=== PATIENT | male | born 1950 | race Caucasian/White ===

== ENCOUNTER 2017-09-16 18:53 | Inpatient (IN) | payer BC ==
[~2017-09-16] VITALS: Ht 180.3 cm; Wt 97.1 kg
[2017-09-16 19:40] LABS: BASO % 0.2 %; BASO ABS # 0.02 K/uL (0-0.2); EOS % 2.1 %; EOS ABS # 0.18 K/uL (0-0.5); HEMATOCRIT 46.2 % (42-52); HEMOGLOBIN 17.2 g/dL (14.0-18.0); IG# 0.03 K/uL (0.00-0.02); LYMPH % 25.2 %; LYMPH ABS # 2.14 K/uL (1.2-3.4); MEAN CELL VOLUME 91.7 fL (80-100); MEAN CORPUSCULAR HEMOGLOBIN 34.1 pg (25-34); MEAN CORPUSCULAR HGB CONC 37.2 g/dl (32-36); MEAN PLATELET VOLUME 10.5 fL (7.4-10.4); MONO % 10.5 %; MONO ABS # 0.89 K/uL (0.11-0.59); NEUT % 61.6 %; NEUT ABS # 5.24 K/uL (1.4-6.5); PLATELET COUNT 153 K/uL (130-400); RED CELL DISTRIBUTION WIDTH CV 12.6 % (11.5-14.5); RED CELL DISTRIBUTION WIDTH SD 42.1 fL (36.4-46.3)
[2017-09-16] MEDS ORDERED: METOPROLOL PO (19:43)
[2017-09-16] MEDS ORDERED: [UNRECOGNIZED DRUG - OTHER] PO (19:45)
[2017-09-16] MEDS ORDERED: [UNRECOGNIZED DRUG - OTHER] PO (19:46)
[2017-09-16 19:50] LABS: INR 0.9 (0.9-1.1); PTT PATIENT 27.7 SECONDS (21.0-31.0)
[2017-09-16 19:57] LABS: ALBUMIN 3.8 gm/dl (3.4-5.0); CALCIUM 8.8 mg/dl (8.5-10.1); CREATININE 0.91 mg/dl (0.60-1.40); POTASSIUM 3.6 mmol/L (3.5-5.1)
[2017-09-16 20:08] LABS: CKMB 1.8 ng/ml (0.5-3.6); TOTAL PROTEIN 7.5 gm/dl (6.4-8.2)
--- NOTE | 2017-09-16 20:17 | DIAGNOSTIC IMAGING REPORT ---
CHEST ONE VIEW PORTABLE CLINICAL HISTORY: Fever. Sepsis. COMPARISON STUDY: Chest radiograph August 16, 2013. FINDINGS: Lung volumes are normal. Mild cardiomegaly is unchanged. There is no evidence of pulmonary edema. There is no consolidation to suggest pneumonia. Cardiomediastinal silhouette is stable. No pneumothorax or pleural effusion is present. IMPRESSION: No acute cardiopulmonary findings. No change in appearance of the chest. Electronically signed by: Ruperto Padilla M.D. 09/16/2017 8:16 PM Dictated Date/Time: 09/16/2017 8:14 PM
[2017-09-16] MEDS ORDERED: ASPIRIN 81 MG CHEW PO STA (20:31)
[2017-09-16] MEDS ORDERED: ENOXAPARIN 1 MG/KG SQ SCH (20:45)
[2017-09-16] MEDS ORDERED: NITROGLYCERIN 0.4 MG SL PER TAB CHARGE SL PRN (20:45)
[2017-09-16] MEDS ORDERED: MoRPHine SULFATE 2 MG/ML CARP IV PRN (20:45)
[2017-09-16] MEDS ORDERED: POLYETHYLENE (MIRALAX) 17 GM PACK PO PRN (20:45)
[2017-09-16] MEDS ORDERED: NITROGLYCERIN OINT 2% 1GM PACKET EXT ONE (20:45)
[2017-09-16] MEDS ORDERED: ALUMINUM/MAGNESIUM/SIMETH (MAALOX MAX) 30 ML UDC PO PRN (20:45)
[2017-09-16] MEDS ORDERED: ONDANSETRON INJ 2 MG/ML 2 ML VIAL IV PRN (20:45)
[2017-09-16] MEDS ORDERED: MAGNESIUM HYDROXIDE SUSP 30 ML UDC PO PRN (20:45)
[2017-09-16] MEDS ORDERED: ZOLPIDEM TARTRATE 5 MG TAB PO PRN (20:45)
[2017-09-16] MEDS ORDERED: ACETAMINOPHEN 325 MG TAB PO PRN (20:45)
[2017-09-16] MEDS: ATORVASTATIN 20 MG TAB PO SCH ×2 (21:00→22:43)
[2017-09-16] MEDS ORDERED: LISINOPRIL 5 MG TAB PO ONE (21:00)
--- NOTE | 2017-09-16 21:20 | EMERGENCY ROOM VISIT NOTE ---
History Report prepared by Nigel: Reece Vallejo Under the Supervision of: Dr. Memo Bunn D.O. First contact with patient: 19:05 Chief Complaint: CHEST PAIN Stated Complaint: HEART PAIN History of Present Illness The patient is a 67 year old male who presents to the Emergency Room with complaints of resolved intermittent dull left sided chest pain that occurred three days ago. He is currently not experiencing any pain. At that time, the patient was exerting himself while stacking wood outside, when he suddenly became extremely dizzy. He then felt this deep sensation in his chest with bilateral arm weakness, which has never happened before. He denies any shortness of breath at that time, but his chest felt tight. He was then very fatigued over the next few days. He then experienced this same pain today while walking up and down the stairs. He has a past medical history of lyme disease in May of this year. He was treated with 4 weeks of Doxycycline and notes that he has been improving significantly since then. He is supposed to be taking Metoprolol for his hypertension but has been using homeopathy medicines for his condition instead. Source of History: patient Onset: three days ago Position: chest (left) Symptom Intensity: moderate Quality: dull Timing: resolved Modifying Factors (Worsening): exertion Associated Symptoms: No SOB Note: He is currently asymptomatic. When he exerted himself, he was dizzy with a tightness in his chest and weakness to his bilateral arms. Review of Systems See HPI for pertinent positives & negatives. A total of 10 systems reviewed and were otherwise negative. Past Medical & Surgical Medical Problems: (1) Chest pain (2) HTN (hypertension) (3) Lyme disease (4) Troponin I above reference range Family History Omitted secondary to the patient's age. Social History Smoking Status: Never Smoker Smokeless Tobacco Use: No Drug Use: none Marital Status: Housing Status: lives with family Occupation Status: employed Current/Historical Medications Scheduled [Metoprolol], 1 TAB PO DAILY [Samento], 1 TAB PO DAILY [Tesal Herb], 1 DOSE PO DAILY Allergies Uncoded Allergies: HAIRSPRAY (Allergy, Severe, ITCHY, COUGH, 09/16/17) HORSE HAIR (Allergy, Severe, ITCHY, COUGH, 09/16/17) Physical Exam Vital Signs Date Time Temp Pulse Resp B/P (MAP) Pulse Ox O2 Delivery O2 Flow Rate FiO2 09/16/17 20:40 72 09/16/17 20:11 96 Room Air 09/16/17 20:09 88 20 181/111 96 Room Air 09/16/17 20:06 Room Air 09/16/17 18:57 37.2 78 16 218/104 95 Room Air Physical Exam CONSTITUTIONAL/VITAL SIGNS: Reviewed / noted above. GENERAL: Non-toxic in appearance. INTEGUMENTARY: Warm, dry, and [place]. HEAD: Normocephalic. EYES: without scleral icterus or trauma. ENT/OROPHARYNX: clear and moist. LYMPHADENOPATHY/NECK: Is supple without lymphadenopathy or meningismus. RESPIRATORY: Lungs clear and equal. CARDIOVASCULAR: Regular rate and rhythm. GI/ABDOMEN: Soft and nontender. No organomegaly or pulsatile mass. No rebound or guarding. Normal bowel sounds. EXTREMITIES: Warm and well perfused. BACK: No CVA tenderness. NEUROLOGICAL: Intact without focal deficits. PSYCHIATRIC: normal affect. MUSCULOSKELETAL: Normally developed with good muscle tone. Medical Decision & Procedures ER Provider Diagnostic Interpretation: Radiology results as stated below per my review and radiologist interpretation: CHEST ONE VIEW PORTABLE CLINICAL HISTORY: Fever. Sepsis. COMPARISON STUDY: Chest radiograph August 16, 2013. FINDINGS: Lung volumes are normal. Mild cardiomegaly is unchanged. There is no evidence of pulmonary edema. There is no consolidation to suggest pneumonia. Cardiomediastinal silhouette is stable. No pneumothorax or pleural effusion is present. IMPRESSION: No acute cardiopulmonary findings. No change in appearance of the chest. Electronically signed by: Ruperto Padilla M.D. 09/16/2017 8:16 PM Dictated Date/Time: 09/16/2017 8:14 PM Laboratory Results 09/16/17 19:25 Red Blood Count 5.04, Mean Corpuscular Volume 91.7, Mean Corpuscular Hemoglobin 34.1, Mean Corpuscular Hemoglobin Concent 37.2, Mean Platelet Volume 10.5, Neutrophils (%) (Auto) 61.6, Lymphocytes (%) (Auto) 25.2, Monocytes (%) (Auto) 10.5, Eosinophils (%) (Auto) 2.1, Basophils (%) (Auto) 0.2, Neutrophils # (Auto ) 5.24, Lymphocytes # (Auto) 2.14, Monocytes # (Auto) 0.89, Eosinophils # (Auto ) 0.18, Basophils # (Auto) 0.02 09/16/17 19:25 Test 09/16/17 19:25 09/16/17 20:11 White Blood Count 8.50 K/uL (4.8-10.8) Red Blood Count 5.04 M/uL (4.7-6.1) Hemoglobin 17.2 g/dL (14.0-18.0) Hematocrit 46.2 % (42-52) Mean Corpuscular Volume 91.7 fL (80-100) Mean Corpuscular Hemoglobin 34.1 pg (25-34) Mean Corpuscular Hemoglobin Concent 37.2 g/dl (32-36) Platelet Count 153 K/uL (130-400) Mean Platelet Volume 10.5 fL (7.4-10.4) Neutrophils (%) (Auto) 61.6 % Lymphocytes (%) (Auto) 25.2 % Monocytes (%) (Auto) 10.5 % Eosinophils (%) (Auto) 2.1 % Basophils (%) (Auto) 0.2 % Neutrophils # (Auto) 5.24 K/uL (1.4-6.5) Lymphocytes # (Auto) 2.14 K/uL (1.2-3.4) Monocytes # (Auto) 0.89 K/uL (0.11-0.59) Eosinophils # (Auto) 0.18 K/uL (0-0.5) Basophils # (Auto) 0.02 K/uL (0-0.2) RDW Standard Deviation 42.1 fL (36.4-46.3) RDW Coefficient of Variation 12.6 % (11.5-14.5) Immature Granulocyte % (Auto) 0.4 % Immature Granulocyte # (Auto) 0.03 K/uL (0.00-0.02) Prothrombin Time 10.1 SECONDS (9.0-12.0) Prothromb Time International Ratio 0.9 (0.9-1.1) Activated Partial Thromboplast Time 27.7 SECONDS (21.0-31.0) Partial Thromboplastin Ratio 1.1 Anion Gap 7.0 mmol/L (3-11) Est Creatinine Clear Calc Drug Dose 97.9 ml/min Estimated GFR () 102.1 Estimated GFR (Non- 88.1 BUN/Creatinine Ratio 19.4 (10-20) Calcium Level 8.8 mg/dl (8.5-10.1) Total Bilirubin 0.5 mg/dl (0.2-1) Direct Bilirubin 0.1 mg/dl (0-0.2) Aspartate Amino Transf (AST/SGOT) 19 U/L (15-37) Alanine Aminotransferase (ALT/SGPT) 28 U/L (12-78) Alkaline Phosphatase 102 U/L (45-117) Total Creatine Kinase 100 U/L (39-308) Creatine Kinase MB 1.8 ng/ml (0.5-3.6) Creatine Kinase MB Ratio 1.8 (0-3.0) Troponin I 0.162 ng/ml (0-0.045) Total Protein 7.5 gm/dl (6.4-8.2) Albumin 3.8 gm/dl (3.4-5.0) Lipase 132 U/L (73-393) Urine Color YELLOW Urine Appearance CLEAR (CLEAR) Urine pH 7.0 (4.5-7.5) Urine Specific [place] 1.018 (1.000-1.030) Urine Protein NEG (NEG) Urine Glucose (UA) NEG (NEG) Urine Ketones NEG (NEG) Urine Occult Blood NEG (NEG) Urine Nitrite NEG (NEG) Urine Bilirubin NEG (NEG) Urine Urobilinogen NEG (NEG) Urine Leukocyte Esterase NEG (NEG) Laboratory results as stated above per my review. Medications Administered Medications (Trade) Dose Ordered Sig/Mike Route Start Time Stop Time Status Last Admin Dose Admin Aspirin (Aspirin Chew) 324 mg NOW STAT PO 09/16/17 20:31 09/16/17 20:34 DC 09/16/17 20:48 324 MG ECG Indication: chest pain Rate (beats per minute): 79 Rhythm: normal sinus Findings: no acute ischemic change, no ectopy ED Course 1904: Previous medical records were reviewed. The patient was evaluated in room B11. A complete history and physical examination was performed. 2030: Ordered Heparin Sodium/Dextrose 1 ea N/A, Aspirin Chew 324 mg PO 2050: On reevaluation, the patient is resting. I discussed the results and findings with him. He verbalized agreement of the treatment plan. I spoke with Dr. Dumont of the [facility]. The patient will be evaluated for further management and care. Medical Decision Differentials considered include acute myocardial infarction, acute coronary syndrome, myocarditis, pericarditis, pericardial effusions/tamponade, esophageal perforation, thoracic aortic dissection, pulmonary embolism, pneumonia, pneumothorax, pancreatitis, shingles, acute cholecystitis, and perforated abdominal viscus. This is a 67-year-old male who presents to the ED with a chief complaint of exertional chest pain. He states that he had symptoms on Friday as well as today. He also felt fatigued over the weekend. The patient states he is currently not having any discomfort. His exam was unremarkable. His vital signs revealed hypertension. He is supposed to be taking metoprolol for his hypertension but states that he has been using an herbal medication instead. The patient has a normal CBC and chemistry panel. The troponin is elevated. His EKG does not show any acute ischemic changes. His EKG reveals a sinus rhythm. Chest x-ray did not show acute disease. The patient was treated with aspirin by mouth, nitroglycerin paste as well as heparin IV. He was seen by the hospitalist for further inpatient evaluation and care. Medication Reconcilliation Current Medication List: was personally reviewed by me Blood Pressure Screening Patient's blood pressure: Elevated blood pressure Referred to the hospitalist. Consults Time Called: 2044 Consulting Physician: Dr. Julia Britt [facility] [place] Returned Call: 2050 Discussed the patient's case. The patient will be evaluated for further treatment and disposition. Impression Primary Impression: Unstable angina Scribe Attestation The scribe's documentation has been prepared under my direction and personally reviewed by me in its entirety. I confirm that the note above accurately reflects all work, treatment, procedures, and medical decision making performed by me. Departure Information Dispostion Being Evaluated By Hospitalist Referrals No Doctor, Assigned (PCP) Patient Instructions My [facility]
[2017-09-16] MEDS ORDERED: HEPARIN 25000 UNIT/500 ML D5W ONE (21:27)
--- NOTE | 2017-09-16 21:39 | History and Physical ---
History & Physical Date & Time of Service: Sep 16, 2017 at 21:29 Chief Complaint: Heart Pain Primary Care Physician: No Doctor, Assigned History of Present Illness Source: patient 67 y/o M Hx HTN. 5 days prior, he had been unloading some wood and developed central, squeezing CP accompanied by SOB. He denies N/V, lightheadedness or diaphoresis. The pain recurred again today associated with exrtion. 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 The pt states that he was diagnosed with Lyme disease in may and had gained 22 pounds as a result of related inactivity. He also states that he had been prescribed a B destiny for HTN which he has not complied with as it made him feel poorly. His BP was markedly elevated on arrival to the hospital. Past Medical/Surgical History Medical Problems: (1) HTN (hypertension) Status: Chronic (2) Lyme disease Status: Resolved Family History Mother alitony and well at 86 - Father in 70s - no documented CAD Social History Smoking Status: Never Smoker Smokeless Tobacco Use: No Drug Use: none Marital Status: Occupational Status: employed Allergies Uncoded Allergies: HAIRSPRAY (Allergy, Severe, ITCHY, COUGH, 09/16/17) HORSE HAIR (Allergy, Severe, ITCHY, COUGH, 09/16/17) Home Medications Scheduled [Metoprolol], 1 TAB PO DAILY [Samento], 1 TAB PO DAILY [Tesal Herb], 1 DOSE PO DAILY Review of Systems Constitutional: No fever, No chills, No sweats Eyes: No worsening of vision ENT: No hearing loss, No nasal symptoms Respiratory: No cough, No sputum, No wheezing Cardiovascular: + chest pain (as reported above) Abdomen: No pain, No nausea, No vomiting Musculoskeletal: No joint pain Genitourinary - Male: No hematuria, No dysuria Neurologic: No memory loss, No paralysis, No weakness Psychiatric: No depression symptoms Endocrine: No fatigue Hematologic / Lymphatic: No abnormal bleeding/bruising Integumentary: No rash Allergic / Immunologic: No environmental allergies Physical Exam Vital Signs Date Time Temp Pulse Resp B/P (MAP) Pulse Ox O2 Delivery O2 Flow Rate FiO2 09/16/17 20:40 72 09/16/17 20:11 96 Room Air 09/16/17 20:09 88 20 181/111 96 Room Air 09/16/17 20:06 Room Air 09/16/17 18:57 37.2 78 16 218/104 95 Room Air General Appearance: WD/WN, no apparent distress, + obese Head: normocephalic Eyes: normal inspection ENT: normal ENT inspection, pharynx normal Neck: supple, no JVD Respiratory/Chest: chest non-tender, lungs clear, normal breath sounds Cardiovascular: regular rate, rhythm, no edema, no gallop Abdomen/GI: normal bowel sounds, non tender, soft Back: normal inspection, no CVA tenderness, no muscle spasm, normal range of motion Extremities/Musculoskelatal: normal inspection, no calf tenderness, normal capillary refill, no pedal edema, normal range of motion Neurologic/Psych: glass maker II-XII nml as tested, no motor/sensory deficits, alert, normal mood/affect, normal reflexes, oriented x 3 Skin: normal color, warm/dry, no rash Diagnostics Laboratory Results Results Past 24 Hours Test 09/16/17 19:25 09/16/17 20:11 Range/Units White Blood Count 8.50 4.8-10.8 K/uL Red Blood Count 5.04 4.7-6.1 M/uL Hemoglobin 17.2 14.0-18.0 g/dL Hematocrit 46.2 42-52 % Mean Corpuscular Volume 91.7 80-100 fL Mean Corpuscular Hemoglobin 34.1 25-34 pg Mean Corpuscular Hemoglobin Concent 37.2 32-36 g/dl Platelet Count 153 130-400 K/uL Mean Platelet Volume 10.5 7.4-10.4 fL Neutrophils (%) (Auto) 61.6 % Lymphocytes (%) (Auto) 25.2 % Monocytes (%) (Auto) 10.5 % Eosinophils (%) (Auto) 2.1 % Basophils (%) (Auto) 0.2 % Neutrophils # (Auto) 5.24 1.4-6.5 K/uL Lymphocytes # (Auto) 2.14 1.2-3.4 K/uL Monocytes # (Auto) 0.89 0.11-0.59 K/uL Eosinophils # (Auto) 0.18 0-0.5 K/uL Basophils # (Auto) 0.02 0-0.2 K/uL RDW Standard Deviation 42.1 36.4-46.3 fL RDW Coefficient of Variation 12.6 11.5-14.5 % Immature Granulocyte % (Auto) 0.4 % Immature Granulocyte # (Auto) 0.03 0.00-0.02 K/uL Prothrombin Time 10.1 9.0-12.0 SECONDS Prothromb Time International Ratio 0.9 0.9-1.1 Activated Partial Thromboplast Time 27.7 21.0-31.0 SECONDS Partial Thromboplastin Ratio 1.1 Sodium Level 140 136-145 mmol/L Potassium Level 3.6 3.5-5.1 mmol/L Chloride Level 107 98-107 mmol/L Carbon Dioxide Level 26 21-32 mmol/L Anion Gap 7.0 3-11 mmol/L Blood Urea Nitrogen 18 7-18 mg/dl Creatinine 0.91 0.60-1.40 mg/dl Est Creatinine Clear Calc Drug Dose 97.9 ml/min Estimated GFR () 102.1 Estimated GFR (Non- 88.1 BUN/Creatinine Ratio 19.4 10-20 Random Glucose 85 70-99 mg/dl Calcium Level 8.8 8.5-10.1 mg/dl Total Bilirubin 0.5 0.2-1 mg/dl Direct Bilirubin 0.1 0-0.2 mg/dl Aspartate Amino Transf (AST/SGOT) 19 15-37 U/L Alanine Aminotransferase (ALT/SGPT) 28 12-78 U/L Alkaline Phosphatase 102 45-117 U/L Total Creatine Kinase 100 39-308 U/L Creatine Kinase MB 1.8 0.5-3.6 ng/ml Creatine Kinase MB Ratio 1.8 0-3.0 Troponin I 0.162 0-0.045 ng/ml Total Protein 7.5 6.4-8.2 gm/dl Albumin 3.8 3.4-5.0 gm/dl Lipase 132 73-393 U/L Urine Color YELLOW Urine Appearance CLEAR CLEAR Urine pH 7.0 4.5-7.5 Urine Specific [place] 1.018 1.000-1.030 Urine Protein NEG NEG Urine Glucose (UA) NEG NEG Urine Ketones NEG NEG Urine Occult Blood NEG NEG Urine Nitrite NEG NEG Urine Bilirubin NEG NEG Urine Urobilinogen NEG NEG Urine Leukocyte Esterase NEG NEG Microbiology Results 09/16/17 Blood Culture, Received Pending 09/16/17 Blood Culture, Ordered Pending CXR normal EKG NSR - inf Q wvs Impression Assessment and Plan 67 y/o M Hx HTN. 5 days prior, he had been unloading some wood and developed central, squeezing CP accompanied by SOB. He denies N/V, lightheadedness or diaphoresis. The pain recurred again today associated with exertion. 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 The pt states that he was diagnosed with Lyme disease in may and had gained 22 pounds as a result of related inactivity. He also states that he had been prescribed a B destiny for HTN which he has not complied with as it made him feel poorly. His BP was markedly elevated on arrival to the hospital. 1) CP - elevated trop and EKG changes - CP has resolved at rest - Pt placed on full dose Lovenox, ASA, Statin and a B destiny. An echo and a cardio consult are requested. 2) HTN - Placed on a B destiny and Lisinopril as monotherapy is unlikely to be effective with his current readings. Full code - Full dose Lovenox total time for this admit including review of labs, meds, imaging, records - discussion with pt and ER attending - 33 min Level of Care Telemetry Resuscitation Status FULL RESUSCITATION VTE Prophylaxis VTE Risk Assessment Done? Y/N: Yes Risk Level: Low Given or contraindicated: Enoxaparin (Lovenox)SQ
[2017-09-16] MEDS ORDERED: IV FLUIDS COMPLETED PRN (22:00)
[2017-09-16] MEDS ORDERED: HEPARIN 25,000 UNIT/500ML D5W 500 ML IV PRN (22:00)
[2017-09-16] MEDS: METOPROLOL TARTRATE 25 MG TAB PO SCH (22:02)
--- NOTE | 2017-09-16 22:15 | NUR ---
A/ID: Patient arrived to PCU room 241-1 from ED, admitted with chest pain and elevated troponin. Patient alert and oriented, denies pain at this time. Lung sounds clear, no dyspnea. No edema noted, sinus rhythm on monitor, hypertensive 200s/110s. Abdomen soft nontender, denies nausea/vomiting, will be NPO at midnight. Voids clear yellow in urinal. Skin intact. Up ad christa in room. Heparin infusing@31cc/hr. Code word established, fall agreement signed. Plan for echo in the morning and possible cardiac cath. Call coyne in reach, will continue to monitor.
[2017-09-16] MEDS ORDERED: [UNRECOGNIZED DRUG - REMARK] ONE (22:30)
[2017-09-16] MEDS: ENOXAPARIN 100 MG/1ML SYR SQ SCH (22:42)
[2017-09-16] MEDS: D5NSS + 20MEQ KCL 1,000 ML IV SCH (22:43)
[2017-09-16 22:51] VITALS: BP_SYST 195; BP_SYST 207; BP_DIAS 117; BP_DIAS 99; PULSE 96; TEMP 37.2; O2SAT 94; Ht 180.3 cm; Wt 97.1 kg
[2017-09-16 23:20] VITALS: BP 182/95; PULSE 68; TEMP 36.7; O2SAT 92
[2017-09-16 23:59] VITALS: O2SAT 92
[2017-09-17] VITALS (24 sets, daily range): BP systolic 131–211; BP diastolic 75–123; PULSE 63–96; TEMP 36.5–37.8; O2SAT 92–96
--- NOTE | 2017-09-17 00:26 | NUR ---
A- PT HAD LATE SANDWICH TRAY PRIOR TO MN. NPO AFTER MN. MONITOR SR. RESP REG AND EASY. IV W/ KCL INFUSING AT 100CC/HR. NO C/O CP/PRESSURE OR SOB. CALL JACKSON IN REACH.
[2017-09-17] MEDS: NITROGLYCERIN OINT 2% 1GM PACKET EXT SCH ×4 (03:24→20:59)
--- NOTE | 2017-09-17 04:32 | NUR ---
A- NO C/O CP/PRESSURE OR SOB. NO CHANGE IN PT STATUS. CALL JACKSON IN REACH.
[2017-09-17] MEDS ORDERED: PERFLUTREN LIPID MICROSPHERE (DEFINITY) IV ONE (07:50)
[2017-09-17 08:25] LABS: HEMATOCRIT 43.2 % (42-52); HEMOGLOBIN 15.5 g/dL (14.0-18.0); MEAN CELL VOLUME 91.7 fL (80-100); MEAN CORPUSCULAR HEMOGLOBIN 32.9 pg (25-34); MEAN CORPUSCULAR HGB CONC 35.9 g/dl (32-36); MEAN PLATELET VOLUME 10.6 fL (7.4-10.4); PLATELET COUNT 147 K/uL (130-400); RED CELL DISTRIBUTION WIDTH CV 12.6 % (11.5-14.5); RED CELL DISTRIBUTION WIDTH SD 42.3 fL (36.4-46.3); WHITE BLOOD COUNT 5.85 K/uL (4.8-10.8)
[2017-09-17] MEDS ORDERED: LISINOPRIL 5 MG TAB PO SCH (09:00)
[2017-09-17] MEDS: ASPIRIN 81 MG ECTAB PO SCH (09:31)
[2017-09-17] MEDS: METOPROLOL TARTRATE 25 MG TAB PO SCH ×2 (09:31→21:00)
[2017-09-17] MEDS: D5NSS + 20MEQ KCL 1,000 ML IV SCH (09:32)
[2017-09-17] MEDS: ENOXAPARIN 100 MG/1ML SYR SQ SCH (09:55)
--- NOTE | 2017-09-17 10:37 | Medical Student: [facility] ---
Med Student Progress Note Date of Service Sep 17, 2017. Subjective Pt evaluation today including: conversation w/ patient, physical exam, chart review, lab review, review of studies, review of inpatient medication list 67 year old male with history of hypertension with medication non-compliance presenting with substernal chest pressure that resolved within a half an hour accompanied by shortness of breath, dizziness, and weakness. An EKG performed in the ER showed Q waves in inferior leads, and T-wave inversions in the anterior leads. Troponin was positive at 0 hour and continued to increase at hour 4. No symptoms were present upon admission to ER. Blood pressure was 218/ 104 on admission. FL in father at age 51. No smoking history, no history of diabetes, no history of hyperlipidemia. Patient is in bed without any acute symptoms. He is hoping to prevent an episode like this from happening again. Review of Systems Constitutional: + weakness (resolved), No fever, No chills, No weight loss Respiratory: + shortness of breath (resolved), No cough, No wheezing, No hemoptysis Cardiac: + chest pain (resolved), No edema, No palpitations Abdomen: No pain, No nausea, No vomiting, No diarrhea Male : No dysuria Skin: No rash All Other Systems: Reviewed and Negative Objective Vital Signs Date Time Temp Pulse Resp B/P (MAP) Pulse Ox O2 Delivery O2 Flow Rate FiO2 09/17/17 08:15 37.0 66 16 141/80 (100) 94 Room Air 09/17/17 04:00 92 Room Air 09/17/17 03:25 36.8 63 18 131/75 (93) 95 Room Air 09/16/17 23:59 92 Room Air 09/16/17 23:20 36.7 68 19 182/95 (124) 92 Room Air 09/16/17 22:51 37.2 96 20 207/117 94 Room Air 195/99 09/16/17 21:30 77 20 180/108 94 Room Air 09/16/17 20:40 72 09/16/17 20:11 96 Room Air 09/16/17 20:09 88 20 181/111 96 Room Air 09/16/17 20:06 Room Air 09/16/17 20:05 71 20 187/111 94 Room Air 09/16/17 19:50 75 20 177/110 93 Room Air 09/16/17 18:57 37.2 78 16 218/104 95 Room Air Physical Exam General Appearance: WD/WN, no apparent distress Eyes: bilateral eyes normal inspection ENT: normal ENT inspection, hearing grossly normal, pharynx normal Neck: no JVD Respiratory/Chest: chest non-tender, lungs clear, normal breath sounds, no respiratory distress, no accessory muscle use Cardiovascular: regular rate, rhythm, no edema, no gallop, no JVD, no murmur Abdomen: normal bowel sounds, non tender, soft, no organomegaly, no pulsatile mass Extremities: non-tender, normal inspection, no pedal edema, no calf tenderness Neurologic/Psychiatric: no motor/sensory deficits, alert, normal mood/affect, oriented x 3 Skin: normal color, no rash Laboratory Results Last 24 Hours Test 09/16/17 19:25 09/16/17 20:11 09/16/17 23:04 09/17/17 07:55 White Blood Count 8.50 K/uL 5.85 K/uL Red Blood Count 5.04 M/uL 4.71 M/uL Hemoglobin 17.2 g/dL 15.5 g/dL Hematocrit 46.2 % 43.2 % Mean Corpuscular Volume 91.7 fL 91.7 fL Mean Corpuscular Hemoglobin 34.1 pg 32.9 pg Mean Corpuscular Hemoglobin Concent 37.2 g/dl 35.9 g/dl Platelet Count 153 K/uL 147 K/uL Mean Platelet Volume 10.5 fL 10.6 fL Neutrophils (%) (Auto) 61.6 % Lymphocytes (%) (Auto) 25.2 % Monocytes (%) (Auto) 10.5 % Eosinophils (%) (Auto) 2.1 % Basophils (%) (Auto) 0.2 % Neutrophils # (Auto) 5.24 K/uL Lymphocytes # (Auto) 2.14 K/uL Monocytes # (Auto) 0.89 K/uL Eosinophils # (Auto) 0.18 K/uL Basophils # (Auto) 0.02 K/uL RDW Standard Deviation 42.1 fL 42.3 fL RDW Coefficient of Variation 12.6 % 12.6 % Immature Granulocyte % (Auto) 0.4 % Immature Granulocyte # (Auto) 0.03 K/uL Prothrombin Time 10.1 SECONDS Prothromb Time International Ratio 0.9 Activated Partial Thromboplast Time 27.7 SECONDS Partial Thromboplastin Ratio 1.1 Sodium Level 140 mmol/L Potassium Level 3.6 mmol/L Chloride Level 107 mmol/L Carbon Dioxide Level 26 mmol/L Anion Gap 7.0 mmol/L Blood Urea Nitrogen 18 mg/dl Creatinine 0.91 mg/dl Est Creatinine Clear Calc Drug Dose 97.9 ml/min Estimated GFR () 102.1 Estimated GFR (Non- 88.1 BUN/Creatinine Ratio 19.4 Random Glucose 85 mg/dl Calcium Level 8.8 mg/dl Total Bilirubin 0.5 mg/dl Direct Bilirubin 0.1 mg/dl Aspartate Amino Transf (AST/SGOT) 19 U/L Alanine Aminotransferase (ALT/SGPT) 28 U/L Alkaline Phosphatase 102 U/L Total Creatine Kinase 100 U/L Creatine Kinase MB 1.8 ng/ml Creatine Kinase MB Ratio 1.8 Troponin I 0.162 ng/ml 0.281 ng/ml 0.317 ng/ml Total Protein 7.5 gm/dl Albumin 3.8 gm/dl Lipase 132 U/L Urine Color YELLOW Urine Appearance CLEAR Urine pH 7.0 Urine Specific Fowler 1.018 Urine Protein NEG Urine Glucose (UA) NEG Urine Ketones NEG Urine Occult Blood NEG Urine Nitrite NEG Urine Bilirubin NEG Urine Urobilinogen NEG Urine Leukocyte Esterase NEG Triglycerides Level 95 mg/dl Cholesterol Level 176 mg/dl HDL Cholesterol 54 mg/dl LDL Cholesterol, Calculated 103 mg/dl VLDL Cholesterol, Calculated 19 mg/dl Cholesterol/HDL Ratio 3.3 Medications Current Inpatient Medications Medications (Trade) Dose Ordered Sig/Mike Route Start Time Stop Time Status Last Admin Dose Admin Acetaminophen (Tylenol Tab) 650 mg Q4H PRN PO 09/16/17 20:45 10/16/17 20:44 Al Hydrox/Mg Hydrox/Simethicone (Maalox Max Susp) 15 ml Q4H PRN PO 09/16/17 20:45 10/16/17 20:44 Magnesium Hydroxide (Milk Of Magnesia Susp) 30 ml Q12H PRN PO 09/16/17 20:45 10/16/17 20:44 Zolpidem Tartrate (Ambien Tab) 5 mg HSZ PRN PO 09/16/17 20:45 10/16/17 20:44 Ondansetron HCl (Zofran Inj) 4 mg Q6H PRN IV 09/16/17 20:45 10/16/17 20:44 Nitroglycerin (Nitrostat Tab) 0.4 mg UD PRN SL 09/16/17 20:45 10/16/17 20:44 Nitroglycerin (Nitroglycerin 2% Oint) 1 inch Q6H EXT 09/17/17 04:00 10/17/17 03:59 09/17/17 03:24 1 INCH Morphine Sulfate (MoRPHine SULFATE INJ) 2 mg Q30M PRN IV 09/16/17 20:45 09/30/17 20:44 Aspirin (Ecotrin Tab) 81 mg QAM PO 09/17/17 09:00 10/17/17 08:59 Polyethylene (Miralax Powder Packet) 17 gm DAILY PRN PO 09/16/17 20:45 10/16/17 20:44 Potassium Chloride/Dextrose/ Sod Cl 1,000 ml @ 100 mls/hr Q10H IV 09/16/17 22:30 09/17/17 13:29 09/16/17 22:43 100 MLS/HR Lisinopril (Zestril Tab) 5 mg QAM PO 09/17/17 09:00 10/17/17 08:59 Metoprolol Tartrate (Lopressor Tab) 12.5 mg BID PO 09/16/17 21:00 10/16/17 20:59 09/16/17 22:02 12.5 MG Atorvastatin Calcium (Lipitor Tab) 20 mg HS PO 09/16/17 21:00 10/16/17 20:59 Miscellaneous (Iv Fluids Completed) 1 ea PRN PRN N/A 09/16/17 22:00 09/16/18 21:59 Enoxaparin Sodium (Lovenox Inj) 100 mg Q12 SQ 09/16/17 22:30 10/16/17 22:29 09/16/17 22:42 100 MG Assessment and Plan Assessment and Plan: Problem List: Elevated Troponin Hypertension Abnormal EKG Assessment: 67 year old male with history of hypertension presenting with 30 minutes of resolved substernal pressure accompanied by dizziness, shortness of breath and weakness. Troponin elevated at presentation and increasing at 4 hours. EKG shows Q waves in inferior leads indicating past inferior FL. T-wave inversions in the anterior leads suggesting possible NSTEMI. Hypertensive 218/104 on presentation. MARIAMA score 1 (5% risk of FL within 14 days). HEART score on presentation was 7 (50-75% chance of adverse cardiac event within 6 weeks) indicating admission. Plan: 1. Elevated troponin: likely due to ischemic (NSTEMI). Risk stratification stress test vs. catheterization. Will see cardiology consult. Started on metoprolol, Lovenox, aspirin. Refused atorvastatin. Echo results are pending. No abnormalities seen on CXR. Denies risk factors for PE, pain not typical for aortic dissection. No other reasons for elevated troponin are obvious. 2. Hypertension: Non-compliant to DOROTHY-I and metoprolol due to side effects ( cough). Switch lisinopril to losartan. Continue metoprolol. Blood pressure has decreased to 141/80. Dispo: Risk stratification with cath vs. stress test. Cardiology consult. Discharge home. Discharge planning: home
--- NOTE | 2017-09-17 10:51 | ECHOCARDIOGRAM REPORT ---
*NOTICE TO RECEIVING [employer] This information is strictly Confidential and protected under [place] law. [place] law prohibits you from making any further disclosure of this information unless further disclosure is expressly permitted by the written consent of the person to whom it pertains or is authorized by law. A general authorization for the release of medical or other information is not sufficient for this purpose. Hospital accepts no responsibility if the information is made available to any other person, INCLUDING THE PATIENT. Interpretation Summary * Name: LEON DUNHAM Study Date: 09/17/2017 07:13 AM BP: 131/75 mmHg * Patient Location: C.2T\S\S241\S\1 HR: 63 * : 1950 (M/d/yyyy) Gender: Male Height: 71 in * Age: 67 yrs Ethnicity: CA Weight: 222 lb * Ordering Physician: Eddie Dumont * Referring Physician: Self, Referred * Performed By: Vilma Cuello RDCS * * Reason For Study: GA * BSA: 2.2 m2 * Normal biventricular systolic function. * Moderate concentric left ventricular hypertrophy. * Class 1 left ventricular diastolic dysfunction. * Normal chamber dimensions. * No significant valvular abnormalities noted. Procedure Details * A contrast injection of Definity was performed to improve assessment of LV function. * Contrast was injected into an intravenous site in the left arm. * One vial of Definity ultrasound contrast was diluted in normal saline to a total volume of 10 ml. A total of '2' ml of solution was administered during imaging. * Lot # [id number] of Definity utilized for procedure. * Expiration date OCT 13. * The attending nurse who injected the contrast agent was SHRUTHI DUNAWAY. Left Ventricle * The left ventricular cavity is small. * There is moderate concentric left ventricular hypertrophy. * Ejection Fraction = 65-70%. * Left ventricular systolic function is normal. * A full diastolic examination was done with clinical findings of Class I diastolic dysfunction. * The left ventricular wall motion is normal. Right Ventricle * The right ventricle is normal in size and function. * The right ventricular systolic function is normal as assessed by tricuspid annular plane systolic excursion (TAPSE) (normal >1.5 cm). Atria * The left atrial size is normal. * Right atrial size is normal. * No ASD detected; PFO is not assessed. Mitral Valve * The mitral valve is normal. * There is no mitral valve stenosis. * There is no mitral regurgitation noted. Tricuspid Valve * The tricuspid valve is normal. * There is no tricuspid stenosis. * Significant tricuspid regurgitation is absent. Aortic Valve * The aortic valve is trileaflet. * The aortic valve opens well. * Aortic stenosis is absent. * No aortic regurgitation is present. Pulmonic Valve * The pulmonic valve is not well visualized. * The pulmonary valve is inadequately visualized, but the Doppler data is adequate for interpretation. * There is no pulmonic valvular stenosis. * There is no pulmonic valvular regurgitation. Great Vessels * The aortic root is normal size. Pericardium/Pleural * There is no pericardial effusion. Great Vessels * Normal inferior vena cava diameter and respiratory variation suggests normal central venous pressure. MMode 2D Measurements and Calculations IVSd 1.5 cm IVSs 1.9 cm LVIDd 4.2 cm LVIDs 2.6 cm LVPWd 1.5 cm LVPWs 2.4 cm IVS/LVPW 0.97 FS 38.4 % EDV(Teich) 78.3 ml ESV(Teich) 24.2 ml EF(Teich) 69.1 % EDV(cubed) 73.8 ml ESV(cubed) 17.2 ml EF(cubed) 76.7 % % IVS thick 30.8 % % LVPW thick 59.9 % LV mass(C)d 251.6 grams LV mass(C)dI 114.1 grams/m\S\2 LV mass(C)s 268.9 grams LV mass(C)sI 122.0 grams/m\S\2 SV(Teich) 54.1 ml SI(Teich) 24.5 ml/m\S\2 SV(cubed) 56.5 ml SI(cubed) 25.7 ml/m\S\2 Ao root diam 3.4 cm Ao root area 9.3 cm\S\2 LA dimension 3.7 cm LA/Ao 1.1 LVAd ap4 40.3 cm\S\2 LVLd ap4 10.1 cm EDV(MOD-sp4) 131.0 ml LVAs ap4 20.5 cm\S\2 LVLs ap4 7.5 cm ESV(MOD-sp4) 44.4 ml EF(MOD-sp4) 66.1 % LVAd ap2 39.5 cm\S\2 LVLd ap2 9.6 cm EDV(MOD-sp2) 137.0 ml LVAs ap2 22.8 cm\S\2 LVLs ap2 9.2 cm ESV(MOD-sp2) 46.9 ml EF(MOD-sp2) 65.8 % SV(MOD-sp4) 86.6 ml SI(MOD-sp4) 39.3 ml/m\S\2 SV(MOD-sp2) 90.1 ml SI(MOD-sp2) 40.9 ml/m\S\2 Doppler Measurements and Calculations MV E max eliezer 56.3 cm/sec MV A max eliezer 85.9 cm/sec MV E/A 0.66 MV dec time 0.28 sec Ao V2 max 136.5 cm/sec Ao max PG 7.5 mmHg Ao max PG (full) 3.9 mmHg LV V1 max PG 3.6 mmHg LV V1 max 94.6 cm/sec
[2017-09-17] MEDS ORDERED: NiCARDipine HCL INJ 2.5 MG/ML 10 ML AMP ONE (11:59)
[2017-09-17] MEDS ORDERED: HEPARIN SOD (PORCINE) 1000 UNIT/ML 10 ML VIAL ONE (12:00)
[2017-09-17] MEDS ORDERED: NITROGLYCERIN/D5W 100MCG/ML 20ML SYR ONE (12:01)
[2017-09-17] MEDS ORDERED: FENTANYL CITRATE INJ 50 MCG/1 ML 2 ML VIAL ONE ×2 (12:02→13:13)
[2017-09-17] MEDS ORDERED: MIDAZOLAM HCL 1 MG/ML 2ML VIAL ONE ×2 (12:02→12:48)
--- NOTE | 2017-09-17 12:40 | Procedure Note ---
Pre-Mod Sedation Assessment General Date of Moderate Sedation: Sep 17, 2017. Vital Signs: Vital Signs Past 12 Hours Date Time Temp Pulse Resp B/P (MAP) Pulse Ox O2 Delivery O2 Flow Rate FiO2 09/17/17 08:15 37.0 66 16 141/80 (100) 94 Room Air 09/17/17 04:00 92 Room Air 09/17/17 03:25 36.8 63 18 131/75 (93) 95 Room Air Review Cardiovascular: regular rate, rhythm, no edema, no gallop, no JVD, no murmur, normal peripheral pulses Abdomen: non tender Lungs: lungs clear Pre-Sedation Airway Assessment Oral Cavity: WNL Able to Visualize Vocal Cords: No Short Thick Neck: No Hx of Sleep Apnea: No Smoking Status: Never Smoker Mallampati Classification: Class III ASA Classification: Class II Procedure Planning Contraindications-for Mod Sed: None Yes Notes The planned sedation has been discussed with the patient and consent obtained. I have identified the patient, determined the appropriateness of sedation and have assessed the patient immediately prior to the procedure. All medicine(s) and interventions are by my order.
[2017-09-17] MEDS ORDERED: EPTIFIBATIDE 2 MG/ML 10 ML VIAL IV ONE (13:16)
[2017-09-17] MEDS ORDERED: EPTIFIBATIDE 0.75 MG/ML 75MG VIAL IV ONE (13:16)
[2017-09-17] MEDS ORDERED: TICAGRELOR 90 MG TAB PO ONE (13:52)
--- NOTE | 2017-09-17 14:10 | Cardiac Catheterization ---
Procedure Note Procedure Date Sep 17, 2017. Pre-Procedure Diagnosis Non STEMI AUC Score 9 Post-Procedure Diagnosis Severe CAD, Successful PCI, Elevated Intracardiac Pressures (LVEDP 14 mm Hg) Procedure(s) Performed Coronary Angiography, Left Heart Cath, PTCA, Drug Eluting Stent Clinical Account Executive Dr. Chavez Parts Delivery Driver(s) Suresh Kenyon,RTR Estimated Blood Loss 20 ml Medication(s) Fentanyl, Heparin, Integrilin, Norepinephrine (Intra-arterial and intracoronary) , Versed, Lidocaine 1% ticagrelor 180 mg PO post PCI Summary of Findings Clinical indications: Non ST elevation myocardial infarction. Peak troponin I 0.317. Electrocardiogram with anterior lateral T inversions. Echocardiogram with normal LV systolic function, mild LVH, class 1 LV diastolic dysfunction, and no significant valve abnormalities. CAD risk factors include family history of premature coronary artery disease in his father, hypertension, and dyslipidemia. Catheterization site: 6 Spanish glide sheath right radial artery. Diagnostic catheter: 5 Spanish Site Seer brachial 3.5 diagnostic catheter. Used for coronary angiography and left heart catheterization. Interventional equipment: 6 Spanish EBU 3.75 guide catheter, two [place] guidewires ( one in LAD and one in LAD diagonal ), Medtronic 2.5 x 10 mm Sprinter balloon dilatation catheter, Medtronic Resolute Bhupinder drug-eluting stent. Interventional protocol: [place] guidewires were placed in both the LAD diagonal and LAD. PTCA was then performed to the mid LAD stenosis with the sprinter balloon. Two balloon inflations to maximum pressure of 8 atmospheres and maximum duration of 15 seconds were performed. The stent was then deployed at a pressure of 12 atmospheres for 45 seconds. ( nominal pressure0 Using the stent delivery balloon a 2nd inflation was performed the stent to a pressure of 18 atmospheres for duration of 15 seconds.( rated burst pressure). Follow-up angiography was then performed. The guidewires were withdrawn and further angiography was performed from orthogonal projections. Prior to intervention intra venous Integrilin and heparin were administered. A therapeutic activated clotting time was documented. Post procedure the patient was given a loading dose of 180 mg oral ticagrelor . He had no complaints of chest pain during or following the procedure. No cerebrovascular or peripheral vascular complaints during the procedure. Hemodynamically stable. No arrhythmias. Hemostasis: Terumo TR band. Findings: Right dominant circulation. Coronary calcifications. Very large caliber left main coronary artery giving rise to medium caliber left circumflex , ramus intermedius, and left anterior descending coronary arteries. The left main had no obstructive disease. The very proximal LAD had a 50-70% stenosis after the origin of a long small-medium caliber 1st diagonal artery. The 1st diagonal had minor luminal irregularities in its mid segment. After the origin of a prominent septal perforating artery the early mid LAD had a 90-95% stenosis. This ended just prior to to the origin of a medium caliber 2nd diagonal artery. The 2nd diagonal had a 30% ostial stenosis. The latter mid LAD had a long 30% stenosis. The distal LAD wrapped around the apex of the heart as a small caliber vessel. MARIAMA 3 flow was present in the LAD and LAD diagonals. Following intervention to the mid LAD stenosis the residual stenosis between the septal and 2nd diagonal was 0-10%. The stent was deployed across the origin of the septal perforated her. The distal segment of the stent was partially deployed across the origin of the 2nd diagonal. There was no evidence of dissection, thrombus, perforation, or distal embolic event. MARIAMA 3 flow in the LAD and diagonal arteries. There did not appear to be any change in the ostial diagonal stenosis. The ramus intermedius was a bifurcating vessel which had a 20% mid segment stenosis. The proximal left circumflex gave rise to a long medium caliber 1st marginal artery which had a 20 % mid segment stenosis. After the origin of the marginal the circumflex continued on in the atrioventricular groove as a small caliber vessel. The distal circumflex gave rise to 2 very small caliber posterolateral arteries. The right coronary was a large caliber vessel which had a 20% proximal stenosis. 20% mid segment stenosis. Long 20% distal stenosis prior to the origin of the PDA and posterolateral arteries. The PDA and PL branches were of small to medium caliber. The mid PDA had a 10-20% stenosis. The PL had no obstructive disease. Plan: The patient should remain on dual antiplatelet therapy for 1 year. Maximal CAD risk factor modification therapy including statin, beta-destiny, and DOROTHY-inhibitor. After the patient received the loading dose of ticagrelor the intravenous Integrilin was discontinued. Post PCI electrocardiogram and labs were ordered. Hemodynamics Rest Ao: 137/73/99 mm Hg Final Ao: 130/72/98 mm Hg LV: 156/14 mm Hg Recommendations Medical therapy and/or Counseling, PCI without planned CABG Specimens None Radiation Exposure (mGy) 3897 m y Contrast (mls) 250 ml Visipaque Fluids (cc crystalloids) 150 ml Drains None Anesthesia Intravenous Versed and fentanyl. Lidocaine 1% for local. Procedural Complication(s) None Disposition PCU ACC Data Cardiac Status Clinical evaluation leading to the procedure CAD Presntation: Non STEMI Anginal Classification: CCS IV Heart Failure: No Cardiogenic Shock w/in 24Hrs: No Cardiac Arrest w/in 24Hrs: No Imaging studies past 6 months: Yes Stress studies past 6 months: No Standard Exercise Stress Test: No Stress Echocardiogram: No Stress Testing w/SPECT MPI: No Cardiac CTA: No Coronary Anatomy Dominant: Right Left Main (% Stenosis): Normal LAD (% Stenosis): Proximal (50-60), Mid (90-95,30) D1 (% Stenosis): Mid (0-10) D2 (% Stenosis): Ostial (30) Circumflex (% Stenosis): Normal OM1 (% Stenosis): Mid (20) L PL1 (% Stenosis): Normal L PL2 (% Stenosis): Normal RCA (% Stenosis): Proximal (20), Mid (20), Distal (20) R PDA (% Stenosis): Mid (10-20) R PL1 (% Stenosis): Normal Ramus (% Stenosis): Mid (20) Left Ventricular Angiography EF (%): NA Diagnostic Physician's Name: Marcello Chavez M.D. Closure Device Percutaneous Entry Location: Radial Closure Device: Radial Band Recommendations: Medical therapy and/or Counseling, PCI without planned CABG PCI Indication: PCI for high risk Non-STEMI Lesion Segment Name: Mid LAD Culprit Artery: Yes Stenosis Prior to Rx (%): 95 Chronic Total Occlusion: No IVUS: No FFR: No Pre-Procedure MARIAMA Flow: 3 Previously Treated Lesion: No Lesion Complexity: Non-High/Non-C Lesion Length (mm): 10 Thrombus Present: No Bifurcation Lesion: Yes Guidewire Across Lesion: Yes Guidewire: Stenosis Post-Procedure (%): 0-10 Post-Procedure MARIAMA Flow: 3 Device(s) Deployed: Yes Type of Device(s): Medtronic Resolute Bhupinder 3 X 12 mm GENOVEVA. Intraprocedure Events Significant Dissection: No Perforation: No
--- NOTE | 2017-09-17 14:14 | Procedure Note ---
Post-Mod Sedation Assessment General Date of Moderate Sedation Sep 17, 2017. Vital Signs: Vital Signs Past 12 Hours Date Time Temp Pulse Resp B/P (MAP) Pulse Ox O2 Delivery O2 Flow Rate FiO2 09/17/17 14:02 73 18 120/70 (87) 95 Room Air 09/17/17 13:57 75 18 125/70 (88) 95 Room Air 09/17/17 13:52 75 18 138/70 (92) 95 Room Air 09/17/17 12:00 94 Room Air 09/17/17 11:00 37.0 66 16 141/80 94 Room Air 09/17/17 08:15 37.0 66 16 141/80 (100) 94 Room Air 09/17/17 08:00 94 Room Air 09/17/17 04:00 92 Room Air 09/17/17 03:25 36.8 63 18 131/75 (93) 95 Room Air Review - Discharge Criteria Vital Signs Stable: Yes Alert/Oriented/Conversant: Yes Returned to Baseline Mental St: Yes Nausea Absent/Minimal: Yes Pain/Discomfort/Absent/Minimal: Yes Normal/Baseline Respirations: Yes Active Bleeding?: No Pt Received D/C Instructions: N/A Prescriptions Given: None Specific Proced. D/C Criteria Distal Pulses Present (Cardiac: Yes Groin site assessed-Card Cath: N/A Voided Prior To Discharge: N/A Discharged Patients Adult Escort/Transportation: N/A
[2017-09-17] MEDS ORDERED: EPTIFIBATIDE BOLUS / DRIP IV ONE (14:15)
[2017-09-17] MEDS ORDERED: LORAZEPAM INJ 0.5 MG in SYRINGE 0 ML IV PRN (14:15)
[2017-09-17] MEDS ORDERED: ATROPINE SULFATE 0.1 MG/ML 5ML SYR IV PRN (14:15)
[2017-09-17] MEDS ORDERED: ACETAMINOPHEN 325 MG TAB PO PRN (14:15)
[2017-09-17] MEDS ORDERED: ONDANSETRON INJ 2 MG/ML 2 ML VIAL IV PRN (14:15)
--- NOTE | 2017-09-17 14:15 | NUR ---
Pt. returned from animal laboratory helper; SP PCTA R radial approach; TR mary right wrist good CMS ; Post opt vital signs initiate see EMR;
[2017-09-17] MEDS ORDERED: EPTIFIBATIDE INJ 75 MG PREMIXED IV SCH (14:30)
[2017-09-17 14:33] LABS: BASO % 0.2 %; BASO ABS # 0.02 K/uL (0-0.2); EOS % 0.7 %; EOS ABS # 0.07 K/uL (0-0.5); HEMATOCRIT 43.7 % (42-52); HEMOGLOBIN 15.6 g/dL (14.0-18.0); IG# 0.02 K/uL (0.00-0.02); LYMPH % 12.2 %; LYMPH ABS # 1.18 K/uL (1.2-3.4); MEAN CORPUSCULAR HEMOGLOBIN 32.8 pg (25-34); MEAN PLATELET VOLUME 10.5 fL (7.4-10.4); MONO % 7.8 %; MONO ABS # 0.75 K/uL (0.11-0.59); NEUT % 78.9 %; NEUT ABS # 7.63 K/uL (1.4-6.5); PLATELET COUNT 148 K/uL (130-400); RED CELL DISTRIBUTION WIDTH CV 12.5 % (11.5-14.5); RED CELL DISTRIBUTION WIDTH SD 42.3 fL (36.4-46.3); WHITE BLOOD COUNT 9.67 K/uL (4.8-10.8)
--- NOTE | 2017-09-17 14:43 | NUR ---
Notified Dr. Chavez of pt. reporting left sided numbness and Numbness in left side of face; physician to present to bedside to evaluate;
--- NOTE | 2017-09-17 14:48 | NUR ---
Dr. Chavez and cath labrn present at bedside
--- NOTE | 2017-09-17 14:56 | NUR ---
per Dr Helio Chavez stop Integrilin at this time.
--- NOTE | 2017-09-17 15:00 | CARDIOLOGY CONSULTATION REPORT ---
DATE OF CONSULTATION: 09/17/[address] Chavez. REASON FOR CONSULTATION: 1. Chest pain. 2. Elevated troponin I. HISTORY OF PRESENT ILLNESS: Mr. Smith is a very pleasant 67-year-old white male with a history of longstanding hypertension, medication noncompliance, resolved Lyme disease earlier this year and LVH, who presented acutely to [facility] Emergency Room on 09/16/2017, complaining of a very deep chest discomfort, described as a pressure with associated dyspnea and bilateral arm heaviness and weakness, which occurred on the day of admission. The patient denies any prior cardiac history or prior cardiac events. Last Friday (5 days ago), patient was loading a full cord of firewood in through his basement window and his was stacking it. He felt fatigued and unlike himself most of the day that day. The more wood he was loading, the worse he felt, until he eventually felt somewhat dizzy (someone described as listing to the left and not lightheadedness), and had a vague deep chest sensation which he had never experienced before. He did not finish loading the wood and told his he could not do anymore at that point. He went inside and sat down. Most of his symptoms resolved but he remained fatigued over the ensuing 2 days. Yesterday, patient decided to finish putting away the firewood, and as he was carrying an armload of firewood up the steps -- he developed a profound, deep pressure sensation in his chest, which was associated with dyspnea and bilateral arm heaviness, weakness. He put the firewood down and decided to sit down on the steps. The discomfort actually worsened as he was resting, and lasted for a minimum of 30 minutes, and then his symptoms improved. He then called his daughters who came to see him. They stated that he appeared very washed out, pale, and anxious. Therefore, they made him come to the Emergency Room. On the way to the Emergency Room, his symptoms resolved completely. In the ER, he was noted to have an initial Troponin I elevation of 0.162 ng/mL. His initial EKG showed sinus rhythm with Q waves in leads III and aVF, possibly an age indeterminate inferior infarct. The patient was placed on telemetry and started on the appropriate medications including aspirin, Lopressor, Lipitor, nitro paste, Lovenox, and lisinopril. He has not had any recurrence of his chest pain since being here but still feels very poorly at the present time. His troponin I level has subsequently trended upward and his EKG done earlier today shows sinus rhythm at the rate of 67 beats per minute with T-wave inversion in the leads V2, V4, V5 and V6 which is new. Q waves are still present in leads III and aVF. His presentation is very consistent with an acute NSTEMI. His cardiac risk factors include his age, gender, medication noncompliance, longstanding hypertension, and a family history of premature CAD. MEDICATIONS: 1. Lipitor 20 mg daily. 2. Zestril 5 mg daily. 3. Aspirin 81 mg a day. 4. Nitroglycerin ointment 2% 1 inch apply to the exterior chest wall q. 6 hours. 5. D5 half normal saline at 100 mL/hour. 6. Lovenox 100 mg subcutaneous injection q. 12 hours. 7. Lopressor 12.5 mg b.i.d. 8. Tylenol p.r.n. 9. Maalox p.r.n. 10. Milk of magnesia p.r.n. 11. Ambien p.r.n. 12. Zofran p.r.n. 13. Sublingual nitroglycerin 0.4 mg p.r.n. 14. Morphine sulfate 2 mg IV q. 30 minutes p.r.n. for chest pain. 15. MiraLax powder p.r.n. ALLERGIES: 1. HAIR SPRAY. 2. HORSE HAIR. 3. INTOLERANCE TO LISINOPRIL WHICH HAS CAUSED A COUGH IN THE PAST. SOCIAL HISTORY: The patient is and lives with his in the [place] area. He was accompanied by 2 daughters today. He is a lifelong nonsmoker. Does not use tobacco or alcohol. FAMILY HISTORY: Significant for premature CAD in his father. Father apparently had an DE at age of 51 but lived into his 70s. Mother is still living at the age of 86. PHYSICAL EXAMINATION: GENERAL: The patient is in no acute distress. HEENT: Head is atraumatic and normocephalic. EOMs intact. Sclerae are anicteric. Face is symmetric. No perioral cyanosis. Mucous membranes moist. NECK: Without thyromegaly, adenopathy, or JVD. Carotid upstrokes are +2 bilaterally without bruits. CHEST AND LUNGS: Clear to auscultation throughout all lung barron. No wheezes, rales, or rhonchi. CARDIOVASCULAR: S1 and S2 are regular, borderline bradycardia, without obvious murmur, gallop or rub. PMI is nonpalpable. No lifts, heaves, or thrills. No abdominal aortic, renal or femoral arterial bruits noted. Femoral upstrokes are +2 bilaterally. ABDOMEN: Bowel sounds are present. No masses, organomegaly, or tenderness. EXTREMITIES: Without clubbing or cyanosis. Trace ankle edema noted bilaterally. Radial and ulnar pulses are +2 bilaterally with a positive Darrin test. NEUROLOGIC: The patient is awake, alert and oriented. Pleasant and cooperative. Answers questions appropriately. Speech is clear. Normal movement in all 4 extremities. Gait pattern not assessed. Echocardiogram performed earlier today shows normal biventricular systolic function, LVEF 65-70% without regional wall motion abnormalities. Moderate concentric LVH with grade 1 diastolic dysfunction. Normal chamber sizes. No significant valvular abnormalities noted. LABORATORY DATA: White blood cell count is 5.85, hemoglobin 15.5 mg/dL, hematocrit 43.2%, platelet count 147,000. Troponin I 0.317, 0.281 and 0.162 ng/mL. Total CK on admission was 100 with a CK-MB of 1.8. Lipid panel shows total cholesterol of 176 with an HDL of 54 and an LDL of 103 mg/dL. EKGs as described above. ASSESSMENT: 1. NSTEMI, as evidenced by new EKG changes and elevated troponin I level. 2. Longstanding Hypertension, not controlled. 3. History of medication noncompliance. 4. LVH with grade 1 diastolic dysfunction, likely secondary to longstanding hypertension. 5. He is currently without angina pectoris. PLAN: 1. Discussed with Dr. Chavez. 2. Continue Lopressor 12.5 mg b.i.d. for the time being. 3. Recommend converting from lisinopril to an ARB due to previous side effects from Lisinopril. 4. Increase Lipitor to 80 mg daily. 5. Continue topical nitrates for the time being. 6. IV Heparin will be started in the catheterization laboratory. 7. Continue long-term aspirin daily. 8. I had a long discussion today with patient regarding what a cardiac catheterization is, how the procedure is done, and the risks, benefits, potential outcomes of cardiac catheterization +/- PCI. The patient and his daughters agreed to proceed. 9. Further treatment intervention pending an outcome of his Cardiac Catheterization. 10. We will continue to follow along while hospitalized and as an outpatient. The patient was seen and examined by me in conjunction with Mr. Garland. History as above. CAD risk factors include family history of coronary artery disease in his father, dyslipidemia, and hypertension. His troponin I is mildly elevated. Echocardiogram today with normal LV systolic function and wall motion. Electrocardiogram and echocardiogram both reviewed by me. The electrocardiogram reveals anterior T inversions consistent with myocardial ischemia. His physical exam shows no evidence of heart failure. Cardiac exam is normal. Peripheral pulses are normal. The procedure, risks, benefits, and alternatives of cardiac catheterization and percutaneous coronary intervention were extensively discussed with the patient by me. He consented to the procedure. The cardiac catheterization was subsequently performed via a 6 [place] sheath in the right radial artery. This revealed a 95 percent mid LAD stenosis. This was felt to be the culprit lesion. The proximal LAD had a 60 percent stenosis. A 3 by 12 millimeter drug-eluting stent was deployed in the mid LAD. No residual stenosis. No dissection, thrombus, perforation, or distal embolic event. MARIAMA 3 flow in the LAD and its branches post PCI. He had no coronary, cardiac, or vascular complaints during or following the procedure. 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 He was hemodynamically stable. No arrhythmia is. During the procedure he received intravenous Integrilin and heparin. Therapeutic activated clotting times were documented. Post PCI he received a 180 milligram dose of Brilinta. He was already on aspirin. It is recommended that he remain on dual antiplatelet therapy for at least 1 year. Agree with switching him from lisinopril to an angiotensin receptor destiny. He stated to me that he had a significant cough in the past on Francisco inhibitor therapy. Continue beta- destiny therapy. Continue maximum dose of atorvastatin. This is indicated in light of his dyslipidemia and underlying coronary artery disease. Will treat his proximal LAD stenosis medically at this time. He he should have Cardiology follow-up with me or Mr. Garland 1-2 weeks following discharge. Thank you for asking us to see this patient in Cardiology consultation. Addendum: When the patient was transferred from the cardiac catheterization lab back to his telemetry unit room he complained of paresthesias in fingers of his left hand as well as left side of his face. He was evaluated by me after I was notified of these symptoms. He had no focal motor weakness on exam. He was alert and oriented x3. No neurologic deficit was noted by me. However, in light of the symptoms and the antithrombotic therapy that had been given to him it was felt best to exclude an acute intracranial process. He subsequently underwent an unenhanced head CT scan which revealed no acute intracranial abnormalities. No evidence of stroke. No evidence of an intercerebral hemorrhage. The paresthesias in both his face and fingers had resolved prior to my arrival in the room. They had lasted only several minutes. After the head CT scan the patient was noted to have a brief episode of difficulty in finding words and expressive aphasia. He was again evaluated by me as well as Dr. Jose Del Cid. He again had no focal motor weakness. His family who was at his bedside felt that he was not his normal self. This was in regards to his fluency in expressing himself. Because of the symptoms a stroke alert was called. The stroke alert neurologic property consultant recommended no new antithrombotic therapy. It was recommended that he undergo further imaging of his brain with either MRI or CT angiography. The patient's stent is MRI safe. He is permitted to undergo MRI scanning of his brain tonight. MARQUES
--- NOTE | 2017-09-17 15:08 | Hospitalist Progress Note ---
Hospitalist Progress Note Date of Service Sep 17, 2017. (Harper Mon PA-C) Subjective Pt evaluation today including: conversation w/ patient, conversation w/ family , physical exam, chart review, lab review, review of studies, conversation w/ transformation consultant (Henrique Garland PA-C), review of inpatient medication list Pain: 0 PO Intake: NPO Voiding: no voiding problems Patient seen and evaluated. Admitted overnight for chest pain with elevated troponins. Troponins continued to rise however chest pain has not returned. EKG support ongoing ischemic findings Discussed with cardiology and patient underwent catheterization with LAD stenting. Verbalized no other complaints at this time. Constitutional: No fever, No chills Respiratory: + cough, No shortness of breath Cardiovascular: No chest pain, No palpitations Abdomen: No pain, No nausea, No vomiting, No diarrhea, No constipation Musculoskeletal: No swelling, No calf pain Heme: No abnormal bleeding/bruising Skin: No rash (Harper Mon PA-C) Medications Current Inpatient Medications Medications (Trade) Dose Ordered Sig/Mike Route Start Time Stop Time Status Last Admin Dose Admin Acetaminophen (Tylenol Tab) 650 mg Q4H PRN PO 09/16/17 20:45 10/16/17 20:44 Al Hydrox/Mg Hydrox/Simethicone (Maalox Max Susp) 15 ml Q4H PRN PO 09/16/17 20:45 10/16/17 20:44 Magnesium Hydroxide (Milk Of Magnesia Susp) 30 ml Q12H PRN PO 09/16/17 20:45 10/16/17 20:44 Zolpidem Tartrate (Ambien Tab) 5 mg HSZ PRN PO 09/16/17 20:45 10/16/17 20:44 Ondansetron HCl (Zofran Inj) 4 mg Q6H PRN IV 09/16/17 20:45 10/16/17 20:44 Nitroglycerin (Nitrostat Tab) 0.4 mg UD PRN SL 09/16/17 20:45 10/16/17 20:44 Nitroglycerin (Nitroglycerin 2% Oint) 1 inch Q6H EXT 09/17/17 04:00 10/17/17 03:59 09/17/17 03:24 1 INCH Morphine Sulfate (MoRPHine SULFATE INJ) 2 mg Q30M PRN IV 09/16/17 20:45 09/30/17 20:44 Aspirin (Ecotrin Tab) 81 mg QAM PO 09/17/17 09:00 10/17/17 08:59 09/17/17 09:31 81 MG Polyethylene (Miralax Powder Packet) 17 gm DAILY PRN PO 09/16/17 20:45 10/16/17 20:44 Lisinopril (Zestril Tab) 5 mg QAM PO 09/17/17 09:00 10/17/17 08:59 Metoprolol Tartrate (Lopressor Tab) 12.5 mg BID PO 09/16/17 21:00 10/16/17 20:59 09/17/17 09:31 12.5 MG Miscellaneous (Iv Fluids Completed) 1 ea PRN PRN N/A 09/16/17 22:00 09/16/18 21:59 Atorvastatin Calcium (Lipitor Tab) 80 mg HS PO 09/17/17 21:00 10/16/17 20:59 UNV Atropine Sulfate (Atropine Sulfate 0.1MG/Ml Inj) 0.5 mg ONE PRN IV 09/17/17 14:15 10/17/17 14:14 Lorazepam 0.5 mg/ Syringe 0.25 ml @ 1 mls/min Q6H PRN IV 09/17/17 14:15 10/17/17 14:14 Ticagrelor (Brilinta Tab) 90 mg BID PO 09/17/17 21:00 10/17/17 20:59 Eptifibatide 100 ml @ 16 mls/hr Q6H15M IV 09/17/17 14:30 09/17/17 19:00 09/17/17 14:37 16 MLS/HR Miscellaneous (Stop Order) 1 ea TODAY@1900 ONCE N/A 09/17/17 19:00 09/17/17 19:01 (Harper Mon, TETO) Objective Vital Signs Date Time Temp Pulse Resp B/P (MAP) Pulse Ox O2 Delivery O2 Flow Rate FiO2 09/17/17 14:06 36.5 69 16 156/93 (114) 93 Room Air 09/17/17 14:02 73 18 120/70 (87) 95 Room Air 09/17/17 13:57 75 18 125/70 (88) 95 Room Air 09/17/17 13:52 75 18 138/70 (92) 95 Room Air 09/17/17 12:00 94 Room Air 09/17/17 11:00 37.0 66 16 141/80 94 Room Air 09/17/17 08:15 37.0 66 16 141/80 (100) 94 Room Air 09/17/17 08:00 94 Room Air 09/17/17 04:00 92 Room Air 09/17/17 03:25 36.8 63 18 131/75 (93) 95 Room Air 09/16/17 23:59 92 Room Air 09/16/17 23:20 36.7 68 19 182/95 (124) 92 Room Air 09/16/17 22:51 37.2 96 20 207/117 94 Room Air 195/99 09/16/17 21:30 77 20 180/108 94 Room Air 09/16/17 20:40 72 09/16/17 20:11 96 Room Air 09/16/17 20:09 88 20 181/111 96 Room Air 09/16/17 20:06 Room Air 09/16/17 20:05 71 20 187/111 94 Room Air 09/16/17 19:50 75 20 177/110 93 Room Air 09/16/17 18:57 37.2 78 16 218/104 95 Room Air (Harper Mon PA-C) Physical Exam General Appearance: WD/WN, no apparent distress Eyes: sclerae normal ENT: hearing grossly normal Neck: supple, no JVD, trachea midline Respiratory/Chest: lungs clear, normal breath sounds, no respiratory distress, no accessory muscle use Cardiovascular: regular rate, rhythm, no gallop, no murmur Abdomen: normal bowel sounds, non tender, soft Extremities: no pedal edema, no calf tenderness Neurologic/Psychiatric: alert, oriented x 3 Skin: normal color, warm/dry (Harper Mon PA-C) Laboratory Results Last 24 Hours Test 09/16/17 19:25 09/16/17 20:11 09/16/17 23:04 09/17/17 07:55 White Blood Count 8.50 K/uL 5.85 K/uL Red Blood Count 5.04 M/uL 4.71 M/uL Hemoglobin 17.2 g/dL 15.5 g/dL Hematocrit 46.2 % 43.2 % Mean Corpuscular Volume 91.7 fL 91.7 fL Mean Corpuscular Hemoglobin 34.1 pg 32.9 pg Mean Corpuscular Hemoglobin Concent 37.2 g/dl 35.9 g/dl Platelet Count 153 K/uL 147 K/uL Mean Platelet Volume 10.5 fL 10.6 fL Neutrophils (%) (Auto) 61.6 % Lymphocytes (%) (Auto) 25.2 % Monocytes (%) (Auto) 10.5 % Eosinophils (%) (Auto) 2.1 % Basophils (%) (Auto) 0.2 % Neutrophils # (Auto) 5.24 K/uL Lymphocytes # (Auto) 2.14 K/uL Monocytes # (Auto) 0.89 K/uL Eosinophils # (Auto) 0.18 K/uL Basophils # (Auto) 0.02 K/uL RDW Standard Deviation 42.1 fL 42.3 fL RDW Coefficient of Variation 12.6 % 12.6 % Immature Granulocyte % (Auto) 0.4 % Immature Granulocyte # (Auto) 0.03 K/uL Prothrombin Time 10.1 SECONDS Prothromb Time International Ratio 0.9 Activated Partial Thromboplast Time 27.7 SECONDS Partial Thromboplastin Ratio 1.1 Sodium Level 140 mmol/L Potassium Level 3.6 mmol/L Chloride Level 107 mmol/L Carbon Dioxide Level 26 mmol/L Anion Gap 7.0 mmol/L Blood Urea Nitrogen 18 mg/dl Creatinine 0.91 mg/dl Est Creatinine Clear Calc Drug Dose 97.9 ml/min Estimated GFR () 102.1 Estimated GFR (Non- 88.1 BUN/Creatinine Ratio 19.4 Random Glucose 85 mg/dl Calcium Level 8.8 mg/dl Total Bilirubin 0.5 mg/dl Direct Bilirubin 0.1 mg/dl Aspartate Amino Transf (AST/SGOT) 19 U/L Alanine Aminotransferase (ALT/SGPT) 28 U/L Alkaline Phosphatase 102 U/L Total Creatine Kinase 100 U/L Creatine Kinase MB 1.8 ng/ml Creatine Kinase MB Ratio 1.8 Troponin I 0.162 ng/ml 0.281 ng/ml 0.317 ng/ml Total Protein 7.5 gm/dl Albumin 3.8 gm/dl Lipase 132 U/L Urine Color YELLOW Urine Appearance CLEAR Urine pH 7.0 Urine Specific Comptche 1.018 Urine Protein NEG Urine Glucose (UA) NEG Urine Ketones NEG Urine Occult Blood NEG Urine Nitrite NEG Urine Bilirubin NEG Urine Urobilinogen NEG Urine Leukocyte Esterase NEG Triglycerides Level 95 mg/dl Cholesterol Level 176 mg/dl HDL Cholesterol 54 mg/dl LDL Cholesterol, Calculated 103 mg/dl VLDL Cholesterol, Calculated 19 mg/dl Cholesterol/HDL Ratio 3.3 Test 09/17/17 14:20 White Blood Count 9.67 K/uL Red Blood Count 4.75 M/uL Hemoglobin 15.6 g/dL Hematocrit 43.7 % Mean Corpuscular Volume 92.0 fL Mean Corpuscular Hemoglobin 32.8 pg Platelet Count 148 K/uL Mean Platelet Volume 10.5 fL Neutrophils (%) (Auto) 78.9 % Lymphocytes (%) (Auto) 12.2 % Monocytes (%) (Auto) 7.8 % Eosinophils (%) (Auto) 0.7 % Basophils (%) (Auto) 0.2 % Neutrophils # (Auto) 7.63 K/uL Lymphocytes # (Auto) 1.18 K/uL Monocytes # (Auto) 0.75 K/uL Eosinophils # (Auto) 0.07 K/uL Basophils # (Auto) 0.02 K/uL RDW Standard Deviation 42.3 fL RDW Coefficient of Variation 12.5 % Immature Granulocyte % (Auto) 0.2 % Immature Granulocyte # (Auto) 0.02 K/uL (Harper Mon, PABalwinderC) Assessment and Plan Mr. Smith is a 67 y/o male with PMHx of HTN and previous Lyme disease who presents with chest pain and elevated troponin NSTEMI S/P PTCA with LAD Stenting on 09/17: - Troponins currently still elevating and ischemic changes on EKG - will continue to monitor since intervention - Currently on Integrilin protocol - Atorvastatin 80 mg daily - Continue ASA 81 mg daily and Brilinta 90 mg BID started HTN: - Previously on BB but non-compliant - Changed Lisinopril to Losartan 25 mg daily due to cough - continue to monitor and may need to titrate Losartan up if necessary - Metoprolol 12.5 mg BID H/O Lyme: STABLE - Recent diagnosis with associated 22+ lbs weight gain 2/2 inactivity Code Status: FULL RESUSCITATION Disposition: - Continue monitor S/P catheterization - anticipate D/C in next 1-2 days Continued [facility] stay due to: multiple IV medications needed Discharge planning: home (Harper Mon, TETO) Attending Attestation: Pt seen/examined, chart reviewed, care plan d/w NADEEM Mon. I agree w/ the amaro components of her documentation. I saw the patient multiple times after his heart cath. Apparently shortly after he got up to the telemetry unit from the labeling associate he had 3-4 minutes of numbness of his 1st/2nd/3rd digits of the left hand along with left facial numbness. He did not have any motor weakness, aphasia, or other sensory loss. Symptoms were associated with markedly elevated BP (systolics to the 180-190 range). I performed a neuro exam during this first visit and it was completely normal. I spent 20+ minutes speaking w/ the patient/family. A short time after leaving his room I received another call from his nurse that he was now having slurred speech & word finding difficulties. I went back a 2nd time - he indeed had word finding difficulties and thought blocking. He denied motor/sensory loss. BP again was markedly elevated. I called and spoke with Dr. Chavez from cardiology - we both agreed that stroke alert was indicated. With that said he was not a candidate for TPA. Of note- a head CT ordered after the first neuro event was negative. In all the word-finding difficulties lasted 20-30 minutes. BP continued to remain high. Ultimately a stroke alert conference/consult was obtained with [facility]. By the time of the consult his NIH stroke score was ZERO. Neurologist at [facility] recommended MRI brain and imaging of cerebral arteries/neck arteries w/ either MRAs or CTAs. Pt was nervous about the CT radiation and in light of the contrast load he had received earlier in the day I elected to obtain MRA brain/neck. MRI brain also ordered. Neurologist recommended systolic BP in range of 130-170 this evening. Metoprolol 25mg was ordered. In the midst of the above the patient never had chest pain or dyspnea. Exam - gen - NAD, intermittent word-finding difficulties neck - no JVD heart - RRR, s1, s2 lungs - CTA b/l abd - soft, NT, BS+ ext - no edema; right wrist w/o hematoma neuro - strength 5/5 x 4 exts; no facial droop; no pronator drift A/P: 1. NSTEMI 2nd to LAD occlusion s/p GENOVEVA 2. multi-vessel CAD - BB, asa, statin, plavix, losartan 3. suspected TIAs - appreciate stroke alert consult w/ [facility] - MRI brain, MRA head/neck, telemetry; if MRI brain does indeed show stroke this was likely embolic 4. hyperlipidemia 5. markedly elevated HTN - could be compensatory in setting of TIA vs anxiety vs combination of factors ARB BB nitrates , daughters updated multiple times tonight plan of care d/w Dr. Chavez multiple times total time spent about 80 minutes over several visits today repeat labs AM Trenton Del Cid MD (Trenton Del Cid MD)
[2017-09-17 15:09] LABS: MEAN CORPUSCULAR HGB CONC 35.7 g/dl (32-36)
--- NOTE | 2017-09-17 15:43 | DIAGNOSTIC IMAGING REPORT ---
CT HEAD WITHOUT CONTRAST (CT) CLINICAL HISTORY: Left hand and facial paresthesias status post cardiac catheterization. COMPARISON STUDY: No previous studies for comparison. TECHNIQUE: Axial CT of the brain is performed from the vertex to the skull base. IV contrast was not administered for this examination. A dose lowering technique was utilized adhering to the principles of ALARA. CT DOSE: 823.94 mGycm FINDINGS: No intra or extra-axial mass lesions are visualized. There is no CT evidence of acute cortical infarction. There is no evidence of midline shift. There is no acute hemorrhage. No calvarial fractures are visualized. There are patchy white matter hypodensities likely on a small vessel basis. There is no evidence of pathologic ventricular dilatation. There is no evidence of acute sinusitis. Contrast enhancement is secondary to contrast that was administered at the time of the patient's recent cardiac catheterization. No pathologically enhancing lesions are visualized IMPRESSION: No acute intracranial findings Electronically signed by: Yfn Beverly M.D. 09/17/2017 3:42 PM Dictated Date/Time: 09/17/2017 3:40 PM
--- NOTE | 2017-09-17 16:01 | NUR ---
A: Assessment completed- see EMR for full detail; VSS, - see EMR; AA&O, Appropriate; NSR, noted on monitor; Denies CP/SOB, chest discomfort, or chest pressure, On room Air; pt. denies pain at this time; Pt. currently resting comfortably in bed; no needs apparent or verbalized at this time; IV site intact - infusing per order; safety reviewed; call-coyne & items of necessity in reach, encouraged to ring for assistance; will continue to monitor & assess. Addendum: 09/17/17 at 1605 by Escobar Cnodon RN Amendment to Time [id number]
[2017-09-17] MEDS ORDERED: NURSING VERBAL MED ORDER ONE (16:30)
[2017-09-17] MEDS ORDERED: METOPROLOL TARTRATE 25 MG TAB PO ONE (16:45)
[2017-09-17] MEDS ORDERED: Integrelin infusion --> STOP ORDER ONE (19:00)
--- NOTE | 2017-09-17 20:30 | NUR ---
Beginning approximately 1430 today pt was having numbness in left hand fingers 1, 2, and 3 and left side of face and unable to find words to speak when asked questions. Lasted approximately 10 minutes, gradually improved throughout the [address] Del Cid notified, pt sent for CT scan. Pt had a repeat episode around 1600, Dr Del Cid on unit and came in to see patient. Stroke alert called. Stroke cart brought into room and MD at [facility] spoke with patient and staff and gave recommendations to Dr Del Cid. Pt for MRI today. Pts and daughter in room, very attentive to patient. Pt very gregarious. Has denied pain through this shift. Was able to slowly deflate right wrist cuff and remove, no bleeding noted at site, dry gauze and tape applied.
[2017-09-17] MEDS: TICAGRELOR 90 MG TAB PO SCH (20:59)
[2017-09-17] MEDS: ATORVASTATIN 40 MG TAB PO SCH (21:00)
[2017-09-17] MEDS ORDERED: ATORVASTATIN CALCIUM 80 MG TAB PO SCH (21:00)
--- NOTE | 2017-09-17 23:25 | NUR ---
A: Attempted to give patient 2100 dose of Lipitor per MD order. Patient states "I'm not taking that." Teaching provided regarding the importance of statin therapy after cardiac cath intervention along with potential stroke-like symptoms. Patient states "I don't care. I'm not taking that, it's a liver-killer."
[2017-09-18] VITALS (11 sets, daily range): BP systolic 127–172; BP diastolic 72–87; PULSE 64–82; TEMP 36.7–37.3; O2SAT 93–99
--- NOTE | 2017-09-18 00:06 | NUR ---
A: Full assessment complete; see EMR. A&OX4. BP elevated. SR on tele monitor. NIHSS 0. Lungs clear on RA. Pulses WNL. No edema noted. Denies CP, SOB, numbness/tingling, nausea, pain. Denies all neurological symptoms that he experienced earlier. Right radial cardiac cath site is WNL; 2x2 w/tegaderm is C/D/I, no signs of bleeding, bruising or hematoma. Fingers pink/warm w/brisk cap refill. Abdomen benign. Voiding in urinal. IV HL. Family at bedside requesting to spend the night; informed them that they can stay in the waiting room but not with the patient in the room because he is in a semi-private room. They verbalized understanding. Patient denies needs at this time. Call coyne within reach. RN will continue to monitor.
[2017-09-18] MEDS: NITROGLYCERIN OINT 2% 1GM PACKET EXT SCH ×2 (04:05→10:00)
--- NOTE | 2017-09-18 04:06 | NUR ---
A: Patient resting in bed at this time. No neuro deficits noted or expressed. VSS. SR on tele monitor. Denies chest pain. Right wrist cath site unchanged; no signs of bleeding, bruising or hematoma. IV HL. Daughter at bedside rubbing "essential oils" on patient for nausea but patient refused the need for Zofran. Call coyne within reach. RN will continue to monitor.
[2017-09-18 07:13] LABS: BASO % 0.1 %; BASO ABS # 0.01 K/uL (0-0.2); EOS % 0.5 %; EOS ABS # 0.04 K/uL (0-0.5); HEMATOCRIT 45.3 % (42-52); IG# 0.01 K/uL (0.00-0.02); LYMPH % 16.4 %; LYMPH ABS # 1.25 K/uL (1.2-3.4); MEAN CELL VOLUME 92.8 fL (80-100); MEAN CORPUSCULAR HEMOGLOBIN 32.8 pg (25-34); MEAN CORPUSCULAR HGB CONC 35.3 g/dl (32-36); MONO % 10.8 %; MONO ABS # 0.82 K/uL (0.11-0.59); NEUT % 72.1 %; NEUT ABS # 5.48 K/uL (1.4-6.5); PLATELET COUNT 144 K/uL (130-400); RED CELL DISTRIBUTION WIDTH CV 12.4 % (11.5-14.5); RED CELL DISTRIBUTION WIDTH SD 42.1 fL (36.4-46.3); WHITE BLOOD COUNT 7.61 K/uL (4.8-10.8)
[2017-09-18 07:38] LABS: CALCIUM 8.2 mg/dl (8.5-10.1); CREATININE 0.84 mg/dl (0.60-1.40); POTASSIUM 3.5 mmol/L (3.5-5.1)
--- NOTE | 2017-09-18 08:00 | NUR ---
Nursing assessment completed, see emr for detailed assessment. Alert and oriented x 4. Denies pain or sob at this time. Resting quietly in bed. No concerns voiced at this time. Call coyne in reach. Will continue to monitor.
[2017-09-18] MEDS: METOPROLOL TARTRATE 25 MG TAB PO SCH ×2 (08:01→21:07)
[2017-09-18] MEDS: ASPIRIN 81 MG ECTAB PO SCH (08:01)
[2017-09-18] MEDS: TICAGRELOR 90 MG TAB PO SCH ×2 (08:01→21:07)
[2017-09-18] MEDS: LOSARTAN POTASSIUM 25 MG TAB PO SCH (08:02)
[2017-09-18 09:33] LABS: HEMOGLOBIN A1C 5.1 % (4.5-5.6)
[2017-09-18] MEDS ORDERED: LORAZEPAM 2 MG/ML 1 ML VIAL ONE (09:35)
--- NOTE | 2017-09-18 10:37 | DIAGNOSTIC IMAGING REPORT ---
NECK MRA HISTORY: Post cardiac catheterization TIA versus stroke. TECHNIQUE: [id number] and gadolinium-enhanced MRA of the neck was performed both before and after the intravenous administration of contrast. All measurements were calculated based on NASCET criteria. The patient was administered 9 cc of intravenous Gadavist. COMPARISON STUDY: None. FINDINGS: The aortic arch and proximal great vessels are widely patent. There is no significant stenosis, occlusion, or dissection identified within the bilateral common carotid, internal carotid, or vertebral arteries. IMPRESSION: No significant stenosis, occlusion, or dissection identified within the carotid or vertebral arteries. Electronically signed by: Yfn Beverly M.D. 09/18/2017 10:35 AM Dictated Date/Time: 09/18/2017 10:33 AM
--- NOTE | 2017-09-18 10:39 | DIAGNOSTIC IMAGING REPORT ---
MR ANGIOGRAPHY OF THE [place] NO CONTRAST CLINICAL HISTORY: Post cardiac catheterization TIA versus stroke. COMPARISON STUDY: None. A 3-D [id number] MR angiographic sequence of the [place] was performed. Both the source and projection images were reviewed. There is no evidence of major intracranial branch occlusion. There is no evidence of intracranial stenosis. There are no lesions suspicious for aneurysm. IMPRESSION: Unremarkable MR angiography of the [place]. Electronically signed by: Yfn Beverly M.D. 09/18/2017 10:38 AM Dictated Date/Time: 09/18/2017 10:35 AM
[2017-09-18] MEDS ORDERED: GADAVIST IV PRN (10:45)
--- NOTE | 2017-09-18 10:48 | DIAGNOSTIC IMAGING REPORT ---
MRI OF THE BRAIN WITHOUT CONTRAST CLINICAL HISTORY: Expressive aphasia and left hand numbness. TIA versus stroke. COMPARISON STUDY: Noncontrast head CT dated 09/17/2017 FINDINGS: Sagittal T1, axial diffusion, proton density and T2 weighted axial, coronal FLAIR, and axial T1-weighted images were acquired. No intra or extra-axial mass lesions are visualized There is a 6 mm focus of restricted water diffusion in the left posterior frontal lobe. The finding is consistent with acute infarct. There is no evidence of ventricular dilatation. Proton density T2-weighted and FLAIR images reveal scattered foci of increased T2 signal within the white matter, likely on a small vessel basis. There are no abnormal flow voids. IMPRESSION: Small (6 mm) acute infarct in the left posterior frontal lobe. Electronically signed by: Yfn Beverly M.D. 09/18/2017 10:47 AM Dictated Date/Time: 09/18/2017 10:38 AM
--- NOTE | 2017-09-18 12:04 | Cardiology Follow-Up ---
Subjective Subjective Date of Service: Sep 18, 2017. Pt evaluation today including: conversation w/ patient, conversation w/ family , physical exam, chart review, lab review, review of studies, conversation w/ retirement sales consultant, review of inpatient medication list Additional Details: Feeling well. No residual neurologic deficits. No recurrent chest pain. No other new complaints. Tele reviewed -- no events. Echo - preserved LV function without regional wall motion abnormalities. MRI - small acute <6mm left posterior frontal cva MRA - no vascular abnormalities. Problem List Medical Problems: (1) Unstable angina Status: Acute Review of Systems Constitutional: No fever, No chills Respiratory: No cough, No shortness of breath Cardiac: No chest pain, No palpitations Abdomen: No pain, No nausea, No vomiting, No diarrhea, No constipation Musculoskeletal: No swelling, No calf pain Male : No dysuria Heme: No abnormal bleeding/bruising Skin: No rash Objective Vital Signs Last Vital Signs Documentation Date Time Temp Pulse Resp B/P (MAP) Pulse Ox O2 Delivery O2 Flow Rate FiO2 09/18/17 07:26 37.0 74 20 169/87 (114) 94 Room Air Physical Exam: General Appearance: no apparent distress Eyes: bilateral eyes normal inspection ENT: hearing grossly normal Neck: supple, no JVD, trachea midline Respiratory/Chest: lungs clear, normal breath sounds, no respiratory distress Cardiovascular: regular rate, rhythm, no gallop, no murmur Abdomen: normal bowel sounds, non tender, soft Extremities: no pedal edema, no calf tenderness, + pertinent finding (No hematoma/ecchymosis at right radial artery access site. Intact distal pulse/ sensation.) Neurologic/Psychiatric: no motor/sensory deficits, alert, oriented x 3 Skin: normal color, warm/dry Assessment and Plan 1. NSTEMI post GENOVEVA to mid LAD 2. Small frontal CVA 3. HTN with moderate LVH and preserved LV function. No recurrent chest pain, electrically stable overnight. No access site complications No residual neurologic deficits today. Permissive hypertension overnight in setting of CVA. -- Continue DAPT with ASA and Ticagrelor -- Continue high-intensity statin -- Can discontinue topical nitrates. -- Continue metoprolol, losartan. Likely increase metoprolol to 50mg BID. -- From a cardiac standpoint OK for discharge later today. Continued [facility] stay due to: multiple IV medications needed Discharge planning: home Medications: Current Inpatient Medications Medications (Trade) Dose Ordered Sig/Mike Route Start Time Stop Time Status Last Admin Dose Admin Acetaminophen (Tylenol Tab) 650 mg Q4H PRN PO 09/16/17 20:45 10/16/17 20:44 Al Hydrox/Mg Hydrox/Simethicone (Maalox Max Susp) 15 ml Q4H PRN PO 09/16/17 20:45 10/16/17 20:44 Magnesium Hydroxide (Milk Of Magnesia Susp) 30 ml Q12H PRN PO 09/16/17 20:45 10/16/17 20:44 Zolpidem Tartrate (Ambien Tab) 5 mg HSZ PRN PO 09/16/17 20:45 10/16/17 20:44 Ondansetron HCl (Zofran Inj) 4 mg Q6H PRN IV 09/16/17 20:45 10/16/17 20:44 Nitroglycerin (Nitrostat Tab) 0.4 mg UD PRN SL 09/16/17 20:45 10/16/17 20:44 Nitroglycerin (Nitroglycerin 2% Oint) 1 inch Q6H EXT 09/17/17 04:00 10/17/17 03:59 09/18/17 04:05 1 INCH Morphine Sulfate (MoRPHine SULFATE INJ) 2 mg Q30M PRN IV 09/16/17 20:45 09/30/17 20:44 Aspirin (Ecotrin Tab) 81 mg QAM PO 09/17/17 09:00 10/17/17 08:59 09/18/17 08:01 81 MG Polyethylene (Miralax Powder Packet) 17 gm DAILY PRN PO 09/16/17 20:45 10/16/17 20:44 Miscellaneous (Iv Fluids Completed) 1 ea PRN PRN N/A 09/16/17 22:00 09/16/18 21:59 Atropine Sulfate (Atropine Sulfate 0.1MG/Ml Inj) 0.5 mg ONE PRN IV 09/17/17 14:15 10/17/17 14:14 Lorazepam 0.5 mg/ Syringe 0.25 ml @ 1 mls/min Q6H PRN IV 09/17/17 14:15 10/17/17 14:14 Ticagrelor (Brilinta Tab) 90 mg BID PO 09/17/17 21:00 10/17/17 20:59 09/18/17 08:01 90 MG Losartan Potassium (coZAAR TAB) 25 mg QAM PO 09/18/17 09:00 10/18/17 08:59 09/18/17 08:02 25 MG Metoprolol Tartrate (Lopressor Tab) 25 mg BID PO 09/17/17 21:00 10/16/17 20:59 09/18/17 08:01 25 MG Atorvastatin Calcium (Lipitor Tab) 80 mg HS PO 09/17/17 21:00 10/17/17 20:59 Gadobutrol (Gadavist) 9 mmol UD PRN IV 09/18/17 10:45 09/22/17 10:44 Lab Results: 09/18/17 06:38 Red Blood Count 4.88, Mean Corpuscular Volume 92.8, Mean Corpuscular Hemoglobin 32.8, Mean Corpuscular Hemoglobin Concent 35.3, Mean Platelet Volume 11.0, Neutrophils (%) (Auto) 72.1, Lymphocytes (%) (Auto) 16.4, Monocytes (%) (Auto) 10.8, Eosinophils (%) (Auto) 0.5, Basophils (%) (Auto) 0.1, Neutrophils # (Auto ) 5.48, Lymphocytes # (Auto) 1.25, Monocytes # (Auto) 0.82, Eosinophils # (Auto ) 0.04, Basophils # (Auto) 0.01 09/18/17 06:38 Test 09/17/17 13:34 09/17/17 14:20 09/17/17 17:15 09/18/17 06:38 Kaolin Activated Coagulation Time 274 SECONDS (94-140) Troponin I 0.256 ng/ml (0-0.045) Bedside Glucose 144 mg/dl (70-99) White Blood Count 7.61 K/uL (4.8-10.8) Red Blood Count 4.88 M/uL (4.7-6.1) Hemoglobin 16.0 g/dL (14.0-18.0) Hematocrit 45.3 % (42-52) Mean Corpuscular Volume 92.8 fL (80-100) Mean Corpuscular Hemoglobin 32.8 pg (25-34) Mean Corpuscular Hemoglobin Concent 35.3 g/dl (32-36) Platelet Count 144 K/uL (130-400) Mean Platelet Volume 11.0 fL (7.4-10.4) Neutrophils (%) (Auto) 72.1 % Lymphocytes (%) (Auto) 16.4 % Monocytes (%) (Auto) 10.8 % Eosinophils (%) (Auto) 0.5 % Basophils (%) (Auto) 0.1 % Neutrophils # (Auto) 5.48 K/uL (1.4-6.5) Lymphocytes # (Auto) 1.25 K/uL (1.2-3.4) Monocytes # (Auto) 0.82 K/uL (0.11-0.59) Eosinophils # (Auto) 0.04 K/uL (0-0.5) Basophils # (Auto) 0.01 K/uL (0-0.2) RDW Standard Deviation 42.1 fL (36.4-46.3) RDW Coefficient of Variation 12.4 % (11.5-14.5) Immature Granulocyte % (Auto) 0.1 % Immature Granulocyte # (Auto) 0.01 K/uL (0.00-0.02) Activated Partial Thromboplast Time 30.0 SECONDS (21.0-31.0) Partial Thromboplastin Ratio 1.2 Anion Gap 8.0 mmol/L (3-11) Est Creatinine Clear Calc Drug Dose 104.2 ml/min Estimated GFR () 106.5 Estimated GFR (Non- 91.9 BUN/Creatinine Ratio 13.4 (10-20) Estimated Average Glucose 100 mg/dl Hemoglobin A1c 5.1 % (4.5-5.6) Calcium Level 8.2 mg/dl (8.5-10.1)
--- NOTE | 2017-09-18 12:07 | Consultant Recommendations ---
Train Control Technician Recommendations Date of Service Sep 18, 2017. Train Control Technician Recommendations -- POST CARDIAC CATHETERIZATION INSTRUCTIONS -- ACTIVITY RECOMMENDATIONS: Excess manipulation of the wrist should be avoided for the next 24-48 hours. * No lifting over 2 pounds (approximately a 1/2 gallon of milk) with the utilized arm for 24 hours. * No strenuous activity such as bowling or tennis for 3 days. * Keep the site of the procedure covered with a bandage for 24 hours. *You may shower the day after the procedure. Do not take a tub bath or submerge the puncture site in water for the next 3 days. *Do not operate any motorized equipment for 3 days. SPECIAL CARE INSTRUCTIONS: The site may be slightly bruised and sore following your procedure. Should any of the following occur, contact the Dr. who performed your procedure. 1. Redness/inflammation, swelling, chills, or fever, or colored drainage at procedure site within 3-7 days after your procedure. 2. Coldness, discoloration, ongoing numbness, severe pain, or swelling. Expect mild tingling of hand and tenderness at the puncture site for up to three days. If this persists beyond three days, or other symptoms develop, notify the Dr. who performed your procedure. BLEEDING: If the procedure site on your wrist begins to bleed, do not panic 1. Place 1 or 2 fingers firmly just slightly above the insertion site to stop the bleeding. You may be able to feel your pulse as you hold pressure. 2. Lift your finger after 5 minutes to see if the bleeding has stopped. 3. Once the bleeding has stopped, gently wipe the wrist area clean with a bandage. * If the bleeding from your wrist does not stop after 10 minutes, or if there is a large amount of bleeding or spurting, call 911 (do not drive yourself to the hospital). SKIN IRRITATION: * You may experience some redness and/or swelling in the area where radiation was administered. If any skin irritation occurs, please contact your family physician. FOLLOW UP VISIT: Keep any scheduled doctor appointments.
--- NOTE | 2017-09-18 13:57 | NUR ---
Transferred to S2- via w/c with all belongings, chart and medications.
[2017-09-18] MEDS ORDERED: NURSING VERBAL MED ORDER ONE (14:00)
--- NOTE | 2017-09-18 15:03 | NUR ---
A: Patient arrived to room. No c/o pain. IV SL. Will monitor.
--- NOTE | 2017-09-18 16:48 | Progress Note ---
Subjective Date of Service: Sep 18, 2017. Subjective Pt evaluation today including: conversation w/ patient, conversation w/ family , physical exam, chart review, lab review, review of studies, conversation w/ oncology consultant, review of inpatient medication list feeling better speech at baseline, acting and feeling like himself. no new complaints. dtr present. answered all questions to the best of my ability and to their satisfaction no further CP either Problem List Medical Problems: (1) Unstable angina Status: Acute Review of Systems all other ROS otherwise negative except for as above Objective Vital Signs Date Time Temp Pulse Resp B/P (MAP) Pulse Ox O2 Delivery O2 Flow Rate FiO2 09/18/17 16:08 36.7 64 16 127/72 (90) 93 09/18/17 15:03 36.7 70 20 172/80 (110) 99 Room Air 09/18/17 15:01 93 Room Air 09/18/17 13:57 36.9 71 18 93 09/18/17 12:15 36.9 71 18 158/82 (107) 93 Room Air 09/18/17 08:00 Room Air 09/18/17 07:26 37.0 74 20 169/87 (114) 94 Room Air 09/18/17 04:00 Room Air 09/18/17 03:38 37.3 82 23 162/86 (111) 94 Room Air 09/18/17 01:47 157/83 (107) 09/18/17 00:00 Room Air 09/17/17 23:41 37.8 80 22 171/103 (125) 92 Room Air 09/17/17 21:53 80 18 145/79 (101) 92 Room Air 09/17/17 20:36 36.6 72 16 162/76 (104) 94 Room Air 09/17/17 20:00 Room Air 09/17/17 19:00 79 16 200/104 (136) 95 Room Air 09/17/17 18:15 79 16 193/92 (125) 96 Room Air 09/17/17 18:00 70 16 183/101 (128) 93 Room Air 09/17/17 17:45 77 20 173/94 (120) 94 Room Air 09/17/17 17:30 77 16 193/114 (140) 96 Room Air 09/17/17 17:16 78 203/123 (149) 09/17/17 17:15 78 18 198/112 (140) 94 Room Air 09/17/17 17:00 76 16 211/120 (150) 94 Room Air 09/17/17 16:48 77 18 190/94 (126) 94 Room Air Physical Exam General Appearance: no apparent distress Eyes: EOMI ENT: hearing grossly normal Neck: trachea midline Respiratory/Chest: no respiratory distress, no accessory muscle use Extremities: normal range of motion Neurologic/Psychiatric: checkerer hand II-XII nml as tested, alert, normal mood/affect Skin: normal color, warm/dry Laboratory Results Last 24 Hours Test 09/17/17 17:15 09/18/17 06:38 Bedside Glucose 144 mg/dl White Blood Count 7.61 K/uL Red Blood Count 4.88 M/uL Hemoglobin 16.0 g/dL Hematocrit 45.3 % Mean Corpuscular Volume 92.8 fL Mean Corpuscular Hemoglobin 32.8 pg Mean Corpuscular Hemoglobin Concent 35.3 g/dl Platelet Count 144 K/uL Mean Platelet Volume 11.0 fL Neutrophils (%) (Auto) 72.1 % Lymphocytes (%) (Auto) 16.4 % Monocytes (%) (Auto) 10.8 % Eosinophils (%) (Auto) 0.5 % Basophils (%) (Auto) 0.1 % Neutrophils # (Auto) 5.48 K/uL Lymphocytes # (Auto) 1.25 K/uL Monocytes # (Auto) 0.82 K/uL Eosinophils # (Auto) 0.04 K/uL Basophils # (Auto) 0.01 K/uL RDW Standard Deviation 42.1 fL RDW Coefficient of Variation 12.4 % Immature Granulocyte % (Auto) 0.1 % Immature Granulocyte # (Auto) 0.01 K/uL Activated Partial Thromboplast Time 30.0 SECONDS Partial Thromboplastin Ratio 1.2 Sodium Level 138 mmol/L Potassium Level 3.5 mmol/L Chloride Level 107 mmol/L Carbon Dioxide Level 23 mmol/L Anion Gap 8.0 mmol/L Blood Urea Nitrogen 11 mg/dl Creatinine 0.84 mg/dl Est Creatinine Clear Calc Drug Dose 104.2 ml/min Estimated GFR () 106.5 Estimated GFR (Non- 91.9 BUN/Creatinine Ratio 13.4 Random Glucose 101 mg/dl Estimated Average Glucose 100 mg/dl Hemoglobin A1c 5.1 % Calcium Level 8.2 mg/dl Assessment and Plan NSTEMI S/P PTCA with LAD Stenting on 09/17: - clinically stable, s/p stenting - med management (antiplatelets, antihypertensives, statin, prn nitro) - lifestyle reviewed - eating habits overall very good as far as quality food choices - portions at dinner likely excessive, exercise could be improved upon over time - extensive discussion on evidence in med management and (separately) lifestyle management for secondary prevention. since he'd been refusing atorvastatin, discussed this specifically in detail and he expressed understanding and willingness to give trial. risks/benefits and possible side effects discussed as well Stroke -no afib or cardioembolic source on echo, no carotid embolic source. has small vessel risks as above -- med management as above. may also have related to LHC but as an unavoidable effect w a clearly needed benefit to have done LHC given CA and CAD HTN: - Previously on BB but non-compliant - Changed Lisinopril to Losartan 25 mg daily due to cough - continue to monitor and may need to titrate Losartan up if necessary - Metoprolol 12.5 mg BID - explained meds to pt H/O Lyme: STABLE - Recent diagnosis with associated 22+ lbs weight gain 2/2 inactivity - discussed that his fatigue may have actually been atypical CAD sx - do need to visit if lyme was treated - will discuss Code Status: FULL RESUSCITATION Disposition: - stable for med/surg. since stroke (+) continue inpatient through tomorrow, then hopefully home Continued [facility] stay due to: multiple IV medications needed Discharge planning: home
[2017-09-18] MEDS: ATORVASTATIN 40 MG TAB PO SCH (21:00)
--- NOTE | 2017-09-18 23:50 | NUR ---
A: Nursing assessment complete along with recent VS check. Pt wakens easily to name call. Speech is clear. Denies any numbness or tingling bilat extremities. Equal strength in extremities. Previous right cardiac cath site with no bleeding or bruising. BP 145/85. HR in the 70's. Callbell is within reach.
[2017-09-19 00:02] VITALS: O2SAT 95
[2017-09-19 05:00] VITALS: BP_SYST 159; BP_SYST 177; BP_DIAS 101; BP_DIAS 92; PULSE 71; O2SAT 94
--- NOTE | 2017-09-19 05:00 | NUR ---
A: Sleeping when not disturbed. Remains without c/o CP. Neuro assessment WNLs. SBP 150-170's.
[2017-09-19 06:13] LABS: BASO % 0.2 %; BASO ABS # 0.02 K/uL (0-0.2); EOS % 1.9 %; EOS ABS # 0.17 K/uL (0-0.5); HEMATOCRIT 48.8 % (42-52); HEMOGLOBIN 17.5 g/dL (14.0-18.0); IG# 0.01 K/uL (0.00-0.02); LYMPH % 16.3 %; LYMPH ABS # 1.45 K/uL (1.2-3.4); MEAN CELL VOLUME 92.8 fL (80-100); MEAN CORPUSCULAR HEMOGLOBIN 33.3 pg (25-34); MEAN CORPUSCULAR HGB CONC 35.9 g/dl (32-36); MEAN PLATELET VOLUME 11.1 fL (7.4-10.4); MONO % 8.3 %; MONO ABS # 0.74 K/uL (0.11-0.59); NEUT % 73.2 %; NEUT ABS # 6.53 K/uL (1.4-6.5); PLATELET COUNT 144 K/uL (130-400); RED CELL DISTRIBUTION WIDTH CV 12.6 % (11.5-14.5); RED CELL DISTRIBUTION WIDTH SD 42.3 fL (36.4-46.3); WHITE BLOOD COUNT 8.92 K/uL (4.8-10.8)
[2017-09-19 06:41] LABS: CALCIUM 8.8 mg/dl (8.5-10.1); CREATININE 0.97 mg/dl (0.60-1.40); POTASSIUM 3.7 mmol/L (3.5-5.1)
[2017-09-19 07:32] VITALS: BP 174/98; PULSE 69; TEMP 36.7; O2SAT 94
[2017-09-19] MEDS: ASPIRIN 81 MG ECTAB PO SCH (08:17)
[2017-09-19] MEDS: TICAGRELOR 90 MG TAB PO SCH (08:18)
[2017-09-19] MEDS: LOSARTAN POTASSIUM 25 MG TAB PO SCH (08:18)
[2017-09-19] MEDS: METOPROLOL TARTRATE 25 MG TAB PO SCH (08:19)
--- NOTE | 2017-09-19 10:29 | Neurology Consultation ---
Neurology Consultation Date of Consultation: Sep 19, 2017. Attending Physician: Damien Morris D.O. Primary Care Physician: No Doctor, Assigned Reason for Consultation: Consultation for stroke History of Present Illness Source: patient, hospital records This is a 67-year-old male who presents with chest pain and non-ST elevation OR. Shortly after receiving cardiac stent the patient noticed left paresthesias of his arm and face that resolved after a few minutes. Patient was sent down for CT of his head which was unremarkable. Shortly after that he than had significant expressive aphasia and difficulty getting his words out. Family at bedside noted that he did not seem his normal self. At that point a stroke alert was called. Eventually the patient's speech also improved. This morning the patient reports that he is at his normal baseline. He denies any residual neurological deficits. No weakness, numbness, changes in gait, or vision. MRI of the brain reported images reviewed by myself. The patient has a very small acute left posterior frontal lobe ischemic stroke. In addition he also has some mild to moderate T2 hyperintensities in the subcortical white matter likely consistent with small vessel ischemic disease. MRA of head and neck was unremarkable. Patient does admit to some medication noncompliance and elevated blood pressure in the past. Total cholesterol 176, LDL 103, HDL 54, triglycerides 95, hemoglobin A1c 5.1 Past Medical/Surgical History Medical Problems: (1) Unstable angina Status: Acute Hypertension, mild dyslipidemia, resolved Lyme disease earlier this year Family History Unremarkable Social History Normally independent in his activities of daily living. No tobacco use Smokeless Tobacco Use: No Drug Use: none Marital Status: Housing Status: lives with family Occupation Status: employed Allergies Coded Allergies: Horse Dander (Verified Allergy, Severe, Itch/Cough with Horse hair, ) Uncoded Allergies: HAIRSPRAY (Allergy, Severe, ITCHY, COUGH, 09/16/17) Current Inpatient Medications Current Inpatient Medications Medications (Trade) Dose Ordered Sig/Mike Route Start Time Stop Time Status Last Admin Dose Admin Acetaminophen (Tylenol Tab) 650 mg Q4H PRN PO 09/16/17 20:45 10/16/17 20:44 Al Hydrox/Mg Hydrox/Simethicone (Maalox Max Susp) 15 ml Q4H PRN PO 09/16/17 20:45 10/16/17 20:44 Magnesium Hydroxide (Milk Of Magnesia Susp) 30 ml Q12H PRN PO 09/16/17 20:45 10/16/17 20:44 Zolpidem Tartrate (Ambien Tab) 5 mg HSZ PRN PO 09/16/17 20:45 10/16/17 20:44 Ondansetron HCl (Zofran Inj) 4 mg Q6H PRN IV 09/16/17 20:45 10/16/17 20:44 Nitroglycerin (Nitrostat Tab) 0.4 mg UD PRN SL 09/16/17 20:45 10/16/17 20:44 Morphine Sulfate (MoRPHine SULFATE INJ) 2 mg Q30M PRN IV 09/16/17 20:45 09/30/17 20:44 Aspirin (Ecotrin Tab) 81 mg QAM PO 09/17/17 09:00 10/17/17 08:59 09/19/17 08:17 81 MG Polyethylene (Miralax Powder Packet) 17 gm DAILY PRN PO 09/16/17 20:45 10/16/17 20:44 Miscellaneous (Iv Fluids Completed) 1 ea PRN PRN N/A 09/16/17 22:00 09/16/18 21:59 Atropine Sulfate (Atropine Sulfate 0.1MG/Ml Inj) 0.5 mg ONE PRN IV 09/17/17 14:15 10/17/17 14:14 Lorazepam 0.5 mg/ Syringe 0.25 ml @ 1 mls/min Q6H PRN IV 09/17/17 14:15 10/17/17 14:14 Ticagrelor (Brilinta Tab) 90 mg BID PO 09/17/17 21:00 10/17/17 20:59 09/19/17 08:18 90 MG Losartan Potassium (coZAAR TAB) 25 mg QAM PO 09/18/17 09:00 10/18/17 08:59 09/19/17 08:18 25 MG Metoprolol Tartrate (Lopressor Tab) 25 mg BID PO 09/17/17 21:00 10/16/17 20:59 09/19/17 08:19 25 MG Atorvastatin Calcium (Lipitor Tab) 80 mg HS PO 09/17/17 21:00 10/17/17 20:59 Gadobutrol (Gadavist) 9 mmol UD PRN IV 09/18/17 10:45 09/22/17 10:44 Review of Systems Complete review of systems otherwise negative except for the above noted in history of present illness Physical Exam Vital Signs (Past 24 Hrs): Date Time Temp Pulse Resp B/P (MAP) Pulse Ox O2 Delivery O2 Flow Rate FiO2 09/19/17 08:00 Room Air 09/19/17 07:32 36.7 69 20 174/98 (123) 94 Room Air 09/19/17 05:00 71 18 159/92 (114) 94 Room Air 177/101 (126) 09/19/17 00:02 95 Room Air 09/18/17 23:14 36.9 71 18 145/85 (105) 95 Room Air 09/18/17 21:05 78 145/79 (101) 96 Room Air 09/18/17 16:08 36.7 64 16 127/72 (90) 93 09/18/17 16:00 93 Room Air 09/18/17 15:03 36.7 70 20 172/80 (110) 99 Room Air 09/18/17 15:01 93 Room Air 09/18/17 13:57 36.9 71 18 93 09/18/17 12:15 36.9 71 18 158/82 (107) 93 Room Air Gen.: Patient is alert and sitting in bed, in no acute distress. HEENT: Normocephalic /atraumatic, no scleral icterus Heart: Regular rate and rhythm Extremities: No gross deformities or rashes noted Neurological examination: Mental status: Patient is alert and oriented x3. Attention and concentration normal for the situation. Good fund of knowledge. Remote and recent memory intact. Speech is fluent without any dysarthria or aphasia noted Cranial nerve: Funduscopic examination was unremarkable. No papilledema. Pupils equally round and reactive to light. Extraocular muscles intact without nystagmus. No facial asymmetry noted. Facial sensation intact. Tongue is midline. Good palatal elevation. Good shoulder shrug bilaterally. Hearing grossly intact to voice. Strength: 5/5 both proximal and distally in all extremities (some limitations with elbow flexion on the left secondary to IV in that area). There is no arm drift. Tone is normal. Sensation: Grossly intact to light touch in all extremities. Deep tendon reflexes: +1 in bilateral biceps, brachioradialis and patellar. Coordination: Patient had good finger to nose without dysmetria Station within the bed was normal. Gait was normal with no signs of ataxia or instability Laboratory Results Past 24 Hours: 09/19/17 05:55 Red Blood Count 5.26, Mean Corpuscular Volume 92.8, Mean Corpuscular Hemoglobin 33.3, Mean Corpuscular Hemoglobin Concent 35.9, Mean Platelet Volume 11.1, Neutrophils (%) (Auto) 73.2, Lymphocytes (%) (Auto) 16.3, Monocytes (%) (Auto) 8.3, Eosinophils (%) (Auto) 1.9, Basophils (%) (Auto) 0.2, Neutrophils # (Auto) 6.53, Lymphocytes # (Auto) 1.45, Monocytes # (Auto) 0.74, Eosinophils # (Auto) 0.17, Basophils # (Auto) 0.02 09/19/17 05:55 Test 09/19/17 05:55 White Blood Count 8.92 K/uL (4.8-10.8) Red Blood Count 5.26 M/uL (4.7-6.1) Hemoglobin 17.5 g/dL (14.0-18.0) Hematocrit 48.8 % (42-52) Mean Corpuscular Volume 92.8 fL (80-100) Mean Corpuscular Hemoglobin 33.3 pg (25-34) Mean Corpuscular Hemoglobin Concent 35.9 g/dl (32-36) Platelet Count 144 K/uL (130-400) Mean Platelet Volume 11.1 fL (7.4-10.4) Neutrophils (%) (Auto) 73.2 % Lymphocytes (%) (Auto) 16.3 % Monocytes (%) (Auto) 8.3 % Eosinophils (%) (Auto) 1.9 % Basophils (%) (Auto) 0.2 % Neutrophils # (Auto) 6.53 K/uL (1.4-6.5) Lymphocytes # (Auto) 1.45 K/uL (1.2-3.4) Monocytes # (Auto) 0.74 K/uL (0.11-0.59) Eosinophils # (Auto) 0.17 K/uL (0-0.5) Basophils # (Auto) 0.02 K/uL (0-0.2) RDW Standard Deviation 42.3 fL (36.4-46.3) RDW Coefficient of Variation 12.6 % (11.5-14.5) Immature Granulocyte % (Auto) 0.1 % Immature Granulocyte # (Auto) 0.01 K/uL (0.00-0.02) Anion Gap 8.0 mmol/L (3-11) Est Creatinine Clear Calc Drug Dose 90.2 ml/min Estimated GFR () 94.6 Estimated GFR (Non- 81.6 BUN/Creatinine Ratio 16.8 (10-20) Calcium Level 8.8 mg/dl (8.5-10.1) Imaging As noted above in history of present illness Impression This is a 67-year-old male with what sounds like a TIA events causing left arm and face paresthesias (right hemispheric event) quickly followed by expressive aphasia which has resolved with signs of a tiny left posterior frontal lobe ischemic stroke. No significant residual neurological deficits at this time. Stroke risk factors include hypertension and mild dyslipidemia. Stroke etiology likely cardioembolic from recent cardiac cath procedure. Plan I have ordered a follow-up echo this morning which has been done but results are not available yet to rule out cardiac thrombus. If follow-up echocardiogram is unremarkable, there is no neurological contraindications to discharge. Continue dual antiplatelets and statin medication per cardiology. It would be reasonable from a neurology stroke standpoint to remain on monotherapy antiplatelets in the future. Follow-up PT/OT and speech therapies for discharge planning. Avoid hypotension and dehydration Stroke risk factor modifications and recommendations: Blood pressure recommendations for the first month post hospital discharge 150/ 90-130/80, and after that blood pressure recommendations 130/80-110/70 Total cholesterol goal 100- 200 and LDL goal less than 100 Hemoglobin A1c goal less than 7 Encourage cardiovascular exercise at least 3 times a week for 30 minutes. No activity restrictions from a neurological standpoint May follow-up in neurology clinic in 1 month for post stroke hospital follow-up fi needed or if there is any ongoing neurological concerns. If there is any questions or concerns, feel free to call/page me.
--- NOTE | 2017-09-19 11:05 | ECHOCARDIOGRAM REPORT ---
*NOTICE TO RECEIVING REPUBLICAN AGENCY This information is strictly Confidential and protected under [place] law. [place] law prohibits you from making any further disclosure of this information unless further disclosure is expressly permitted by the written consent of the person to whom it pertains or is authorized by law. A general authorization for the release of medical or other information is not sufficient for this purpose. Hospital accepts no responsibility if the information is made available to any other person, INCLUDING THE PATIENT. Interpretation Summary * Name: LEON DUNHAM Study Date: 09/19/2017 06:36 AM BP: 177/101 mmHg * Patient Location: [facility]\S\N277\S\2 HR: 69 * : 1950 (M/d/yyyy) Gender: Male Height: 71 in * Age: 67 yrs Ethnicity: [place] Weight: 214 lb * Ordering Physician: Briseyda Bocanegra * Referring Physician: Self, Referred * Performed By: Hannah Hester RCS * * Reason For Study: STROKE / R/O CARDIAC THROMBUS * BSA: 2.2 m2 * -- Conclusions -- * Limited 2D study * 1. Normal LV size, moderate concentric LVH. * 2. Hyperdynamic LV function. LVEF >70%. No regional wall motion abnormalities. No LV thrombus. * 3. Normal RV size and function. * 4. Negative saline contrast study for interatrial shunt. * 5. Compared with prior study on 09/17/2017: No significant changes. Procedure Details * Limited views were obtained. * A saline contrast injection was performed to assess for cardiac shunting. * The injection was performed through an intravenous line in the left arm. * The attending nurse who injected the saline contrast was DORENE CHAMPION, RN. * A total of 10 cc of agitated saline was given. Left Ventricle * The left ventricle is grossly normal size. * There is no thrombus. * There is moderate concentric left ventricular hypertrophy. * Ejection Fraction = >70 %. * No regional wall motion abnormalities noted. Right Ventricle * The right ventricle is grossly normal size. * The right ventricular systolic function is normal as assessed by tricuspid annular plane systolic excursion (TAPSE) (normal >1.5 cm). Atria * The left atrial size is normal. * Right atrial size is normal. * Injection of contrast documented no interatrial shunt. Mitral Valve * The mitral valve is grossly normal. * There is no mitral valve stenosis. Tricuspid Valve * The tricuspid valve is not well visualized. Aortic Valve * The aortic valve opens well. * No hemodynamically significant valvular aortic stenosis. Great Vessels * The aortic root and proximal ascending aorta are normal sized. Pericardium/Pleural * There is no pericardial effusion. Great Vessels * Normal inferior vena cava size and collapsability with sniff indicates a normal right atrial pressure of 3 mmHg MMode 2D Measurements and Calculations IVSd 1.8 cm IVSs 2.2 cm LVIDd 3.9 cm LVIDs 2.1 cm LVPWd 1.1 cm LVPWs 1.9 cm IVS/LVPW 1.6 FS 46.5 % EDV(Teich) 67.7 ml ESV(Teich) 14.6 ml EF(Teich) 78.4 % EDV(cubed) 61.4 ml ESV(cubed) 9.4 ml EF(cubed) 84.7 % % IVS thick 20.4 % % LVPW thick 70.6 % LV mass(C)d 216.1 grams LV mass(C)dI 99.6 grams/m\S\2 LV mass(C)s 187.0 grams LV mass(C)sI 86.1 grams/m\S\2 SV(Teich) 53.1 ml SI(Teich) 24.5 ml/m\S\2 SV(cubed) 52.0 ml SI(cubed) 23.9 ml/m\S\2 ACS 2.8 cm LA dimension 4.8 cm LVOT diam 2.0 cm LVOT area 3.3 cm\S\2
--- NOTE | 2017-09-19 11:54 | Cardiology Follow-Up ---
Subjective Subjective Date of Service: Sep 19, 2017. Pt evaluation today including: conversation w/ patient, physical exam, chart review, lab review, review of studies, review of inpatient medication list Additional Details: Feeling well. No chest pain. No recurrent neurologic deficits. No new concerns today Repeat echo reviewed -- LV function normal. No cardioembolic sources. Problem List Medical Problems: (1) Unstable angina Status: Acute Review of Systems Constitutional: No fever, No chills Respiratory: No cough, No shortness of breath Cardiac: No chest pain, No palpitations Abdomen: No pain, No nausea, No vomiting, No diarrhea, No constipation Musculoskeletal: No swelling, No calf pain Male : No dysuria Heme: No abnormal bleeding/bruising Skin: No rash Objective Vital Signs Last Vital Signs Documentation Date Time Temp Pulse Resp B/P (MAP) Pulse Ox O2 Delivery O2 Flow Rate FiO2 09/19/17 08:00 Room Air 09/19/17 07:32 36.7 69 20 174/98 (123) 94 Physical Exam: General Appearance: no apparent distress Eyes: bilateral eyes normal inspection ENT: hearing grossly normal Neck: no JVD Respiratory/Chest: no respiratory distress, no accessory muscle use Cardiovascular: regular rate, rhythm, no gallop, no murmur Abdomen: normal bowel sounds, non tender, soft Extremities: normal range of motion, + pertinent finding (no access site hematoma/ecchymosis. distal sensation/pulse intact) Neurologic/Psychiatric: mason foreman/superintendant II-XII nml as tested, alert, normal mood/affect Skin: normal color, warm/dry Assessment and Plan 1. NSTEMI post GENOVEVA to mid LAD 2. Small frontal CVA 3. HTN with moderate LVH and preserved LV function. No recurrent chest pain, no access site complications, no residual neurologic deficits today. BP to 170s this AM No cardioembolic sources on repeat echo. -- Continue DAPT with ASA and Ticagrelor -- Continue high-intensity statin -- Continue metoprolol, losartan. Increase metoprolol to 50mg BID. -- From a cardiac standpoint OK for discharge today. -- F/up with Dr. Chavez in 2-3 weeks. Continued [facility] stay due to: multiple IV medications needed Discharge planning: home Medications: Current Inpatient Medications Medications (Trade) Dose Ordered Sig/Mike Route Start Time Stop Time Status Last Admin Dose Admin Acetaminophen (Tylenol Tab) 650 mg Q4H PRN PO 09/16/17 20:45 10/16/17 20:44 Al Hydrox/Mg Hydrox/Simethicone (Maalox Max Susp) 15 ml Q4H PRN PO 09/16/17 20:45 10/16/17 20:44 Magnesium Hydroxide (Milk Of Magnesia Susp) 30 ml Q12H PRN PO 09/16/17 20:45 10/16/17 20:44 Zolpidem Tartrate (Ambien Tab) 5 mg HSZ PRN PO 09/16/17 20:45 10/16/17 20:44 Ondansetron HCl (Zofran Inj) 4 mg Q6H PRN IV 09/16/17 20:45 10/16/17 20:44 Nitroglycerin (Nitrostat Tab) 0.4 mg UD PRN SL 09/16/17 20:45 10/16/17 20:44 Morphine Sulfate (MoRPHine SULFATE INJ) 2 mg Q30M PRN IV 09/16/17 20:45 09/30/17 20:44 Aspirin (Ecotrin Tab) 81 mg QAM PO 09/17/17 09:00 10/17/17 08:59 09/19/17 08:17 81 MG Polyethylene (Miralax Powder Packet) 17 gm DAILY PRN PO 09/16/17 20:45 10/16/17 20:44 Miscellaneous (Iv Fluids Completed) 1 ea PRN PRN N/A 09/16/17 22:00 09/16/18 21:59 Atropine Sulfate (Atropine Sulfate 0.1MG/Ml Inj) 0.5 mg ONE PRN IV 09/17/17 14:15 10/17/17 14:14 Lorazepam 0.5 mg/ Syringe 0.25 ml @ 1 mls/min Q6H PRN IV 09/17/17 14:15 10/17/17 14:14 Ticagrelor (Brilinta Tab) 90 mg BID PO 09/17/17 21:00 10/17/17 20:59 09/19/17 08:18 90 MG Losartan Potassium (coZAAR TAB) 25 mg QAM PO 09/18/17 09:00 10/18/17 08:59 09/19/17 08:18 25 MG Metoprolol Tartrate (Lopressor Tab) 25 mg BID PO 09/17/17 21:00 10/16/17 20:59 09/19/17 08:19 25 MG Atorvastatin Calcium (Lipitor Tab) 80 mg HS PO 09/17/17 21:00 10/17/17 20:59 Gadobutrol (Gadavist) 9 mmol UD PRN IV 09/18/17 10:45 09/22/17 10:44 Lab Results: 09/19/17 05:55 Red Blood Count 5.26, Mean Corpuscular Volume 92.8, Mean Corpuscular Hemoglobin 33.3, Mean Corpuscular Hemoglobin Concent 35.9, Mean Platelet Volume 11.1, Neutrophils (%) (Auto) 73.2, Lymphocytes (%) (Auto) 16.3, Monocytes (%) (Auto) 8.3, Eosinophils (%) (Auto) 1.9, Basophils (%) (Auto) 0.2, Neutrophils # (Auto) 6.53, Lymphocytes # (Auto) 1.45, Monocytes # (Auto) 0.74, Eosinophils # (Auto) 0.17, Basophils # (Auto) 0.02 09/19/17 05:55 Test 09/19/17 05:55 White Blood Count 8.92 K/uL (4.8-10.8) Red Blood Count 5.26 M/uL (4.7-6.1) Hemoglobin 17.5 g/dL (14.0-18.0) Hematocrit 48.8 % (42-52) Mean Corpuscular Volume 92.8 fL (80-100) Mean Corpuscular Hemoglobin 33.3 pg (25-34) Mean Corpuscular Hemoglobin Concent 35.9 g/dl (32-36) Platelet Count 144 K/uL (130-400) Mean Platelet Volume 11.1 fL (7.4-10.4) Neutrophils (%) (Auto) 73.2 % Lymphocytes (%) (Auto) 16.3 % Monocytes (%) (Auto) 8.3 % Eosinophils (%) (Auto) 1.9 % Basophils (%) (Auto) 0.2 % Neutrophils # (Auto) 6.53 K/uL (1.4-6.5) Lymphocytes # (Auto) 1.45 K/uL (1.2-3.4) Monocytes # (Auto) 0.74 K/uL (0.11-0.59) Eosinophils # (Auto) 0.17 K/uL (0-0.5) Basophils # (Auto) 0.02 K/uL (0-0.2) RDW Standard Deviation 42.3 fL (36.4-46.3) RDW Coefficient of Variation 12.6 % (11.5-14.5) Immature Granulocyte % (Auto) 0.1 % Immature Granulocyte # (Auto) 0.01 K/uL (0.00-0.02) Anion Gap 8.0 mmol/L (3-11) Est Creatinine Clear Calc Drug Dose 90.2 ml/min Estimated GFR () 94.6 Estimated GFR (Non- 81.6 BUN/Creatinine Ratio 16.8 (10-20) Calcium Level 8.8 mg/dl (8.5-10.1)
[2017-09-19] MEDS ORDERED: ASPI-320 PO (12:29)
[2017-09-19] MEDS ORDERED: LPT40 PO (12:29)
[2017-09-19] MEDS ORDERED: CZR25 PO (12:29)
[2017-09-19] MEDS ORDERED: LPR25 PO (12:29)
[2017-09-19] MEDS ORDERED: BRL90 PO (12:29)
[2017-09-19] MEDS ORDERED: NTRSLP4 SL (12:29)
--- NOTE | 2017-09-19 13:09 | Discharge Instructions ---
Discharge Instructions Date of Service Sep 19, 2017. Admission Reason for Admission: Chest Pain, Troponin I Above Reference Range Discharge Discharge Diagnosis / Problem: NSTEMI (small heart attack) Discharge Goals Goal(s): Learn about illness, Diagnostic testing, Therapeutic intervention Activity Recommendations Activity Limitations: resume your previous activity (over time, under the guidance of cardiac rehab, we'll want to see you get back to a goal of 30 minutes of light cardiovascular exercise every day.) . 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 you had other, lesser degree blockages that we want to keep from getting worse or causing future heart attacks. with the right combination of medication and lifestyle management, we should do well to keep you from having any future events. lifestyle -as we discussed, the biggest studies i can find (several thousand people over about five years, after either a heart attack or a stent) showed that the right kind of lifestyle change can reduce your risk of a recurrent heart attack by as much as about 65%. for the most part you already are doing, or are on the right track to doing, all of these changes: -eating - the study population (compared to the control) ate a mediteranean diet - heavy in fruits and vegetables, low in saturated fats, low in simple/ starchy carbs. for the most part, you're there (and for sure you eat far better than 90+% of your fellow [facility]!) we'd like to see you stray away from the starches a bit more, and also add something for lunch so that you're not so hungry when dinner comes that you overeat in terms of portion size -exercise - we'll want to get you back to a goal of at least 30 minutes of light cardiovascular exercise a day. first we'll have you do this under the guidance of cardiac rehab. i've placed a referral, and i would expect them to call you, but if you don't hear from them by mid-day Friday, give them a call -- [phone], [facility] medications -the big picture with medications is that if we do things "right" we can reduce your chances of a future heart attack/stenting by as much as 80%. while this does involve an unfortunately long list, each has a lot of good science behind how it helps, and the right combination (because of working by different mechanisms of action) works far better than any one medication alone antiplatelets: the aspirin and brilinta act as antiplatelet medications - "blood thinners" that reduce the first part of clotting (which is platelets clumping and forming a plug to start the clotting process). in atherosclerotic disease, usually the process that takes plaque and turns it into a heart attack is that the plaque splits, and then because there is exposed lining of blood vessel, your body forms a clot to stop the bleeding. if you cut yourself, this is a good thing, but if it's mid-stream in an artery because a plaque ruptures, it can lead to a completely occluded artery and no downstream blood flow. the antiplatelet blood thinners are tremendously protective against this. for now we'll have to have you on two due to the stent (stents leave exposed metal and exposed surface below the lining of the blood vessel that can promote clotting) - over time, cardiology will likely be able to guide you on stopping the brilinta and continuing just the aspirin alone. of course being on anything like this can increase risk of bleeding, but with antiplatelet agents typically its fairly rare for any truly serious bleeding Losartan: losartan is in a class of blood pressure medications called "Angiotensin receptor blockers" -- these block the effect of a hormone that leads to a squeeze down on the blood vessel going to your kidneys. because the kidneys take 20% of all blood flow, higher pressure there leads to higher pressure throughout the system - which puts more strain on your heart. medications like losartan lower that pressure and allow your heart to remodel and recover better. as we discussed, we do follow bloodwork about a week after starting, simply because a small percentage of people have kidneys that actually need that higher pressure head to maintain flow. typically those are people with a lot of underlying renovascular disease, so it's not at all likely that this is you. enclosed is a lab slip for bloodwork (BMP) to be done on or around 09/26/17. usually otherwise, losartan is low on side effects, the main one simply being if your blood pressure was getting too low it could cause you to feel weak/lightheaded/dizzy metoprolol: this is in a class of blood pressure medications called "beta blockers" that reduce the [id number] impulses affecting your heart. this medication lowers heart rate and basically acts to allow your heart to rest and recover. typically these medications are well tolerated, although it can make you feel weak, lightheaded, dizzy, or fatigued - but typically only if the dose is higher than you need atorvastatin: the "good" statin medications (defined really as medium to high dosing of either lipitor (atorvastatin) or crestor (rosuvastatin) have a pretty heavy protective benefit in heart disease situations. there are two ways to look at it - primary prevention (keeping the blockages from getting worse) and secondary prevention (keeping the blockages that are already there from splitting and allowing a clot to form). from a primary prevention standpoint, your cholesterol numbers are actually higher than the research suggests they should be (most notably your non-HDL cholesterol - see below) and since you're already doing so well with lifestyle overall, it wouldn't be realistic to expect a big improvement in your numbers when there's not big lifestyle improvements left to be made. in this respect 40-80mg of lipitor would be warranted. in terms of secondary prevention, the medium to high doses of statins (specifically atorvastatin and rosuvastatin) actually act as a " blood vessel anti-inflammatory" reducing the risk of plaque rupture to begin with (and therefore really reducing the risk of future heart attacks - especially when used in conjunction with the antiplatelet medications that reduce how robustly a clot can form, and the statins reduce the risk of the plaque rupturing to begin with). while often vilified, these medications are actually surprisingly well tolerated. the two main things we watch for are muscle aches (rare but probably the most common reason people need to stop the medicines - see below) and liver enzyme elevations (which really are something that we mostly follow because we always have...true statin related liver issues are a rarity, and generally something that if it were to happen improves with cessation of the medication. we have people follow liver enzymes by labwork about every three months at first, and then less often thereafter - so have your PCP check labs in november in this respect) in terms of the muscle aches, while "common" it's still a side effect that happens to maybe 0.5% of people on these medications. the two common patterns we see are either muscle aches (not an accentuation of aches you already have - a totally independent, fairly idiosyncratic reaction of feeling "like you have the flu" when you don't have the flu) or calf cramps that come "out of nowhere. " both of these patterns are overall fairly rare, and generally get better when stopping the medicine. interestingly, as i was refreshing myself on the research to give you the most up to date information available, a new study popped up where they followed for rates of muscle aches, and people who knew they were on a statin had a higher rate of aches than people who were on a statin without knowing what medication they were on -- suggesting that the actual rate of aches may be even lower, because when people watch for a side effect, they'll be more likely to find it. nitroglycerin: hopefully you'll never need this, but nitroglycerin is a "safety net." it rapidly dilates veins to help take strain off your heart - think of it as lowering the weight of a dumbell so the muscle doesn't have to work as hard. the nitro will only come into play if you're having chest tightness -- if you are doing something when you have chest tightness, sit and rest. if the tightness doesn't go away in a few (no more than five) minutes, then take a nitro under the tongue. if the tightness still persists 5 minutes after the first nitro, take a second. at this point, if the tightness doesn't go away 5 minutes after the second nitro, I'd recommend chewing an aspirin and calling 911. you'll be able to take a third nitro 5 minutes after the second, but with your coronary disease, it would be better to get EMS activated if you have pressure that hasn't resolved with a second nitro labs in follow up -BMP (labs for making sure your kidneys are happy with the losartan) next week -CMP (follow up liver enzymes) and lipid panel in about three months Current Hospital Diet Patient's current hospital diet: AHA Diet (Heart Healthy) Discharge Diet Recommended Diet: Regular Diet (continue with the heavily plant based diet you follow, try to stray away from the breads/carbs some, and eat lunch so that you' re not as prone to overeating at dinner.) Pending Studies Studies pending at discharge: no Laboratory Results Hemoglobin A1c Test 09/18/17 06:38 Range/Units Estimated Average Glucose 100 mg/dl Hemoglobin A1c 5.1 4.5-5.6 % Lipid Panel Test 09/17/17 07:55 Range/Units Triglycerides Level 95 0-150 mg/dl Cholesterol Level 176 0-200 mg/dl HDL Cholesterol 54 mg/dl Cholesterol/HDL Ratio 3.3 LDL Cholesterol, Calculated 103 mg/dl by [place] criteria, the most important number we would want to see is having your non-HDL (subtract HDL from total cholesterol) less than 100, ideally less than 85. Secondarily, we'd want to see your LDL less than 100, ideally less than 70. because you're generally doing so well with what you eat , it's not realistic to expect that kind of improvement from lifestyle changes alone, when you don't have that much more you can change. Medical Emergencies . Who to Call and When: Medical Emergencies: If at any time you feel your situation is an emergency, please call 911 immediately. . Non-Emergent Contact Non-Emergency issues call your: Primary Care Provider (next week), O[employer]ater (three weeks) . . "Provider Documentation" section prepared by Damien Morris. . Restaurant Culinary Manager Recommendations Restaurant Culinary Manager Recommendations: -- POST CARDIAC CATHETERIZATION INSTRUCTIONS -- ACTIVITY RECOMMENDATIONS: Excess manipulation of the wrist should be avoided for the next 24-48 hours. * No lifting over 2 pounds (approximately a 1/2 gallon of milk) with the utilized arm for 24 hours. * No strenuous activity such as bowling or tennis for 3 days. * Keep the site of the procedure covered with a bandage for 24 hours. *You may shower the day after the procedure. Do not take a tub bath or submerge the puncture site in water for the next 3 days. *Do not operate any motorized equipment for 3 days. SPECIAL CARE INSTRUCTIONS: The site may be slightly bruised and sore following your procedure. Should any of the following occur, contact the DrHelio who performed your procedure. 1. Redness/inflammation, swelling, chills, or fever, or colored drainage at procedure site within 3-7 days after your procedure. 2. Coldness, discoloration, ongoing numbness, severe pain, or swelling. Expect mild tingling of hand and tenderness at the puncture site for up to three days. If this persists beyond three days, or other symptoms develop, notify the Dr. who performed your procedure. BLEEDING: If the procedure site on your wrist begins to bleed, do not panic 1. Place 1 or 2 fingers firmly just slightly above the insertion site to stop the bleeding. You may be able to feel your pulse as you hold pressure. 2. Lift your finger after 5 minutes to see if the bleeding has stopped. 3. Once the bleeding has stopped, gently wipe the wrist area clean with a bandage. * If the bleeding from your wrist does not stop after 10 minutes, or if there is a large amount of bleeding or spurting, call 911 (do not drive yourself to the hospital). SKIN IRRITATION: * You may experience some redness and/or swelling in the area where radiation was administered. If any skin irritation occurs, please contact your family physician. FOLLOW UP VISIT: Keep any scheduled doctor appointments. VTE Core Measure Inpt VTE Proph given/why not?: Enoxaparin (Lovenox)SQ
--- NOTE | 2017-09-19 13:11 | Discharge Instructions ---
Discharge Instructions Date of Service Sep 19, 2017. Admission Reason for Admission: Chest Pain, Troponin I Above Reference Range Discharge Discharge Diagnosis / Problem: stroke - please see main discharge instructions Discharge Goals Goal(s): Diagnostic testing, Therapeutic intervention Activity Recommendations Activity Limitations: resume your previous activity (as per other instructions ) . Instructions / Follow-Up Instructions / Follow-Up please see other discharge instructions for the majority of the information; stroke was small, self limited - other than the same medications for coronary disease, no other interventions are needed Risk Factors for Stroke: You can reduce your chances of stroke by working with your medical provider to adopt a healthy lifestyle. Some specific ways to lower your chance of stroke are: * If you are a smoker, now is the time to stop smoking cigarettes * If you are diabetic, improve the control of your blood sugars * Avoid excessive amounts of alcohol * Control high blood pressure * Lose weight if you are overweight * Be sure to lead an active lifestyle * Eat a healthy diet low in salt, cholesterol and fat You should know about other risk factors for stroke that you are unable to control. These include: * Age 55 years or older * Male gender * Certain racial groups: , or / * Family History of Stroke, Mini stroke or Heart Attack * Sickle Cell Disease Follow Up: It is important for you to keep your follow up appointments with your medical provider. Current Hospital Diet Patient's current hospital diet: AHA Diet (Heart Healthy) Discharge Diet Recommended Diet: Regular Diet (see other instructions) Pending Studies Studies pending at discharge: no Laboratory Results Hemoglobin A1c Test 09/18/17 06:38 Range/Units Estimated Average Glucose 100 mg/dl Hemoglobin A1c 5.1 4.5-5.6 % Lipid Panel Test 09/17/17 07:55 Range/Units Triglycerides Level 95 0-150 mg/dl Cholesterol Level 176 0-200 mg/dl HDL Cholesterol 54 mg/dl Cholesterol/HDL Ratio 3.3 LDL Cholesterol, Calculated 103 mg/dl Medical Emergencies . Who to Call and When: Medical Emergencies: Call 911 immediately if you experience any of the following warning signs and symptoms of Stroke: * Sudden numbness or weakness of the face, arm or leg, especially on one side of the body * Sudden confusion, trouble speaking or understanding * Sudden trouble seeing in one or both eyes * Sudden trouble walking, dizziness, loss of balance or coordination * Sudden severe headache with no cause Do not delay calling 911 if you experience any warning signs or symptoms of a stroke. Delay in seeking medical attention may affect what treatments can be given to you. . Non-Emergent Contact Non-Emergency issues call your: Primary Care Provider, Foreign Student Adviser . . "Provider Documentation" section prepared by Damien Morris. . Exhaust Worker Recommendations Exhaust Worker Recommendations: -- POST CARDIAC CATHETERIZATION INSTRUCTIONS -- ACTIVITY RECOMMENDATIONS: Excess manipulation of the wrist should be avoided for the next 24-48 hours. * No lifting over 2 pounds (approximately a 1/2 gallon of milk) with the utilized arm for 24 hours. * No strenuous activity such as bowling or tennis for 3 days. * Keep the site of the procedure covered with a bandage for 24 hours. *You may shower the day after the procedure. Do not take a tub bath or submerge the puncture site in water for the next 3 days. *Do not operate any motorized equipment for 3 days. SPECIAL CARE INSTRUCTIONS: The site may be slightly bruised and sore following your procedure. Should any of the following occur, contact the Dr. who performed your procedure. 1. Redness/inflammation, swelling, chills, or fever, or colored drainage at procedure site within 3-7 days after your procedure. 2. Coldness, discoloration, ongoing numbness, severe pain, or swelling. Expect mild tingling of hand and tenderness at the puncture site for up to three days. If this persists beyond three days, or other symptoms develop, notify the Dr. who performed your procedure. BLEEDING: If the procedure site on your wrist begins to bleed, do not panic 1. Place 1 or 2 fingers firmly just slightly above the insertion site to stop the bleeding. You may be able to feel your pulse as you hold pressure. 2. Lift your finger after 5 minutes to see if the bleeding has stopped. 3. Once the bleeding has stopped, gently wipe the wrist area clean with a bandage. * If the bleeding from your wrist does not stop after 10 minutes, or if there is a large amount of bleeding or spurting, call 911 (do not drive yourself to the hospital). SKIN IRRITATION: * You may experience some redness and/or swelling in the area where radiation was administered. If any skin irritation occurs, please contact your family physician. FOLLOW UP VISIT: Keep any scheduled doctor appointments. Stroke Core Measures Reason no t-PA for Stroke: Treatment not indicated Reason no antithrom by day 2: Treatment provided - N/A Reason no antithrom at D/C: Treatment provided - N/A Reason no statin at D/C: Treatment provided - N/A Reason no anticoag w/a fib: Treatment not indicated VTE Core Measure Inpt VTE Proph given/why not?: Enoxaparin (Lovenox)SQ
[2017-09-19 13:25] VITALS: BP 174/98; PULSE 69; TEMP 36.7; O2SAT 94
[2017-09-19] MEDS ORDERED: TPRSR50 PO (13:47)
--- NOTE | 2017-09-19 14:01 | NUR ---
A- Discharged to home with daughter, patient and daughter verbalized understanding discharge instructions
--- NOTE | 2017-09-19 17:28 | Discharge Summary ---
Discharge Summary Date of Service Sep 19, 2017. Discharge Summary Admission Date: Sep 17, 2017 at 19:16 Discharge Date: Sep 19, 2017 Discharge Disposition: Home Principal Diagnosis: NSTEMI Problems/Secondary Diagnoses: CVA Procedures: Procedure Note Procedure Date Sep 17, 2017. Pre-Procedure Diagnosis Non STEMI AUC Score 9 Post-Procedure Diagnosis Severe CAD, Successful PCI, Elevated Intracardiac Pressures (LVEDP 14 mm Hg) Procedure(s) Performed Coronary Angiography, Left Heart Cath, PTCA, Drug Eluting Stent Coffee Grower Dr. Chavez Hospitalist Program Director(s) Suresh KenyonRTR Estimated Blood Loss 20 ml Medication(s) Fentanyl, Heparin, Integrilin, Norepinephrine (Intra-arterial and intracoronary) , Versed, Lidocaine 1% ticagrelor 180 mg PO post PCI Summary of Findings Clinical indications: Non ST elevation myocardial infarction. Peak troponin I 0.317. Electrocardiogram with anterior lateral T inversions. Echocardiogram with normal LV systolic function, mild LVH, class 1 LV diastolic dysfunction, and no significant valve abnormalities. CAD risk factors include family history of premature coronary artery disease in his father, hypertension, and dyslipidemia. Catheterization site: 6 [place] glide sheath right radial artery. Diagnostic catheter: 5 [place] Site Seer brachial 3.5 diagnostic catheter. Used for coronary angiography and left heart catheterization. Interventional equipment: 6 [place] EBU 3.75 guide catheter, two [place] guidewires ( one in LAD and one in LAD diagonal ), Medtronic 2.5 x 10 mm Sprinter balloon dilatation catheter, Medtronic Resolute [place] drug-eluting stent. Interventional protocol: [place] guidewires were placed in both the LAD diagonal and LAD. PTCA was then performed to the mid LAD stenosis with the sprinter balloon. Two balloon inflations to maximum pressure of 8 atmospheres and maximum duration of 15 seconds were performed. The stent was then deployed at a pressure of 12 atmospheres for 45 seconds. ( nominal pressure0 Using the stent delivery balloon a 2nd inflation was performed the stent to a pressure of 18 atmospheres for duration of 15 seconds.( rated burst pressure). Follow-up angiography was then performed. The guidewires were withdrawn and further angiography was performed from orthogonal projections. Prior to intervention intra venous Integrilin and heparin were administered. A therapeutic activated clotting time was documented. Post procedure the patient was given a loading dose of 180 mg oral ticagrelor . He had no complaints of chest pain during or following the procedure. No cerebrovascular or peripheral vascular complaints during the procedure. Hemodynamically stable. No arrhythmias. Hemostasis: Terumo TR band. Findings: Right dominant circulation. Coronary calcifications. Very large caliber left main coronary artery giving rise to medium caliber left circumflex , ramus intermedius, and left anterior descending coronary arteries. The left main had no obstructive disease. The very proximal LAD had a 50-70% stenosis after the origin of a long small-medium caliber 1st diagonal artery. The 1st diagonal had minor luminal irregularities in its mid segment. After the origin of a prominent septal perforating artery the early mid LAD had a 90-95% stenosis. This ended just prior to to the origin of a medium caliber 2nd diagonal artery. The 2nd diagonal had a 30% ostial stenosis. The latter mid LAD had a long 30% stenosis. The distal LAD wrapped around the apex of the heart as a small caliber vessel. MARIAMA 3 flow was present in the LAD and LAD diagonals. Following intervention to the mid LAD stenosis the residual stenosis between the septal and 2nd diagonal was 0-10%. The stent was deployed across the origin of the septal perforated her. The distal segment of the stent was partially deployed across the origin of the 2nd diagonal. There was no evidence of dissection, thrombus, perforation, or distal embolic event. MARIAMA 3 flow in the LAD and diagonal arteries. There did not appear to be any change in the ostial diagonal stenosis. The ramus intermedius was a bifurcating vessel which had a 20% mid segment stenosis. The proximal left circumflex gave rise to a long medium caliber 1st marginal artery which had a 20 % mid segment stenosis. After the origin of the marginal the circumflex continued on in the atrioventricular groove as a small caliber vessel. The distal circumflex gave rise to 2 very small caliber posterolateral arteries. The right coronary was a large caliber vessel which had a 20% proximal stenosis. 20% mid segment stenosis. Long 20% distal stenosis prior to the origin of the PDA and posterolateral arteries. The PDA and PL branches were of small to medium caliber. The mid PDA had a 10-20% stenosis. The PL had no obstructive disease. Plan: The patient should remain on dual antiplatelet therapy for 1 year. Maximal CAD risk factor modification therapy including statin, beta-destiny, and DOROTHY-inhibitor. After the patient received the loading dose of ticagrelor the intravenous Integrilin was discontinued. Post PCI electrocardiogram and labs were ordered. Hemodynamics Rest Ao: 137/73/99 mm Hg Final Ao: 130/72/98 mm Hg LV: 156/14 mm Hg Recommendations Medical therapy and/or Counseling, PCI without planned CABG Specimens None Radiation Exposure (mGy) 3897 m y Contrast (mls) 250 ml Visipaque Fluids (cc crystalloids) 150 ml Drains None Anesthesia Intravenous Versed and fentanyl. Lidocaine 1% for local. Procedural Complication(s) None Disposition PCU ACC Data: Renewals Representative v4 ACC Data Cardiac Status Clinical evaluation leading to the procedure CAD Presntation: Non STEMI Anginal Classification: CCS IV Heart Failure: No Cardiogenic Shock w/in 24Hrs: No Cardiac Arrest w/in 24Hrs: No Imaging studies past 6 months: Yes Stress studies past 6 months: No Standard Exercise Stress Test: No Stress Echocardiogram: No Stress Testing w/SPECT MPI: No Cardiac CTA: No Coronary Anatomy Dominant: Right Left Main (% Stenosis): Normal LAD (% Stenosis): Proximal (50-60), Mid (90-95,30) D1 (% Stenosis): Mid (0-10) D2 (% Stenosis): Ostial (30) Circumflex (% Stenosis): Normal OM1 (% Stenosis): Mid (20) L PL1 (% Stenosis): Normal L PL2 (% Stenosis): Normal RCA (% Stenosis): Proximal (20), Mid (20), Distal (20) R PDA (% Stenosis): Mid (10-20) R PL1 (% Stenosis): Normal Ramus (% Stenosis): Mid (20) Left Ventricular Angiography EF (%): NA Diagnostic Physician's Name: Marcello Chavez M.D. Closure Device Percutaneous Entry Location: Radial Closure Device: Radial Band Recommendations: Medical therapy and/or Counseling, PCI without planned CABG PCI Indication: PCI for high risk Non-STEMI Lesion Segment Name: Mid LAD Culprit Artery: Yes Stenosis Prior to Rx (%): 95 Chronic Total Occlusion: No IVUS: No FFR: No Pre-Procedure MARIAMA Flow: 3 Previously Treated Lesion: No Lesion Complexity: Non-High/Non-C Lesion Length (mm): 10 Thrombus Present: No Bifurcation Lesion: Yes Guidewire Across Lesion: Yes Guidewire: Stenosis Post-Procedure (%): 0-10 Post-Procedure MARIAMA Flow: 3 Device(s) Deployed: Yes Type of Device(s): Medtronic Resolute [place] 3 X 12 mm GENOVEVA. Intraprocedure Events Significant Dissection: No Perforation: No echo: Interpretation Summary * Name: LEON DUNHAM Study Date: 09/19/2017 06:36 AM BP: 177/101 mmHg * Patient Location: [facility] ([place]S\2 HR: 69 * : 1950 (M/d/yyyy) Gender: Male Height: 71 in * Age: 67 yrs Ethnicity: [place] Weight: 214 lb * Ordering Physician: Briseyda Bocanegra * Referring Physician: Self, Referred * Performed By: Hannah Hester RCS * * Reason For Study: STROKE / R/O CARDIAC THROMBUS * BSA: 2.2 m2 * -- Conclusions -- * Limited 2D study * 1. Normal LV size, moderate concentric LVH. * 2. Hyperdynamic LV function. LVEF >70%. No regional wall motion abnormalities. No LV thrombus. * 3. Normal RV size and function. * 4. Negative saline contrast study for interatrial shunt. * 5. Compared with prior study on 09/17/2017: No significant changes. Procedure Details * Limited views were obtained. * A saline contrast injection was performed to assess for cardiac shunting. * The injection was performed through an intravenous line in the left arm. * The attending nurse who injected the saline contrast was DORENE CHAMPION, RN. * A total of 10 cc of agitated saline was given. Left Ventricle * The left ventricle is grossly normal size. * There is no thrombus. * There is moderate concentric left ventricular hypertrophy. * Ejection Fraction = >70 %. * No regional wall motion abnormalities noted. Right Ventricle * The right ventricle is grossly normal size. * The right ventricular systolic function is normal as assessed by tricuspid annular plane systolic excursion (TAPSE) (normal >1.5 cm). Atria * The left atrial size is normal. * Right atrial size is normal. * Injection of contrast documented no interatrial shunt. Mitral Valve * The mitral valve is grossly normal. * There is no mitral valve stenosis. Tricuspid Valve * The tricuspid valve is not well visualized. Aortic Valve * The aortic valve opens well. * No hemodynamically significant valvular aortic stenosis. Great Vessels * The aortic root and proximal ascending aorta are normal sized. Pericardium/Pleural * There is no pericardial effusion. Great Vessels * Normal inferior vena cava size and collapsability with sniff indicates a normal right atrial pressure of 3 mmHg MRI OF THE BRAIN WITHOUT CONTRAST CLINICAL HISTORY: Expressive aphasia and left hand numbness. TIA versus stroke. COMPARISON STUDY: Noncontrast head CT dated 09/17/2017 FINDINGS: Sagittal T1, axial diffusion, proton density and T2 weighted axial, coronal FLAIR, and axial T1-weighted images were acquired. No intra or extra-axial mass lesions are visualized There is a 6 mm focus of restricted water diffusion in the left posterior frontal lobe. The finding is consistent with acute infarct. There is no evidence of ventricular dilatation. Proton density T2-weighted and FLAIR images reveal scattered foci of increased T2 signal within the white matter, likely on a small vessel basis. There are no abnormal flow voids. IMPRESSION: Small (6 mm) acute infarct in the left posterior frontal lobe. Electronically signed by: Yfn Beverly M.D. 09/18/2017 10:47 AM [~ rep ct add3]] MR ANGIOGRAPHY OF THE [place] NO CONTRAST CLINICAL HISTORY: Post cardiac catheterization TIA versus stroke. COMPARISON STUDY: None. A 3-D [id number] MR angiographic sequence of the [place] was performed. Both the source and projection images were reviewed. There is no evidence of major intracranial branch occlusion. There is no evidence of intracranial stenosis. There are no lesions suspicious for aneurysm. IMPRESSION: Unremarkable MR angiography of the [place]. Electronically signed by: Yfn Beverly M.D. 09/18/2017 10:38 AM Dictated Date/Time: 09/18/2017 10:35 AM [~ rep ct add3]] NECK MRA HISTORY: Post cardiac catheterization TIA versus stroke. TECHNIQUE: Epyb-jc-[id number] and gadolinium-enhanced MRA of the neck was performed both before and after the intravenous administration of contrast. All measurements were calculated based on NASCET criteria. The patient was administered 9 cc of intravenous Gadavist. COMPARISON STUDY: None. FINDINGS: The aortic arch and proximal great vessels are widely patent. There is no significant stenosis, occlusion, or dissection identified within the bilateral common carotid, internal carotid, or vertebral arteries. IMPRESSION: No significant stenosis, occlusion, or dissection identified within the carotid or vertebral arteries. Electronically signed by: Yfn Beverly M.D. 09/18/2017 10:35 AM Dictated Date/Time: 09/18/2017 10:33 AM [~ rep ct add3]] CHEST ONE VIEW PORTABLE CLINICAL HISTORY: Fever. Sepsis. COMPARISON STUDY: Chest radiograph August 16, 2013. FINDINGS: Lung volumes are normal. Mild cardiomegaly is unchanged. There is no evidence of pulmonary edema. There is no consolidation to suggest pneumonia. Cardiomediastinal silhouette is stable. No pneumothorax or pleural effusion is present. IMPRESSION: No acute cardiopulmonary findings. No change in appearance of the chest. Electronically signed by: Ruperto Padilla M.D. 09/16/2017 8:16 PM Dictated Date/Time: 09/16/2017 8:14 PM Last Resulted CBC 09/19/17 05:55 Red Blood Count 5.26, Mean Corpuscular Volume 92.8, Mean Corpuscular Hemoglobin 33.3, Mean Corpuscular Hemoglobin Concent 35.9, Mean Platelet Volume 11.1, Neutrophils (%) (Auto) 73.2, Lymphocytes (%) (Auto) 16.3, Monocytes (%) (Auto) 8.3, Eosinophils (%) (Auto) 1.9, Basophils (%) (Auto) 0.2, Neutrophils # (Auto) 6.53, Lymphocytes # (Auto) 1.45, Monocytes # (Auto) 0.74, Eosinophils # (Auto) 0.17, Basophils # (Auto) 0.02 Last Resulted BMP 09/19/17 05:55 Hemoglobin A1c Test 09/18/17 06:38 Range/Units Estimated Average Glucose 100 mg/dl Hemoglobin A1c 5.1 4.5-5.6 % Lipid Panel Test 09/17/17 07:55 Range/Units Triglycerides Level 95 0-150 mg/dl Cholesterol Level 176 0-200 mg/dl HDL Cholesterol 54 mg/dl Cholesterol/HDL Ratio 3.3 LDL Cholesterol, Calculated 103 mg/dl Medication Reconciliation New Medications: Metoprolol Succinate (Metoprolol Succinate ER) 50 Mg Tabcr 1 TAB PO BID, #60 TAB Aspirin (Aspirin EC Low Dose) 81 Mg Ectab 81 MG PO QAM, #30 TAB Atorvastatin (Atorvastatin Calcium) 40 Mg Tab 40 MG PO HS, #30 TAB Losartan Potassium (Losartan Potassium) 25 Mg Tab 25 MG PO QAM, #30 TAB Nitroglycerin (Nitrostat) 0.4 Mg/1 Tab Subl 0.4 MG SL UD PRN for Chest Pain, #30 TAB Ticagrelor (Brilinta) 90 Mg Tab 90 MG PO BID, #60 TAB Continued Medications: [Samento] () 1 TAB PO DAILY HERBAL SUPPLEMENT [Tesal Herb] () 1 DOSE PO DAILY Discontinued Medications: [Metoprolol] () 1 TAB PO DAILY Discharge Exam Physical Exam: General Appearance: no apparent distress Eyes: EOMI ENT: hearing grossly normal Neck: trachea midline Respiratory/Chest: no respiratory distress, no accessory muscle use Extremities: normal inspection Neurologic/Psychiatric: supervisor tunnel heading II-XII nml as tested, alert, normal mood/affect Skin: normal color, warm/dry Hospital Course NSTEMI S/P PTCA with LAD Stenting on 09/17: - clinically stable, s/p stenting - med management (antiplatelets, antihypertensives, statin, prn nitro) - lifestyle reviewed - eating habits overall very good as far as quality food choices - portions at dinner likely excessive, exercise could be improved upon over time - extensive discussion on evidence in med management and (separately) lifestyle management for secondary prevention. see discharge instructions for details - lipids and CMP ~3 months Stroke -med management as above -stable and no notable deficit to my review -neuro input appreciated HTN: - ARB and metoprolol - BMP 1 week H/O Lyme: STABLE - Recent diagnosis with associated 22+ lbs weight gain 2/2 inactivity - discussed that his fatigue may have actually been atypical CAD sx - was on doxy first, and then later an herbal that a physician friend of his said has anti sphirochete properties Code Status: FULL RESUSCITATION Disposition: - stable for home, outpt for cardiac rehab, PCP and cardiology follow up Total Time Spent: Greater than 30 minutes This includes examination of the patient, discharge planning, medication reconciliation, and communication with other providers. Discharge Instructions Please refer to the electronic Patient Visit Report (Discharge Instructions) for additional information. Follow-Up PCP 1 week cardiology ~2-3 weeks cardiac rehab hopefully to begin next week
--- NOTE | 2017-09-22 16:17 | NUR ---
director radiation oncology [facility]: I arrange a follow up appointment with Henrique Garland PA-C on FridayOctober 07 at 2:30 pm. I call pt to inform him of this - no answer and no voicemail. I call pt's Altagracia and leave this info on her voicemail. I also ask the cardiology outpatient scheduler to mail pt a letter w/ the appointment details.
== END 2017-09-19 14:18 | disposition home or self-care (01) | DRG 246 ==
LOC: C.EDB 18:55 → C.2T 20:47 → ENRESERV 20:55 → OBSVTOIN 09-17 19:16 → ENRESERV 09-18 13:07 → C.MED 09-18 14:24
PROVIDERS: ADMIT Internal Medicine; ATTEND Family Medicine
PROC: B211YZZ Fluoroscopy of Multiple Coronary Arteries using Other Contrast (ICD-10-PCS; principal; 2017-09-17 12:02)
PROC: 4A023N7 Measurement of Cardiac Sampling and Pressure, Left Heart, Percutaneous Approach (ICD-10-PCS; principal; 2017-09-17 12:02)
PROC: 027034Z Dilation of Coronary Artery, One Artery with Drug-eluting Intraluminal Device, Percutaneous Approach (ICD-10-PCS; principal; 2017-09-17 12:02)
DX: I21.4 Non-ST elevation (NSTEMI) myocardial infarction (principal); I63.8 Other cerebral infarction; R47.01 Aphasia; R20.2 Paresthesia of skin; I10 Essential (primary) hypertension; E78.5 Hyperlipidemia, unspecified; Z79.899 Other long term (current) drug therapy

== ENCOUNTER 2019-02-17 14:20 | Inpatient (IN) ==
[2019-02-17 15:29] LABS: INR 0.9 (0.9-1.1); Partial Thromboplastin Ratio 0.9; Partial Thromboplastin Time 25.4 Seconds (21.0-31.0); Prothrombin Time 9.6 Seconds (9.0-12.0)
[2019-02-17 15:37] LABS: Alanine Aminotransferase 44 U/L (12-78); Albumin Globulin Ratio 0.9 (0.9-2); Albumin Level 3.6 gm/dl (3.4-5.0); Alkaline Phosphatase 119 U/L (45-117); BUN Creatinine Ratio 25.5 (10-20); Bilirubin,Total 0.4 mg/dl (0.2-1); Blood Urea Nitrogen 25 mg/dl (7-18); Carbon Dioxide 27 mmol/L (21-32); Chloride 108 mmol/L (98-107); Creatinine Clr Calc Pharmacy 91.8 ml/min; Est GFR (African American) 93.9; Globulin 4.1 gm/dl (2.5-4.0); Glucose 114 mg/dl (70-99); Total Protein 7.7 gm/dl (6.4-8.2); Troponin I < 0.015 ng/ml (0-0.045)
--- NOTE | 2019-02-17 15:38 | CT Scan Report ---
CT head/brain wo con CLINICAL HISTORY: Stroke like symptoms COMPARISON STUDY: MRI the brain dated 09/18/2017, noncontrast head CT dated 09/17/2017 TECHNIQUE: Axial CT of the brain is performed from the vertex to the skull base. IV contrast was not administered for this examination. A dose lowering technique was utilized adhering to the principles of ALARA. CT DOSE: 773.57 mGy.cm FINDINGS: No intra or extra-axial mass lesions are visualized. There is no CT evidence of acute cortical infarc tion. There is no evidence of midline shift. There is no acute hemorrhage. No calvarial fractures ar e visualized. There are patchy white matter hypodensities likely on a small vessel basis. There is no evidence of pathologic ventricular dilatation. There is no evidence of acute sinusitis. There is a stable mixed lytic and sclerotic 1 cm lesion with in the left occipital bone. This is of doubtful acute clinical significance. IMPRESSION: No acute intracranial findings Electronically signed by: Yfn Beverly M.D. 02/17/2019 3:36 PM
[2019-02-17 15:41] LABS: Basophils # (auto) 0.02 K/uL (0-0.2); Basophils % (auto) 0.3 %; Eosinophils % (auto) 2.5 %; Hematocrit (blood only) 45.9 % (42-52); Hemoglobin 16.3 g/dL (14.0-18.0); Immature Granulocytes # (auto) 0.03 K/uL (0.00-0.02); Immature Granulocytes % (auto) 0.4 %; Lymphocytes # (auto) 2.01 K/uL (1.2-3.4); Lymphocytes % (auto) 25.6 %; Mean Corpuscular Hgb Conc 35.5 g/dL (32-36); Mean Platelet Volume 11.2 fL (7.4-10.4); Monocytes # (auto) 0.82 K/uL (0.11-0.59); Monocytes % (auto) 10.4 %; Neutrophils # (auto) 4.78 K/uL (1.4-6.5); Neutrophils % (auto) 60.8 %; Platelet Count 156 K/uL (130-400); RDW Coefficient of Variation 13.1 % (11.5-14.5); Red Blood Count 4.99 M/uL (4.7-6.1); White Blood Count 7.86 K/uL (4.8-10.8)
[2019-02-17 15:45] LABS: Potassium 3.9 mmol/L (3.5-5.1); Sodium 142 mmol/L (136-145)
--- NOTE | 2019-02-17 15:45 | XRay Report ---
XR chest 1V portable CLINICAL HISTORY: tia mental status change COMPARISON STUDY: 09/16/2017 FINDINGS: The bones soft tissues and hemidiaphragms are normal. The cardiomediastinal silhouette is n ormal. The lungs are clear. The pulmonary vasculature is normal. IMPRESSION: Negative chest. The above report was generated using voice recognition software. It may contain grammatical, syntax or spelling errors. Electronically signed by: Carlos Bonner M.D. 02/17/2019 3:43 PM
[2019-02-17 15:48] LABS: Aspartate Aminotransferase 29 U/L (15-37); Magnesium 2.2 mg/dl (1.8-2.4)
[2019-02-17] MEDS ORDERED: ASPIRIN CHEW 324 MG PO STA (16:47)
[2019-02-17] MEDS ORDERED: LABETALOL HCL IV 5 MG/ML 20ML IV STA ×2 (16:47→18:41)
--- NOTE | 2019-02-17 18:12 | Emergency Department Note ---
Entered by Virgie Maurice acting as a scribe for Rod Jose DO History of Present Illness General Chief complaint: TIA Symptoms Stated complaint: Mixing up words Source: patient and family (daughter) History of Present Illness Provider complaint: TIA symptoms Onset (ago): hour(s) (between 1130 and 1200) Location: left and right Maximum Pain Intensity: 0 Quality: + other (TIA symptoms) Associated symptoms: + denies other symptoms (denies weakness in arms or legs ), + cough, + weakness (generalized weakness) and + other (mixing up words, pressure around his head); no fever/chills and no nausea/vomiting The patient is a 68 year old male who presents to the Emergency Department with complaints of TIA symptoms today between 1130 and 1200. He states that he did not schedule a lunch break today and states that he ate 3 Ada bars and felt dizzy afterward. He reports that between 1130 and 1200 he was swapping words for other words. His daughter states that the patient came to her house and was still mixing up his words. Per daughter, the patient had an MO in 2017 and had 3 mini strokes afterward. Per daughter, the patient's symptoms today are con sistent with his mini-strokes in the past. The patient denies having weakness in his arms or legs but did report generalized weakness this morning. He does report having pressure in his head. He denies having nausea and vomiting. The patient denies recent fevers or chills but does report having a cough. The patient states that he does not have a PCP. Per daughter, the patient takes Metoprolol and a baby aspirin daily. Home Medications Home Medications Medication Instructions Recorded Confirmed Type Samento 10 drp PO DAILY 02/17/19 History aspirin 81 mg PO QAM 02/17/19 02/17/19 History coenzyme Q10 [Co Q-10] 100 mg PO DAILY 02/17/19 02/17/19 History metoprolol succinate 100 mg PO QAM 02/17/19 02/17/19 History multivitamin 2 tab PO DAILY 02/17/19 02/17/19 History nitroglycerin 0.4 mg SUBLINGUAL UD PRN 02/17/19 02/17/19 History Allergies Allergy/AdvReac Type Severity Reaction Status Date / Time horse dander Allergy Severe Itch/Cough Verified 02/17/19 15:48 with Horse hair HAIRSPRAY Allergy Severe ITCHY, Uncoded 02/17/19 15:48 COUGH Past Med/Surg History Medical History HTN (hypertension) (Chronic) NSTEMI (non-ST elevated myocardial infarction) (Resolved) Surgical History H/O heart artery stent History of appendectomy History of hernia repair History of laparoscopic cholecystectomy History of tonsillectomy Social History Preferred Language: Austrian Communication Ability: Effective Bread Molder Required: No Beliefs That Will Affect Care: Sikhism Sikhism Beliefs: Mormon Current Living Situation: Alone current occupational status: employed 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 and A total of 10 systems reviewed and were otherwise negative Physical Exam Vital Signs Vital Signs - 24 hr 02/17/19 14:22 02/17/19 15:09 02/17/19 15:10 Temperature 36.8 C Temperature Source Oral Sepsis Recent Fever Within 48 Hours No Sepsis New/Unexplained Change in Mental Status No Sepsis Action Taken by Nursing No Action Required Pulse Rate 78 78 Pulse Rate [Apical] 78 Pulse Rate [Right Finger] Pulse Rate from SpO2 Sensor Pulse Rhythm [Apical] Regular Pulse Rhythm [Right Finger] Pulse Strength [Apical] Pulse Strength [Right Finger] Respiratory Rate 16 20 24 Respiratory Effort / Characteristics Non-Labored Non-Labored Respiratory Depth Normal Normal Respiratory Pattern Regular Regular Blood Pressure 202/95 H 172/92 H Blood Pressure [Left Arm] Blood Pressure [Right Arm] 172/92 H Blood Pressure Mean 130 118 Blood Pressure Mean [Left Arm] Blood Pressure Mean [Right Arm] 118 Blood Pressure Position Sitting Blood Pressure Position [Left Arm] Blood Pressure Position [Right Arm] Sitting Pulse Oximetry 94 94 Oxygen Delivery Method Room Air Room Air 02/17/19 15:19 02/17/19 15:58 02/17/19 16:00 Temperature Temperature Source Sepsis Recent Fever Within 48 Hours Sepsis New/Unexplained Change in Mental Status Sepsis Action Taken by Nursing Pulse Rate 75 76 70 Pulse Rate [Apical] Pulse Rate [Right Finger] Pulse Rate from SpO2 Sensor 70 Pulse Rhythm [Apical] Pulse Rhythm [Right Finger] Pulse Strength [Apical] Pulse Strength [Right Finger] Respiratory Rate 26 H 18 25 H Respiratory Effort / Characteristics Respiratory Depth Respiratory Pattern Blood Pressure Blood Pressure [Left Arm] Blood Pressure [Right Arm] Blood Pressure Mean Blood Pressure Mean [Left Arm] Blood Pressure Mean [Right Arm] Blood Pressure Position Blood Pressure Position [Left Arm] Blood Pressure Position [Right Arm] Pulse Oximetry 94 Oxygen Delivery Method 02/17/19 16:15 02/17/19 16:30 02/17/19 16:33 Temperature Temperature Source Sepsis Recent Fever Within 48 Hours Sepsis New/Unexplained Change in Mental Status Sepsis Action Taken by Nursing Pulse Rate 70 71 74 Pulse Rate [Apical] 74 Pulse Rate [Right Finger] Pulse Rate from SpO2 Sensor 73 Pulse Rhythm [Apical] Regular Pulse Rhythm [Right Finger] Pulse Strength [Apical] Pulse Strength [Right Finger] Respiratory Rate 22 19 34 H Respiratory Effort / Characteristics Non-Labored Respiratory Depth Normal Respiratory Pattern Regular Blood Pressure 181/97 H Blood Pressure [Left Arm] Blood Pressure [Right Arm] 181/97 H Blood Pressure Mean 125 Blood Pressure Mean [Left Arm] Blood Pressure Mean [Right Arm] 125 Blood Pressure Position Blood Pressure Position [Left Arm] Blood Pressure Position [Right Arm] Sitting Pulse Oximetry 94 Oxygen Delivery Method Room Air 02/17/19 16:45 02/17/19 17:00 02/17/19 17:15 Temperature Temperature Source Sepsis Recent Fever Within 48 Hours Sepsis New/Unexplained Change in Mental Status Sepsis Action Taken by Nursing Pulse Rate 69 72 71 Pulse Rate [Apical] Pulse Rate [Right Finger] Pulse Rate from SpO2 Sensor 69 Pulse Rhythm [Apical] Pulse Rhythm [Right Finger] Pulse Strength [Apical] Pulse Strength [Right Finger] Respiratory Rate 24 18 26 H Respiratory Effort / Characteristics Respiratory Depth Respiratory Pattern Blood Pressure Blood Pressure [Left Arm] Blood Pressure [Right Arm] Blood Pressure Mean Blood Pressure Mean [Left Arm] Blood Pressure Mean [Right Arm] Blood Pressure Position Blood Pressure Position [Left Arm] Blood Pressure Position [Right Arm] Pulse Oximetry 94 Oxygen Delivery Method 02/17/19 17:30 02/17/19 17:45 02/17/19 17:48 Temperature Temperature Source Sepsis Recent Fever Within 48 Hours Sepsis New/Unexplained Change in Mental Status Sepsis Action Taken by Nursing Pulse Rate 69 68 Pulse Rate [Apical] 77 Pulse Rate [Right Finger] Pulse Rate from SpO2 Sensor Pulse Rhythm [Apical] Pulse Rhythm [Right Finger] Pulse Strength [Apical] Pulse Strength [Right Finger] Respiratory Rate 21 23 24 Respiratory Effort / Characteristics Non-Labored Respiratory Depth Normal Respiratory Pattern Blood Pressure Blood Pressure [Left Arm] Blood Pressure [Right Arm] 215/120 H Blood Pressure Mean Blood Pressure Mean [Left Arm] Blood Pressure Mean [Right Arm] 151 Blood Pressure Position Blood Pressure Position [Left Arm] Blood Pressure Position [Right Arm] Pulse Oximetry 93 Oxygen Delivery Method Room Air 02/17/19 17:49 02/17/19 17:53 02/17/19 17:57 Temperature Temperature Source Sepsis Recent Fever Within 48 Hours Sepsis New/Unexplained Change in Mental Status Sepsis Action Taken by Nursing Pulse Rate 72 75 Pulse Rate [Apical] 76 79 Pulse Rate [Right Finger] Pulse Rate from SpO2 Sensor 72 74 Pulse Rhythm [Apical] Pulse Rhythm [Right Finger] Pulse Strength [Apical] Pulse Strength [Right Finger] Respiratory Rate 23 23 22 Respiratory Effort / Characteristics Non-Labored Non-Labored Respiratory Depth Normal Normal Respiratory Pattern Blood Pressure 215/120 H 204/108 H Blood Pressure [Left Arm] Blood Pressure [Right Arm] 204/108 H 202/108 H Blood Pressure Mean 151 140 Blood Pressure Mean [Left Arm] Blood Pressure Mean [Right Arm] 140 139 Blood Pressure Position Blood Pressure Position [Left Arm] Blood Pressure Position [Right Arm] Lying Pulse Oximetry 95 95 93 Oxygen Delivery Method Room Air Room Air 02/17/19 17:58 02/17/19 17:59 02/17/19 18:00 Temperature Temperature Source Sepsis Recent Fever Within 48 Hours Sepsis New/Unexplained Change in Mental Status Sepsis Action Taken by Nursing Pulse Rate 79 76 76 Pulse Rate [Apical] 82 Pulse Rate [Right Finger] Pulse Rate from SpO2 Sensor 81 76 76 Pulse Rhythm [Apical] Regular Pulse Rhythm [Right Finger] Pulse Strength [Apical] Pulse Strength [Right Finger] Respiratory Rate 19 24 25 H Respiratory Effort / Characteristics Respiratory Depth Normal Respiratory Pattern Blood Pressure 202/108 H 200/109 H 202/106 H Blood Pressure [Left Arm] Blood Pressure [Right Arm] 202/106 H Blood Pressure Mean 139 139 138 Blood Pressure Mean [Left Arm] Blood Pressure Mean [Right Arm] 138 Blood Pressure Position Blood Pressure Position [Left Arm] Blood Pressure Position [Right Arm] Sitting Pulse Oximetry 94 93 94 Oxygen Delivery Method Room Air 02/17/19 18:01 02/17/19 18:15 02/17/19 18:16 Temperature Temperature Source Sepsis Recent Fever Within 48 Hours Sepsis New/Unexplained Change in Mental Status Sepsis Action Taken by Nursing Pulse Rate 75 74 71 Pulse Rate [Apical] Pulse Rate [Right Finger] Pulse Rate from SpO2 Sensor Pulse Rhythm [Apical] Pulse Rhythm [Right Finger] Pulse Strength [Apical] Pulse Strength [Right Finger] Respiratory Rate 24 21 22 Respiratory Effort / Characteristics Respiratory Depth Respiratory Pattern Blood Pressure 187/111 H Blood Pressure [Left Arm] Blood Pressure [Right Arm] Blood Pressure Mean 136 Blood Pressure Mean [Left Arm] Blood Pressure Mean [Right Arm] Blood Pressure Position Blood Pressure Position [Left Arm] Blood Pressure Position [Right Arm] Pulse Oximetry Oxygen Delivery Method 02/17/19 18:30 02/17/19 18:31 02/17/19 18:36 Temperature Temperature Source Sepsis Recent Fever Within 48 Hours Sepsis New/Unexplained Change in Mental Status Sepsis Action Taken by Nursing Pulse Rate 77 79 Pulse Rate [Apical] 70 Pulse Rate [Right Finger] Pulse Rate from SpO2 Sensor Pulse Rhythm [Apical] Pulse Rhythm [Right Finger] Pulse Strength [Apical] Pulse Strength [Right Finger] Respiratory Rate 22 21 22 Respiratory Effort / Characteristics Respiratory Depth Respiratory Pattern Blood Pressure Blood Pressure [Left Arm] Blood Pressure [Right Arm] 209/117 H Blood Pressure Mean 159 Blood Pressure Mean [Left Arm] Blood Pressure Mean [Right Arm] 147 Blood Pressure Position Blood Pressure Position [Left Arm] Blood Pressure Position [Right Arm] Pulse Oximetry 93 Oxygen Delivery Method Room Air 02/17/19 18:37 02/17/19 18:45 02/17/19 18:46 Temperature Temperature Source Sepsis Recent Fever Within 48 Hours Sepsis New/Unexplained Change in Mental Status Sepsis Action Taken by Nursing Pulse Rate 71 71 73 Pulse Rate [Apical] Pulse Rate [Right Finger] Pulse Rate from SpO2 Sensor 71 Pulse Rhythm [Apical] Pulse Rhythm [Right Finger] Pulse Strength [Apical] Pulse Strength [Right Finger] Respiratory Rate 24 23 27 H Respiratory Effort / Characteristics Respiratory Depth Respiratory Pattern Blood Pressure 209/117 H 194/102 H Blood Pressure [Left Arm] Blood Pressure [Right Arm] Blood Pressure Mean 147 132 Blood Pressure Mean [Left Arm] Blood Pressure Mean [Right Arm] Blood Pressure Position Blood Pressure Position [Left Arm] Blood Pressure Position [Right Arm] Pulse Oximetry 95 Oxygen Delivery Method 02/17/19 18:52 02/17/19 18:57 02/17/19 18:58 Temperature Temperature Source Sepsis Recent Fever Within 48 Hours Sepsis New/Unexplained Change in Mental Status Sepsis Action Taken by Nursing Pulse Rate 73 Pulse Rate [Apical] 73 73 Pulse Rate [Right Finger] Pulse Rate from SpO2 Sensor 74 Pulse Rhythm [Apical] Regular Regular Pulse Rhythm [Right Finger] Pulse Strength [Apical] Pulse Strength [Right Finger] Respiratory Rate 24 25 H 24 Respiratory Effort / Characteristics Non-Labored Non-Labored Respiratory Depth Normal Normal Respiratory Pattern Regular Regular Blood Pressure 202/103 H Blood Pressure [Left Arm] Blood Pressure [Right Arm] 194/102 H 202/103 H Blood Pressure Mean 136 Blood Pressure Mean [Left Arm] Blood Pressure Mean [Right Arm] 132 136 Blood Pressure Position Blood Pressure Position [Left Arm] Blood Pressure Position [Right Arm] Sitting Sitting Pulse Oximetry 95 94 94 Oxygen Delivery Method Room Air Room Air 02/17/19 19:00 02/17/19 19:01 02/17/19 19:02 Temperature Temperature Source Sepsis Recent Fever Within 48 Hours Sepsis New/Unexplained Change in Mental Status Sepsis Action Taken by Nursing Pulse Rate 73 73 72 Pulse Rate [Apical] 72 Pulse Rate [Right Finger] Pulse Rate from SpO2 Sensor 74 74 72 Pulse Rhythm [Apical] Regular Pulse Rhythm [Right Finger] Pulse Strength [Apical] Pulse Strength [Right Finger] Respiratory Rate 20 23 22 Respiratory Effort / Characteristics Non-Labored Respiratory Depth Normal Respiratory Pattern Blood Pressure 205/131 H 187/97 H Blood Pressure [Left Arm] Blood Pressure [Right Arm] 187/97 H Blood Pressure Mean 155 127 Blood Pressure Mean [Left Arm] Blood Pressure Mean [Right Arm] 127 Blood Pressure Position Blood Pressure Position [Left Arm] Blood Pressure Position [Right Arm] Sitting Pulse Oximetry 93 93 93 Oxygen Delivery Method Room Air 02/17/19 19:35 02/17/19 19:42 02/17/19 20:20 Temperature 36.8 C Temperature Source Oral Sepsis Recent Fever Within 48 Hours Sepsis New/Unexplained Change in Mental Status Sepsis Action Taken by Nursing Pulse Rate 78 Pulse Rate [Apical] 70 Pulse Rate [Right Finger] Pulse Rate from SpO2 Sensor Pulse Rhythm [Apical] Regular Pulse Rhythm [Right Finger] Pulse Strength [Apical] Normal Pulse Strength [Right Finger] Respiratory Rate 22 15 Respiratory Effort / Characteristics Non-Labored Spontaneous Respiratory Depth Normal Respiratory Pattern Regular Blood Pressure 212/118 H Blood Pressure [Left Arm] Blood Pressure [Right Arm] 184/99 H Blood Pressure Mean Blood Pressure Mean [Left Arm] Blood Pressure Mean [Right Arm] 127 Blood Pressure Position Blood Pressure Position [Left Arm] Blood Pressure Position [Right Arm] Lying Pulse Oximetry 97 93 Oxygen Delivery Method Room Air Room Air Room Air 02/18/19 00:14 02/18/19 01:17 02/18/19 03:45 Temperature 36.7 C 36.7 C Temperature Source Oral Oral Sepsis Recent Fever Within 48 Hours Sepsis New/Unexplained Change in Mental Status Sepsis Action Taken by Nursing Pulse Rate Pulse Rate [Apical] 70 69 Pulse Rate [Right Finger] Pulse Rate from SpO2 Sensor Pulse Rhythm [Apical] Pulse Rhythm [Right Finger] Pulse Strength [Apical] Pulse Strength [Right Finger] Respiratory Rate 18 18 Respiratory Effort / Characteristics Respiratory Depth Respiratory Pattern Blood Pressure Blood Pressure [Left Arm] Blood Pressure [Right Arm] 191/104 H 173/100 H 189/93 H Blood Pressure Mean Blood Pressure Mean [Left Arm] Blood Pressure Mean [Right Arm] 133 124 125 Blood Pressure Position Blood Pressure Position [Left Arm] Blood Pressure Position [Right Arm] Lying Pulse Oximetry 94 96 Oxygen Delivery Method Room Air 02/18/19 08:15 Temperature 36.6 C Temperature Source Oral Sepsis Recent Fever Within 48 Hours Sepsis New/Unexplained Change in Mental Status Sepsis Action Taken by Nursing Pulse Rate Pulse Rate [Apical] Pulse Rate [Right Finger] 73 Pulse Rate from SpO2 Sensor Pulse Rhythm [Apical] Pulse Rhythm [Right Finger] Regular Pulse Strength [Apical] Pulse Strength [Right Finger] Normal Respiratory Rate 16 Respiratory Effort / Characteristics Non-Labored Spontaneous Respiratory Depth Respiratory Pattern Regular Blood Pressure Blood Pressure [Left Arm] 203/103 H Blood Pressure [Right Arm] 190/91 H Blood Pressure Mean Blood Pressure Mean [Left Arm] 136 Blood Pressure Mean [Right Arm] 124 Blood Pressure Position Blood Pressure Position [Left Arm] Sitting Blood Pressure Position [Right Arm] Sitting Pulse Oximetry 95 Oxygen Delivery Method Room Air GENERAL: Patient is awake, alert, and in no acute distress.Patient is resting comfortably and showing no signs of anxiety EYES: The conjunctivae are clear. The pupils are round and reactive. EARS, NOSE, MOUTH AND THROAT: The nose is without any evidence of any deformity. Mucous membranes are moist.Tongue is midline NECK: The neck is nontender and supple. RESPIRATORY: [id number] respiratory effort is noted. There is no evidence of wheezing rhonchi or rales to auscultation. CARDIOVASCULAR: Regular rate and rhythm noted. There no murmurs rubs or gallops normal S1 normal S2 GASTROINTESTINAL: The abdomen is soft. Bowel sounds are present in all quadrants. Abdomen is nontender. MUSCULOSKELETAL/EXTREMITIES: There is no evidence of gross deformity. Full range of motion is noted in the hips and shoulders. SKIN: There is no obvious evidence of any rash. There are no petechiae, pallor or cyanosis noted. NEUROLOGIC: Patient is awake alert and oriented x3. Strength is symmetric. Patellar reflexes are 2+ bilaterally. Course 1439: The patient was evaluated in room A9B. A history and physical were performed. 1700: I updated the patient who verbalized agreement and understanding of the treatment plan. 1706: I discussed the patient's case with Dr. Harlan Amezcua who will evaluate the patient for further management. Consultations Consultation #1: Dr. Harlan Amezcua Time: 17:06 Administered Medications Atorvastatin Calcium (Lipitor) 40 mg PO [facility] Stop: 03/20/19 08:59 Last Admin: 02/18/19 08:19 Dose: Not Given Documented by: [id number] Clopidogrel Bisulfate (Plavix) 75 mg PO [facility] Stop: 03/20/19 08:59 Last Admin: 02/18/19 08:19 Dose: 75 mg Documented by: [id number] Gadobutrol (Gadavist 65ml) 10.6 ml IV ONCE PRN PRN Reason: Interaction Checking Stop: 02/22/19 00:00 Last Admin: 02/17/19 23:47 Dose: 10.6 ml Documented by: [id number] Ioversol (Optiray 320 125ml) 125 ml IV ONCE PRN PRN Reason: Interaction Checking Stop: 02/21/19 23:19 Last Admin: 02/17/19 23:20 Dose: 120 ml Documented by: [id number] Labetalol HCl (Normodyne) 10 mg IV Q4 PRN PRN Reason: Hypertension Stop: 03/19/19 20:14 Last Admin: 02/18/19 00:19 Dose: 10 mg Documented by: [id number] Cosigned by: [id number] Metoprolol Succinate (Toprol Xl) 100 mg PO [facility] Stop: 03/20/19 08:59 Last Admin: 02/18/19 08:19 Dose: 100 mg Documented by: [id number] Discontinued Medications Aspirin (Aspirin) 324 mg PO NOW STA Stop: 02/17/19 16:48 Last Admin: 02/17/19 17:44 Dose: 324 mg Documented by: [id number] Labetalol HCl (Normodyne) 10 mg IV NOW STA Stop: 02/17/19 16:48 Last Admin: 02/17/19 17:44 Dose: 10 mg Documented by: [id number] Cosigned by: [id number] Labetalol HCl (Normodyne) 10 mg IV NOW STA Stop: 02/17/19 18:42 Last Admin: 02/17/19 18:51 Dose: 10 mg Documented by: [id number] Cosigned by: [id number] Medical Decision Making Differential Diagnosis Differential includes acute coronary syndrome, myocardial infarction, CVA, TIA, anemia, infection, pneumonia, UTI, pyelonephritis, poor nutrition, dehydration, electrolyte disturbance,hypoglycemia. Medical Records Attestation: I reviewed the patient's medical records. Home Medications Current Medication List: was personally reviewed by me Laboratory Data Attestation: I reviewed the patient's lab results. Result diagrams: 02/18/19 06:03 02/18/19 06:03 Lab Results 02/17/19 02/17/19 02/17/19 Range/Units 14:52 14:52 14:52 WBC 7.86 (4.8-10.8) K/uL RBC 4.99 (4.7-6.1) M/uL Hgb 16.3 (14.0-18.0) g/dL Hct 45.9 (42-52) % MCV 92.0 (80-100) fL MCH 32.7 (25-34) pg MCHC 35.5 (32-36) g/dL RDW Std Deviation 44.0 (36.4-46.3) fL RDW Coeff of Guerita 13.1 (11.5-14.5) % Plt Count 156 (130-400) K/uL MPV 11.2 H (7.4-10.4) fL Immature Gran % (Auto) 0.4 % Neut % (Auto) 60.8 % Lymph % (Auto) 25.6 % [place] % (Auto) 10.4 % Eos % (Auto) 2.5 % Baso % (Auto) 0.3 % Immature Gran # (Auto) 0.03 H (0.00-0.02) K/uL Neut # (Auto) 4.78 (1.4-6.5) K/uL Lymph # (Auto) 2.01 (1.2-3.4) K/uL [place] # (Auto) 0.82 H (0.11-0.59) K/uL Eos # (Auto) 0.20 (0-0.5) K/uL Baso # (Auto) 0.02 (0-0.2) K/uL PT 9.6 (9.0-12.0) Seconds INR 0.9 (0.9-1.1) APTT 25.4 (21.0-31.0) Seconds PTT Ratio 0.9 Sodium 142 (136-145) mmol/L Potassium 3.9 (3.5-5.1) mmol/L Chloride 108 H (98-107) mmol/L Carbon Dioxide 27 (21-32) mmol/L Anion Gap 7.0 (3-11) BUN 25 H (7-18) mg/dl Creatinine 0.97 (0.6-1.4) mg/dl Est Cr Clr Drug Dosing 91.8 ml/min Est GFR ( Amer) 93.9 Est GFR (Non-Af Amer) 81.0 BUN/Creatinine Ratio 25.5 H (10-20) Glucose 114 H (70-99) mg/dl Estimat Average Glucose mg/dl Hemoglobin A1c (4.5-5.6) % Calcium 9.0 (8.5-10.1) mg/dl Magnesium 2.2 (1.8-2.4) mg/dl Total Bilirubin 0.4 (0.2-1) mg/dl AST 29 (15-37) U/L ALT 44 (12-78) U/L Alkaline Phosphatase 119 H (45-117) U/L Troponin I < 0.015 (0-0.045) ng/ml Total Protein 7.7 (6.4-8.2) gm/dl Albumin 3.6 (3.4-5.0) gm/dl Globulin 4.1 H (2.5-4.0) gm/dl Albumin/Globulin Ratio 0.9 (0.9-2) Triglycerides (0-150) mg/dl Cholesterol (0-200) mg/dl LDL Cholesterol, Calc mg/dl VLDL Cholesterol, Calc mg/dl HDL Cholesterol mg/dl Cholesterol/HDL Ratio Specimen Hemolysis 02/18/19 02/18/19 02/18/19 Range/Units 06:03 06:03 06:03 WBC 8.82 (4.8-10.8) K/uL RBC 4.82 (4.7-6.1) M/uL Hgb 16.1 (14.0-18.0) g/dL Hct 44.4 (42-52) % MCV 92.1 (80-100) fL MCH 33.4 (25-34) pg MCHC 36.3 H (32-36) g/dL RDW Std Deviation 44.2 (36.4-46.3) fL RDW Coeff of Guerita 13.1 (11.5-14.5) % Plt Count 143 (130-400) K/uL MPV 10.6 H (7.4-10.4) fL Immature Gran % (Auto) 0.2 % Neut % (Auto) 72.0 % Lymph % (Auto) 17.8 % [place] % (Auto) 7.8 % Eos % (Auto) 2.0 % Baso % (Auto) 0.2 % Immature Gran # (Auto) 0.02 (0.00-0.02) K/uL Neut # (Auto) 6.34 (1.4-6.5) K/uL Lymph # (Auto) 1.57 (1.2-3.4) K/uL [place] # (Auto) 0.69 H (0.11-0.59) K/uL Eos # (Auto) 0.18 (0-0.5) K/uL Baso # (Auto) 0.02 (0-0.2) K/uL PT (9.0-12.0) Seconds INR (0.9-1.1) APTT (21.0-31.0) Seconds PTT Ratio Sodium 144 (136-145) mmol/L Potassium 3.9 (3.5-5.1) mmol/L Chloride 110 H (98-107) mmol/L Carbon Dioxide 28 (21-32) mmol/L Anion Gap 6.0 (3-11) BUN 15 (7-18) mg/dl Creatinine 0.85 (0.6-1.4) mg/dl Est Cr Clr Drug Dosing 105.2 ml/min Est GFR ( Amer) 105.2 Est GFR (Non-Af Amer) 90.8 BUN/Creatinine Ratio 17.0 (10-20) Glucose 91 (70-99) mg/dl Estimat Average Glucose 114 mg/dl Hemoglobin A1c 5.6 (4.5-5.6) % Calcium 8.6 (8.5-10.1) mg/dl Magnesium (1.8-2.4) mg/dl Total Bilirubin (0.2-1) mg/dl AST (15-37) U/L ALT (12-78) U/L Alkaline Phosphatase (45-117) U/L Troponin I (0-0.045) ng/ml Total Protein (6.4-8.2) gm/dl Albumin (3.4-5.0) gm/dl Globulin (2.5-4.0) gm/dl Albumin/Globulin Ratio (0.9-2) Triglycerides 116 (0-150) mg/dl Cholesterol 199 (0-200) mg/dl LDL Cholesterol, Calc 120 mg/dl VLDL Cholesterol, Calc 23 mg/dl HDL Cholesterol 56 mg/dl Cholesterol/HDL Ratio 4 Specimen Hemolysis Imaging Data Radiologist's Impression: Radiology results as stated below per my review and the radiologist's interpretation: XR chest 1V portable CLINICAL HISTORY: tia mental status change COMPARISON STUDY: 09/16/2017 FINDINGS: The bones soft tissues and hemidiaphragms are normal. The cardiomediastinal silhouette is normal. The lungs are clear. The pulmonary vasculature is normal. IMPRESSION: Negative chest. The above report was generated using voice recognition software. It may contain grammatical, syntax or spelling errors. Electronically signed by: Carlos Bonner M.D. 02/17/2019 3:[address] head/brain wo con CLINICAL HISTORY: Stroke like symptoms COMPARISON STUDY: MRI the brain dated 09/18/2017, noncontrast head CT dated 09/17/2017 TECHNIQUE: Axial CT of the brain is performed from the vertex to the skull base. IV contrast was not administered for this examination. A dose lowering technique was utilized adhering to the principles of ALARA. CT DOSE: 773.57 mGy.cm FINDINGS: No intra or extra-axial mass lesions are visualized. There is no CT evidence of acute cortical infarction. There is no evidence of midline shift. There is no acute hemorrhage. No calvarial fractures are visualized. There are patchy white matter hypodensities likely on a small vessel basis. There is no evidence of pathologic ventricular dilatation. There is no evidence of acute sinusitis. There is a stable mixed lytic and scl erotic 1 cm lesion within the left occipital bone. This is of doubtful acute clinical significance. IMPRESSION: No acute intracranial findings Electronically signed by: Yfn Beverly M.D. 02/17/2019 3:36 PM ECG Data Attestation: I personally reviewed and interpreted this ECG as follows: Indication: weakness Rate (beats per minute): 77 Rhythm: normal sinus Findings: no PAC, no PVC, no ST depression, no ST elevation, no acute ischemic change and no ectopy Comparison ECG Date: from (09/17/17) Change: the following changes noted (resolution of previously noted TWI) Blood Pressure Blood Pressure Findings: Elevated blood pressure Blood Pressure Disposition: further management by hospitalist MDM Narrative The patient is a 68-year-old male who presented to the emergency department for an evaluation of TIA symptoms. The patient describes an episode of TIA where he had an expressive aphasia. This was short lasting but the patient has a history of a TIA in the past after having cardiac catheterization. I discussed the patient's laboratory and radiographic studies with him. Given his history I do feel the patient may benefit from inpatient further work-up to determine the cause of his symptoms. He was treated with IV labetalol in the emergency department. He was reevaluated multiple times. He had no recurrence of his stroke symptoms. I discussed the patient's condition with the on-call [facility] hospitalist. They have agreed to evaluate the patient in the emergency department for further management and disposition. Impression & Plan TIA (transient ischemic attack), HTN (hypertension) Discharge Plan Visit Data *Final* Discharge Date/Time: 02/17/19 19:35 Chief Complaint: TIA Symptoms Stated Complaint: Mixing up words ED Provider: Rod Jose Discharge Problem: TIA (transient ischemic attack), HTN (hypertension) Patient Disposition: Admitted As Inpatient Discharge Instructions Interventions: ED Discharge Assessment Last Done: 02/17/19 19:35 Discharge Problem: HTN (hypertension) Qualifiers: Hypertension type: unspecified Qualified Code(s): I10 - Essential (primary) hypertension The scribe's documentation has been prepared under my direction and personally reviewed by me in its entirety. I confirm that the note above accurately reflects all work, treatment, procedures, and medical decision making performed by me.
--- NOTE | 2019-02-17 19:10 | History & Physical Report ---
Date of Service February 17, 2019 Assessment & Plan (1) Stroke-like episode: Patient with acute onset confusion and word-finding difficulties. Persistently elevated blood pressure in the ER requiring two doses of Labetalol. Patient with prior CVA after cardiac catheterization, no residual deficit. He reports taking ASA 81mg po 3-4 days per week. He was using it daily but noted bruising and bleeding. -Admit to PCU, neuro checks per protocol, telemetry monitoring -Obtain MRI brain -Obtain CTA head and neck -Check 2D echo -Check HgA1C and Lipids with AM labs -Change ASA to Plavix -Start Simvastatin 40mg po daily -Labetalol 10mg IV q 4 hours PRN SBP > 190 mmHg -Neurology consultation - appreciate assistance with this case Present on Admission?: Yes (2) HTN (hypertension): Markedly elevated blood pressure. Possibly compensatory in setting of cerebral ischemia. Patient reports overall adequate blood pressure control at home, typically SBP of 130. -Continue Metoprolol 100mg po daily -Labetalol 10mg IV q 4 hours PRN. Goal BP < 220/210, ideally closer to 180 mmHg Present on Admission?: Yes (3) CAD (coronary artery disease): Patient with history of CAD s/p GENOVEVA to LAD. Presently no CP. EKG without evidence of acute ischeima. Troponin x 1 negative -Plavix as above -Start Simvastatin -Continue Metoprolol -Continue to monitor F/E/N - Heplock. Electrolytes within normal limits, heart healthy diet as tolerated Ppx - SCDs to bilateral LE Code - Full per discussion with patient History of Present Illness Chief Complaint: stroke-like symptoms Primary Care Provider: NO PCP Mr Smith is a pleasant 68yo male with history of CAD s/p NSTEMI with GENOVEVA placed to mid-LAD in August 2017. Patient with small frontal CVA after cardiac cath, no residual deficits, HTN presenting with stroke-like symptoms. Patient states that he was at work around 12:00 when he developed sudden onset of confusion and inability to find his words. The symptoms lasted approximately 30 minutes then gradually resolved. He denies numbness/tingling/weakness/dizziness or visual loss. He has a mild band-like headache presently. Blood pressure persistently elevated in ER. Patient received 10mg Labetalol IV x 2 doses. No additional complaints. ER Course: ASA 324mg PO, Labetalol 10mg IV x 2 doses, Dysphagia screening performed and patient did well with no aspiration noted Allergies Allergy/AdvReac Type Severity Reaction Status Date / Time horse dander Allergy Severe Itch/Cough Verified 02/17/19 15:48 with Horse hair HAIRSPRAY Allergy Severe ITCHY, Uncoded 02/17/19 15:48 COUGH Home Medications Home Medications Medication Instructions Recorded Confirmed Type Samento 10 drp PO DAILY 02/17/19 History aspirin 81 mg PO QAM 02/17/19 02/17/19 History coenzyme Q10 [Co Q-10] 100 mg PO DAILY 02/17/19 02/17/19 History metoprolol succinate 100 mg PO QAM 02/17/19 02/17/19 History multivitamin 2 tab PO DAILY 02/17/19 02/17/19 History nitroglycerin 0.4 mg SUBLINGUAL UD PRN 02/17/19 02/17/19 History Past Med/Surg History Medical History HTN (hypertension) (Chronic) NSTEMI (non-ST elevated myocardial infarction) (Resolved) Surgical History H/O heart artery stent History of hernia repair Family History Father Coronary heart disease Social History Preferred Language: Chinese Feels Safe at Home: Yes Smoking Status: Never smoker Hx Alcohol Use: Yes Hx Substance Use: No Review of Systems Review of Systems: All systems reviewed & are unremarkable except as noted in HPI & below Physical Exam Physical Exam: General: patient resting comfortably, NAD, non-toxic in appearance, AA&O x 4 Skin: warm, dry, intact, no rashes or lesions HEENT: NC/AT, PERRL, EOMI, anicteric sclera, conjunctiva without injection, external ear normal to inspection and nontender, nares patent, moist mucus membranes, dentition intact, no oropharyngeal lesions, neck supple, trachea midline, no LAD, no thyromegaly, no JVD Heart: +S1/S2, regular, no m/r/g, no carotid bruits Lungs: equal air entry bilaterally, no rales/rhonchi/wheezes Abd: +BS, soft, NT/ND, no masses/organomegaly/ascites Ext: warm, 2+ pulses in UE/LE bilaterally, no clubbing/cyanosis or edema Neuro: patient AA&O x 4, speech fluent and appropriate, no facial droop, CN II- XII intact with exception of diminished hearing 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, sensation to light touch intact in UE/LE bilaterally, moving all extremities on command with equal strength 5/5, no dysmetria noted, gait intact Results & Data Vital Signs (Past 12 Hours) Vital Signs Temp Pulse Pulse Resp BP BP Pulse Ox 02/17/19 18:52 73 24 194/102 H 95 02/17/19 18:36 70 22 209/117 H 93 02/17/19 18:00 82 22 202/106 H 93 02/17/19 17:57 79 22 202/108 H 93 02/17/19 17:53 76 23 204/108 H 95 02/17/19 17:48 77 24 215/120 H 93 02/17/19 16:33 74 24 181/97 H 94 02/17/19 15:10 78 24 172/92 H 94 02/17/19 14:22 36.8 C 78 16 202/95 H 94 Laboratory Results Lab Results 02/17/19 02/17/19 02/17/19 Range/Units 14:52 14:52 14:52 WBC 7.86 (4.8-10.8) K/uL RBC 4.99 (4.7-6.1) M/uL Hgb 16.3 (14.0-18.0) g/dL Hct 45.9 (42-52) % MCV 92.0 (80-100) fL MCH 32.7 (25-34) pg MCHC 35.5 (32-36) g/dL RDW Std Deviation 44.0 (36.4-46.3) fL RDW Coeff of Guerita 13.1 (11.5-14.5) % Plt Count 156 (130-400) K/uL MPV 11.2 H (7.4-10.4) fL Immature Gran % (Auto) 0.4 % Neut % (Auto) 60.8 % Lymph % (Auto) 25.6 % [place] % (Auto) 10.4 % Eos % (Auto) 2.5 % Baso % (Auto) 0.3 % Immature Gran # (Auto) 0.03 H (0.00-0.02) K/uL Neut # (Auto) 4.78 (1.4-6.5) K/uL Lymph # (Auto) 2.01 (1.2-3.4) K/uL [place] # (Auto) 0.82 H (0.11-0.59) K/uL Eos # (Auto) 0.20 (0-0.5) K/uL Baso # (Auto) 0.02 (0-0.2) K/uL PT 9.6 (9.0-12.0) Seconds INR 0.9 (0.9-1.1) APTT 25.4 (21.0-31.0) Seconds PTT Ratio 0.9 Sodium 142 (136-145) mmol/L Potassium 3.9 (3.5-5.1) mmol/L Chloride 108 H (98-107) mmol/L Carbon Dioxide 27 (21-32) mmol/L Anion Gap 7.0 (3-11) BUN 25 H (7-18) mg/dl Creatinine 0.97 (0.6-1.4) mg/dl Est Cr Clr Drug Dosing 91.8 ml/min Est GFR ( Amer) 93.9 Est GFR (Non-Af Amer) 81.0 BUN/Creatinine Ratio 25.5 H (10-20) Glucose 114 H (70-99) mg/dl Calcium 9.0 (8.5-10.1) mg/dl Magnesium 2.2 (1.8-2.4) mg/dl Total Bilirubin 0.4 (0.2-1) mg/dl AST 29 (15-37) U/L ALT 44 (12-78) U/L Alkaline Phosphatase 119 H (45-117) U/L Troponin I < 0.015 (0-0.045) ng/ml Total Protein 7.7 (6.4-8.2) gm/dl Albumin 3.6 (3.4-5.0) gm/dl Globulin 4.1 H (2.5-4.0) gm/dl Albumin/Globulin Ratio 0.9 (0.9-2) Specimen Hemolysis Diagnostic Findings CT head/brain wo con CLINICAL HISTORY: Stroke like symptoms COMPARISON STUDY: MRI the brain dated 09/18/2017, noncontrast head CT dated 09/17/2017 TECHNIQUE: Axial CT of the brain is performed from the vertex to the skull base. IV contrast was not administered for this examination. A dose lowering technique was utilized adhering to the principles of ALARA. CT DOSE: 773.57 mGy.cm FINDINGS: No intra or extra-axial mass lesions are visualized. There is no CT evidence of acute cortical infarction. There is no evidence of midline shift. There is no acute hemorrhage. No calvarial fractures are visualized. There are patchy white matter hypodensities likely on a small vessel basis. There is no evidence of pathologic ventricular dilatation. There is no evidence of acute sinusitis. There is a stable mixed lytic and sclerotic 1 cm lesion within the left occipital bone. This is of doubtful acute clinical significance. IMPRESSION: No acute intracranial findings Electronically signed by: Yfn Beverly M.D. 02/17/2019 3:36 PM Dictated: 02/17/19 1533 Transcribed: 02/17/19 1533 XR chest 1V portable CLINICAL HISTORY: tia mental status change COMPARISON STUDY: 09/16/2017 FINDINGS: The bones soft tissues and hemidiaphragms are normal. The cardiomediastinal silhouette is normal. The lungs are clear. The pulmonary vasculature is normal. IMPRESSION: Negative chest. The above report was generated using voice recognition software. It may contain grammatical, syntax or spelling errors. Electronically signed by: Carlos Bonner M.D. 02/17/2019 3:43 PM Dictated: 02/17/19 1543 Transcribed: 02/17/19 1543 ECG Additional Comments: EKG with NSR at 77bpm, normal axis, TB=480, QRS=94, ETd=375, old inferior infarct, no acute ischemic changes Code Status & VTE Plan Code Status FULL VTE Prophylaxis Plan VTE Prophylaxis will be ordered: Yes Critical Care Time Critical Care Time: No (1) HTN (hypertension) Hypertension type: unspecified Qualified Code(s): I10 - Essential (primary) hypertension (2) CAD (coronary artery disease) Coronary Disease-Associated Artery/Lesion type: red devil artery Lime vs. transplanted heart: red devil heart Associated angina: without angina Qualified Code(s): I25.10 - Atherosclerotic heart disease of red devil coronary artery without angina pectoris
[2019-02-17] MEDS ORDERED: PHARMACIST DISCHARGE MED REC CONSULT PRN (20:15)
[2019-02-17] MEDS ORDERED: ACETAMINOPHEN 325 MG TAB PO PRN (20:15)
[2019-02-17] MEDS ORDERED: LABETALOL HCL IV 5 MG/ML 20ML IV PRN (20:15)
[2019-02-17] MEDS ORDERED: ONDANSETRON INJ 2 MG/ML 2 ML VIAL IV PRN (20:15)
[2019-02-17] MEDS ORDERED: OPTIRAY 320 125ml IV PRN (23:20)
[2019-02-18] MEDS ORDERED: GADOBUTROL 65ML VIAL IV PRN (00:01)
[2019-02-18 06:23] LABS: Basophils # (auto) 0.02 K/uL (0-0.2); Basophils % (auto) 0.2 %; Eosinophils # (auto) 0.18 K/uL (0-0.5); Hematocrit (blood only) 44.4 % (42-52); Hemoglobin 16.1 g/dL (14.0-18.0); Immature Granulocytes # (auto) 0.02 K/uL (0.00-0.02); Immature Granulocytes % (auto) 0.2 %; Lymphocytes # (auto) 1.57 K/uL (1.2-3.4); Lymphocytes % (auto) 17.8 %; Mean Corpuscular Hgb Conc 36.3 g/dL (32-36); Mean Corpuscular Volume 92.1 fL (80-100); Mean Platelet Volume 10.6 fL (7.4-10.4); Monocytes # (auto) 0.69 K/uL (0.11-0.59); Monocytes % (auto) 7.8 %; Neutrophils # (auto) 6.34 K/uL (1.4-6.5); Platelet Count 143 K/uL (130-400); RDW Coefficient of Variation 13.1 % (11.5-14.5); RDW Standard Deviation 44.2 fL (36.4-46.3); Red Blood Count 4.82 M/uL (4.7-6.1); White Blood Count 8.82 K/uL (4.8-10.8)
[2019-02-18 06:27] LABS: Estimated Average Glucose 114 mg/dl; Hemoglobin A1C 5.6 % (4.5-5.6)
--- NOTE | 2019-02-18 06:35 | Magnetic Resonance Report ---
MRI OF THE BRAIN WITHOUT AND WITH IV CONTRAST CLINICAL HISTORY: Expressive aphasia, confusion. Suspected acute stroke. COMPARISON STUDY: CT scan dated 02/17/2019, MRI the brain dated 09/18/2017 TECHNIQUE: MRI of the brain was performed from the vertex to the skull base utilizing various T1 and T2 weighted sequences. Following the IV administration of 10.6 mL of Gadavist contrast, additional en hanced images were obtained. FINDINGS: Sagittal T1, axial diffusion, proton density and T2 weighted axial, coronal FLAIR, and pre and post a xial T1-weighted images were acquired. These were supplemented with post gadolinium coronal T1 weight ed images. No intra or extra-axial mass lesions are visualized. Axial diffusion-weighted images reveal no evidence of acute or subacute infarction. There is no evidence of ventricular dilatation. Proton density T2-weighted and FLAIR images reveal moderate scattered foci of increased T2 signal wit hin the white matter, likely on a small vessel basis There are no abnormal flow voids. There is no evidence of pathologic enhancement. IMPRESSION: 1. No acute intracranial findings 2. No evidence of intracranial mass 3. No evidence of acute or subacute infarction 4. Mild to moderate white matter disease, likely on a small vessel basis Electronically signed by: Yfn Beverly M.D. 02/18/2019 6:33 AM
--- NOTE | 2019-02-18 06:49 | CT Scan Report ---
CT angio head w con CLINICAL HISTORY: Expressive aphasia. Suspected stroke. TECHNIQUE: CT angiography of the head was performed in a dynamic helical fashion during intravenous a dministration of 120 cc of Optiray 320. MIP imaging was performed. A dose lowering technique was util ized adhering to the principles of ALARA. CT DOSE: 629.43 mGy.cm COMPARISON STUDY: No previous studies for comparison. FINDINGS: There are no lesion suspicious for aneurysm. There are no major intracranial branch occlusi ons. The dural venous sinuses appear patent. IMPRESSION: Unremarkable CT angiography of the brain. Electronically signed by: Yfn Beverly M.D. 02/18/2019 6:48 AM
[2019-02-18 06:57] LABS: Calcium 8.6 mg/dl (8.5-10.1); Creatinine Clr Calc Pharmacy 105.2 ml/min; Est GFR (African American) 105.2; Est GFR (Non-African American) 90.8; Potassium 3.9 mmol/L (3.5-5.1)
--- NOTE | 2019-02-18 07:40 | CT Scan Report ---
CT angio neck with con CLINICAL HISTORY: 68 years-old Male with ?CVA. Acute strokelike symptoms COMPARISON STUDY: CTA of the head of same day. TECHNIQUE: Following the IV administration of 120 of Optiray 320, CT angiogram of the neck was perfor med from the aortic arch to the skull base. Images are reviewed in the axial, sagittal, and coronal p lanes. 3-D MIPS images are created and assessed. IV contrast was administered without complication. A ll measurements were calculated based on NASCET criteria. A dose lowering technique was utilized adh ering to the principles of ALARA. FINDINGS: The visualized opacified pulmonary arterial tree is unremarkable. Three-vessel morphology of the aort ic arch. Patency of the imaged bilateral subclavian arteries. The bilateral common carotid arteries a re widely patent. Mild to moderate mixed plaque formation about the bilateral carotid bulbs results i n less than 50% luminal narrowing bilaterally. Calcified plaque is noted about the petrous and cavern ous segments of the right greater than left ICAs without high-grade stenosis. The bilateral vertebral arteries are widely patent and within normal limits. There is no aneurysm, hi gh-grade stenosis, proximal branch occlusion or dissection. The basilar artery appears normal. There is no pneumothorax. The imaged lung apices appear clear. Soft tissues and thyroid appear unrema rkable. No adenopathy. 3 mm sialolith about the left submandibular gland on image 109 series 5. Orbit s and soft tissues are unremarkable. Degenerative changes are noted throughout the spine. Mastoid air cells and middle ear cavities are clear. There is mild mucosal thickening about the maxillary sinuse s. Leftward bowing and spurring of the nasal septum. Lucent bone lesion with central sclerosis about the left occipital bone measuring 11 mm is indeterminate with benign features noted. IMPRESSION: Unremarkable CTA of the neck without aneurysm, dissection, high-grade stenosis or proximal branch occ lusion. The above report was generated using voice recognition software. It may contain grammatical, syntax o r spelling errors. Dictated: 02/18/2019 7:31 AM Transcribed: 02/18/2019 7:39 AM Nely [id number] SHANE_Dane Electronically signed by: Lul Smith M.D. 02/18/2019 8:02 AM
[2019-02-18] MEDS ORDERED: CLOPIDOGREL BISULFATE 75 MG TAB PO SCH (09:00)
[2019-02-18] MEDS ORDERED: NON-FORMULARY MEDICATION (Coenzyme Q10 [Co Q-10] 100 MG) PO SCH (09:00)
[2019-02-18] MEDS ORDERED: ATORVASTATIN 40 MG TAB PO SCH (09:00)
[2019-02-18] MEDS ORDERED: METOPROLOL SUCC 50MG EXT REL TAB PO SCH (09:00)
--- NOTE | 2019-02-18 09:32 | Neurology Consultation ---
Date of Consultation February 18, 2019 Assessment & Plan (1) TIA (transient ischemic attack): Patient had the acute onset of expressive aphasia February 17 lasting about 30 minutes. His blood pressure is markedly elevated and his MRI of the brain was unremarkable. I believe he had a transient ischemic attack, likely from vasospasm from hypertension although a temporary ischemia cannot be excluded. He was not compliant with regular aspirin usage. CT angiography of the head neck were unremarkable and he has no other significant vascular anomalies. On neurologic examination he has no focal findings, meningeal signs, or encephalopathy. Other risk factors for stroke include some dyslipidemia with an elevated cholesterol and LDL. Hemoglobin A1c was adequate at 5.6. (2) HTN (hypertension): Patient has elevated blood pressure not adequately controlled. (3) Chronic cerebral ischemia: Patient has moderate old diffuse small vessel ischemia in the deep white matter likely from his history of hypertension. Recommendations: 1. Control blood pressure, aiming for a mean arterial pressure of approximately 100. As an outpatient this could be lowered to a mean arterial pressure of 95. 2. The patient would be a candidate for high-dose statin but given his noncompliance and his lipid parameters I think regular dose statin would be adequate. 3. Because of his bruising and bleeding on baby aspirin daily I would compromise with an 81 milligram aspirin every other day. 4. Increase exercise (I discussed this with the patient). 5. He could follow up with Dr. Chavez as an outpatient for his hypertension as he has seen him in the past. 6. There is no need for additional neurologic testing or treatment otherwise. Please contact me if I can be of further assistance on this case. Overall,I spent a total of 85 minutes with this case including review of records, review of MRI films, direct evaluation the patient at bedside, and discussion of the case with the patient at bedside, nursing staff, and Dr. Bhatia, regarding differential diagnosis and treatment options. History of Present Illness Reason for Consultation: Patient is a 68-year-old, who I was asked to see the request of Dr. Light, for neurologic consultation regarding TIA. Requesting Physician: Dr. Light Attending Physician: Vilma Light, DO History of Present Illness Patient has had a 9 year history of hypertension. He also has a history of dyslipidemia and coronary artery disease. In August of 2017 patient had a NSTEMI involving the mid LAD. While undergoing cardiac catheterization during that hospitalization he had the onset of dysesthesias in his left arm and face as well as an expressive aphasia. He knew what he wanted to say but could not get words out. This lasted 15 or so m inutes and then resolved. MRI of the brain showed a very small left posterior frontal CVA of an acute nature, high up in the hemisphere. I reviewed this film and it was tiny. MR angiography of the head neck were unremarkable with no stenoses or vessel anomalies. He saw Dr. Bocanegra in consultation. She may recommendations for blood pressure and lipids as well as for his hemoglobin A1c which was mildly elevated. He was put on 81 milligram aspirin tablet daily. About 3 years ago the patient had multiple tic bites and had a positive Western blot. He was treated for 6 weeks with oral doxycycline having had significant arthralgias and fatigue. This has resolved. On 81 milligram aspirin daily the patient had easy bleeding and bruising. He reduce the medication dosage to about 3 times a week although this was not regular. He was taking metoprolol blood pressure. Stress echo in October of 2018 was unremarkable and he sees Dr. Chavez. Patient woke February 17 around 0230 in the morning feeling fine. 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 Around 1130 he has noted some lightheadedness and the inability to get words out. He knew what he wanted to say. When he did get a word out it was many times the wrong word. He had no vision issues, pain or headache, weakness or numbness of the limbs, or balance problems. He was trying to take notes as he was with a client at that time and could not write correctly. His hand work find the which shows that he did know what words to write. All of this lasted 15-30 minutes and then resolved. He stopped work, called his daughter, and ended up coming to the emergency room. On February 17, at 1422 blood pressure was 202/95 (mean arterial pressure of 130), temperature 36.8, pulse 78, respiratory rate 16, and O2 saturation 94 percent. His blood pressure remained elevated since admission although it is improved. Neurologic examination in the emergency room was unremarkable with no focal signs or speech problems. He had no encephalopathy or meningeal signs. CBC was unremarkable. There was a slightly elevated glucose of 114 and an alkaline phosphatase of 119. Hemoglobin A1c is 5.6. Chest x-ray was unremarkable CT scan showed no acute changes but there was some old small vessel ischemic changes. CT angiography of the head and neck were unremarkable with no vessel stenoses or anomalies seen. MRI of the brain showed no acute stroke. There were moderate scattered old small vessel ischemic changes seen in the deep white matter bilaterally and there was no enhancement with contrast. I reviewed this film. Laboratory studies today showed unremarkable CBC and Chem profile. Cholesterol was 199, triglyceride 116, and LDL 120. This morning the patient is doing well with no neurologic deficits or complaints. His blood pressure was 203/103 at 0815 today. Allergies Allergy/AdvReac Type Severity Reaction Status Date / Time horse dander Allergy Severe Itch/Cough Verified 02/17/19 15:48 with Horse hair HAIRSPRAY Allergy Severe ITCHY, Uncoded 02/17/19 15:48 COUGH Home Medications Home Medications Medication Instructions Recorded Confirmed Type Samento 10 drp PO DAILY 02/17/19 History aspirin 81 mg PO QAM 02/17/19 02/17/19 History coenzyme Q10 [Co Q-10] 100 mg PO DAILY 02/17/19 02/17/19 History metoprolol succinate 100 mg PO QAM 02/17/19 02/17/19 History multivitamin 2 tab PO DAILY 02/17/19 02/17/19 History nitroglycerin 0.4 mg SUBLINGUAL UD PRN 02/17/19 02/17/19 History Patient History Medical History HTN (hypertension) (Chronic) NSTEMI (non-ST elevated myocardial infarction) (Resolved) Surgical History H/O heart artery stent History of appendectomy History of hernia repair History of laparoscopic cholecystectomy History of tonsillectomy Family History Father , age 72 of [place]. 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 Feels Safe at Home: Yes Safety Concerns: Feels Safe At This Time Smoking Status: Never smoker Do You Dip or Chew Tobacco: No Hx Alcohol Use: Yes Alcohol type: wine Alcohol Intake Frequency Comment: Once per week Hx Substance Use: No Review of Systems Constitutional: no fever, no fatigue and no weakness Eyes: no diplopia, no eye pain and no worsening vision Ear, Nose, Mouth, Throat: no ear pain, no tinnitus, no hearing loss and no dysphagia Respiratory: no cough and no dyspnea Cardiovascular: no chest pain, no dyspnea and no palpitations Gastrointestinal: no abdominal pain, no nausea and no vomiting Genitourinary: no dysuria, no urinary frequency and no urinary incontinence Musculoskeletal: no back pain, no neck pain, no radicular pain, no myalgia, no muscle weakness and no muscle atrophy Integumentary: no rash and no lesions Neurologic: no gait abnormality, no falls, no localized weakness, no generalized weakness, no tingling, no numbness, no tremor(s), no abnormal movements, no dizziness, no headache(s), no abnormal speech, no behavioral changes, no confusion and no memory loss Psychiatric: no depression, no abnormal sleep pattern, no anxiety, no difficulty concentrating, no confusion and no hallucinations Endocrine: no fatigue and no flushing Hematologic / Lymphatic: no easy bleeding and no easy bruising Allergy / Immunological: no urticaria Physical Exam Physical Exam: The patient is right-handed for most things but is ambidextrous. The patient is awake, alert, and attentive. Speech is normal without any aphasia or dysarthria. Mentation and thought processes are intact, with full orientation and normal fund of knowledge. Attention and concentration are normal. Mood and affect are normal and appropriate. General appearance and grooming are normal. Short and long-term memory are intact. The discs are sharp with positive venous pulsations bilaterally. There are no exudates, hemorrhages, or blood vessel changes seen. Pupils are 4 mm bilaterally and reactive to light. Extraocular eye muscles are intact without nystagmus. Visual acuity and visual barron seem normal grossly to confrontation. There are no deficits to sensation in the face in all 3 distributions of the fifth cranial nerve bilaterally. Corneal reflexes are positive bilaterally. Facial strength and symmetry was normal bilaterally. Hearing seems intact grossly to voice and finger rub bilaterally. Palate moves well without asymmetry. There is normal sternocleidomastoid and trapezius (shoulder shrug) strength bilaterally. Tongue is midline with good strength bilaterally. Neck has a full range of motion without discomfort. There are no cervical bruits bilaterally. There are no cranial or ocular bruits. Heart is without murmur. There is a regular rhythm and rate. Cervical, thoracic, and lumbar spine are nontender to palpation. Gait is narrow based, with good arm swing, turns, and stance. Balance is normal eyes open or closed. With outstretched arms there is no drift. There are no resting, postural, or action tremors. There is no ataxia with finger to nose testing. There is good facility in the hands. No other abnormal involuntary movements are noted. Motor strength is 5/5 diffusely in the arms bilaterally including deltoids, bi ceps, triceps, brachioradialis, wrist flexors and extensors, ingot passer, and intrinsic hand muscles. Motor strength is 5/5 diffusely in the legs bilaterally including hip flexors, quadriceps, hamstrings, gastrocnemius, tibialis anterior, tibialis posterior, and Peroneii muscles bilaterally. Toe extensors are normal and there is good bulk in the extensor digitorum brevis muscles bilaterally. The limbs have good tone without rigidity or spasticity. There is no atrophy noted in the muscles. Muscle bulk is normal, there is no tenderness to palpation, no myotonia to percussion, and no fasciculations seen. Sensory examination is intact to touch and pin throughout all 4 limbs diffusely. Reflexes are 2/4 in the biceps, triceps, and brachioradialis tendons bilaterally. The right quadriceps and Achilles tendons are 2/4. The left are 1/4. Toes are downgoing with plantar stimulation bilaterally. Peripheral pulses are present and of normal quality distally in all 4 limbs. There is no peripheral edema noted in the limbs. Results & Data Vital Signs (Past 12 Hours) Vital Signs Temp Pulse Pulse Resp BP BP Pulse Ox 02/18/19 08:15 36.6 C 73 16 203/103 H 190/91 H 95 02/18/19 03:45 36.7 C 69 18 189/93 H 96 02/18/19 01:17 173/100 H 02/18/19 00:14 36.7 C 70 18 191/104 H 94 Diagnostic Findings [facility], [place] [phone] Magnetic Resonance Report Patient: Song DUNHAM Date: 02/17/19 MR#: [id number] [address] Acct ID:[id number]: Date: 1950[facility] Zip: [place] [address] Age: 68Location: 2S Sex: M Room/Bed: [facility] Att Phy: Vilma Light D.O.Diagnosis: TIA/CVA Ina Phy: PCP,NO Service Date: 02/17/19 Fam Phy: Interpreting Phy: Yfn Beverly MD Admit Phy: Vilma Light D.O. Ordering Phy: Vilma Light D.O. cc: ~ MRI OF THE BRAIN WITHOUT AND WITH IV CONTRAST CLINICAL HISTORY: Expressive aphasia, confusion. Suspected acute stroke. COMPARISON STUDY: CT scan dated 02/17/2019, MRI the brain dated 09/18/2017 TECHNIQUE: MRI of the brain was performed from the vertex to the skull base utilizing various T1 and T2 weighted sequences. Following the IV administration of 10.6 mL of Gadavist contrast, additional enhanced images were obtained. FINDINGS: Sagittal T1, axial diffusion, proton density and T2 weighted axial, coronal FLAIR, and pre and post axial T1-weighted images were acquired. These were supplemented with post gadolinium coronal T1 weighted images. No intra or extra-axial mass lesions are visualized. Axial diffusion-weighted images reveal no evidence of acute or subacute infarction. There is no evidence of ventricular dilatation. Proton density T2-weighted and FLAIR images reveal moderate scattered foci of increased T2 signal within the white matter, likely on a small vessel basis There are no abnormal flow voids. There is no evidence of pathologic enhancement. IMPRESSION: 1. No acute intracranial findings 2. No evidence of intracranial mass 3. No evidence of acute or subacute infarction 4. Mild to moderate white matter disease, likely on a small vessel basis Electronically signed by: Yfn Beverly M.D. 02/18/2019 6:33 AM (1) HTN (hypertension) Hypertension type: unspecified Qualified Code(s): I10 - Essential (primary) hypertension
[2019-02-18] MEDS ORDERED: HydrALAZINE HCL 20 MG/ML VIAL IV PRN (10:11)
[2019-02-18] MEDS ORDERED: LOSARTAN/HCTZ 50/12.5MG TAB PO SCH (10:15)
[2019-02-18] MEDS ORDERED: hydroCHLOROthiazide 25 MG TAB PO STA (11:15)
--- NOTE | 2019-02-18 14:06 | Discharge Summary ---
Date of Service February 18, 2019 Admission HPI Per Admitting Provider Mr Smith is a pleasant 68yo male with history of CAD s/p NSTEMI with GENOVEVA placed to mid-LAD in August 2017. Patient with small frontal CVA after cardiac cath, no residual deficits, HTN presenting with stroke-like symptoms. Patient states that he was at work around 12:00 when he developed sudden onset of confusion and inability to find his words. The symptoms lasted approximately 30 minutes then gradually resolved. He denies numbness/tingling/weakness/dizziness or visual loss. He has a mild band-like headache presently. Blood pressure persistently elevated in ER. Patient received 10mg Labetalol IV x 2 doses. No additional complaints. ER Course: ASA 324mg PO, Labetalol 10mg IV x 2 doses, Dysphagia screening performed and patient did well with no aspiration noted Principal Diagnosis TIA, Hypertensive urgency Discharge Exam Constitutional WD/WN, vitals as above Eyes PERRL, conjunctivae normal, anicteric sclerae ENMT external ear and nose normal, oropharynx normal Neck trachea midline, no thyromegaly Respiratory normal respiratory effort, lungs clear to auscultation Cardiovascular RRR, no murmur, no edema Gastrointestinal (Abdomen) normal bowel sounds, soft, nontender, no hepatosplenomegaly Musculoskeletal Extremities: extremities normal to inspection; no cyanosis and no clubbing Skin no rashes, warm and dry Neurologic moves all extremities and awake; no focal motor deficits Psychiatric A+Ox3, euthymic affect Discharge Data Allergies Allergy/AdvReac Type Severity Reaction Status Date / Time horse dander Allergy Severe Itch/Cough Verified 02/17/19 15:48 with Horse hair HAIRSPRAY Allergy Severe ITCHY, Uncoded 02/17/19 15:48 COUGH Consultations Neurology Procedures Performed ECHO Ordered Studies 02/17/19 14:42 CT head/brain wo con Stat 02/17/19 20:15 CT angio head w con Urgent CT angio neck with con Urgent MR brain wo/w con Routine CXR Hospital Course (1) TIA (transient ischemic attack): Patient with acute onset confusion and expressive aphasia. Persistently elevated blood pressure in the ER requiring two doses of Labetalol. Patient with prior CVA after cardiac catheterization, no residual deficit. He reports taking ASA 81mg po 3-4 days per week. He was using it daily but noted bruising and bleeding. He was admitted to PCU, neuro checks per protocol, and had telemetry monitoring that was not significant for any arrhythmia. He had no recurrence of his symptoms and they had completely resolved prior to admission MRI brain obtained and negative for stroke. CTA head and neck negative as well ECHO with grade 1 diastolic dysfunction but otherwise normal HgA1C normal at 5.6%, and lipids with TCHoll 199, LDL 120, HDL 56 Seen by Neurology who thought he had a classic TIA possibly caused by vasospasm from elevated BPs or perhaps temporary ischemia With severe hypertensive urgency on admission and throughout his stay that was modestly improved with additional medications prior to discharge -Given patient's significant aversion to taking medications and being compliant with recommended medical therapies, he is now agreeable to take his ASA 81mg at least every other day if not daily. -he was not agreeable to a statin drug but will take Red Yeast Rice (which is reminded him is also a statin drug) -Needs improved BP control as below -f/u with PCP after discharge, but declines. Says he will see his Forensic Computer Examiner (2) HTN (hypertension): Markedly elevated blood pressure on admission and throughout his stay. Possibly compensatory in setting of cerebral ischemia. Patient reports overall adequate blood pressure control at home, typically SBP of 130. BPs here persistently in the 190s-200s systolic, 80s-110s diastolic He was treated with IV labetalol and IV hydralazine He was continued on his home metoprolol 100mg daily dose which could not be titrated up due to bradycardia -he was prescribed losartan/HCT about 6 months ago, but reports he enver started taking the drug because he recalled that losartan made him cough-he was then lost to follow up in the Cardiology office as he was supposed to f/u in 2 weeks and did not -here, he was started on HCTZ 25mg daily and will have a BMP drawn in 1 week for follow up -BP was 169/80s before discharge and patient was asymptomatic He plans on checking his BP daily at home and following up closely with his Forensic Computer Examiner (3) CAD (coronary artery disease): Patient with history of CAD s/p GENOVEVA to LAD. No CP here. EKG without evidence of acute ischeima. Troponin x 1 negative -continue ASA, Red Yeast Rice/statin, metoprolol (4) Chronic cerebral ischemia: seen on MRI brain, likely due to hypertension -needs improved BP control as above (5) Hypertensive urgency: as above (6) DVT prophylaxis: SCDs were provided Dispo-stable for dc to home with close f/u on BP Total Time Total Time Spent Total Time Spent (In Minutes): >30 min Total Time Includes: Examination of the Patient, Discharge Planning, Medication Reconciliation and Communication With Other Providers (Neurology) Discharge Plan Discharge Items Patient Disposition: Home - Self-Care Reason For Visit: TIA/CVA Discharge Diagnosis: TIA Hypertensive urgency Condition: Good Discharge Goals: Diagnostic testing, Learn about illness and Therapeutic intervention Activity: Resume your previous activity Lifting: Gradually increase as tolerated Bathing: No limitations Exercise/Sports: Gradually increase as tolerated Driving/Machine Use: No limitations Non-emergency contact: Forensic Computer Examiner Call non-emergency contact if: you have any medication questions and your symptoms worsen Follow-up/Referrals: Marcello Chavez Jr, MD, [facility] [Physician] - 02/22/19 9:45 am PCP,NO [Primary Care Provider] - Diet: Heart Healthy and Low Sodium (2gm) Other Ambulatory Orders: Basic Metabolic Panel (Routine) Timeframe: 1 Week Location: Determined by Patient Ordered By: Judy Hanks Provider Instructions: You were admitted with difficulty with your speech which resolved on its own. Your brain MRI was NEGATIVE for a stroke, but you likely had a transient ischemic attack (TIA). It is important to at least take your aspirin every other day. If you won't take the atorvastatin as prescribed, you can substitute this with Red Yeast Rice. Your blood pressure was severely elevated and this also likely contributed to your having a TIA. You were started on hydrochlorothiazide (HCTZ) and had improvement of your blood pressures. Please continue checking them once daily at home and keep a log book of them to give to Dr. Chavez at your follow up appointment. Risk Factors for Stroke: You can reduce your chances of stroke by working with your medical provider to adopt a healthy lifestyle. Some specific ways to lower your chance of stroke are: * If you are a smoker, now is the time to stop smoking cigarettes * If you are diabetic, improve the control of your blood sugars * Avoid excessive amounts of alcohol * Control high blood pressure * Lose weight if you are overweight * Be sure to lead an active lifestyle * Eat a healthy diet low in salt, cholesterol and fat You should know about other risk factors for stroke that you are unable to control. These include: * Age 55 years or older * Male gender * Certain racial groups: , or / * Family History of Stroke, Mini stroke or Heart Attack * Sickle Cell Disease Follow Up: It is important for you to keep your follow up appointments with your medical provider. Who to Call and When: Medical Emergencies: Call 911 immediately if you experience any of the following warning signs and symptoms of Stroke: * Sudden numbness or weakness of the face, arm or leg, especially on one side of the body * Sudden confusion, trouble speaking or understanding * Sudden trouble seeing in one or both eyes * Sudden trouble walking, dizziness, loss of balance or coordination * Sudden severe headache with no cause Do not delay calling 911 if you experience any warning signs or symptoms of a stroke. Delay in seeking medical attention may affect what treatments can be given to you. . Prescriptions: New hydrochlorothiazide 25 mg Tablet 25 mg PO QAM Qty: 30 RF: 0 red yeast rice 600 mg capsule 600 mg PO DAILY Qty: 30 RF: 0 Continued multivitamin Tablet 2 tab PO DAILY RF: 0 metoprolol succinate 100 mg Tablet Extended Release 24 Hr 100 mg PO QAM RF: 0 aspirin 81 mg Tablet,Delayed Release (Dr/Ec) 81 mg PO QAM RF: 0 nitroglycerin 0.4 mg Tablet, Sublingual 0.4 mg sublingual UD PRN (Reason: Chest Pain) RF: 0 coenzyme Q10 [Co Q-10] 100 mg Capsule 100 mg PO DAILY RF: 0 Samento 10 drp PO DAILY RF: 0 Stand-Alone Forms: [facility]/Other Patient Handouts: Hypertension Control, TIA, Risk Factors High Blood Pressure, Stress Causes Effects, Hypertension Dc Discharge Orders: Discharge Order (Routine); Ordered 02/18/19 Ordered By: Judy Bhatia Admission Data Admit Date/Time: 02/17/19 18:53 Attending Provider: Judy Bhatia Admit Provider: Vilma Light Primary Care Provider: PCP,NO Other Providers: Vilma Light ; Talib Mauro ; Lukasz Morgan III ; Briseyda Bocanegra ; Love Sumner ; Kit Mccarthy Service: Telemetry Other Interventions: Discharge Summary Assessment (RN) Last Done: 02/18/19 14:20 Pending Studies at Discharge: No DC Date/Time DO NOT enter until pt leaves facility: 02/18/19 14:57
[2019-02-19] MEDS ORDERED: hydroCHLOROthiazide 25 MG TAB PO SCH (09:00)
[2019-02-19] MEDS ORDERED: ASPIRIN 81 MG ECTAB PO SCH (09:00)
--- OUTSIDE RECORDS SUMMARY | 2019-02-22 20:41 | External Medical Summary | Continuity of Care Document ---
:1950 Author Name Kristina Olson, Provider Address Unavailable Unavailable , Care Team Providers Name Role Phone Henrique Garland PA-C Unavailable [email or web address] PCP, UNKNOWN Unavailable Unavailable Unavailable Unavailable Unavailable Problems Atypical chest pain (786.59) (R07.89) CAD (coronary artery disease) (414.00) (I25.10) Hypertension (401.9) (I10) Dyslipidemia (272.4) (E78.5) Bilateral leg edema (782.3) (R60.0) LVH (left ventricular hypertrophy) (429.3) (I51.7) CVA (cerebral vascular accident) (434.91) (I63.9) S/P drug eluting coronary stent placement (V45.82) (Z95.5) Presence of drug coated stent in LAD coronary artery (V45.82 ) (Z95.5) Allergies and Adverse Reactions lisinopril (Allergy) Reaction: Cough Animal dander - Horses (Allergy) Medications Nitroglycerin 0.4 MG Sublingual Tablet S ublingual; PLACE 1 TAB UNDER TONGUE NEEDED CHEST PAIN TETO Garland Start: 27-Jan-2019 Quantity: 25 Refills: 0 Metoprolol Succinate ER 100 MG Oral Tabl et Extended Release 24 Hour; Take 1 tablet by mouth daily TETO Garland Quantity: 90 Refills: 3 Aspirin 81 MG Oral Tablet Delayed Release; TAKE 1 TABLET BRANDON LY. Refills: 0 Co Q10 TABS Refills: 0 Atorvastatin Calcium 80 MG Oral Tablet; TAKE 1 TABLET DAILY. Wesley Chavez Start: 24-Sep-2018 Quantity: 90 Refills: 3 Losartan Potassium-HCTZ 50-12.5 MG Oral Tablet; TAKE 1 TABLET DAILY. Wesley Chavez Start: 24-Sep-2018 Quantity: 90 Refills: 3 Procedures History of coronary artery stent placement Status: Completed Immunizations Immunizations not documented Family History Father Family history of coronary artery disease (V17.3) (Z82.49) S tatus: Active Family history of myocardial infarction (V17.3) (Z82.49) Sta tus: Active Social History - Smoking Status Never smoker Plan of Treatment Planned Encounters Appointment; Marcello Chavez M.D. Start: 22-Feb-2019 9:45 Requ est Planned Observations Planned Goals not documented Results No Known Results Results not documented Encounters Appointment; Henrique Garland PA-C 03-Nov-2018 15:30 Encounter Diagnosis: Problem not documented Appointment; Stress, Echocardiogram 1 03-Nov-2018 15:00 Encounter Diagnosis: Problem not documented Appointment; Marcello Chavez M.D. 24-Sep-2018 16:00 Encounter Diagnosis: Problem not documented Appointment; Henrique Garland PA-C 07-Jul-2018 15:00 Encounter Diagnosis: Problem not documented Appointment; Henrique Garland PA-C 01-Jan-2018 16:00 Encounter Diagnosis: Problem not documented Appointment; Henrique Garland PA-C 02-Oct-2017 15:30 Encounter Diagnosis: Problem not documented Appointment; Marcello Chavez M.D. 22-Feb-2019 9:45 Encounter Diagnosis: Problem not documented
== END 2019-02-18 14:57 | disposition home or self-care (01) | DRG 69 ==
LOC: ED 14:20 → 2S 18:53 → SUATTDRO 18:53 → 2S 19:35

== ENCOUNTER 2019-09-27 18:45 | Inpatient (IN) ==
[2019-09-27] MEDS ORDERED: LABETALOL HCL IV 5 MG/ML 20ML IV STA (19:02)
[2019-09-27 19:33] LABS: Appearance Urine Clear (Clear); Bilirubin Urine Negative (Negative); Blood Urine Negative (Negative); Color Urine Yellow; Glucose Urine UA Negative (Negative); Ketones Urine Negative (Negative); Leukocyte Esterase Urine Negative (Negative); Nitrite Urine Negative (Negative); Protein Urine Negative (Negative); Specific Gravity Urine 1.009 (1.000-1.030); Urobilinogen Urine Negative (Negative)
[2019-09-27 19:34] LABS: Basophils # (auto) 0.01 K/uL (0-0.2); Basophils % (auto) 0.1 %; Eosinophils # (auto) 0.14 K/uL (0-0.5); Eosinophils % (auto) 1.8 %; Hematocrit (blood only) 45.1 % (42-52); Hemoglobin 15.8 g/dL (14.0-18.0); Immature Granulocytes # (auto) 0.01 K/uL (0.00-0.02); Immature Granulocytes % (auto) 0.1 %; Lymphocytes # (auto) 1.62 K/uL (1.2-3.4); Lymphocytes % (auto) 21.3 %; Mean Corpuscular Hemoglobin 32.7 pg (25-34); Mean Corpuscular Volume 93.4 fL (80-100); Monocytes # (auto) 0.84 K/uL (0.11-0.59); Neutrophils % (auto) 65.7 %; Platelet Count 158 K/uL (130-400); RDW Coefficient of Variation 12.7 % (11.5-14.5); RDW Standard Deviation 43.4 fL (36.4-46.3); Red Blood Count 4.83 M/uL (4.7-6.1); White Blood Count 7.62 K/uL (4.8-10.8)
--- NOTE | 2019-09-27 19:47 | XRay Report ---
XR chest 1V portable CLINICAL HISTORY: slurred speech, BP elevated mental status change COMPARISON STUDY: 02/17/2019 FINDINGS: The bones soft tissues and hemidiaphragms are normal. The cardiomediastinal silhouette is n ormal. The lungs are clear. The pulmonary vasculature is normal. IMPRESSION: Negative chest. The above report was generated using voice recognition software. It may contain grammatical, syntax or spelling errors. Electronically signed by: Carlos Bonner M.D. 09/27/2019 7:45 PM
[2019-09-27 19:48] LABS: Partial Thromboplastin Time 26.2 Seconds (21.0-31.0); Prothrombin Time 10.2 Seconds (9.0-12.0)
[2019-09-27 19:50] LABS: Alanine Aminotransferase 32 U/L (12-78); Albumin Level 3.5 gm/dl (3.4-5.0); Aspartate Aminotransferase 17 U/L (15-37); BUN Creatinine Ratio 17.7 (10-20); Blood Urea Nitrogen 17 mg/dl (7-18); Calcium 8.9 mg/dl (8.5-10.1); Carbon Dioxide 26 mmol/L (21-32); Chloride 107 mmol/L (98-107); Creatinine Clr Calc Pharmacy 93.2 ml/min; Est GFR (African American) 94.4; Est GFR (Non-African American) 81.5; Glucose 99 mg/dl (70-99); Potassium 3.6 mmol/L (3.5-5.1); Sodium 139 mmol/L (136-145)
[2019-09-27 19:55] LABS: Albumin Globulin Ratio 0.9 (0.9-2); Alkaline Phosphatase 97 U/L (45-117); Bilirubin,Total 0.5 mg/dl (0.2-1); Globulin 3.8 gm/dl (2.5-4.0); Total Protein 7.3 gm/dl (6.4-8.2); Troponin I < 0.015 ng/ml (0-0.045)
[2019-09-27] MEDS ORDERED: OPTIRAY 320 125ml IV PRN (20:01)
--- NOTE | 2019-09-27 20:23 | CT Scan Report ---
CT head/brain wo con CT DOSE: HISTORY: Mental status change Stroke evaluation TECHNIQUE: Multiaxial CT images of the head were performed without the use of intravenous contrast. A dose lowering technique was utilized adhering to the principles of ALARA. Comparison: None. Findings: The paranasal sinuses and mastoid air cells are clear. The calvarium and skull base are int act. The ventricles and sulci are within normal limits. There is no mass, hematoma, midline shift, or acute infarct. Mild age-related frontal atrophy and mild chronic small vessel change. Impression: No acute intracranial abnormality. Mild age-related atrophy and chronic small vessel change. The above report was generated using voice recognition software. It may contain grammatical, syntax or spelling errors. Electronically signed by: Carlos Bonner M.D. 09/27/2019 8:22 PM
--- NOTE | 2019-09-27 20:26 | CT Scan Report ---
CT angio neck with con HISTORY: Mental status change slurred speech TECHNIQUE: Multiaxial CT angiography of the neck was performed IV contrast: 100 cc nonionic All elina urements were calculated based on NASCET criteria. Maximum intensity projection images were also obt ained. A dose lowering technique was utilized adhering to the principles of ALARA. COMPARISON STUDY: None. FINDINGS: The aortic arch and proximal great vessels are widely patent. There is no significant sten osis, occlusion, or dissection identified within the bilateral common carotid, internal carotid, or v ertebral arteries. Minimal to very mild scattered plaque formation of the carotid and proximal verteb ral basilar system. No evidence for aneurysm or dissection. Several small reactive soft tissue cervical nodes. IMPRESSION: No significant stenosis, occlusion, or dissection identified within the carotid or vertebral arteries . Minimal to mild scattered nonobstructive plaque formation. The above report was generated using voice recognition software. It may contain grammatical, syntax or spelling errors. Electronically signed by: Carlos Bonner M.D. 09/27/2019 8:25 PM
--- NOTE | 2019-09-27 20:30 | CT Scan Report ---
CT angio head w con HISTORY: Mental status change slurred speech TECHNIQUE: Multiaxial CT angiography of the head was performed IV contrast: 100 cc nonionic Maximu m intensity projection images were also obtained. A dose lowering technique was utilized adhering to the principles of ALARA. COMPARISON: None. FINDINGS: There is no mass, hematoma, midline shift, or acute infarct. Visualized intracranial project intern al carotid arteries, distal vertebral arteries, and basilar artery are widely patent. There is no sig nificant stenosis, occlusion, or aneurysm seen within the bilateral ACAs, MCAs, or business office coordinator. Mild plaque formation of the carotid siphons IMPRESSION: No significant stenosis, occlusion, or aneurysm within the [place]. The above report was generated using voice recognition software. It may contain grammatical, syntax or spelling errors. Electronically signed by: Carlos Bonner M.D. 09/27/2019 8:28 PM
--- NOTE | 2019-09-27 21:18 | Emergency Department Note ---
Entered by Mleody Mcdonald acting as a scribe for José Manuel Morales M.D. History of Present Illness General Chief complaint: Neuro Symptoms/Deficit Stated complaint: SLURRED SPEECH Time Seen by Provider: 09/27/19 19:00 Source: patient and family () History of Present Illness Onset (ago): hour(s) (1530 today) Location: head, upper extremity and lower extremity Pain Consistency: + other (episode) Maximum Pain Intensity: 0 Quality: + other (neuro symptoms) Associated symptoms: + other (Positive slurring of speech, difficulty formulating sentences and a thought. Negative numbness. ); no chest pain and no headaches The patient is a 69 year old male who presents to the ED with complaints of neuro symptoms beginning around 1530 today. He is on metoprolol and aspirin. He states while he was eating dinner tonight, He had "trouble with his words." He clarifies this by stating that he had difficulty formulating thoughts. He is accompanied by his who reports that she asked him to tell her a story, and he could not formulate a sentence. The patient denies any chest pain, headaches, abdominal pain, numbness. His states that while they were [employer] shopping earlier today, the patient's words began slurring. The patient notes that he believes he simply had a spike in blood pressure as he feels improved currently. He notes he took Losartan for the first time at 1800 tonight. He also states that he went hunting yesterday and walked 10 miles and dragged 2 does, which he believes also could be the source of his symptoms. Home Medications Home Medications Medication Instructions Recorded Confirmed Type aspirin 81 mg PO QAM 02/17/19 09/27/19 History coenzyme Q10 [Co Q-10] 100 mg PO DAILY 02/17/19 09/27/19 History multivitamin 1 - 2 tab PO DAILY 02/17/19 09/27/19 History nitroglycerin 0.4 mg SUBLINGUAL UD PRN 02/17/19 09/27/19 History red yeast rice 600 mg PO DAILY #30 cap 02/18/19 09/27/19 Rx losartan 50 mg tablet 50 mg PO DAILY #30 tab 09/16/19 09/27/19 Rx metoprolol succinate 100 mg 100 mg PO QAM #30 tab 09/16/19 09/27/19 Rx tablet,extended release 24 hr Cat's Claw Liquid 7 drp PO DAILY 09/27/19 09/27/19 History Allergies Allergy/AdvReac Type Severity Reaction Status Date / Time cat dander Allergy Severe ITCHY/COUGH, Verified 09/27/19 19:35 THROAT TIGHTENS horse dander Allergy Severe Itch/Cough Verified 09/27/19 19:35 with Horse hair HAIRSPRAY Allergy Severe ITCHY, Uncoded 09/27/19 19:35 COUGH Past Med/Surg History Medical History CAD (coronary artery disease) Dyslipidemia HTN (hypertension) (Chronic) NSTEMI (non-ST elevated myocardial infarction) (Resolved) Peripheral edema TIA (transient ischemic attack) (Acute) Surgical History H/O heart artery stent History of appendectomy History of hernia repair History of laparoscopic cholecystectomy History of tonsillectomy Family History Father , age 72 of [place]. 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 and A total of 10 systems reviewed and were otherwise negative Physical Exam Vital Signs Vital Signs - 24 hr 09/27/19 18:52 09/27/19 19:32 09/27/19 19:43 Temperature 36.8 C Temperature Source Oral Pulse Rate 71 Pulse Rate [Right Finger] 73 70 Pulse Rhythm [Right Finger] Regular Pulse Strength [Right Finger] Normal Respiratory Rate 20 20 20 Respiratory Effort / Characteristics Non-Labored Spontaneous Non-Labored Spontaneous Non-Labored Spontaneous Respiratory Depth Normal Normal Normal Respiratory Pattern Regular Blood Pressure 219/93 H Blood Pressure [Right Arm] 174/102 H 187/104 H Blood Pressure Mean 135 Blood Pressure Mean [Right Arm] 126 131 Blood Pressure Position [Right Arm] Sitting Pulse Oximetry 95 94 93 Oxygen Delivery Method Room Air Room Air Oxygen Flow Rate Sepsis Recent Fever Within 48 Hours No Sepsis Action Taken by Nursing No Action Required 09/27/19 20:15 09/27/19 20:58 Temperature Temperature Source Pulse Rate Pulse Rate [Right Finger] 73 63 Pulse Rhythm [Right Finger] Regular Regular Pulse Strength [Right Finger] Normal Normal Respiratory Rate 20 20 Respiratory Effort / Characteristics Non-Labored Spontaneous Non-Labored Spontaneous Respiratory Depth Normal Normal Respiratory Pattern Blood Pressure Blood Pressure [Right Arm] 223/102 H 176/98 H Blood Pressure Mean Blood Pressure Mean [Right Arm] 142 124 Blood Pressure Position [Right Arm] Pulse Oximetry 93 93 Oxygen Delivery Method Room Air Room Air Oxygen Flow Rate 1 Sepsis Recent Fever Within 48 Hours Sepsis Action Taken by Nursing GENERAL: Awake, alert, well-appearing, in no distress. No slurred speech. No aphasia. HENT: Normocephalic, atraumatic. EYES: Normal conjunctiva. Sclera non-icteric. NECK: Supple. No nuchal rigidity. RESPIRATORY: Clear to auscultation. No wheezes. Normal respiratory effort. CARDIAC: Normal rate. Normal rhythm. Extremities warm and well perfused. GI: Soft, non-distended. No tenderness to palpation. No rebound or guarding. RECTAL: Deferred. MUSCULOSKELETAL: Atraumatic. Chest examination reveals no tenderness. LOWER EXTREMITIES: Calves are equal size bilaterally and non-tender. No edema NEURO: Normal sensorium. No sensory or motor deficits noted. No facial droop. No slurred speech. No aphasia. No tongue deviation. No gait abnormality noted. SKIN: Warm and dry. No rash or jaundice noted. Course Course 1906: Past medical records reviewed. The patient was evaluated in room B5. A complete history and physical exam was performed. 2106: Discussed the patient's case with Dr. Driver, [facility] Hospitalist. The patient will be evaluated for further management. Administered Medications Ioversol (Optiray 320 125ml) 117 ml IV ONCE PRN PRN Reason: Interaction Checking Stop: 10/01/19 20:00 Last Admin: 09/27/19 20:02 Dose: 117 ml Documented by: [id number] Discontinued Medications Labetalol HCl (Normodyne) 10 mg IV NOW STA Stop: 09/27/19 19:03 Last Admin: 12/02/19 19:31 Dose: 10 mg Documented by: [id number] Cosigned by: [id number] Medical Decision Making Differential Diagnosis Differential diagnosis: Etiologies such as metabolic, infection, hypo/hyperglycemia, electrolyte abnormalities, cardiac sources, intracerebral event, toxicologic, neurologic, as well as others were entertained. Medical Records Attestation: I reviewed the patient's medical records. Home Medications Current Medication List: was personally reviewed by me Laboratory Data Attestation: I reviewed the patient's lab results. Result diagrams: 09/27/19 19:21 09/27/19 19:21 Lab Results 09/27/19 09/27/19 09/27/19 Range/Units 19:10 19:21 19:21 WBC 7.62 (4.8-10.8) K/uL RBC 4.83 (4.7-6.1) M/uL Hgb 15.8 (14.0-18.0) g/dL Hct 45.1 (42-52) % MCV 93.4 (80-100) fL MCH 32.7 (25-34) pg MCHC 35.0 (32-36) g/dL RDW Std Deviation 43.4 (36.4-46.3) fL RDW Coeff of [place] 12.7 (11.5-14.5) % Plt Count 158 (130-400) K/uL MPV 11.0 H (7.4-10.4) fL Immature Gran % (Auto) 0.1 % Neut % (Auto) 65.7 % Lymph % (Auto) 21.3 % [place] % (Auto) 11.0 % Eos % (Auto) 1.8 % Baso % (Auto) 0.1 % Immature Gran # (Auto) 0.01 (0.00-0.02) K/uL Neut # (Auto) 5.00 (1.4-6.5) K/uL Lymph # (Auto) 1.62 (1.2-3.4) K/uL [place] # (Auto) 0.84 H (0.11-0.59) K/uL Eos # (Auto) 0.14 (0-0.5) K/uL Baso # (Auto) 0.01 (0-0.2) K/uL PT 10.2 (9.0-12.0) Seconds INR 1.0 (0.9-1.1) APTT 26.2 (21.0-31.0) Seconds PTT Ratio 1.0 Sodium (136-145) mmol/L Potassium (3.5-5.1) mmol/L Chloride (98-107) mmol/L Carbon Dioxide (21-32) mmol/L Anion Gap (3-11) BUN (7-18) mg/dl Creatinine (0.6-1.4) mg/dl Est Cr Clr Drug Dosing ml/min Est GFR ( Amer) Est GFR (Non-Af Amer) BUN/Creatinine Ratio (10-20) Glucose (70-99) mg/dl Calcium (8.5-10.1) mg/dl Magnesium (1.8-2.4) mg/dl Total Bilirubin (0.2-1) mg/dl AST (15-37) U/L ALT (12-78) U/L Alkaline Phosphatase (45-117) U/L Troponin I (0-0.045) ng/ml Total Protein (6.4-8.2) gm/dl Albumin (3.4-5.0) gm/dl Globulin (2.5-4.0) gm/dl Albumin/Globulin Ratio (0.9-2) Urine Color Yellow Urine Appearance Clear (Clear) Urine pH 7.0 (4.5-7.5) Ur Specific [place] 1.009 (1.000-1.030) Urine Protein Negative (Negative) Urine Glucose (UA) Negative (Negative) Urine Ketones Negative (Negative) Urine Blood Negative (Negative) Urine Nitrite Negative (Negative) Urine Bilirubin Negative (Negative) Urine Urobilinogen Negative (Negative) Ur Leukocyte Esterase Negative (Negative) Blood Type Antibody Screen 09/27/19 09/27/19 Range/Units 19:21 19:24 WBC (4.8-10.8) K/uL RBC (4.7-6.1) M/uL Hgb (14.0-18.0) g/dL Hct (42-52) % MCV (80-100) fL MCH (25-34) pg MCHC (32-36) g/dL RDW Std Deviation (36.4-46.3) fL RDW Coeff of [place] (11.5-14.5) % Plt Count (130-400) K/uL MPV (7.4-10.4) fL Immature Gran % (Auto) % Neut % (Auto) % Lymph % (Auto) % [place] % (Auto) % Eos % (Auto) % Baso % (Auto) % Immature Gran # (Auto) (0.00-0.02) K/uL Neut # (Auto) (1.4-6.5) K/uL Lymph # (Auto) (1.2-3.4) K/uL [place] # (Auto) (0.11-0.59) K/uL Eos # (Auto) (0-0.5) K/uL Baso # (Auto) (0-0.2) K/uL PT (9.0-12.0) Seconds INR (0.9-1.1) APTT (21.0-31.0) Seconds PTT Ratio Sodium 139 (136-145) mmol/L Potassium 3.6 (3.5-5.1) mmol/L Chloride 107 (98-107) mmol/L Carbon Dioxide 26 (21-32) mmol/L Anion Gap 7.0 (3-11) BUN 17 (7-18) mg/dl Creatinine 0.96 (0.6-1.4) mg/dl Est Cr Clr Drug Dosing 93.2 ml/min Est GFR ( Amer) 94.4 Est GFR (Non-Af Amer) 81.5 BUN/Creatinine Ratio 17.7 (10-20) Glucose 99 (70-99) mg/dl Calcium 8.9 (8.5-10.1) mg/dl Magnesium 2.0 (1.8-2.4) mg/dl Total Bilirubin 0.5 (0.2-1) mg/dl AST 17 (15-37) U/L ALT 32 (12-78) U/L Alkaline Phosphatase 97 (45-117) U/L Troponin I < 0.015 (0-0.045) ng/ml Total Protein 7.3 (6.4-8.2) gm/dl Albumin 3.5 (3.4-5.0) gm/dl Globulin 3.8 (2.5-4.0) gm/dl Albumin/Globulin Ratio 0.9 (0.9-2) Urine Color Urine Appearance (Clear) Urine pH (4.5-7.5) Ur Specific [place] (1.000-1.030) Urine Protein (Negative) Urine Glucose (UA) (Negative) Urine Ketones (Negative) Urine Blood (Negative) Urine Nitrite (Negative) Urine Bilirubin (Negative) Urine Urobilinogen (Negative) Ur Leukocyte Esterase (Negative) Blood Type O Positive Antibody Screen NEGATIVE Imaging Data Radiologist's Impression: Radiology results as stated below per my review and the radiologist's interpretation: CT angio neck with con HISTORY: Mental status change slurred speech TECHNIQUE: Multiaxial CT angiography of the neck was performed IV contrast: 100 cc nonionic All measurements were calculated based on NASCET criteria. Maximum intensity projection images were also obtained. A dose lowering technique was utilized adhering to the principles of ALARA. COMPARISON STUDY: None. FINDINGS: The aortic arch and proximal great vessels are widely patent. There is no significant stenosis, occlusion, or dissection identified within the bilateral common carotid, internal carotid, or vertebral arteries. Minimal to very mild scattered plaque formation of the carotid and proximal vertebral basilar system. No evidence for aneurysm or dissection. Several small reactive soft tissue cervical nodes. IMPRESSION: No significant stenosis, occlusion, or dissection identified within the carotid or vertebral arteries. Minimal to mild scattered nonobstructive plaque f ormation. The above report was generated using voice recognition software. It may contain grammatical, syntax or spelling errors. Electronically signed by: Carlos Bonner M.D. 09/27/2019 8:[address] angio head w con HISTORY: Mental status change slurred speech TECHNIQUE: Multiaxial CT angiography of the head was performed IV contrast: 100 cc nonionic Maximum intensity projection images were also obtained. A dose lowering technique was utilized adhering to the principles of ALARA. COMPARISON: None. FINDINGS: There is no mass, hematoma, midline shift, or acute infarct. Visualized intracranial internal carotid arteries, distal vertebral arteries, and basilar artery are widely patent. There is no significant stenosis, occlusion, or aneurysm seen within the bilateral ACAs, MCAs, or loan broker. Mild plaque formation of the carotid siphons IMPRESSION: No significant stenosis, occlusion, or aneurysm within the lower [place]. The above report was generated using voice recognition software. It may contain grammatical, syntax or spelling errors. Electronically signed by: Carlos Bonner M.D. 09/27/2019 8:28 PM XR chest 1V portable CLINICAL HISTORY: slurred speech, BP elevated mental status change COMPARISON STUDY: 02/17/2019 FINDINGS: The bones soft tissues and hemidiaphragms are normal. The cardiomediastinal silhouette is normal. The lungs are clear. The pulmonary vasculature is normal. IMPRESSION: Negative chest. The above report was generated using voice recognition software. It may contain grammatical, syntax or spelling errors. Electronically signed by: Carlos Bonner M.D. 09/27/2019 7:[address] head/brain wo con CT DOSE: HISTORY: Mental status change Stroke evaluation TECHNIQUE: Multiaxial CT images of the head were performed without the use of intravenous contrast. A dose lowering technique was utilized adhering to the principles of ALARA. Comparison: None. Findings: The paranasal sinuses and mastoid air cells are clear. The calvarium and skull base are intact. The ventricles and sulci are within normal limits. There is no mass, hematoma, midline shift, or acute infarct. Mild age-related frontal atrophy and mild chronic small vessel change. Impression: No acute intracranial abnormality. Mild age-related atrophy and chronic small vessel change. The above report was generated using voice recognition software. It may contain grammatical, syntax or spelling errors. Electronically signed by: Carlos Bonner M.D. 09/27/2019 8:22 PM ECG Data Attestation: I personally reviewed and interpreted this ECG as follows: Indication: + other (neuro symptoms) Rate (beats per minute): 71 Rhythm: + normal sinus ECG [place]: + Normal ECG ST segments: no ST depression and no ST elevation ECG Findings: + Other (normal intervals ); no PVCs Blood Pressure Blood Pressure Findings: Elevated blood pressure Blood Pressure Disposition: further management by hospitalist DOMINGA Sharpe Patient is a 69-year-old gentleman with a history of cardiac disease and prior stroke in the spring as well as hypertension currently on aspirin and several blood pressure medicines presenting today after an episode this evening he developed several minutes of difficulty finding words. States he felt like his blood pressure was elevated. Blood pressure upon arrival here was 219/93. Patient's friend with him states it actually started around 330p when he started did not quite make sense. No reported significant weakness, pain, or numbness. Patient denies again any headache or chest pain or shortness of breath. Denies abdominal symptoms. States now he feels pretty much back to normal. Did take losartan this evening which he normally does not take for his blood pressure which he felt would be high but did not check it at home. Patient's blood pressure on recheck in the room is still above 200 systolic. Given a small amount of labetalol for this with minor improvement. EKG was obtained and troponin but have a lower suspicion for cardiac disease. Concerns for hypertensive urgency/emergency versus possible TIA symptoms. Not having significant motor deficit at this time. CT the head as well as CT vascular studies of the head and neck were completed to look for intracranial bleed or significant abnormality. These were completed without acute findings. Chest x- ray is unremarkable. No significant leukocytosis or anemia. No evidence of electrolyte or kidney dysfunction. No evidence of hepatitis or pancreatitis. Urinalysis is negative. Blood pressure now under 200 but still somewhat elevated. Discussed with the patient recommendation that he stay for further evaluation of his hypertension and what sounds like TIA symptomatologies. He was initially reluctant. Extensive discussion with him and his friend in the room and he was then agreeable to stay. The hospitalist was contacted. Impression & Plan Hypertensive urgency, TIA (transient ischemic attack) Discharge Plan Visit Data Chief Complaint: Neuro Symptoms/Deficit Stated Complaint: SLURRED SPEECH ED Provider: José Manuel Morales Discharge Problem: Hypertensive urgency, TIA (transient ischemic attack) Patient Disposition: Being Evaluated by Hospitalist Forms Stand Alone Forms: My [facility] Prescriptions Prescriptions: No Action losartan 50 mg tablet 50 mg PO DAILY Qty: 30 RF: 11 metoprolol succinate 100 mg tablet extended release 24 hr 100 mg PO QAM Qty: 30 RF: 11 multivitamin Tablet 1 - 2 tab PO DAILY RF: 0 aspirin 81 mg Tablet,Delayed Release (Dr/Ec) 81 mg PO QAM RF: 0 nitroglycerin 0.4 mg Tablet, Sublingual 0.4 mg sublingual UD PRN (Reason: Chest Pain) RF: 0 coenzyme Q10 [Co Q-10] 100 mg Capsule 100 mg PO DAILY RF: 0 red yeast rice 600 mg capsule 600 mg PO DAILY Qty: 30 RF: 0 Cat's Claw Liquid 7 drp PO DAILY RF: 0 Referrals Referrals: Yaima Mcnally MD [Primary Care Provider] - The lizibe's documentation has been prepared under my direction and personally reviewed by me in its entirety. I confirm that the note above accurately reflects all work, treatment, procedures, and medical decision making performed by me.
--- NOTE | 2019-09-27 22:08 | History & Physical Report ---
Date of Service September 27, 2019 Assessment & Plan (1) Hypertensive emergency: 69-year-old male was admitted on 27 September 2019 for TIA symptoms and elevated blood pressure. TIA, hypertensive emergency: Noted period of dysarthria lasting perhaps 4-5 hours, now completely resolved. Patient thinks related to periods of hypertension, perhaps four in his lifetime. This episode was the longest in duration yet. Concurrent mild ataxia but that also has resolved but has continued feeling of being cognitively foggy. - Of note, was briefly admitted in January 2019 for near-identical symptoms. Seen by neurology at that time (see related notes) and thought to be coronary vasospasm from hypertension. Was noted to have moderate old diffuse small vessel ischemic disease. - In ED, afebrile, not tachycardic, notably hypertensive (max 223/102), with 93% room SpO2. WBC 7. CMP okay. Troponin negative and EKG NSR 71 with normal intervals and no acute ST-T wave findings. CT head, CTA head and neck without acute findings. pCXR non-acute. - In ED, treated with labetalol 10 mg IV x 1. - Ordered labetalol 10 mg IV every 4 hours as needed for SBP > 210 or DBP > 110. Check A1c and lipids. Patient declined Brain MRI, stating he did not think it was necessary. Ongoing medical issues: - HTN, HLD, CAD, NSTEMI, peripheral edema: TTE in January 2019 noted EF 60-65%, normal LV SF, grade 1 diastolic dysfunction. He declines statin use. Patient admits to taking his metoprolol succinate 100 mg daily regularly. Only started his losartan 50 mg daily today. Continue aspirin, CoQ10. - History of CVA: Following cardiac cath without residual deficits. Code status: Full code. Diet: Heart healthy, low-sodium. DVT prophy: Lovenox. PT/OT: Deferred. Disbo: Admit to PCU. (2) TIA (transient ischemic attack): (3) Dyslipidemia: (4) CAD (coronary artery disease): (5) Peripheral edema: History of Present Illness Primary Care Provider: Yaima Mcnally MD 69-year-old male presents with concerns for acute difficulty with formulating words and thoughts beginning at about 3:30 pm this afternoon while shopping at [employer]. Says this lasted until shortly after arrival to the ED. At the time of this interview, it is completely resolved. He says the same symptoms have happened perhaps four times in his lifetime, with each time he attributes it to periods of uncontrolled hypertension. He notes he is followed by Dr. Chavez of cardiology. He takes his metoprolol regularly but decided only to take the losartan for the first time today. He says that he would greatly prefer not to be on "50 meds" and would rather try to lower his blood pressure via weight management and exercise. He also says he recently stopped his habit of walking and would like to return to that. Regarding his acute symptoms above, he wonders if they may be in part related to overexertion while hunting two days ago. He denies any concurrent chest pain, shortness of breath, headache, blurry vision, numbness/weakness/tingling of the extremities, or other focal symptoms. - Past medical history includes pretension, hyperlipidemia, CAD, NTEMI and GENOVEVA placement, peripheral edema. - Past surgical history includes hernia repair, coronary artery stent. - Social history includes denying smoking. Rare alcohol use. Lives at home with . Allergies Allergy/AdvReac Type Severity Reaction Status Date / Time cat dander Allergy Severe ITCHY/COUGH, Verified 09/27/19 19:35 THROAT TIGHTENS horse dander Allergy Severe Itch/Cough Verified 09/27/19 19:35 with Horse hair HAIRSPRAY Allergy Severe ITCHY, Uncoded 09/27/19 19:35 COUGH Home Medications Home Medications Medication Instructions Recorded Confirmed Type aspirin 81 mg PO QAM 02/17/19 09/27/19 History coenzyme Q10 [Co Q-10] 100 mg PO DAILY 02/17/19 09/27/19 History multivitamin 1 - 2 tab PO DAILY 02/17/19 09/27/19 History nitroglycerin 0.4 mg SUBLINGUAL UD PRN 02/17/19 09/27/19 History red yeast rice 600 mg PO DAILY #30 cap 02/18/19 09/27/19 Rx losartan 50 mg tablet 50 mg PO DAILY #30 tab 09/16/19 09/27/19 Rx metoprolol succinate 100 mg 100 mg PO QAM #30 tab 09/16/19 09/27/19 Rx tablet,extended release 24 hr Cat's Claw Liquid 7 drp PO DAILY 09/27/19 09/27/19 History Past Med/Surg History Medical History CAD (coronary artery disease) Dyslipidemia HTN (hypertension) (Chronic) NSTEMI (non-ST elevated myocardial infarction) (Resolved) Peripheral edema TIA (transient ischemic attack) (Acute) Surgical History H/O heart artery stent History of appendectomy History of hernia repair History of laparoscopic cholecystectomy History of tonsillectomy Family History Father , age 72 of [place]. 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 Positive ongoing bilateral lower extremity edema. Gastrointestinal: Denies any abdominal pain, nausea/vomiting/diarrhea Musculoskeletal: Denies any acute extremity pains, myalgias, or focal weakness Skin: Denies any known acute rashes or lesions Neuro: Positive transient dysarthria. Denies headache, focal weakness or numbness, difficulties with swallowing. Physical Exam Physical Exam: GENERAL: Awake, alert, well-appearing, in no acute distress HENT: Normocephalic, atraumatic. Oropharynx unremarkable. EYES: Normal conjunctiva. Sclera non-icteric. NECK: Inspection normal. Supple and full ROM. No nuchal rigidity. CARDIAC: +S1S2 RRR, no murmurs. RESPIRATORY: Clear to auscultation. No wheezes or rales. Normal respiratory effort. GI: +BS, soft, non-distended. No tenderness to palpation. No rebound or guarding. EXTREMITIES: No calf tenderness. Moving all extremities naturally and easily. 1+ bilateral torres edema. NEURO: CN II-XII intact (IX not checked). Normal, smooth speech. Strength 5/5 in all extremities. Distal sensation intact in all extremities. Pupils PERRL, EOMI. Results & Data Vital Signs (Past 12 Hours) Vital Signs Temp Pulse Pulse Resp BP BP Pulse Ox 09/27/19 20:58 63 20 176/98 H 93 09/27/19 20:15 73 20 223/102 H 93 09/27/19 19:43 70 20 187/104 H 93 09/27/19 19:32 73 20 174/102 H 94 09/27/19 18:52 36.8 C 71 20 219/93 H 95 Laboratory Results 09/27/19 09/27/19 09/27/19 Range/Units 19:24 19:21 19:21 WBC (4.8-10.8) K/uL RBC (4.7-6.1) M/uL Hgb (14.0-18.0) g/dL Hct (42-52) % MCV (80-100) fL MCH (25-34) pg MCHC (32-36) g/dL RDW Std Deviation (36.4-46.3) fL RDW Coeff of [place] (11.5-14.5) % Plt Count (130-400) K/uL MPV (7.4-10.4) fL Immature Gran % (Auto) % Neut % (Auto) % Lymph % (Auto) % [place] % (Auto) % Eos % (Auto) % Baso % (Auto) % Immature Gran # (Auto) (0.00-0.02) K/uL Neut # (Auto) (1.4-6.5) K/uL Lymph # (Auto) (1.2-3.4) K/uL [place] # (Auto) (0.11-0.59) K/uL Eos # (Auto) (0-0.5) K/uL Baso # (Auto) (0-0.2) K/uL PT 10.2 (9.0-12.0) Seconds INR 1.0 (0.9-1.1) APTT 26.2 (21.0-31.0) Seconds PTT Ratio 1.0 Sodium 139 (136-145) mmol/L Potassium 3.6 (3.5-5.1) mmol/L Chloride 107 (98-107) mmol/L Carbon Dioxide 26 (21-32) mmol/L Anion Gap 7.0 (3-11) BUN 17 (7-18) mg/dl Creatinine 0.96 (0.6-1.4) mg/dl Est Cr Clr Drug Dosing 93.2 ml/min Est GFR ( Amer) 94.4 Est GFR (Non-Af Amer) 81.5 BUN/Creatinine Ratio 17.7 (10-20) Glucose 99 (70-99) mg/dl Calcium 8.9 (8.5-10.1) mg/dl Magnesium 2.0 (1.8-2.4) mg/dl Total Bilirubin 0.5 (0.2-1) mg/dl AST 17 (15-37) U/L ALT 32 (12-78) U/L Alkaline Phosphatase 97 (45-117) U/L Troponin I < 0.015 (0-0.045) ng/ml Total Protein 7.3 (6.4-8.2) gm/dl Albumin 3.5 (3.4-5.0) gm/dl Globulin 3.8 (2.5-4.0) gm/dl Albumin/Globulin Ratio 0.9 (0.9-2) Urine Color Urine Appearance (Clear) Urine pH (4.5-7.5) Ur Specific [place] (1.000-1.030) Urine Protein (Negative) Urine Glucose (UA) (Negative) Urine Ketones (Negative) Urine Blood (Negative) Urine Nitrite (Negative) Urine Bilirubin (Negative) Urine Urobilinogen (Negative) Ur Leukocyte Esterase (Negative) Blood Type O Positive Antibody Screen NEGATIVE 09/27/19 09/27/19 Range/Units 19:21 19:10 WBC 7.62 (4.8-10.8) K/uL RBC 4.83 (4.7-6.1) M/uL Hgb 15.8 (14.0-18.0) g/dL Hct 45.1 (42-52) % MCV 93.4 (80-100) fL MCH 32.7 (25-34) pg MCHC 35.0 (32-36) g/dL RDW Std Deviation 43.4 (36.4-46.3) fL RDW Coeff of Guerita 12.7 (11.5-14.5) % Plt Count 158 (130-400) K/uL MPV 11.0 H (7.4-10.4) fL Immature Gran % (Auto) 0.1 % Neut % (Auto) 65.7 % Lymph % (Auto) 21.3 % [place] % (Auto) 11.0 % Eos % (Auto) 1.8 % Baso % (Auto) 0.1 % Immature Gran # (Auto) 0.01 (0.00-0.02) K/uL Neut # (Auto) 5.00 (1.4-6.5) K/uL Lymph # (Auto) 1.62 (1.2-3.4) K/uL [place] # (Auto) 0.84 H (0.11-0.59) K/uL Eos # (Auto) 0.14 (0-0.5) K/uL Baso # (Auto) 0.01 (0-0.2) K/uL PT (9.0-12.0) Seconds INR (0.9-1.1) APTT (21.0-31.0) Seconds PTT Ratio Sodium (136-145) mmol/L Potassium (3.5-5.1) mmol/L Chloride (98-107) mmol/L Carbon Dioxide (21-32) mmol/L Anion Gap (3-11) BUN (7-18) mg/dl Creatinine (0.6-1.4) mg/dl Est Cr Clr Drug Dosing ml/min Est GFR ( Amer) Est GFR (Non-Af Amer) BUN/Creatinine Ratio (10-20) Glucose (70-99) mg/dl Calcium (8.5-10.1) mg/dl Magnesium (1.8-2.4) mg/dl Total Bilirubin (0.2-1) mg/dl AST (15-37) U/L ALT (12-78) U/L Alkaline Phosphatase (45-117) U/L Troponin I (0-0.045) ng/ml Total Protein (6.4-8.2) gm/dl Albumin (3.4-5.0) gm/dl Globulin (2.5-4.0) gm/dl Albumin/Globulin Ratio (0.9-2) Urine Color Yellow Urine Appearance Clear (Clear) Urine pH 7.0 (4.5-7.5) Ur Specific [place] 1.009 (1.000-1.030) Urine Protein Negative (Negative) Urine Glucose (UA) Negative (Negative) Urine Ketones Negative (Negative) Urine Blood Negative (Negative) Urine Nitrite Negative (Negative) Urine Bilirubin Negative (Negative) Urine Urobilinogen Negative (Negative) Ur Leukocyte Esterase Negative (Negative) Blood Type Antibody Screen Medications Administered Ioversol (Optiray 320 125ml) 117 ml IV ONCE PRN PRN Reason: Interaction Checking Stop: 10/01/19 20:00 Last Admin: 09/27/19 20:02 Dose: 117 ml Documented by: [id number] Discontinued Medications Labetalol HCl (Normodyne) 10 mg IV NOW STA Stop: 09/27/19 19:03 Last Admin: 09/27/19 19:31 Dose: 10 mg Documented by: [id number] Cosigned by: [id number] Code Status & VTE Plan Code Status Full code VTE Prophylaxis Plan VTE Prophylaxis will be ordered: Yes Supervising Physician Co-Signing Physician Notes Patient was seen and examined at bedside during my face to face encounter. I reviewed above note and agree with it. Patient appears to be reluctant to take additional medications (statins) aside from high blood pressure meds. He is agreeable to treat his BP now that he has had another episode of aphasia. This is likely related to his uncontrolled BP. He took losartan at 18:00 today. Will add a calcium channel destiny in the evening at 2.5 mg of amlodipine. Patient will likely require a diuretic in the AM. BP remains elevated but patient is asymptomatic. Will continue to trend. Patient's neurological exam was normal. CN II-XII were normal. Resident Activity Tracking Resident Involvement: Resident Care Provided Care Provided: Adult Hospital Medicine (1) CAD (coronary artery disease) Associated angina: without angina Coronary Disease-Associated Artery/Lesion type: [place] artery [place] vs. transplanted heart: [place] heart Qualified Code(s): I25.10 - Atherosclerotic heart disease of [place] coronary artery without angina pectoris
[2019-09-27] MEDS ORDERED: LABETALOL HCL IV 5 MG/ML 20ML IV PRN (23:17)
[2019-09-27] MEDS ORDERED: ACETAMINOPHEN 325 MG TAB PO PRN (23:17)
[2019-09-27] MEDS ORDERED: NITROGLYCERIN SL 0.4 MG/TAB TAB SL PRN (23:17)
[2019-09-27] MEDS ORDERED: ONDANSETRON INJ 2 MG/ML 2 ML VIAL IV PRN (23:17)
[2019-09-27] MEDS ORDERED: AMLODIPINE BESYLATE 5 MG TAB PO ONE (23:37)
[2019-09-28] MEDS: ENOXAPARIN INJ 40 MG/0.4 ML SYR SQ SCH ×2 (00:10→23:06)
--- NOTE | 2019-09-28 00:15 | Billing Data ---
Coding Level of Care Code 93834 Initial Inpt Care Lvl 3
[2019-09-28 07:11] LABS: BUN Creatinine Ratio 13.7 (10-20); Calcium 8.7 mg/dl (8.5-10.1); Creatinine Clr Calc Pharmacy 100.1 ml/min; Est GFR (Non-African American) 88.9; Potassium 3.7 mmol/L (3.5-5.1)
[2019-09-28 08:36] LABS: Estimated Average Glucose 105 mg/dl; Hemoglobin A1C 5.3 % (4.5-5.6)
[2019-09-28] MEDS ORDERED: NON-FORMULARY MEDICATION (Coenzyme Q10 [Co Q-10] 100 MG) PO SCH (09:00)
[2019-09-28] MEDS ORDERED: LOSARTAN POTASSIUM 50 MG TAB PO SCH ×2 (09:00→16:00)
[2019-09-28] MEDS: ASPIRIN 81 MG ECTAB PO SCH (09:15)
[2019-09-28] MEDS: METOPROLOL SUCC 50MG EXT REL TAB PO SCH (09:15)
--- NOTE | 2019-09-28 10:49 | Neurology Consultation ---
Date of Consultation September 28, 2019 Assessment & Plan (1) TIA (transient ischemic attack): Probable TIA localizing to the left cerebral hemisphere characterized by transient expressive aphasia, without associated hemiparesis or other focal neurological signs or symptoms. The most significant stroke risk factor in this patient's case is likely poorly controlled hypertension. He did present with a markedly elevated blood pressure. Hypertensive urgency not excluded. There is no evidence of hemorrhage or acute process on recently completed CT of the head. No evidence of a significant vascular lesion on CT angiography of the head or neck although he does have scattered atherosclerotic change within the cervical vessels. No atrial fibrillation. The patient is currently neurologically intact and he is without signs or symptoms suggestive of neurological dysfunction. His blood pressure does remain elevated this morning, however. I would recommend that he continue with daily low-dose aspirin. A statin should also be recommended in light of the finding of mild atherosclerotic change on CT angiography. Improved outpatient control of patient's blood pressure will be of likely greatest importance in this patient. It is notable that he just started losartan the day prior to his presentation. 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 Continue medical management of hypertension while in the hospital. I typically would recommend obtaining a contrast-enhanced MRI although the patient has declined this test. It is notable that his MRI completed this past January, under similar circumstances was negative for acute stroke. History of Present Illness Reason for Consultation: TIA, hypertensive urgency Requesting Physician: Lul Parson MD Attending Physician: Judy Bhatia MD History of Present Illness The patient is a 69-year-old male with a chief complaint of word finding difficulty that began acutely, yesterday afternoon, approximately 3-1/2 hours prior to his presentation in the emergency department. He denies experiencing any associated difficulty with language comprehension, vision, strength, coordination, walking, or sensation. His symptoms resolved by the time he was evaluated in the emergency department. Past medical history notable for hypertension and coronary artery disease. He had a small left frontal ischemic infarct in August 2017 in the context of a cardiac catheterization during which time he was evaluated by Dr. Bocanegra. He was seen in neurological consultation during a hospitalization this past January, by Dr. Morgan, for symptoms potentially consistent with TIA, characterized by word finding difficulty that lasted 15 to 30 minutes, and occurring in the context of hypertensive urgency. It is notable that his blood pressure was again significantly elevated during this most recent admission, 172/100. He reports that he just started losartan for his hypertension yesterday. Otherwise, he has been taking metoprolol. He also takes a daily aspirin every other day. Currently, the patient indicates that he feels fine. He denies any symptomatic recurrence. Further, he denies experiencing any headache, dizziness, vertigo, palpitations, or recent injuries or illness. Allergies Allergy/AdvReac Type Severity Reaction Status Date / Time cat dander Allergy Severe ITCHY/COUGH, Verified 09/27/19 19:35 THROAT TIGHTENS horse dander Allergy Severe Itch/Cough Verified 09/27/19 19:35 with Horse hair HAIRSPRAY Allergy Severe ITCHY, Uncoded 09/27/19 19:35 COUGH Home Medications Home Medications Medication Instructions Recorded Confirmed Type aspirin 81 mg PO QAM 02/17/19 09/27/19 History coenzyme Q10 [Co Q-10] 100 mg PO DAILY 02/17/19 09/27/19 History multivitamin 1 - 2 tab PO DAILY 02/17/19 09/27/19 History nitroglycerin 0.4 mg SUBLINGUAL UD PRN 02/17/19 09/27/19 History red yeast rice 600 mg PO DAILY #30 cap 02/18/19 09/27/19 Rx losartan 50 mg tablet 50 mg PO DAILY #30 tab 09/16/19 09/27/19 Rx metoprolol succinate 100 mg 100 mg PO QAM #30 tab 09/16/19 09/27/19 Rx tablet,extended release 24 hr Cat's Claw Liquid 7 drp PO DAILY 09/27/19 09/27/19 History Patient History Medical History CAD (coronary artery disease) Dyslipidemia HTN (hypertension) (Chronic) NSTEMI (non-ST elevated myocardial infarction) (Resolved) Peripheral edema TIA (transient ischemic attack) (Acute) Surgical History H/O heart artery stent History of appendectomy History of hernia repair History of laparoscopic cholecystectomy History of tonsillectomy Family History Father , age 72 of [place]. 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 Other Information That Helps Us Care for You: No Feels Safe at Home: Yes Safety Concerns: Feels Safe At This Time Smoking Status: Never smoker Do You Dip or Chew Tobacco: No ; Hx Alcohol Use: Yes Alcohol type: wine Alcohol Intake Frequency Comment: Once per week Hx Substance Use: No Review of Systems Constitutional: no fever and no chills Eyes: no blind spots and no diplopia Ear, Nose, Mouth, Throat: no hearing loss Respiratory: no cough and no dyspnea Cardiovascular: no chest pain and no palpitations Gastrointestinal: no nausea and no vomiting Genitourinary: no dysuria and no urinary incontinence Musculoskeletal: no neck pain and no myalgia Integumentary: no rash and no lesions Neurologic: as per Subjective / HPI; no gait abnormality, no localized weakness, no loss of sensation, no syncope, no headache(s), no confusion and no memory loss Psychiatric: no depression and no anxiety Hematologic / Lymphatic: no easy bleeding and no easy bruising Physical Exam Physical Exam: The patient is a well-developed, well-nourished elderly male. He is alert and fully oriented. Recent and remote memory intact. Attention and concentration normal. Patient exhibits a normal spontaneous speech pattern. He is able to name objects and repeat phrases. Patient exhibits an age-appropriate fund of knowledge and normal comprehension of vocabulary. Visual barron full to confrontation. Visual acuity normal. Pupils equal round reactive to light and accommodation. Eye movements normal. There is no nystagmus, ptosis, or ophthalmoplegia. Facial sensation intact. There is no facial droop or weakness. Hearing intact. Palate elevates to midline. Shoulder shrug intact. Tongue protrudes to midline. Sensation intact all modalities in all 4 limbs. Deep tendon reflexes intact and symmetrical for the arms and legs. Plantar responses downgoing bilaterally. There is no dysdiadochokinesia or dysmetria [id number] or [id number] bilaterally. Ophthalmoscopic examination reveals normal-appearing optic disks and posterior segments. No papilledema or hemorrhages. Carotid pulses normal bilaterally, no bruits to auscultation. Gait and station normal. Patient exhibits normal muscle strength and tone for all 4 limbs. No atrophy. No abnormal movements observed. Results & Data Vital Signs (Past 12 Hours) Vital Signs Temp Pulse Resp BP BP Pulse Ox 09/28/19 07:41 36.9 C 63 18 168/99 H 180/102 H 93 09/28/19 04:18 170/99 H 09/28/19 04:04 36.7 C 62 20 192/101 H 92 09/28/19 02:18 158/98 H 09/27/19 23:06 37.1 C 64 18 194/118 H 209/105 H 95 09/27/19 22:22 65 20 188/111 H 94 Laboratory Results WBC 7.62, hemoglobin 15.8, hematocrit 45.1, platelet count 158, sodium 140, potassium 3.7, BUN 12, creatinine 0.88, glucose 94, hemoglobin A1c 5.3, calcium 8.7, magnesium 2.0, AST 17, ALT 32, troponin less than 0.015, triglycerides 107, cholesterol 193, LDL 122, VLDL 21, HDL [address] of the head completed yesterday is unremarkable. No hemorrhage or acute process. There is mild age-related atrophy and chronic small vessel change. I reviewed the images as well as the radiologist's interpretation of this test. CT angiography of the head and neck completed yesterday are unremarkable. No stenosis, occlusion, dissection, or aneurysm. There is minimal scattered plaque within the cervical carotid and vertebral systems. An electrocardiogram reveals a normal sinus rhythm, 71 bpm. An echocardiogram completed February 18, 2019 reveals normal left ventricular systolic function, grade 1 diastolic dysfunction, no change compared with the previous echocardiogram done in 2017. A brain MRI completed February 17, 2019 was negative for acute or subacute stroke. The study revealed mild to moderate chronic small vessel change. I reviewed the images as well as the radiologist's interpretation of this test. PG Care Time/CCT Total # of Minutes Spent Total Time Spent with Patient: Total time spent is greater than 50% in coordination of care (as documented) at patient's floor/unit and/or counseling patient:
[2019-09-28] MEDS ORDERED: PHARMACIST DISCHARGE MED REC CONSULT PRN (13:52)
[2019-09-28] MEDS ORDERED: HydrALAZINE HCL 20 MG/ML VIAL IV PRN (16:02)
--- NOTE | 2019-09-28 16:18 | Hospitalist Progress Note ---
Date of Service September 28, 2019 Assessment & Plan (1) Hypertensive emergency: - Likely related to medication non-compliance; BP was >220 on admission, improved with IV Labetalol dose. - Continue home Metoprolol as prescribed; started Losartan 50 mg daily on 09/27 (was prescribed in Aug but pt did not start taking med) - BP remains elevated, was >200 this afternoon. Will increase Losartan to 100 mg daily, add Amlodipine 5 mg qPM. - Hydralazine prn SBP >190. (2) TIA (transient ischemic attack): - Episode of transient expressive aphasia on 09/27, now resolved. Also admitted in January 2019 with very similar symptoms. - Risk factor of poorly controlled HTN with hypertensive emergency - BP management as noted above. - Telemetry showed NSR, no evidence of arrhythmias over last 24 hours. - CT head negative, CTA head/neck with scattered atherosclerotic changes in the cervical vessels. - Pt. does not want MRI of the brain at this time and given similar presentation 6 months ago with normal brain MRI and with complete resolution of symptoms, ok to not get it. - Continue ASA 81 mg daily (was taking med QOD at home); has refused statin in the past, on red yeast rice. (3) CAD (coronary artery disease): - S/p GENOVEVA to LAD in past. - Continue Metoprolol, ASA and red yeast rice (refuses statin agent) (4) Dyslipidemia: - Continue red yeast rice -- does not take statin agent at home. - Lipid panel showed LDL of 122, Total chol 193. (5) HTN (hypertension): - As noted above, very uncontrolled. (6) DVT prophylaxis: - Lovenox q24hr. Dispo: PCU tele for management of hypertensive emergency. PT/OT evaluation pending. Will need close PCP f/u at discharge. Supervising Physician Co-Signing Physician Notes PA Supervision Note: I personally saw and examined the patient. I verified all amaro points and agree with NADEEM Mondragon with the following exceptions and/or additions: Pt denies any further speech issues but is wanting to take his health more seriously now. Denies headache or chest pain, no SOB. Reports he cannot take HCTZ due to urinary frequency interfering with ADLs. BPs still quite high today. Vitals reviewed RRR no mgr CTAB no wcr Abd +BS soft NT ND no bruits Ext no edema Neuro-full strenght throughout, no dysarthria, no facial droop Continued stay for hypertensive emergency with TIA -adding BP meds as above for improved control -recommend DASH diet, increased exercise, weight loss, avoidance of NSAIDs and EtOH as discussed with patient -he was also advised to buy a BP cuff at home Subjective Pt. reports feeling well overall. Neuro symptoms now resolved, no further episodes of slurred speech since admission. BP was improving then increased this afternoon to 201/95. Pt. states he was taking metoprolol routinely but did not start Losartan 50 mg daily as prescribed by Dr. Chavez in Aug 2019. He did take a dose of Losartan last evening after episode of slurred speech. He does not have a BP cuff at home that is working at this point -- will buy one at discharge and monitor BP routinely. Plan to monitor overnight due to uncontrolled HTN. Review of Systems Review of Systems: All systems reviewed & are unremarkable except as noted in HPI & below Constitutional: no fever, no chills, no fatigue, no weakness and no anorexia Respiratory: no cough, no dyspnea, no dyspnea on exertion and no wheezing Cardiovascular: no chest pain, no palpitations and no edema Gastrointestinal: no abdominal pain, no nausea and no constipation Musculoskeletal: no back pain and no joint pain Neurologic: no gait abnormality, no unsteadiness, no generalized weakness, no headache(s) and no abnormal speech Physical Exam Physical Exam: General: Resting comfortably HEENT: NC/AT; PERRLA with EOMI; [place] conjunctiva, MMM. No erythema of posterior pharynx Neck: Supple and nontender Cardiac: RRR Lungs: CTA bilaterally Abdomen: Bowel normoactive X 4; Nontender to palpation Extremities: Warm. No edema present Neuro: No focal weakness Skin: No rash Results & Data Vital Signs (Past 12 Hours) Vital Signs Temp Pulse Resp BP BP Pulse Ox 09/28/19 15:19 36.7 C 64 20 201/95 H 95 09/28/19 11:45 35.8 C L 64 17 148/82 H 93 09/28/19 07:41 36.9 C 63 18 168/99 H 180/102 H 93 09/28/19 04:18 170/99 H Laboratory Results 09/28/19 09/28/19 09/28/19 Range/Units 06:25 06:25 06:25 WBC (4.8-10.8) K/uL RBC (4.7-6.1) M/uL Hgb (14.0-18.0) g/dL Hct (42-52) % MCV (80-100) fL MCH (25-34) pg MCHC (32-36) g/dL RDW Std Deviation (36.4-46.3) fL RDW Coeff of [place] (11.5-14.5) % Plt Count (130-400) K/uL MPV (7.4-10.4) fL Immature Gran % (Auto) % Neut % (Auto) % Lymph % (Auto) % [place] % (Auto) % Eos % (Auto) % Baso % (Auto) % Immature Gran # (Auto) (0.00-0.02) K/uL Neut # (Auto) (1.4-6.5) K/uL Lymph # (Auto) (1.2-3.4) K/uL [place] # (Auto) (0.11-0.59) K/uL Eos # (Auto) (0-0.5) K/uL Baso # (Auto) (0-0.2) K/uL PT (9.0-12.0) Seconds INR (0.9-1.1) APTT (21.0-31.0) Seconds PTT Ratio Sodium 140 (136-145) mmol/L Potassium 3.7 (3.5-5.1) mmol/L Chloride 108 H (98-107) mmol/L Carbon Dioxide 27 (21-32) mmol/L Anion Gap 5.0 (3-11) BUN 12 (7-18) mg/dl Creatinine 0.88 (0.6-1.4) mg/dl Est Cr Clr Drug Dosing 100.1 ml/min Est GFR ( Amer) 103.0 Est GFR (Non-Af Amer) 88.9 BUN/Creatinine Ratio 13.7 (10-20) Glucose 94 (70-99) mg/dl Estimat Average Glucose 105 mg/dl Hemoglobin A1c 5.3 (4.5-5.6) % Calcium 8.7 (8.5-10.1) mg/dl Magnesium (1.8-2.4) mg/dl Total Bilirubin (0.2-1) mg/dl AST (15-37) U/L ALT (12-78) U/L Alkaline Phosphatase (45-117) U/L Troponin I (0-0.045) ng/ml Total Protein (6.4-8.2) gm/dl Albumin (3.4-5.0) gm/dl Globulin (2.5-4.0) gm/dl Albumin/Globulin Ratio (0.9-2) Triglycerides 107 (0-150) mg/dl Cholesterol 193 (0-200) mg/dl LDL Cholesterol, Calc 122 mg/dl VLDL Cholesterol, Calc 21 mg/dl HDL Cholesterol 50 mg/dl Cholesterol/HDL Ratio 4 Urine Color Urine Appearance (Clear) Urine pH (4.5-7.5) Ur Specific [place] (1.000-1.030) Urine Protein (Negative) Urine Glucose (UA) (Negative) Urine Ketones (Negative) Urine Blood (Negative) Urine Nitrite (Negative) Urine Bilirubin (Negative) Urine Urobilinogen (Negative) Ur Leukocyte Esterase (Negative) Hepatitis C Ab Screen Neg (Neg) Blood Type Antibody Screen 09/27/19 09/27/19 09/27/19 Range/Units 19:24 19:21 19:21 WBC (4.8-10.8) K/uL RBC (4.7-6.1) M/uL Hgb (14.0-18.0) g/dL Hct (42-52) % MCV (80-100) fL MCH (25-34) pg MCHC (32-36) g/dL RDW Std Deviation (36.4-46.3) fL RDW Coeff of [place] (11.5-14.5) % Plt Count (130-400) K/uL MPV (7.4-10.4) fL Immature Gran % (Auto) % Neut % (Auto) % Lymph % (Auto) % [place] % (Auto) % Eos % (Auto) % Baso % (Auto) % Immature Gran # (Auto) (0.00-0.02) K/uL Neut # (Auto) (1.4-6.5) K/uL Lymph # (Auto) (1.2-3.4) K/uL [place] # (Auto) (0.11-0.59) K/uL Eos # (Auto) (0-0.5) K/uL Baso # (Auto) (0-0.2) K/uL PT 10.2 (9.0-12.0) Seconds INR 1.0 (0.9-1.1) APTT 26.2 (21.0-31.0) Seconds PTT Ratio 1.0 Sodium 139 (136-145) mmol/L Potassium 3.6 (3.5-5.1) mmol/L Chloride 107 (98-107) mmol/L Carbon Dioxide 26 (21-32) mmol/L Anion Gap 7.0 (3-11) BUN 17 (7-18) mg/dl Creatinine 0.96 (0.6-1.4) mg/dl Est Cr Clr Drug Dosing 93.2 ml/min Est GFR ( Amer) 94.4 Est GFR (Non-Af Amer) 81.5 BUN/Creatinine Ratio 17.7 (10-20) Glucose 99 (70-99) mg/dl Estimat Average Glucose mg/dl Hemoglobin A1c (4.5-5.6) % Calcium 8.9 (8.5-10.1) mg/dl Magnesium 2.0 (1.8-2.4) mg/dl Total Bilirubin 0.5 (0.2-1) mg/dl AST 17 (15-37) U/L ALT 32 (12-78) U/L Alkaline Phosphatase 97 (45-117) U/L Troponin I < 0.015 (0-0.045) ng/ml Total Protein 7.3 (6.4-8.2) gm/dl Albumin 3.5 (3.4-5.0) gm/dl Globulin 3.8 (2.5-4.0) gm/dl Albumin/Globulin Ratio 0.9 (0.9-2) Triglycerides (0-150) mg/dl Cholesterol (0-200) mg/dl LDL Cholesterol, Calc mg/dl VLDL Cholesterol, Calc mg/dl HDL Cholesterol mg/dl Cholesterol/HDL Ratio Urine Color Urine Appearance (Clear) Urine pH (4.5-7.5) Ur Specific [place] (1.000-1.030) Urine Protein (Negative) Urine Glucose (UA) (Negative) Urine Ketones (Negative) Urine Blood (Negative) Urine Nitrite (Negative) Urine Bilirubin (Negative) Urine Urobilinogen (Negative) Ur Leukocyte Esterase (Negative) Hepatitis C Ab Screen (Neg) Blood Type O Positive Antibody Screen NEGATIVE 09/27/19 09/27/19 Range/Units 19:21 19:10 WBC 7.62 (4.8-10.8) K/uL RBC 4.83 (4.7-6.1) M/uL Hgb 15.8 (14.0-18.0) g/dL Hct 45.1 (42-52) % MCV 93.4 (80-100) fL MCH 32.7 (25-34) pg MCHC 35.0 (32-36) g/dL RDW Std Deviation 43.4 (36.4-46.3) fL RDW Coeff of [place] 12.7 (11.5-14.5) % Plt Count 158 (130-400) K/uL MPV 11.0 H (7.4-10.4) fL Immature Gran % (Auto) 0.1 % Neut % (Auto) 65.7 % Lymph % (Auto) 21.3 % [place] % (Auto) 11.0 % Eos % (Auto) 1.8 % Baso % (Auto) 0.1 % Immature Gran # (Auto) 0.01 (0.00-0.02) K/uL Neut # (Auto) 5.00 (1.4-6.5) K/uL Lymph # (Auto) 1.62 (1.2-3.4) K/uL [place] # (Auto) 0.84 H (0.11-0.59) K/uL Eos # (Auto) 0.14 (0-0.5) K/uL Baso # (Auto) 0.01 (0-0.2) K/uL PT (9.0-12.0) Seconds INR (0.9-1.1) APTT (21.0-31.0) Seconds PTT Ratio Sodium (136-145) mmol/L Potassium (3.5-5.1) mmol/L Chloride (98-107) mmol/L Carbon Dioxide (21-32) mmol/L Anion Gap (3-11) BUN (7-18) mg/dl Creatinine (0.6-1.4) mg/dl Est Cr Clr Drug Dosing ml/min Est GFR ( Amer) Est GFR (Non-Af Amer) BUN/Creatinine Ratio (10-20) Glucose (70-99) mg/dl Estimat Average Glucose mg/dl Hemoglobin A1c (4.5-5.6) % Calcium (8.5-10.1) mg/dl Magnesium (1.8-2.4) mg/dl Total Bilirubin (0.2-1) mg/dl AST (15-37) U/L ALT (12-78) U/L Alkaline Phosphatase (45-117) U/L Troponin I (0-0.045) ng/ml Total Protein (6.4-8.2) gm/dl Albumin (3.4-5.0) gm/dl Globulin (2.5-4.0) gm/dl Albumin/Globulin Ratio (0.9-2) Triglycerides (0-150) mg/dl Cholesterol (0-200) mg/dl LDL Cholesterol, Calc mg/dl VLDL Cholesterol, Calc mg/dl HDL Cholesterol mg/dl Cholesterol/HDL Ratio Urine Color Yellow Urine Appearance Clear (Clear) Urine pH 7.0 (4.5-7.5) Ur Specific [place] 1.009 (1.000-1.030) Urine Protein Negative (Negative) Urine Glucose (UA) Negative (Negative) Urine Ketones Negative (Negative) Urine Blood Negative (Negative) Urine Nitrite Negative (Negative) Urine Bilirubin Negative (Negative) Urine Urobilinogen Negative (Negative) Ur Leukocyte Esterase Negative (Negative) Hepatitis C Ab Screen (Neg) Blood Type Antibody Screen PG Care Time/CCT Total # of Minutes Spent Total Time Spent with Patient: Total time spent is greater than 50% in coordination of care (as documented) at patient's floor/unit and/or counseling patient: (1) CAD (coronary artery disease) Associated angina: without angina Coronary Disease-Associated Artery/Lesion type: [place] artery [place] vs. transplanted heart: [place] heart Qualified Code(s): I25.10 - Atherosclerotic heart disease of [place] coronary artery without angina pectoris (2) HTN (hypertension) Hypertension type: unspecified Qualified Code(s): I10 - Essential (primary) hypertension
[2019-09-28] MEDS ORDERED: LOSARTAN POTASSIUM 50 MG TAB PO ONE (17:00)
[2019-09-28] MEDS ORDERED: AMLODIPINE BESYLATE 5 MG TAB PO SCH ×2 (20:00→21:00)
[2019-09-29] MEDS: LOSARTAN POTASSIUM 50 MG TAB PO SCH (07:41)
[2019-09-29] MEDS: ASPIRIN 81 MG ECTAB PO SCH (07:42)
[2019-09-29] MEDS: METOPROLOL SUCC 50MG EXT REL TAB PO SCH (07:42)
[2019-09-29] MEDS: AMLODIPINE BESYLATE 5 MG TAB PO SCH (10:07)
[2019-09-29] MEDS ORDERED: STROKE PATIENT DISCHARGE STA (16:26)
--- NOTE | 2019-09-29 17:12 | Hospitalist Progress Note ---
Date of Service September 29, 2019 Assessment & Plan (1) Hypertensive emergency: - BP was >220 on admission, improved with IV Labetalol dose. BP remains elevated despite medication changes. - Started Losartan on 09/27, now increased to 100 mg daily. - Started Amlodipine 10 mg daily. - Will convert Metoprolol XL 100 mg daily (home med) to Coreg 18.75 mg BID on 09/30. - Hydralazine prn SBP >190. -will check Renal Doppler although suspect this is longstanding uncontrolled HTN and not a secondary HTN (2) TIA (transient ischemic attack): - Episode of transient expressive aphasia on 09/27, now resolved. Also admitted in January 2019 with very similar symptoms. - Risk factor of poorly controlled HTN with hypertensive emergency - BP management as noted above. - Telemetry showed NSR, no evidence of arrhythmias. - CT head negative, CTA head/neck with scattered atherosclerotic changes in the cervical vessels. - Pt. does not want MRI of the brain at this time and given similar presentation 6 months ago with normal brain MRI and with complete resolution of symptoms, ok to not get it. - Continue ASA 81 mg daily (QOD at home); has refused statin in the past, on red yeast rice. (3) CAD (coronary artery disease): - S/p GENOVEVA to LAD in past. - Continue ASA and red yeast rice (refuses statin agent); converting Metoprolol to Coreg. (4) Dyslipidemia: - Continue red yeast rice -- does not take statin agent at home. - Lipid panel showed LDL of 122, Total chol 193. (5) HTN (hypertension): - As noted above, very uncontrolled. (6) DVT prophylaxis: - Lovenox q24hr. Dispo: PCU tele for management of hypertensive emergency. Discharge pending improvement in HTN. Supervising Physician Co-Signing Physician Notes PA Supervision Note: I did not personally see or examine the patient today, but I verified all amaro points of NADEEM Mondragon's assessment and plan with the following exceptions/additions: None Subjective Pt. is doing well overall. BP remains elevated following increase in Losartan dose and addition of Amlodipine. He denies neuro symptoms, exam negative. Will monitor over next 24 hours. Review of Systems Review of Systems: All systems reviewed & are unremarkable except as noted in HPI & below Constitutional: no fever, no chills, no fatigue and no weakness Respiratory: no cough, no dyspnea and no dyspnea on exertion Cardiovascular: no chest pain and no edema Gastrointestinal: no abdominal pain, no nausea and no constipation Genitourinary: no difficulty urinating Musculoskeletal: no back pain and no joint pain Neurologic: no headache(s), no abnormal speech and no confusion Physical Exam Physical Exam: General: Resting comfortably HEENT: NC/AT; PERRLA with EOMI; [place] conjunctiva, MMM. No erythema of posterior pharynx Neck: Supple and nontender Cardiac: RRR Lungs: CTA bilaterally Abdomen: Bowel normoactive X 4; Nontender to palpation Extremities: Warm. No edema present Neuro: No focal weakness noted on exam Skin: No rash Results & Data Vital Signs (Past 12 Hours) Vital Signs Temp Pulse Pulse Resp BP BP Pulse Ox 09/29/19 16:35 184/102 H 67 L 09/29/19 16:00 70 09/29/19 15:40 36.9 C 66 18 140/69 96 09/29/19 14:32 146/83 H 09/29/19 11:31 37.0 C 58 L 18 171/94 H 93 09/29/19 10:06 168/89 H 09/29/19 07:19 36.9 C 64 18 190/99 H 94 PG Care Time/CCT Total # of Minutes Spent Total Time Spent with Patient: Total time spent is greater than 50% in coordination of care (as documented) at patient's floor/unit and/or counseling patient: (1) CAD (coronary artery disease) Associated angina: without angina Coronary Disease-Associated Artery/Lesion type: [place] artery [place] vs. transplanted heart: [place] heart Qualified Code(s): I25.10 - Atherosclerotic heart disease of [place] coronary artery without angina pectoris (2) HTN (hypertension) Hypertension type: unspecified Qualified Code(s): I10 - Essential (primary) hypertension
[2019-09-29] MEDS: ENOXAPARIN INJ 40 MG/0.4 ML SYR SQ SCH (23:00)
[2019-09-30 06:30] LABS: BUN Creatinine Ratio 19.8 (10-20); Calcium 8.7 mg/dl (8.5-10.1); Creatinine Clr Calc Pharmacy 92.9 ml/min; Est GFR (African American) 96.8; Est GFR (Non-African American) 83.6; Potassium 3.8 mmol/L (3.5-5.1)
--- NOTE | 2019-09-30 07:11 | Ultrasound Report ---
US duplex renal artery CLINICAL HISTORY: Rule out renal artery stenosis. Prolonged hypertension. COMPARISON STUDY: None. FINDINGS: The right kidney measures 12.9 cm and the left kidney measures 13.8 cm. Bilateral renal vei ns are patent. Peak systolic velocity within the right renal artery is 66 cm/s and within the left re nal artery is 87 cm/s. This is considered to be within the range of normal limits. Resistive indices of the bilateral renal arcuate arteries are within normal limits measuring less than 0.7. Mild bilate ral cortical renal thinning. Normal corticomedullary differentiation. No hydronephrosis. IMPRESSION: No evidence for renal artery stenosis. Electronically signed by: Jc Davila M.D. 09/30/2019 7:10 AM
[2019-09-30] MEDS ORDERED: carvediloL 25 MG TAB PO SCH (08:00)
[2019-09-30] MEDS: LOSARTAN POTASSIUM 50 MG TAB PO SCH (08:11)
[2019-09-30] MEDS: ASPIRIN 81 MG ECTAB PO SCH (08:11)
[2019-09-30] MEDS: AMLODIPINE BESYLATE 5 MG TAB PO SCH (08:11)
[2019-09-30] MEDS ORDERED: carvediloL 12.5 MG TAB PO SCH (09:00)
[2019-09-30 11:35] VITALS: PULSE 62; TEMP 98.2; O2SAT 94
[2019-09-30] MEDS ORDERED: STROKE PATIENT DISCHARGE STA (14:36)
[2019-09-30 15:23] VITALS: BP 162/91
--- NOTE | 2019-09-30 16:12 | Discharge Summary ---
Date of Service September 30, 2019 Admission HPI Per Admitting Provider 69-year-old male presents with concerns for acute difficulty with formulating words and thoughts beginning at about 3:30 pm this afternoon while shopping at [employer]. Says this lasted until shortly after arrival to the ED. At the time of this interview, it is completely resolved. He says the same symptoms have happened perhaps four times in his lifetime, with each time he attributes it to periods of uncontrolled hypertension. He notes he is followed by Dr. Chavez of cardiology. He takes his metoprolol regularly but decided only to take the losartan for the first time today. He says that he would greatly prefer not to be on "50 meds" and would rather try to lower his blood pressure via weight management and exercise. He also says he recently stopped his habit of walking and would like to return to that. Regarding his acute symptoms above, he wonders if they may be in part related to overexertion while hunting two days ago. He denies any concurrent chest pain, shortness of breath, headache, blurry vision, numbness/weakness/tingling of the extremities, or other focal symptoms. - Past medical history includes pretension, hyperlipidemia, CAD, NTEMI and GENOVEVA placement, peripheral edema. - Past surgical history includes hernia repair, coronary artery stent. - Social history includes denying smoking. Rare alcohol use. Lives at home with . Admission Exam Per Admitting Provider GENERAL: Awake, alert, well-appearing, in no acute distress HENT: Normocephalic, atraumatic. Oropharynx unremarkable. EYES: Normal conjunctiva. Sclera non-icteric. NECK: Inspection normal. Supple and full ROM. No nuchal rigidity. CARDIAC: +S1S2 RRR, no murmurs. RESPIRATORY: Clear to auscultation. No wheezes or rales. Normal respiratory effort. GI: +BS, soft, non-distended. No tenderness to palpation. No rebound or guarding. EXTREMITIES: No calf tenderness. Moving all extremities naturally and easily. 1+ bilateral torres edema. NEURO: CN II-XII intact (IX not checked). Normal, smooth speech. Strength 5/5 in all extremities. Distal sensation intact in all extremities. Pupils PERRL, EOMI. Principal Diagnosis Hypertensive Emergency, TIA Discharge Exam General: Resting comfortably HEENT: NC/AT; PERRLA with EOMI; [place] conjunctiva, MMM. No erythema of posterior pharynx Neck: Supple and nontender Cardiac: RRR Lungs: CTA bilaterally Abdomen: Bowel normoactive X 4; Nontender to palpation Extremities: Warm. No edema present Neuro: No focal weakness Skin: No rash Discharge Data Allergies Allergy/AdvReac Type Severity Reaction Status Date / Time cat dander Allergy Severe ITCHY/COUGH, Verified 09/27/19 19:35 THROAT TIGHTENS horse dander Allergy Severe Itch/Cough Verified 09/27/19 19:35 with Horse hair HAIRSPRAY Allergy Severe ITCHY, Uncoded 09/27/19 19:35 COUGH Consultations 09/27/19 21:10 ED Decision to Admit Stat 09/27/19 23:17 Consult Neurology Routine Ordered Studies 09/27/19 19:02 CT head/brain wo con Stat CXR 09/27/19 19:05 CT angio head w con Stat CT angio neck with con Stat 09/30/19 18:46 US duplex renal artery Routine Hospital Course (1) Hypertensive emergency: BP was >220 on admission, improved with IV Labetalol dose. BP remained elevated for 2 days despite medication changes. Started Losartan on 09/27, increased to 100 mg daily. Started Amlodipine 10 mg daily. Converted Metoprolol XL 100 mg daily to Coreg 18.75 mg BID on 09/30. Renal artery duplex negative. BP was improved on day of discharge - SBP 140's. Recommended to continue DASH diet and increase exercise at home. Will need to follow up with PCP to discuss BP management. (2) TIA (transient ischemic attack): Episode of transient expressive aphasia on 09/27, now resolved. Also admitted in January 2019 with very similar symptoms. Risk factor of poorly controlled HTN with hypertensive emergency - BP management as noted above. Telemetry showed NSR, no evidence of arrhythmias. CT head negative, CTA head/neck with scattered atherosclerotic changes in the cervical vessels. Pt. does not want MRI of the brain at this time and given similar presentation 6 months ago with normal brain MRI and with complete resolution of symptoms, ok to not get it. Continued ASA 81 mg daily (QOD at home); has refused statin in the past, on red yeast rice. (3) CAD (coronary artery disease): S/p GENOVEVA to LAD in past. Continued ASA and red yeast rice (refuses statin agent); converted Metoprolol to Coreg. (4) Dyslipidemia: Continued red yeast rice -- does not take statin agent at home. Lipid panel showed LDL of 122, Total chol 193. (5) HTN (hypertension): As noted above, improved. (6) DVT prophylaxis: Lovenox q24hr. Discharged to home on 09/30/19. Total Time Total Time Spent Total Time Spent (In Minutes): >30 minutes Total Time Includes: Examination of the Patient, Discharge Planning, Medication Reconciliation, Communication With Other Providers and Other Discharge Plan Discharge Items Patient Disposition: Home - Self-Care Reason For Visit: TIA, HYPERTENSIVE EMERGENCY Discharge Diagnosis: TIA, Hypertensive Emergency Condition on Discharge: Fair Goals: You have been hospitalized for an acute medical problem. During your stay at [facility], we have made an effort to correct the problem that brought you to the hospital while keeping you as comfortable as possible. Medications were used to bring your condition under control and your discharge instructions will include directions for any medications you should take after leaving the hospital. Please make sure you see your Primary Care Provider as part of your follow up plan. Activity: As commented below Exercise/Sports: Wait until after follow-up appointment Non-emergency contact: Primary Care Provider and Electrical Technician Instructor Call non-emergency contact if: you have any medication questions, your symptoms worsen and you have a fever Follow-up/Referrals: Marcello Chavez Jr, MD, FACC [Family Provider] - (Please follow up within 1-2 weeks. You can call for an appointment.) Yaima Mcnally MD [Primary Care Provider] - (Please, follow up at [facility]" on Friday or Friday of next week. Dr. Mcnally said that you can just go to the walk in clinic and you don't need to have a pre-scheduled appointment. *If you have any questions, call the clinic at [phone].) Diet: Heart Healthy and Low Sodium (2gm) Addtl Attending Provider Instructions: 1. TIA * Please take Aspirin 81 mg daily. * It is recommended to start a statin agent based on lipid panel results and risk factors -- please discuss with your primary care provider at follow up appointment. * Continue a heart healthy diet following discharge to home. * Please see below for additional stroke instructions. 2. Hypertensive emergency * It is very important that you take all of your blood pressure medications at home -- Losartan 100 mg daily, Coreg 18.75 mg twice daily & Amlodipine 10 mg daily. * Please monitor blood pressure 1-2 times daily at home and record all readings. Bring records to your next PCP appointment. * Continue a heart healthy, low sodium diet at home (DASH diet) 3. An appointment will be scheduled with your PCP in 1- 2 weeks. Activity Recommendations: See above Activation of Emergency Medical System: Call 911, immediately, if you experience any of the following: Warning Signs and Symptoms of Stroke: * Sudden numbness or weakness of the face, arm or leg, especially on one side of the body * Sudden confusion, trouble speaking or understanding * Sudden trouble seeing in one or both eyes * Sudden trouble walking, dizziness, loss of balance or coordination * Sudden severe headache with no cause Do not delay calling 911 if you experience any warning signs or symptoms of a stroke. Delay in seeking medical attention may affect what treatments can be given to you. Risk Factors for Stroke: You can reduce your chances of stroke by working with your medical provider to adopt a healthy lifestyle. Some specific ways to lower your chance of stroke are: * If you are a smoker, now is the time to stop smoking cigarettes * If you are diabetic, improve the control of your blood sugars * Avoid excessive amounts of alcohol * Control high blood pressure * Lose weight if you are overweight * Be sure to lead an active lifestyle * Eat a healthy diet low in salt, cholesterol and fat You should know about other risk factors for stroke that you are unable to control. These include: * Age 55 years or older * Male gender * Certain racial groups: , or / * Family History of Stroke, Mini stroke or Heart Attack * Sickle Cell Disease Follow Up: It is important for you to keep your follow up appointments with your medical provider. Who to Call and When: Medical Emergencies: Call 911 immediately if you experience any of the following warning signs and symptoms of Stroke: * Sudden numbness or weakness of the face, arm or leg, especially on one side of the body * Sudden confusion, trouble speaking or understanding * Sudden trouble seeing in one or both eyes * Sudden trouble walking, dizziness, loss of balance or coordination * Sudden severe headache with no cause Do not delay calling 911 if you experience any warning signs or symptoms of a stroke. Delay in seeking medical attention may affect what treatments can be given to you. Pending Studies at Discharge: No Stand-Alone Forms: My [facility] Medications and DC Order Prescriptions: New amlodipine 10 mg tablet 10 mg PO QAM 30 Days Qty: 30 RF: 2 losartan 50 mg tablet 100 mg PO DAILY Qty: 30 RF: 11 carvedilol [Coreg] 12.5 mg tablet 18.75 mg PO BID Qty: 90 RF: 0 Continued multivitamin Tablet 1 - 2 tab PO DAILY RF: 0 aspirin 81 mg Tablet,Delayed Release (Dr/Ec) 81 mg PO QAM RF: 0 nitroglycerin 0.4 mg Tablet, Sublingual 0.4 mg sublingual UD PRN (Reason: Chest Pain) RF: 0 coenzyme Q10 [Co Q-10] 100 mg Capsule 100 mg PO DAILY RF: 0 red yeast rice 600 mg capsule 600 mg PO DAILY Qty: 30 RF: 0 Cat's Claw Liquid 7 drp PO DAILY RF: 0 Discontinued metoprolol succinate 100 mg tablet extended release 24 hr 100 mg PO QAM Qty: 30 RF: 11 Discharge Orders: Discharge Order (Routine); Ordered 09/30/19 Ordered By: Judy Bhatia Admission Data Admit Date/Time: 09/27/19 22:20 Attending Provider: Judy Bhatia Admit Provider: Lul Roman Primary Care Provider: Yaima Mcnally Other Providers: Elie Driver ; Talib Mauro. Other Interventions: Discharge Summary Assessment (RN) Last Done: 09/30/19 15:22 DC Date/Time DO NOT enter until pt leaves facility: 09/30/19 15:59 Supervising Physician Co-Signing Physician Notes PA Supervision Note: I personally saw and examined the patient. I verified all amaro points and agree w irene Mondragon with the following exceptions and/or additions: Pt feeling well, no further speech issues since admission. BPs finally improved on increased drug regimen. He will buy a BP cuff and check once to twice daily resting BPs at home again and have close PCP follow up. Renal DOppler negative for RASHAAD. He has long standing uncontrolled HTN, not secondary HTN. VSS NAD, AAOx3 Anicteric sclerae RRR no mgr CTAB no wcr Ext no edema Neuro, no facial droop, speech normal, moves all extremities with equal strength Stable for dc after hypertensive emergency and TIA
== END 2019-09-30 15:59 | disposition home or self-care (01) | DRG 305 ==
LOC: ED 18:45 → SUATTDRO 22:20 → 2S 22:20
DX: E78.5 Hyperlipidemia, unspecified; I25.10 Atherosclerotic heart disease of native coronary artery without angina pectoris; Z91.14 Patient's other noncompliance with medication regimen; Z90.49 Acquired absence of other specified parts of digestive tract; I10 Essential (primary) hypertension; Z86.73 Personal history of transient ischemic attack (TIA), and cerebral infarction without residual deficits; G45.8 Other transient cerebral ischemic attacks and related syndromes; Z82.49 Family history of ischemic heart disease and other diseases of the circulatory system; R47.01 Aphasia; I25.2 Old myocardial infarction; Z79.82 Long term (current) use of aspirin; I16.1 Hypertensive emergency

== ENCOUNTER 2021-07-20 14:01 | Inpatient (IN) ==
[2021-07-20] MEDS ORDERED: SODIUM CHLORIDE 0.9% 500 ML IV ONE (16:16)
[2021-07-20] MEDS ORDERED: FAMOTIDINE 20MG IV PUSH 20 MG/5 ML SYR IV STA (16:23)
[2021-07-20] MEDS ORDERED: ACETAMINOPHEN 1,000 MG/100 ML VIAL IV STA (16:25)
[2021-07-20 16:52] LABS: Basophils # (auto) 0.01 K/uL (0-0.2); Basophils % (auto) 0.1 %; Eosinophils # (auto) 0.07 K/uL (0-0.5); Eosinophils % (auto) 0.8 %; Hematocrit (blood only) 50.6 % (42-52); Hemoglobin 17.3 g/dL (14.0-18.0); Immature Granulocytes # (auto) 0.02 K/uL (0.00-0.02); Immature Granulocytes % (auto) 0.2 %; Lymphocytes % (auto) 10.9 %; Mean Corpuscular Hemoglobin 33.3 pg (25-34); Mean Corpuscular Hgb Conc 34.2 g/dL (32-36); Mean Corpuscular Volume 97.3 fL (80-100); Mean Platelet Volume 10.9 fL (7.4-10.4); Monocytes # (auto) 0.69 K/uL (0.11-0.59); Monocytes % (auto) 7.5 %; Neutrophils # (auto) 7.41 K/uL (1.4-6.5); Neutrophils % (auto) 80.5 %; Platelet Count 147 K/uL (130-400); RDW Coefficient of Variation 13.2 % (11.5-14.5); RDW Standard Deviation 47.1 fL (36.4-46.3)
--- NOTE | 2021-07-20 16:59 | Electrocardiogram Report ---
Test Reason : Blood Pressure : / mmHG Vent. 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
[2021-07-20 17:05] LABS: Partial Thromboplastin Time 26.7 Seconds (21.0-31.0); Prothrombin Time 10.2 Seconds (9.0-12.0)
--- NOTE | 2021-07-20 17:18 | XRay Report ---
SINGLE VIEW CHEST CLINICAL HISTORY: Atypical chest pain. FINDINGS: An AP, portable, upright chest radiograph is compared to study dated 06/09/2021. The heart i s mildly enlarged. The pulmonary vasculature is noncongested. There is mild bibasilar scarring/atelec tasis. No airspace consolidation or large pleural effusion is identified. No pneumothorax is seen. Th ere are healed right posterior rib fractures. IMPRESSION: Mild cardiomegaly with no acute cardiopulmonary abnormality. ACT 112: Negative or not required by law. Electronically signed by: Fidel Boogie M.D. 07/20/2021 5:17 PM
[2021-07-20 17:29] LABS: Albumin Globulin Ratio 0.8 (0.9-2); Albumin Level 3.5 gm/dl (3.4-5.0); BUN Creatinine Ratio 13.2 (10-20); Bilirubin,Total 0.7 mg/dl (0.2-1); Calcium 8.9 mg/dl (8.5-10.1); Globulin 4.2 gm/dl (2.5-4.0); Magnesium 2.3 mg/dl (1.8-2.4); Phosphorus 2.4 mg/dl (2.5-4.9); Potassium 3.7 mmol/L (3.5-5.1); Thyroid Stimulating Hormone 0.507 uIu/ml (0.300-4.500); Total Protein 7.7 gm/dl (6.4-8.2)
[2021-07-20 17:30] LABS: Creatinine Clr Calc Pharmacy 80.3 ml/min; Est GFR (African American) 80.4 ml/min; Est GFR (Non-African American) 69.4 ml/min
[2021-07-20 17:36] LABS: Troponin I 0.378 ng/ml (0-0.045)
[2021-07-20] MEDS ORDERED: OPTIRAY 320 125ml IV ONE (17:41)
--- NOTE | 2021-07-20 17:51 | Emergency Department Note ---
Impression & Plan Non-ST elevation (NSTEMI) myocardial infarction, Elevated troponin I level, Hypertensive urgency, Memory changes ED Provider Note NAME: LEON SMITH AGE: 70 SEX: M ARRIVES VIA: Walk-In INFORMANT: Patient, ED PROVIDER(S): Familia Fine MD CHIEF COMPLAINT: Chest pain, hypertension, confusion/memory impairment. PLAN: Disposition: Admit MEDICAL DECISION MAKING: The patient is a pleasant 70-year-old gentleman with a past medical history of CAD status post NSTEMI with GENOVEVA to mid LAD and August 2017 who also suffered a small frontal CVA after cardiac catheterization with no residual deficits, history of hypertension who presents to the emergency department accompanied by his daughter for evaluation of ongoing substernal chest pain with radiation to his jaw that he reports has been ongoing for the past 48 hours and has never gone away. He reports he began to monitor his blood pressure during this time and noticed it was 170s/100s. He admits that he does not take his medications as prescribed and will only take 1 dose of carvedilol daily where it is prescribed twice daily and may take his valsartan-HCTZ every few days. However when he notices blood pressure was elevated today he did take his second dose of carvedilol in addition to his daily valsartan-HCTZ. 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 He reports he had to go home early that day. He denies any recent illness, fevers, chills, cough, congestion, GI or symptoms. Patient's daughter also reports that his memory has been somewhat impaired over the past couple of days as well which is not normal for him. On arrival the patient is in no acute distress, afebrile with blood pressure initially 140s/70s in triage. Vital signs otherwise stable. On exam the patient appears clinically dry. His speech is fluent. He has no focal neurologic deficits. Initial EKG did demonstrate nonspecific mild ST elevation inferiorly albeit concave up but with some reciprocal ST change in aVL. Of note, it is unclear whether this EKG which was performed in triage occurred with the patient sitting in a chair sitting up. His repeat EKG appeared similar to his most recent. ST changes no longer present. Patient's initial troponin was elevated however at 0.378. On reevaluation the patient denied any continued chest pain after IV fluid hydration, IV APAP and Pepcid. However he was at this time exhibiting increased confusion and memory issues that were worse than he had been experie nci for the past couple of days where he could not remember family members names and even could not remember his 4 digit passcode to his phone which is daughter and son (Dr. Smith, one of our [place] radiologists) noted was very different from his baseline. I did review the patient's presentation and EKGs with Dr. Keller, interventional cardiology on-call who also reviewed the EKGs. Given the patient is pain-free at this time with EKG that has now returned to his baseline we agreed that there was no need for emergent catheterization at this time. Recommends initiation of heparin and management of blood pressure with goal SBP < 140. If patient were to again become symptomatic with chest pain he will be available for additional consultation and intervention if needed. CT of the head and CTA of the head and neck as well as CT of the chest were performed. These were unremarkable. There is no ICH, ischemia or severe narrowing or occlusion of large vessels. CT of the chest showed no PE. Of note the patient also did admit to being noncompliant with his Eliquis which she may take a half a tablet over several days. Given CT head imaging was reassuring and stroke was considered less likely blood pressure control was initiated with initial dose of 5 mg of IV hydralazine. ASA 324mg had been given and heparin initiated. Patient and family member at the bedside were updated were in agreement the plan for admission. Labs were otherwise unremarkable with WBC, H/H, and platelets within limits. Chemistry without metabolic acidosis. Electrolytes and LFTs without significant abnormality. TSH within limits. Lipase is not elevated. COVID-19 PCR was negative. Case was discussed [facility] with Dr. Patel, [facility] hospitalist who will evaluate the patient for admission. Triage Nursing notes reviewed and agree them. Prior medical records reviewed Vital Signs: reviewed and remarkable for hypertension. Differential diagnosis: Cardiac ischemia, aortic dissection, pulmonary embolism, pneumothorax, pneumonia, pericarditis, myocarditis, esophageal rupture, GERD, cholecystitis, pancreatitis, musculoskeletal, as well as other pathologies. ER treatment provided: See below. Diagnostics interpreted by me: ECG 0218: Normal sinus rhythm, 65 bpm, no ectopy, minor nonspecific ST elevation inferiorly that is concave up though with ST abnormality in aVL. Does appear different from . ECG 1801: Sinus bradycardia, 49 bpm, no ectopy, ST changes no longer present. Cardiac Monitoring: An order for continuous cardiac monitoring was placed and demonstrated Normal sinus rhythm, 65 bpm, no ectopy. Laboratory studies: See below Imaging studies: See below Consultation(s): Dr. Keller, Interventional cardiology on-call Genaro Deleon [facility] with Dr. Patel, [facility] hospitalist. HPI: The patient is a pleasant 70-year-old gentleman with a past medical history of CAD status post NSTEMI with GENOVEVA to mid LAD and August 2017 who also suffered a small frontal CVA after cardiac catheterization with no residual deficits, history of hypertension who presents to the emergency department accompanied by his daughter for evaluation of ongoing substernal chest pain with radiation to his jaw that he reports has been ongoing for the past 48 hours and has never gone away. He reports he began to monitor his blood pressure during this time and noticed it was 170s/100s. He admits that he does not take his medications as prescribed and will only take 1 dose of carvedilol daily where it is prescribed twice daily and may take his valsartan-HCTZ every few days. However when he notices blood pressure was elevated today he did take his second dose of carvedilol in addition to his daily valsartan-HCTZ. 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 He reports he had to go home early that day. He denies any recent illness, fevers, chills, cough, congestion, GI or symptoms. Patient's daughter also reports that his memory has been somewhat impaired over the past couple of days as well which is not normal for him. ROS: See above HPI for pertinent positives & negatives. A total of 10 systems reviewed and were otherwise negative. PAST MEDICAL HISTORY:See Below PAST SURGICAL HISTORY:See Below FAMILY HISTORY:See Below SOCIAL HISTORY:See Below HOME MEDICATIONS:See Below ALLERGIES:See Below VITALS:See Below PHYSICAL EXAMINATION: GENERAL: Awake, alert, well-appearing, in no distress HENT: Normocephalic, atraumatic. Oropharynx with dry mucous membranes and otherwise unremarkable. EYES: Normal conjunctiva. Sclera non-icteric. EOMI. No nystamgus. PEARRL. NECK: Supple. No nuchal rigidity. FROM. No JVD. RESPIRATORY: Clear to auscultation. CARDIAC: Regular rate, normal rhythm. Extremities warm and well perfused. Pulses equal. ABDOMEN: Soft, non-distended. No tenderness to palpation. No rebound or guarding. No masses. RECTAL: Deferred. MUSCULOSKELETAL: Chest examination reveals no tenderness. The back is symmetrical on inspection without obvious abnormality. There is no CVA tenderness to palpation. No joint edema. LOWER EXTREMITIES: Calves are equal size bilaterally and non-tender. No edema. No discoloration. NEURO: Normal sensorium. No sensory or motor deficits noted. Speech is fluent. 5/5 strength and SILT x 4 extremities. 5/5 strength and SILT x 4 extremities. SKIN: No rash or jaundice noted. ED COURSE: Critical Care: I have personally spent greater than 45 minutes of critical care time in the direct management of this patient. This includes bedside care, interpretation of diagnostic studies, and testing, discussion with consultants, patient, and family members, and other required patient management activities. This 45 minutes is in excess of all separately billable procedures. Familia Fine MD Past Med/Surg History Medical History CAD (coronary artery disease) Dyslipidemia HTN (hypertension) Hypertensive emergency Hypertensive urgency Hypertensive urgency NSTEMI (non-ST elevated myocardial infarction) Peripheral edema TIA (transient ischemic attack) Surgical History H/O heart artery stent History of appendectomy History of hernia repair History of laparoscopic cholecystectomy History of tonsillectomy Family History Father , age 72 of [place]. 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 Other Information That Helps Us Care for You: No Feels Safe at Home: Yes Safety Concerns: Feels Safe At This Time Assistive Devices: Glasses Allergies Allergies Allergy/AdvReac Type Severity Reaction Status Date / Time cat dander Allergy Severe ITCHY/COUGH, Verified 06/09/21 19:20 THROAT TIGHTENS horse dander Allergy Severe Itch/Cough Verified 06/09/21 19:20 with Horse hair amoxicillin Allergy Intermediate Rash Verified 06/09/21 19:20 HAIRSPRAY Allergy Severe ITCHY, Uncoded 06/09/21 19:20 COUGH MSG PRESERVATIVE Allergy Unknown DOESN'T Uncoded 06/09/21 19:20 TOLERATE-GI SYMPTOMS Home Meds Home Medications Medication Instructions Recorded Confirmed nitroglycerin 0.4 mg sublingual 0.4 mg SUBLINGUAL UD PRN 02/17/19 07/20/21 tablet carvedilol 25 mg tablet 25 mg PO BID 06/09/21 07/20/21 apixaban 5 mg (74 tabs) tablets in 5 mg PO BID 07/20/21 07/20/21 a dose pack coenzyme Q10 200 mg capsule (Co 400 mg PO DAILY 07/20/21 07/20/21 Q-10) omega-3 fatty acids 2,000 mg PO DAILY 07/20/21 07/20/21 Previous Rx's Medication Instructions Recorded valsartan 160 1 tab PO QAM #90 tab 02/19/21 mg-hydrochlorothiazide 12.5 mg tablet Results & Data (ED) Vital Signs Vital Signs - 24 hr 07/20/21 14:10 07/20/21 16:22 07/20/21 16:23 Temperature 37 C Temperature Source Oral Pulse Rate 65 58 L Pulse Rate [Apical] 58 L Pulse Rate from SpO2 Sensor 58 L Pulse Rhythm Pulse Rhythm [Apical] Regular Pulse Strength [Apical] Normal Respiratory Rate 18 16 20 Respiratory Effort / Characteristics Non-Labored Spontaneous Non-Labored Spontaneous Respiratory Depth Normal Normal Respiratory Pattern Regular Blood Pressure 140/75 146/80 H Blood Pressure [Left Arm] 146/80 H Blood Pressure Mean 96 102 Blood Pressure Mean [Left Arm] 102 Blood Pressure Position Sitting Blood Pressure Position [Left Arm] Semi-fowlers Pulse Oximetry 96 96 95 Oxygen Delivery Method Room Air Room Air Sepsis Recent Fever Within 48 Hours No Sepsis New/Unexplained Change in Mental Status N/A Sepsis Action Taken by Nursing No Action Required 07/20/21 16:30 07/20/21 16:44 07/20/21 17:00 Temperature Temperature Source Pulse Rate 61 55 L Pulse Rate [Apical] Pulse Rate from SpO2 Sensor 62 Pulse Rhythm Regular Pulse Rhythm [Apical] Pulse Strength [Apical] Respiratory Rate 18 20 Respiratory Effort / Characteristics Respiratory Depth Respiratory Pattern Blood Pressure 172/74 H 141/115 H Blood Pressure [Left Arm] Blood Pressure Mean 106 123 Blood Pressure Mean [Left Arm] Blood Pressure Position Blood Pressure Position [Left Arm] Pulse Oximetry 95 95 Oxygen Delivery Method Room Air Sepsis Recent Fever Within 48 Hours Sepsis New/Unexplained Change in Mental Status Sepsis Action Taken by Nursing 07/20/21 17:31 07/20/21 18:00 07/20/21 18:30 Temperature Temperature Source Pulse Rate 53 L 51 L 61 Pulse Rate [Apical] Pulse Rate from SpO2 Sensor Pulse Rhythm Pulse Rhythm [Apical] Pulse Strength [Apical] Respiratory Rate 15 21 18 Respiratory Effort / Characteristics Respiratory Depth Respiratory Pattern Blood Pressure 166/88 H 171/95 H 184/101 H Blood Pressure [Left Arm] Blood Pressure Mean 114 120 128 Blood Pressure Mean [Left Arm] Blood Pressure Position Blood Pressure Position [Left Arm] Pulse Oximetry 96 94 95 Oxygen Delivery Method Sepsis Recent Fever Within 48 Hours Sepsis New/Unexplained Change in Mental Status Sepsis Action Taken by Nursing 07/20/21 19:00 07/20/21 19:30 Temperature Temperature Source Pulse Rate 56 L 57 L Pulse Rate [Apical] Pulse Rate from SpO2 Sensor 56 L Pulse Rhythm Pulse Rhythm [Apical] Pulse Strength [Apical] Respiratory Rate 18 18 Respiratory Effort / Characteristics Respiratory Depth Respiratory Pattern Blood Pressure 182/105 H 183/98 H Blood Pressure [Left Arm] Blood Pressure Mean 130 126 Blood Pressure Mean [Left Arm] Blood Pressure Position Blood Pressure Position [Left Arm] Pulse Oximetry 95 96 Oxygen Delivery Method Sepsis Recent Fever Within 48 Hours Sepsis New/Unexplained Change in Mental Status Sepsis Action Taken by Nursing Laboratory Data Attestation: I reviewed the patient's lab results. Result diagrams: 07/20/21 16:44 07/20/21 16:44 Lab Results 07/20/21 07/20/21 07/20/21 Range/Units 16:16 16:16 16:44 WBC 9.20 (4.8-10.8) K/uL RBC 5.20 (4.7-6.1) M/uL Hgb 17.3 (14.0-18.0) g/dL Hct 50.6 (42-52) % MCV 97.3 (80-100) fL MCH 33.3 (25-34) pg MCHC 34.2 (32-36) g/dL RDW Std Deviation 47.1 H (36.4-46.3) fL RDW Coeff of Guerita 13.2 (11.5-14.5) % Plt Count 147 (130-400) K/uL MPV 10.9 H (7.4-10.4) fL Immature Gran % (Auto) 0.2 % Neut % (Auto) 80.5 % Lymph % (Auto) 10.9 % [place] % (Auto) 7.5 % Eos % (Auto) 0.8 % Baso % (Auto) 0.1 % Neut # (Auto) 7.41 H (1.4-6.5) K/uL Lymph # (Auto) 1.00 L (1.2-3.4) K/uL [place] # (Auto) 0.69 H (0.11-0.59) K/uL Eos # (Auto) 0.07 (0-0.5) K/uL Baso # (Auto) 0.01 (0-0.2) K/uL Immature Gran # (Auto) 0.02 (0.00-0.02) K/uL PT (9.0-12.0) Seconds INR (0.9-1.1) APTT (21.0-31.0) Seconds PTT Ratio Sodium (136-145) mmol/L Potassium (3.5-5.1) mmol/L Chloride (98-107) mmol/L Carbon Dioxide (21-32) mmol/L Anion Gap (3-11) BUN (7-18) mg/dl Creatinine (0.6-1.4) mg/dl Est Cr Clr Drug Dosing ml/min Est GFR ( Amer) ml/min Est GFR (Non-Af Amer) ml/min BUN/Creatinine Ratio (10-20) Glucose (70-99) mg/dl Calcium (8.5-10.1) mg/dl Phosphorus (2.5-4.9) mg/dl Magnesium (1.8-2.4) mg/dl Total Bilirubin (0.2-1) mg/dl Direct Bilirubin (0-0.2) mg/dl AST (15-37) U/L ALT (12-78) U/L Alkaline Phosphatase (45-117) U/L Troponin I (0-0.045) ng/ml Total Protein (6.4-8.2) gm/dl Albumin (3.4-5.0) gm/dl Globulin (2.5-4.0) gm/dl Albumin/Globulin Ratio (0.9-2) Lipase (73-393) U/L TSH (0.300-4.500) uIu/ml COVID-19 Eval Order Covid19 at [facility] SARS-CoV-2 (PCR) NEGATIVE (Negative) 07/20/21 07/20/21 Range/Units 16:44 16:44 WBC (4.8-10.8) K/uL RBC (4.7-6.1) M/uL Hgb (14.0-18.0) g/dL Hct (42-52) % MCV (80-100) fL MCH (25-34) pg MCHC (32-36) g/dL RDW Std Deviation (36.4-46.3) fL RDW Coeff of Guerita (11.5-14.5) % Plt Count (130-400) K/uL MPV (7.4-10.4) fL Immature Gran % (Auto) % Neut % (Auto) % Lymph % (Auto) % [place] % (Auto) % Eos % (Auto) % Baso % (Auto) % Neut # (Auto) (1.4-6.5) K/uL Lymph # (Auto) (1.2-3.4) K/uL [place] # (Auto) (0.11-0.59) K/uL Eos # (Auto) (0-0.5) K/uL Baso # (Auto) (0-0.2) K/uL Immature Gran # (Auto) (0.00-0.02) K/uL PT 10.2 (9.0-12.0) Seconds INR 1.0 (0.9-1.1) APTT 26.7 (21.0-31.0) Seconds PTT Ratio 1.0 Sodium 139 (136-145) mmol/L Potassium 3.7 (3.5-5.1) mmol/L Chloride 107 (98-107) mmol/L Carbon Dioxide 25 (21-32) mmol/L Anion Gap 6.0 (3-11) BUN 14 (7-18) mg/dl Creatinine 1.09 (0.6-1.4) mg/dl Est Cr Clr Drug Dosing 80.3 ml/min Est GFR ( Amer) 80.4 ml/min Est GFR (Non-Af Amer) 69.4 ml/min BUN/Creatinine Ratio 13.2 (10-20) Glucose 133 H (70-99) mg/dl Calcium 8.9 (8.5-10.1) mg/dl Phosphorus 2.4 L (2.5-4.9) mg/dl Magnesium 2.3 (1.8-2.4) mg/dl Total Bilirubin 0.7 (0.2-1) mg/dl Direct Bilirubin (0-0.2) mg/dl AST 23 (15-37) U/L ALT 26 (12-78) U/L Alkaline Phosphatase 96 (45-117) U/L Troponin I 0.378 H* (0-0.045) ng/ml Total Protein 7.7 (6.4-8.2) gm/dl Albumin 3.5 (3.4-5.0) gm/dl Globulin 4.2 H (2.5-4.0) gm/dl Albumin/Globulin Ratio 0.8 L (0.9-2) Lipase 102 (73-393) U/L TSH 0.507 (0.300-4.500) uIu/ml COVID-19 Eval Order SARS-CoV-2 (PCR) (Negative) Administered Medications Heparin Sodium/Dextrose (Heparin Sodium/Dextrose) 25,000 units in 500 mls @ 20 mls/hr IV .Q24H KARLY; Protocol Stop: 08/19/21 19:14 Last Admin: 07/20/21 19:32 Dose: 1,000 units/hr, 20 mls/hr Documented by: [id number] Cosigned by: [id number] Nitroglycerin (Nitroglycerin 2% Ointment 30gm Tube) 1 inch EXT Q6 KARLY Stop: 08/20/21 00:00 Last Admin: 07/20/21 23:50 Dose: 1 inch Documented by: [id number] Discontinued Medications Aspirin (Aspirin Chew 324 Mg) 324 mg PO NOW STA Stop: 07/20/21 18:15 Last Admin: 07/20/21 18:28 Dose: 324 mg Documented by: [id number] Heparin Sodium/Dextrose (Heparin Iv Adult Wt-Based Low-Dose *No* Bolus Protocol) 1 ea N/A ONE ONE; Protocol Stop: 07/20/21 19:07 Last Admin: 07/20/21 19:31 Dose: 1 ea Documented by: [id number] Hydralazine HCl (Hydralazine Hcl 20 Mg/Ml Vial) 5 mg IV NOW ONE Stop: 07/20/21 19:09 Last Admin: 07/20/21 19:30 Dose: 5 mg Documented by: [id number] Sodium Chloride (Nss) 500 mls @ 999 mls/hr IV .Q31M ONE Stop: 07/20/21 16:46 Last Infusion: 07/20/21 17:12 Dose: 0 mls/hr Documented by: [id number] Admin: 07/20/21 16:40 Dose: 999 mls/hr Documented by: [id number] Famotidine (Pepcid 20mg Iv Push) 20 mg in 5 mls @ 2.5 mls/min IV NOW STA Stop: 07/20/21 16:24 Last Admin: 07/20/21 16:40 Dose: 2.5 mls/min Documented by: [id number] Acetaminophen (Ofirmev) 1,000 mg in 100 mls @ 400 mls/hr IV NOW STA Stop: 07/20/21 16:39 Last Infusion: 07/20/21 16:54 Dose: 0 mls/hr Documented by: [id number] Admin: 07/20/21 16:39 Dose: 400 mls/hr Documented by: [id number] Ioversol (Optiray 320 125ml) 119 ml IV ONCE ONE Stop: 07/20/21 17:42 Last Admin: 07/20/21 17:42 Dose: 1 ml Documented by: [id number] Nitroglycerin (Nitroglycerin 2% Ointment 30gm Tube) 1 inch EXT NOW ONE Stop: 07/20/21 19:59 Last Admin: 07/20/21 20:11 Dose: 1 inch Documented by: [id number] Imaging Data Radiologist's Impression: Chest X-Ray 07/20/21 16:14 SINGLE VIEW CHEST CLINICAL HISTORY: Atypical chest pain. FINDINGS: An AP, portable, upright chest radiograph is compared to study dated 06/09/2021. The heart is mildly enlarged. The pulmonary vasculature is noncongested. There is mild bibasilar scarring/atelectasis. No airspace consolidation or large pleural effusion is identified. No pneumothorax is seen. There are healed right posterior rib fractures. IMPRESSION: Mild cardiomegaly with no acute cardiopulmonary abnormality. ACT 112: Negative or not required by law. Electronically signed by: Fidel Boogie M.D. 07/20/2021 5:[address] 07/20/21 16:[address] OF THE BRAIN; CT ANGIOGRAM OF THE BRAIN; CT ANGIOGRAM OF THE NECK CLINICAL HISTORY: Headache and dizziness. Change in mental status. Hypertension. COMPARISON STUDY: CT of the brain dated 09/27/2019. CT angiogram of the head and neck dated 09/27/2019. TECHNIQUE: Unenhanced axial CT scan of the brain is performed. Subsequently, following the IV administration of 119 of Optiray 320, CT angiogram of the head and neck was performed from the aortic arch to the vertex. Images are reviewed in the axial, sagittal, and coronal planes. 3-D MIPS images are created and assessed. IV contrast was administered without complication. All measurements were calculated based on NASCET criteria. A dose lowering technique was utilized adhering to the principles of ALARA. FINDINGS: Brain parenchyma: There is age-related involutional change noting mild to moderate subcortical and periventricular microangiopathic disease. There is no hemorrhage, mass effect, or evidence of acute territorial ischemia by CT criteria. There is no evidence of enhancing mass lesion on the angiogram phase images. The ventricles, sulci, and cisterns are normal in configuration. Billingsley- white matter differentiation is preserved. No extra-axial fluid collection is seen. Thoracic aorta: Visualized portions of the thoracic aorta are normal in caliber. The aortic arch demonstrates standard 3-vessel anatomy. Right carotid arterial system: The right common carotid artery is widely patent, as are the right internal and external carotid arteries. Minimal calcified plaque is seen in the carotid bulb. Left carotid arterial system: The left common carotid artery is widely patent, as are the left internal and external carotid arteries. Minimal calcified plaque is seen in the carotid bulb. Vertebral arteries: The vertebral arteries are widely patent bilaterally noting mild left-sided dominance. Subclavian arteries: Widely patent bilaterally. Intracranial vasculature: There is atherosclerotic calcification of the cavernous carotid and vertebral arteries. The internal carotid arteries are patent at the skull base, as are the anterior and middle cerebral arteries bilaterally. The vertebrobasilar system and posterior cerebral arteries are widely patent. The left vertebral artery is dominant. There is no aneurysm, high-grade stenosis, or focal vessel cut off seen throughout the intracranial ci rculation. Jugular veins: Patent bilaterally. Dural sinuses: Patent. Lung apices: Partially visualized upper lobe lung parenchyma appears clear. Soft tissues: The visualized pharyngeal soft tissues are normal in appearance noting angiographic phase technique. The oropharyngeal airway appears widely patent. The salivary and thyroid glands are normal in appearance. No cervical lymphadenopathy is seen. Skeletal structures: The calvarium appears intact. The cervical spine is maintained noting mild spondylosis. No lytic or blastic lesion is seen. Orbits: The bony orbits are intact. Orbital contents are normal as visualized. Sinuses and mastoids: There is a 1.5 cm retention cyst in the left maxillary antrum. The paranasal sinuses are otherwise clear. The mastoid air cells are well pneumatized. IMPRESSION: 1 There is no hemorrhage, mass effect, or evidence of acute territorial ischemia by CT criteria. 2. Unremarkable CT angiogram of the brain. 3. Unremarkable CT angiogram of the neck. ACT 112: Negative or not required by law. Electronically signed by: Fidel Boogie M.D. 07/20/2021 6:33 PM Head CTA 07/20/21 16:[address] OF THE BRAIN; CT ANGIOGRAM OF THE BRAIN; CT ANGIOGRAM OF THE NECK CLINICAL HISTORY: Headache and dizziness. Change in mental status. Hypertension. COMPARISON STUDY: CT of the brain dated 09/27/2019. CT angiogram of the head and neck dated 09/27/2019. TECHNIQUE: Unenhanced axial CT scan of the brain is performed. Subsequently, following the IV administration of 119 of Optiray 320, CT angiogram of the head and neck was performed from the aortic arch to the vertex. Images are reviewed in the axial, sagittal, and coronal planes. 3-D MIPS images are created and assessed. IV contrast was administered without complication. All measurements were calculated based on NASCET criteria. A dose lowering technique was utilized adhering to the principles of ALARA. FINDINGS: Brain parenchyma: There is age-related involutional change noting mild to moderate subcortical and periventricular microangiopathic disease. There is no hemorrhage, mass effect, or evidence of acute territorial ischemia by CT criteria. There is no evidence of enhancing mass lesion on the angiogram phase images. The ventricles, sulci, and cisterns are normal in configuration. Billingsley- white matter differentiation is preserved. No extra-axial fluid collection is seen. Thoracic aorta: Visualized portions of the thoracic aorta are normal in caliber. The aortic arch demonstrates standard 3-vessel anatomy. Right carotid arterial system: The right common carotid artery is widely patent, as are the right internal and external carotid arteries. Minimal calcified plaque is seen in the carotid bulb. Left carotid arterial system: The left common carotid artery is widely patent, as are the left internal and external carotid arteries. Minimal calcified plaque is seen in the carotid bulb. Vertebral arteries: The vertebral arteries are widely patent bilaterally noting mild left-sided dominance. Subclavian arteries: Widely patent bilaterally. Intracranial vasculature: There is atherosclerotic calcification of the cavernous carotid and vertebral arteries. The internal carotid arteries are patent at the skull base, as are the anterior and middle cerebral arteries bilaterally. The vertebrobasilar system and posterior cerebral arteries are widely patent. The left vertebral artery is dominant. There is no aneurysm, high-grade stenosis, or focal vessel cut off seen throughout the intracranial circulation. Jugular veins: Patent bilaterally. Dural sinuses: Patent. Lung apices: Partially visualized upper lobe lung parenchyma appears clear. Soft tissues: The visualized pharyngeal soft tissues are normal in appearance noting angiographic phase technique. The oropharyngeal airway appears widely patent. The salivary and thyroid glands are normal in appearance. No cervical lymphadenopathy is seen. Skeletal structures: The calvarium appears intact. The cervical spine is maintained noting mild spondylosis. No lytic or blastic lesion is seen. Orbits: The bony orbits are intact. Orbital contents are normal as visualized. Sinuses and mastoids: There is a 1.5 cm retention cyst in the left maxillary antrum. The paranasal sinuses are otherwise clear. The mastoid air cells are well pneumatized. IMPRESSION: 1 There is no hemorrhage, mass effect, or evidence of acute territorial ischemia by CT criteria. 2. Unremarkable CT angiogram of the brain. 3. Unremarkable CT angiogram of the neck. ACT 112: Negative or not required by law. Electronically signed by: Fidel Boogie M.D. 07/20/2021 6:33 PM Neck CTA 07/20/21 16:[address] OF THE BRAIN; CT ANGIOGRAM OF THE BRAIN; CT ANGIOGRAM OF THE NECK CLINICAL HISTORY: Headache and dizziness. Change in mental status. Hypertension. COMPARISON STUDY: CT of the brain dated 09/27/2019. CT angiogram of the head and neck dated 09/27/2019. TECHNIQUE: Unenhanced axial CT scan of the brain is performed. Subsequently, following the IV administration of 119 of Optiray 320, CT angiogram of the head and neck was performed from the aortic arch to the vertex. Images are reviewed in the axial, sagittal, and coronal planes. 3-D MIPS images are created and assessed. IV contrast was administered without complication. All measurements were calculated based on NASCET criteria. A dose lowering technique was utilized adhering to the principles of ALARA. FINDINGS: Brain parenchyma: There is age-related involutional change noting mild to moderate subcortical and periventricular microangiopathic disease. There is no hemorrhage, mass effect, or evidence of acute territorial ischemia by CT crite claudine. There is no evidence of enhancing mass lesion on the angiogram phase images. The ventricles, sulci, and cisterns are normal in configuration. Billingsley- white matter differentiation is preserved. No extra-axial fluid collection is seen. Thoracic aorta: Visualized portions of the thoracic aorta are normal in caliber. The aortic arch demonstrates standard 3-vessel anatomy. Right carotid arterial system: The right common carotid artery is widely patent, as are the right internal and external carotid arteries. Minimal calcified plaque is seen in the carotid bulb. Left carotid arterial system: The left common carotid artery is widely patent, as are the left internal and external carotid arteries. Minimal calcified plaque is seen in the carotid bulb. Vertebral arteries: The vertebral arteries are widely patent bilaterally noting mild left-sided dominance. Subclavian arteries: Widely patent bilaterally. Intracranial vasculature: There is atherosclerotic calcification of the cavernous carotid and vertebral arteries. The internal carotid arteries are patent at the skull base, as are the anterior and middle cerebral arteries bilaterally. The vertebrobasilar system and posterior cerebral arteries are widely patent. The left vertebral artery is dominant. There is no aneurysm, high-grade stenosis, or focal vessel cut off seen throughout the intracranial circulation. Jugular veins: Patent bilaterally. Dural sinuses: Patent. Lung apices: Partially visualized upper lobe lung parenchyma appears clear. Soft tissues: The visualized pharyngeal soft tissues are normal in appearance noting angiographic phase technique. The oropharyngeal airway appears widely patent. The salivary and thyroid glands are normal in appearance. No cervical lymphadenopathy is seen. Skeletal structures: The calvarium appears intact. The cervical spine is maintained noting mild spondylosis. No lytic or blastic lesion is seen. Orbits: The bony orbits are intact. Orbital contents are normal as visualized. Sinuses and mastoids: There is a 1.5 cm retention cyst in the left maxillary antrum. The paranasal sinuses are otherwise clear. The mastoid air cells are well pneumatized. IMPRESSION: 1 There is no hemorrhage, mass effect, or evidence of acute territorial ischemia by CT criteria. 2. Unremarkable CT angiogram of the brain. 3. Unremarkable CT angiogram of the neck. ACT 112: Negative or not required by law. Electronically signed by: Fidel Boogie M.D. 07/20/2021 6:33 PM Chest CTA 07/20/21 17:40 CT ANGIOGRAM OF THE CHEST CLINICAL HISTORY: Atypical chest pain. Elevated troponins. COMPARISON STUDY: Chest x-ray dated 07/20/2021. TECHNIQUE: Following the IV administration of 119 cc of Optiray 320, CT angiogram of the chest was performed from the upper abdomen to the thoracic inlet utilizing the pulmonary embolus protocol. Images are reviewed in the axial, sagittal, and coronal planes. 3-D MIPS images are created and assessed. IV contrast was administered without complication. A dose lowering technique was utilized adhering to the principles of ALARA. The examination is modestly degraded by motion artifact, and by streak artifact from the arms which could not be elevated above the chest. CT DOSE: 1637.31 mGy.cm FINDINGS: Thyroid: Imaged portions of the thyroid gland are normal in size and attenuation. Thoracic aorta: There is minimal atherosclerotic calcification of the thoracic aorta, which is normal in caliber and demonstrates standard 3-vessel arch anatomy. No dissection is seen. Pulmonary vasculature: The pulmonary trunk is normal in caliber. There are no filling defects identified in main, lobar, or segmental pulmonary branches to suggest pulmonary embolus. Heart: The heart is mildly enlarged and without pericardial effusion. There is atherosclerotic calcification of the coronary arteries. A left coronary artery stent is in place. Lungs and pleural spaces: Evaluation of the lung parenchyma is modestly degraded by motion artifact. No airspace consolidation or pleural effusion is identified. Dependent atelectasis is noted at the lung bases. The trachea and central airways are clear. A calcified granuloma is noted in the right middle lobe. Mediastinum: There is no mediastinal lymphadenopathy. Alicia: Clear. Axillae: There is no axillary lymphadenopathy. Upper abdomen: There is a tiny hiatal hernia. Partially visualized upper abdominal viscera is otherwise within normal limits. Skeletal structures: No lytic or blastic bony lesions are seen. Arthritic bliss ges seen in the right shoulder. Mild spondylotic change is noted in the thoracic spine. There are healed right-sided rib fractures. IMPRESSION: 1. There is no evidence of pulmonary embolus in the main, lobar, or segmental pulmonary arteries. 2. There is no airspace consolidation or pleural effusion. 3. Mild cardiomegaly and coronary artery calcification. ACT 112: Negative or not required by law. Electronically signed by: Fidel Boogie M.D. 07/20/2021 6:39 PM Discharge Plan Visit Data Chief Complaint: Chest Pain Stated Complaint: CHEST TIGHTNESS,JAW TIGHTNESS,HEART ATTACK SURVIVO ED Provider: Familia Fine Discharge Problem: Non-ST elevation (NSTEMI) myocardial infarction, Elevated troponin I level, Hypertensive urgency, Memory changes Patient Disposition: Admitted As Inpatient Discharge Instructions Interventions: ED Discharge Assessment Last Done: 07/20/21 20:55
[2021-07-20] MEDS ORDERED: ASPIRIN CHEW 324 MG PO STA (18:14)
--- NOTE | 2021-07-20 18:34 | CT Scan Report ---
UNENHANCED CT OF THE BRAIN; CT ANGIOGRAM OF THE BRAIN; CT ANGIOGRAM OF THE NECK CLINICAL HISTORY: Headache and dizziness. Change in mental status. Hypertension. COMPARISON STUDY: CT of the brain dated 09/27/2019. CT angiogram of the head and neck dated 09/27/2019 . TECHNIQUE: Unenhanced axial CT scan of the brain is performed. Subsequently, following the IV adminis tration of 119 of Optiray 320, CT angiogram of the head and neck was performed from the aortic arch t o the vertex. Images are reviewed in the axial, sagittal, and coronal planes. 3-D MIPS images are cre ated and assessed. IV contrast was administered without complication. All measurements were calculate d based on NASCET criteria. A dose lowering technique was utilized adhering to the principles of ALA RA. FINDINGS: Brain parenchyma: There is age-related involutional change noting mild to moderate subcortical and pe riventricular microangiopathic disease. There is no hemorrhage, mass effect, or evidence of acute ter ritorial ischemia by CT criteria. There is no evidence of enhancing mass lesion on the angiogram phas e images. The ventricles, sulci, and cisterns are normal in configuration. Billingsley-white matter differen tiation is preserved. No extra-axial fluid collection is seen. Thoracic aorta: Visualized portions of the thoracic aorta are normal in caliber. The aortic arch demo nstrates standard 3-vessel anatomy. Right carotid arterial system: The right common carotid artery is widely patent, as are the right int ernal and external carotid arteries. Minimal calcified plaque is seen in the carotid bulb. Left carotid arterial system: The left common carotid artery is widely patent, as are the left general internal medicine doctor al and external carotid arteries. Minimal calcified plaque is seen in the carotid bulb. Vertebral arteries: The vertebral arteries are widely patent bilaterally noting mild left-sided domin ance. Subclavian arteries: Widely patent bilaterally. Intracranial vasculature: There is atherosclerotic calcification of the cavernous carotid and vertebr al arteries. The internal carotid arteries are patent at the skull base, as are the anterior and midd le cerebral arteries bilaterally. The vertebrobasilar system and posterior cerebral arteries are wide ly patent. The left vertebral artery is dominant. There is no aneurysm, high-grade stenosis, or focal vessel cut off seen throughout the intracranial circulation. Jugular veins: Patent bilaterally. Dural sinuses: Patent. Lung apices: Partially visualized upper lobe lung parenchyma appears clear. Soft tissues: The visualized pharyngeal soft tissues are normal in appearance noting angiographic pha se technique. The oropharyngeal airway appears widely patent. The salivary and thyroid glands are nor mal in appearance. No cervical lymphadenopathy is seen. Skeletal structures: The calvarium appears intact. The cervical spine is maintained noting mild spond ylosis. No lytic or blastic lesion is seen. Orbits: The bony orbits are intact. Orbital contents are normal as visualized. Sinuses and mastoids: There is a 1.5 cm retention cyst in the left maxillary antrum. The paranasal si nuses are otherwise clear. The mastoid air cells are well pneumatized. IMPRESSION: 1 There is no hemorrhage, mass effect, or evidence of acute territorial ischemia by CT criteria. 2. Unremarkable CT angiogram of the brain. 3. Unremarkable CT angiogram of the neck. ACT 112: Negative or not required by law. Electronically signed by: Fidel Boogie M.D. 07/20/2021 6:33 PM
--- NOTE | 2021-07-20 18:41 | CT Scan Report ---
CT ANGIOGRAM OF THE CHEST CLINICAL HISTORY: Atypical chest pain. Elevated troponins. COMPARISON STUDY: Chest x-ray dated 07/20/2021. TECHNIQUE: Following the IV administration of 119 cc of Optiray 320, CT angiogram of the chest was pe rformed from the upper abdomen to the thoracic inlet utilizing the pulmonary embolus protocol. Images are reviewed in the axial, sagittal, and coronal planes. 3-D MIPS images are created and assessed. I V contrast was administered without complication. A dose lowering technique was utilized adhering to the principles of ALARA. The examination is modestly degraded by motion artifact, and by streak jacqueline fact from the arms which could not be elevated above the chest. CT DOSE: 1637.31 mGy.cm FINDINGS: Thyroid: Imaged portions of the thyroid gland are normal in size and attenuation. Thoracic aorta: There is minimal atherosclerotic calcification of the thoracic aorta, which is normal in caliber and demonstrates standard 3-vessel arch anatomy. No dissection is seen. Pulmonary vasculature: The pulmonary trunk is normal in caliber. There are no filling defects identif ied in main, lobar, or segmental pulmonary branches to suggest pulmonary embolus. Heart: The heart is mildly enlarged and without pericardial effusion. There is atherosclerotic calcif ication of the coronary arteries. A left coronary artery stent is in place. Lungs and pleural spaces: Evaluation of the lung parenchyma is modestly degraded by motion artifact. No airspace consolidation or pleural effusion is identified. Dependent atelectasis is noted at the du ng bases. The trachea and central airways are clear. A calcified granuloma is noted in the right midd le lobe. Mediastinum: There is no mediastinal lymphadenopathy. Alicia: Clear. Axillae: There is no axillary lymphadenopathy. Upper abdomen: There is a tiny hiatal hernia. Partially visualized upper abdominal viscera is otherwi se within normal limits. Skeletal structures: No lytic or blastic bony lesions are seen. Arthritic changes seen in the right s [place]. Mild spondylotic change is noted in the thoracic spine. There are healed right-sided rib fra ctures. IMPRESSION: 1. There is no evidence of pulmonary embolus in the main, lobar, or segmental pulmonary arteries. 2. There is no airspace consolidation or pleural effusion. 3. Mild cardiomegaly and coronary artery calcification. ACT 112: Negative or not required by law. Electronically signed by: Fidel Boogie M.D. 07/20/2021 6:39 PM
[2021-07-20] MEDS ORDERED: Heparin IV Adult Wt-Based Low-Dose *NO* Bolus Protocol ONE (19:06)
[2021-07-20] MEDS ORDERED: hydrALAZINE HCL 20 MG/ML VIAL IV ONE (19:08)
[2021-07-20] MEDS: HEPARIN SODIUM/DEXTROSE 25,000 UNITS/500 ML BAG IV SCH (19:32)
[2021-07-20] MEDS ORDERED: NITROGLYCERIN 2% OINTMENT 30GM TUBE EXT ONE (19:58)
--- NOTE | 2021-07-20 20:14 | History & Physical Report ---
Date of Service July 20, 2021 Assessment & Plan (1) Elevated troponin I level: Plan: NSTEMI vs. Type II demand from his HTN - ECG back to baseline appearing from May - symptoms waxing and waning - Will place 1" nitro-paste on at this time - Continue with Hydralazine 5mg IV for afterload reduction q4 hours, can increase dose if needed - Goal 140-150 and <140 to decrease double product if CP increases intensity/changes/ECG changes/Troponin I increase - Limited BB with HR 50-65- continue Carvedilol BID - Continue ASA in the morning - Continue DOROTHY as long as renal indices remain stable - NTG tabs SL PRN - ECHO assess for WMA if no acute changes overnight Dr. 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 Emergency Elevated BP with confusion and chest pressure- symptoms improved from both standards - Bp better controlled following hydralazine and nitropaste - As above - IF BP becomes difficult to control- increase hydralazine dose - or may need cardene/ntg drip (3) CAD (coronary artery disease): Plan: As above - medication compliance - continue BB, ASA - Patient has declined statin therapy in the past - lipid profile in the morning (4) Dyslipidemia: Plan: As above (5) Chronic cerebral ischemia: Plan: chronic-cerebral microvascular disease - CTA of the neck without acute stenosis/disease (6) Dvt femoral (deep venous thrombosis): Plan: is on Apixaban 2.5mg - 06/10/21 left lower extremity long segment superficial clot and RLE December 2020- for DVT right lower extremity - Patient does not take routinely - CTA of the chest negative for PE - on heparin infusion for cardiac pathology - transition back to Apixaban when warranted - Hypercoag workup done in May - 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 The pain was located in his right center of his chest with radiation across to the left side. Upon further questioning the patient also endorsed ~2 days of some jaw pain. This pain is waxes and wanes at the moment, and felt like it resolved after coming back to his room. This was not associated with any nausea/vomiting, diaphoresis, or dyspnea. He has not noticed any physical limitations with this, but did leave work early today because he was not feeling well. In the EMD the patient had 2 ECGs performed with initial ECG with ST changes to his inferior leads, following afterload reducing agent and aspiring his repeat ECG was more consistent with his ECG performed in May. The patient's BP was 180/100s upon arrival. The patient endorses that he is not always consistent with taking his medications, but does monitor his blood pressure periodically throughout the week. His normal SBP is 150's. The patient underwent CTA of the chest, head and neck, and CT of the head for his confusion and memory lapses, which did not show any acute changes. Upon my evaluation his daughter and son were both at the bedside and feel he has improved since he came in. In the EMD he had routine labs drawn to include Troponin I. The Troponin I was elevated to 0.378. He was given 324mg ASA, 5mg Hydralazine IV and started on Heparin drip in the EMD after case was discussed with by Dr. Fine with Dr. Keller Strip Roller. Patient will be admitted to PCU to continue to monitor his symptoms and trend his ECG and Troponin. Goal would be to decrease his BP gradually over the next couple hours to 140-150s, and may need further lowering to decrease his double product if his chest pain returns, ECG changes and/or Troponin I continues to increase. Patient cardiac risk factors are: HTN, HLD, Obesity, Early [place] ff father (age ~50)- has GENOVEVA to mid LAD Patient has not had his COVID vaccine and his COVID test on admission is: NEGATIVE Allergies Allergy/AdvReac Type Severity Reaction Status Date / Time cat dander Allergy Severe ITCHY/COUGH, Verified 06/09/21 19:20 THROAT TIGHTENS horse dander Allergy Severe Itch/Cough Verified 06/09/21 19:20 with Horse hair amoxicillin Allergy Intermediate Rash Verified 06/09/21 19:20 HAIRSPRAY Allergy Severe ITCHY, Uncoded 06/09/21 19:20 COUGH MSG PRESERVATIVE Allergy Unknown DOESN'T Uncoded 06/09/21 19:20 TOLERATE-GI SYMPTOMS Home Medications Medication Instructions Recorded Confirmed Type nitroglycerin 0.4 mg sublingual 0.4 mg SUBLINGUAL UD PRN 02/17/19 07/20/21 History tablet valsartan 160 1 tab PO QAM #90 tab 02/19/21 07/20/21 Rx mg-hydrochlorothiazide 12.5 mg tablet carvedilol 25 mg tablet 25 mg PO BID 06/09/21 07/20/21 History apixaban 5 mg (74 tabs) tablets in 5 mg PO BID 07/20/21 07/20/21 History a dose pack coenzyme Q10 200 mg capsule (Co 400 mg PO DAILY 07/20/21 07/20/21 History Q-10) omega-3 fatty acids 2,000 mg PO DAILY 07/20/21 07/20/21 History Past Med/Surg History Medical History CAD (coronary artery disease) Dyslipidemia HTN (hypertension) Hypertensive emergency Hypertensive urgency Hypertensive urgency NSTEMI (non-ST elevated myocardial infarction) Peripheral edema TIA (transient ischemic attack) Surgical History (Updated 07/21/21 @ 13:20 by Randy Patel MD) H/O heart artery stent History of appendectomy History of hernia repair History of laparoscopic cholecystectomy History of tonsillectomy Family History Father , age 72 of [place]. 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 Other Information That Helps Us Care for You: No Feels Safe at Home: Yes Safety Concerns: Feels Safe At This Time Assistive Devices: Glasses Review of Systems Review of Systems: REVIEW OF SYSTEMS: Constitutional: No fever, sweats or chills Eyes: No diplopia, no worsening or blurred vision ENT: normal hearing, no trouble swallowing Respiratory: No cough, sputum, dyspnea at rest or on exertion Cardiovascular: (+) chest pain, tightness, jaw pain, NO palpitations Abdomen: No pain, nausea, vomiting, diarrhea or constipation Musculoskeletal: No joint pain, calf pain, swelling Neurologic: (+) confusion and "not feeling right", weakness, numbness/tingling, or balance problems Psychiatric: No anxiety or depression Skin: No rash or itch Physical Exam Physical Exam: PHYSICAL EXAM: General: awake, alert, no apparent distress Head: Normocephalic, atraumatic ENT: PERRLA, EOMI, no pharyngeal exudate, mucous membranes moist Neuro: AAO x 3, speech clear and appropriate, strength intact bilaterally 5/5, sensation intact and equal all extremities and dermatomes, no pronator drift, short term memory intact, no discoordinated movements, no aphasia Chest: equal rise and fall of the chest, no accessory muscle use, no heaves or thirlls, Clear to auscultation, on room air, Cardiac: Regular rate and rhythm, telemetry reviewed- Sinus rozina, skin warm dry, cap refill <3 seconds, peripheral pusles +2 no JVD, no murmur, +1 peripheral edema bilateral lower extremities GI: NABS x 4 quadrants, soft, nontender to palpation, no rebound, guarding or tenderness : Spontaneously voiding, no pain, no CVA tenderness, Extremities: Normal inspection, no peripheral edema or erythema, calfs nontender to palpation Psych: Normal mood and affect Skin: no rash or erythema Results & Data Results & Data ([facility]) Vital Signs (Past 12 Hours) Vital Signs Temp Pulse Pulse Resp BP BP Pulse Ox 07/20/21 19:30 57 L 18 183/98 H 96 07/20/21 19:00 56 L 18 182/105 H 95 07/20/21 18:30 61 18 184/101 H 07/20/21 18:00 51 L 21 171/95 H 94 07/20/21 17:31 53 L 15 166/88 H 96 07/20/21 17:00 55 L 20 141/115 H 95 07/20/21 16:30 61 18 172/74 H 07/20/21 16:23 58 L 20 146/80 H 95 07/20/21 16:22 58 L 16 146/80 H 96 07/20/21 14:10 37 C 65 18 140/75 96 Laboratory Results Abnormal lab results 07/20/21 07/20/21 Range/Units 16:44 16:44 RDW Std Deviation 47.1 H (36.4-46.3) fL MPV 10.9 H (7.4-10.4) fL Neut # (Auto) 7.41 H (1.4-6.5) K/uL Lymph # (Auto) 1.00 L (1.2-3.4) K/uL Early # (Auto) 0.69 H (0.11-0.59) K/uL Glucose 133 H (70-99) mg/dl Phosphorus 2.4 L (2.5-4.9) mg/dl Troponin I 0.378 H* (0-0.045) ng/ml Globulin 4.2 H (2.5-4.0) gm/dl Albumin/Globulin Ratio 0.8 L (0.9-2) Diagnostic Findings Chest X-Ray 07/20/21 16:14 SINGLE VIEW CHEST CLINICAL HISTORY: Atypical chest pain. FINDINGS: An AP, portable, upright chest radiograph is compared to study dated 06/09/2021. The heart is mildly enlarged. The pulmonary vasculature is noncongested. There is mild bibasilar scarring/atelectasis. No airspace consolidation or large pleural effusion is identified. No pneumothorax is seen. There are healed right posterior rib fractures. IMPRESSION: Mild cardiomegaly with no acute cardiopulmonary abnormality. ACT 112: Negative or not required by law. Electronically signed by: Fidel Boogie M.D. 07/20/2021 5:[address] 07/20/21 16:[address] OF THE BRAIN; CT ANGIOGRAM OF THE BRAIN; CT ANGIOGRAM OF THE NECK CLINICAL HISTORY: Headache and dizziness. Change in mental status. Hypertension. COMPARISON STUDY: CT of the brain dated 09/27/2019. CT angiogram of the head and neck dated 09/27/2019. TECHNIQUE: Unenhanced axial CT scan of the brain is performed. Subsequently, following the IV administration of 119 of Optiray 320, CT angiogram of the head and neck was performed from the aortic arch to the vertex. Images are reviewed in the axial, sagittal, and coronal planes. 3-D MIPS images are created and assessed. IV contrast was administered without complication. All measurements were calculated based on NASCET criteria. A dose lowering technique was utilized adhering to the principles of ALARA. FINDINGS: Brain parenchyma: There is age-related involutional change noting mild to moderate subcortical and periventricular microangiopathic disease. There is no hemorrhage, mass effect, or evidence of acute territorial ischemia by CT criteria. There is no evidence of enhancing mass lesion on the angiogram phase images. The ventricles, sulci, and cisterns are normal in configuration. Billingsley- white matter differentiation is preserved. No extra-axial fluid collection is seen. Thoracic aorta: Visualized portions of the thoracic aorta are normal in caliber. The aortic arch demonstrates standard 3-vessel anatomy. Right carotid arterial system: The right common carotid artery is widely patent, as are the right internal and external carotid arteries. Minimal calcified plaque is seen in the carotid bulb. Left carotid arterial system: The left common carotid artery is widely patent, as are the left internal and external carotid arteries. Minimal calcified plaque is seen in the carotid bulb. Vertebral arteries: The vertebral arteries are widely patent bilaterally noting mild left-sided dominance. Subclavian arteries: Widely patent bilaterally. Intracranial vasculature: There is atherosclerotic calcification of the cavernous carotid and vertebral arteries. The internal carotid arteries are patent at the skull base, as are the anterior and middle cerebral arteries bilaterally. The vertebrobasilar system and posterior cerebral arteries are widely patent. The left vertebral artery is dominant. There is no aneurysm, high-grade stenosis, or focal vessel cut off seen throughout the intracranial circulation. Jugular veins: Patent bilaterally. Dural sinuses: Patent. Lung apices: Partially visualized upper lobe lung parenchyma appears clear. Soft tissues: The visualized pharyngeal soft tissues are normal in appearance noting angiographic phase technique. The oropharyngeal airway appears widely patent. The salivary and thyroid glands are normal in appearance. No cervical lymphadenopathy is seen. Skeletal structures: The calvarium appears intact. The cervical spine is maintained noting mild spondylosis. No lytic or blastic lesion is seen. Orbits: The bony orbits are intact. Orbital contents are normal as visualized. Sinuses and mastoids: There is a 1.5 cm retention cyst in the left maxillary antrum. The paranasal sinuses are otherwise clear. The mastoid air cells are well pneumatized. IMPRESSION: 1 There is no hemorrhage, mass effect, or evidence of acute territorial ischemia by CT criteria. 2. Unremarkable CT angiogram of the brain. 3. Unremarkable CT angiogram of the neck. ACT 112: Negative or not required by law. Electronically signed by: Fidel Boogie M.D. 07/20/2021 6:33 PM Head CTA 07/20/21 16:[address] OF THE BRAIN; CT ANGIOGRAM OF THE BRAIN; CT ANGIOGRAM OF THE NECK CLINICAL HISTORY: Headache and dizziness. Change in mental status. Hypertension. COMPARISON STUDY: CT of the brain dated 09/27/2019. CT angiogram of the head and neck dated 09/27/2019. TECHNIQUE: Unenhanced axial CT scan of the brain is performed. Subsequently, following the IV administration of 119 of Optiray 320, CT angiogram of the head and neck was performed from the aortic arch to the vertex. Images are reviewed in the axial, sagittal, and coronal planes. 3-D MIPS images are created and assessed. IV contrast was administered without complication. All measurements were calculated based on NASCET criteria. A dose lowering technique was util ized adhering to the principles of ALARA. FINDINGS: Brain parenchyma: There is age-related involutional change noting mild to moderate subcortical and periventricular microangiopathic disease. There is no hemorrhage, mass effect, or evidence of acute territorial ischemia by CT criteria. There is no evidence of enhancing mass lesion on the angiogram phase images. The ventricles, sulci, and cisterns are normal in configuration. Billingsley- white matter differentiation is preserved. No extra-axial fluid collection is seen. Thoracic aorta: Visualized portions of the thoracic aorta are normal in caliber. The aortic arch demonstrates standard 3-vessel anatomy. Right carotid arterial system: The right common carotid artery is widely patent, as are the right internal and external carotid arteries. Minimal calcified plaque is seen in the carotid bulb. Left carotid arterial system: The left common carotid artery is widely patent, as are the left internal and external carotid arteries. Minimal calcified plaque is seen in the carotid bulb. Vertebral arteries: The vertebral arteries are widely patent bilaterally noting mild left-sided dominance. Subclavian arteries: Widely patent bilaterally. Intracranial vasculature: There is atherosclerotic calcification of the cavernous carotid and vertebral arteries. The internal carotid arteries are patent at the skull base, as are the anterior and middle cerebral arteries bilaterally. The vertebrobasilar system and posterior cerebral arteries are widely patent. The left vertebral artery is dominant. There is no aneurysm, high-grade stenosis, or focal vessel cut off seen throughout the intracranial circulation. Jugular veins: Patent bilaterally. Dural sinuses: Patent. Lung apices: Partially visualized upper lobe lung parenchyma appears clear. Soft tissues: The visualized pharyngeal soft tissues are normal in appearance noting angiographic phase technique. The oropharyngeal airway appears widely patent. The salivary and thyroid glands are normal in appearance. No cervical lymphadenopathy is seen. Skeletal structures: The calvarium appears intact. The cervical spine is maintained noting mild spondylosis. No lytic or blastic lesion is seen. Orbits: The bony orbits are intact. Orbital contents are normal as visualized. Sinuses and mastoids: There is a 1.5 cm retention cyst in the left maxillary antrum. The paranasal sinuses are otherwise clear. The mastoid air cells are well pneumatized. IMPRESSION: 1 There is no hemorrhage, mass effect, or evidence of acute territorial ischemia by CT criteria. 2. Unremarkable CT angiogram of the brain. 3. Unremarkable CT angiogram of the neck. ACT 112: Negative or not required by law. Electronically signed by: Fidel Boogie M.D. 07/20/2021 6:33 PM Neck CTA 07/20/21 16:[address] OF THE BRAIN; CT ANGIOGRAM OF THE BRAIN; CT ANGIOGRAM OF THE NECK CLINICAL HISTORY: Headache and dizziness. Change in mental status. Hypertension. COMPARISON STUDY: CT of the brain dated 09/27/2019. CT angiogram of the head and neck dated 09/27/2019. TECHNIQUE: Unenhanced axial CT scan of the brain is performed. Subsequently, f ollowing the IV administration of 119 of Optiray 320, CT angiogram of the head and neck was performed from the aortic arch to the vertex. Images are reviewed in the axial, sagittal, and coronal planes. 3-D MIPS images are created and assessed. IV contrast was administered without complication. All measurements were calculated based on NASCET criteria. A dose lowering technique was utilized adhering to the principles of ALARA. FINDINGS: Brain parenchyma: There is age-related involutional change noting mild to moderate subcortical and periventricular microangiopathic disease. There is no hemorrhage, mass effect, or evidence of acute territorial ischemia by CT criteria. There is no evidence of enhancing mass lesion on the angiogram phase images. The ventricles, sulci, and cisterns are normal in configuration. Billingsley- white matter differentiation is preserved. No extra-axial fluid collection is seen. Thoracic aorta: Visualized portions of the thoracic aorta are normal in caliber. The aortic arch demonstrates standard 3-vessel anatomy. Right carotid arterial system: The right common carotid artery is widely patent, as are the right internal and external carotid arteries. Minimal calcified plaque is seen in the carotid bulb. Left carotid arterial system: The left common carotid artery is widely patent, as are the left internal and external carotid arteries. Minimal calcified plaque is seen in the carotid bulb. Vertebral arteries: The vertebral arteries are widely patent bilaterally noting mild left-sided dominance. Subclavian arteries: Widely patent bilaterally. Intracranial vasculature: There is atherosclerotic calcification of the cavernous carotid and vertebral arteries. The internal carotid arteries are patent at the skull base, as are the anterior and middle cerebral arteries bilaterally. The vertebrobasilar system and posterior cerebral arteries are widely patent. The left vertebral artery is dominant. There is no aneurysm, high-grade stenosis, or focal vessel cut off seen throughout the intracranial circulation. Jugular veins: Patent bilaterally. Dural sinuses: Patent. Lung apices: Partially visualized upper lobe lung parenchyma appears clear. Soft tissues: The visualized pharyngeal soft tissues are normal in appearance noting angiographic phase technique. The oropharyngeal airway appears widely patent. The salivary and thyroid glands are normal in appearance. No cervical lymphadenopathy is seen. Skeletal structures: The calvarium appears intact. The cervical spine is maintained noting mild spondylosis. No lytic or blastic lesion is seen. Orbits: The bony orbits are intact. Orbital contents are normal as visualized. Sinuses and mastoids: There is a 1.5 cm retention cyst in the left maxillary antrum. The paranasal sinuses are otherwise clear. The mastoid air cells are well pneumatized. IMPRESSION: 1 There is no hemorrhage, mass effect, or evidence of acute territorial ischemia by CT criteria. 2. Unremarkable CT angiogram of the brain. 3. Unremarkable CT angiogram of the neck. ACT 112: Negative or not required by law. Electronically signed by: Fidel Boogie M.D. 07/20/2021 6:33 PM Chest CTA 07/20/21 17:40 CT ANGIOGRAM OF THE CHEST CLINICAL HISTORY: Atypical chest pain. Elevated troponins. COMPARISON STUDY: Chest x-ray dated 07/20/2021. TECHNIQUE: Following the IV administration of 119 cc of Optiray 320, CT angiogram of the chest was performed from the upper abdomen to the thoracic inlet utilizing the pulmonary embolus protocol. Images are reviewed in the axial, sagittal, and coronal planes. 3-D MIPS images are created and assessed. IV contrast was administered without complication. A dose lowering technique was utilized adhering to the principles of ALARA. The examination is modestly degraded by motion artifact, and by streak artifact from the arms which could not be elevated above the chest. CT DOSE: 1637.31 mGy.cm FINDINGS: Thyroid: Imaged portions of the thyroid gland are normal in size and attenuation. Thoracic aorta: There is minimal atherosclerotic calcification of the thoracic aorta, which is normal in caliber and demonstrates standard 3-vessel arch anatomy. No dissection is seen. Pulmonary vasculature: The pulmonary trunk is normal in caliber. There are no filling defects identified in main, lobar, or segmental pulmonary branches to suggest pulmonary embolus. Heart: The heart is mildly enlarged and without pericardial effusion. There is atherosclerotic calcification of the coronary arteries. A left coronary artery stent is in place. Lungs and pleural spaces: Evaluation of the lung parenchyma is modestly degraded by motion artifact. No airspace consolidation or pleural effusion is identified. Dependent atelectasis is noted at the lung bases. The trachea and central airways are clear. A calcified granuloma is noted in the right middle lobe. Mediastinum: There is no mediastinal lymphadenopathy. Alicia: Clear. Axillae: There is no axillary lymphadenopathy. Upper abdomen: There is a tiny hiatal hernia. Partially visualized upper abdominal viscera is otherwise within normal limits. Skeletal structures: No lytic or blastic bony lesions are seen. Arthritic changes seen in the right shoulder. Mild spondylotic change is noted in the thoracic spine. There are healed right-sided rib fractures. IMPRESSION: 1. There is no evidence of pulmonary embolus in the main, lobar, or segmental pulmonary arteries. 2. There is no airspace consolidation or pleural effusion. 3. Mild cardiomegaly and coronary artery calcification. ACT 112: Negative or not required by law. Electronically signed by: Fidel Boogie M.D. 07/20/2021 6:39 PM Medications Administered Home Medications nitroglycerin 0.4 mg sublingual tablet 0.4 mg SUBLINGUAL UD PRN 02/17/19 [History Confirmed 06/09/21] aspirin 81 mg tablet,delayed release 81 mg PO [id number] tab 11/08/20 [History Confirmed 06/09/21] apixaban 5 mg tablet (Eliquis) 5 mg PO BID #90 tab 02/19/21 [Rx Confirmed 06/09/21] valsartan 160 mg-hydrochlorothiazide 12.5 mg tablet 1 tab PO QAM #90 tab 02/19/21 [Rx Confirmed 06/09/21] apixaban 5 mg (74 tabs) tablets in a dose pack See Rx Instructions .ROUTE .COMPLEX #74 ea 06/09/21 [Rx] carvedilol 25 mg tablet 25 mg PO BIDM 06/09/21 [History Confirmed 06/09/21] Active Medications Heparin Sodium/Dextrose (Heparin Sodium/Dextrose) 25,000 units in 500 mls @ 20 mls/hr IV .Q24H KARLY; Protocol Stop: 08/19/21 19:14 Last Admin: 07/20/21 19:32 Dose: 1,000 units/hr, 20 mls/hr Documented by: Heparin Sodium/Dextrose (Heparin Sodium/Dextrose) 25,000 units in 500 mls @ 20 mls/hr IV .Q24H KARLY; Protocol Stop: 08/19/21 19:14 Last Admin: 07/20/21 19:32 Dose: 1,000 units/hr, 20 mls/hr Documented by: [id number] Cosigned by: [id number] Discontinued Medications Aspirin (Aspirin Chew 324 Mg) 324 mg PO NOW STA Stop: 07/20/21 18:15 Last Admin: 07/20/21 18:28 Dose: 324 mg Documented by: [id number] Heparin Sodium/Dextrose (Heparin Iv Adult Wt-Based Low-Dose *No* Bolus Protocol) 1 ea N/A ONE ONE; Protocol Stop: 07/20/21 19:07 Last Admin: 07/20/21 19:31 Dose: 1 ea Documented by: [id number] Hydralazine HCl (Hydralazine Hcl 20 Mg/Ml Vial) 5 mg IV NOW ONE Stop: 07/20/21 19:09 Last Admin: 07/20/21 19:30 Dose: 5 mg Documented by: [id number] Sodium Chloride (Nss) 500 mls @ 999 mls/hr IV .Q31M ONE Stop: 07/20/21 16:46 Last Infusion: 07/20/21 17:12 Dose: 0 mls/hr Documented by: [id number] Admin: 07/20/21 16:40 Dose: 999 mls/hr Documented by: [id number] Famotidine (Pepcid 20mg Iv Push) 20 mg in 5 mls @ 2.5 mls/min IV NOW STA Stop: 07/20/21 16:24 Last Admin: 07/20/21 16:40 Dose: 2.5 mls/min Documented by: [id number] Acetaminophen (Ofirmev) 1,000 mg in 100 mls @ 400 mls/hr IV NOW STA Stop: 07/20/21 16:39 Last Infusion: 07/20/21 16:54 Dose: 0 mls/hr Documented by: [id number] Admin: 07/20/21 16:39 Dose: 400 mls/hr Documented by: [id number] Ioversol (Optiray 320 125ml) 119 ml IV ONCE ONE Stop: 07/20/21 17:42 Last Admin: 07/20/21 17:42 Dose: 1 ml Documented by: [id number] Nitroglycerin (Nitroglycerin 2% Ointment 30gm Tube) 1 inch EXT NOW ONE Stop: 07/20/21 19:59 Last Admin: 07/20/21 20:11 Dose: 1 inch Documented by: [id number] ECG Additional Comments: 20-JUL-2021 18:01:13 Sinus bradycardia Inferior infarct (cited on or before 16-SEP-2017) Abnormal ECG When compared with ECG of 20-JUL-2021 14:18, No significant change was found 20-JUL-2021 14:18:44 Normal sinus rhythm 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 Assessment and Plan: Elevated troponin I level/CAD/hypertension- The patient will be admitted to telemetry for serial cardiac enzymes, serial EKG's, cardiac rhythm monitoring and a 2-D echocardiogram with Dopplers. Continue carvedilol and aspirin Continue valsartan/HCTZ Add Nitropaste 1 inch anterior chest wall every 6 hours Hydralazine 5 mg IV every 4 hours as needed for systolic blood pressure 160 Apixaban already changed to heparin drip Check a fasting lipid panel and hemoglobin A1c Consult cardiology History of DVT left lower extremity/factor V Leiden- Apixaban held and placed on heparin IV as noted above for possible cardiac procedure Remaining orders and notations as noted PG Care Time/CCT Total # of Minutes Spent Total Time Spent with Patient: Total time spent is greater than 50% in coordination of care (as documented) at patient's floor/unit and/or counseling patient: Coding Level of Care Code 62078 Initial Inpt Care Lvl 3 Diagnoses Elevated troponin I level R77.8 Hypertensive urgency I16.0 CAD (coronary artery disease) I25.10 Associated angina: without angina Coronary Disease-Associated Artery/Lesion type: [place] artery [place] vs. transplanted heart: [place] heart Dyslipidemia E78.5 Chronic cerebral ischemia I67.82 Dvt femoral (deep venous thrombosis) I82.419 (1) CAD (coronary artery disease) Associated angina: without angina Coronary Disease-Associated Artery/Lesion type: [place] artery [place] vs. transplanted heart: [place] heart Qualified Code(s): I25.10 - Atherosclerotic heart disease of [place] coronary artery without angina pectoris
[2021-07-20] MEDS ORDERED: POLYETHYLENE (MIRALAX) 17 GM PACK PO PRN (21:51)
[2021-07-20] MEDS ORDERED: ACETAMINOPHEN 325 MG TAB PO PRN (21:51)
[2021-07-20] MEDS ORDERED: NITROGLYCERIN SL 0.4 MG/TAB TAB SL PRN (21:51)
[2021-07-20] MEDS ORDERED: hydrALAZINE HCL 20 MG/ML VIAL IV PRN (21:51)
[2021-07-20] MEDS: NITROGLYCERIN 2% OINTMENT 30GM TUBE EXT SCH (23:50)
[2021-07-21 02:08] LABS: Partial Thromboplastin Ratio 1.5; Partial Thromboplastin Time 38.3 Seconds (21.0-31.0)
[2021-07-21 04:42] LABS: Basophils # (auto) 0.01 K/uL (0-0.2); Basophils % (auto) 0.1 %; Eosinophils # (auto) 0.11 K/uL (0-0.5); Eosinophils % (auto) 1.5 %; Hematocrit (blood only) 45.9 % (42-52); Hemoglobin 15.8 g/dL (14.0-18.0); Immature Granulocytes # (auto) 0.02 K/uL (0.00-0.02); Immature Granulocytes % (auto) 0.3 %; Lymphocytes # (auto) 1.44 K/uL (1.2-3.4); Lymphocytes % (auto) 19.7 %; Mean Corpuscular Hemoglobin 33.5 pg (25-34); Mean Corpuscular Hgb Conc 34.4 g/dL (32-36); Mean Corpuscular Volume 97.5 fL (80-100); Mean Platelet Volume 11.1 fL (7.4-10.4); Monocytes # (auto) 0.72 K/uL (0.11-0.59); Monocytes % (auto) 9.9 %; Neutrophils % (auto) 68.5 %; Platelet Count 138 K/uL (130-400); RDW Coefficient of Variation 13.4 % (11.5-14.5); RDW Standard Deviation 47.5 fL (36.4-46.3); Red Blood Count 4.71 M/uL (4.7-6.1)
[2021-07-21 05:00] LABS: BUN Creatinine Ratio 15.8 (10-20); Calcium 8.5 mg/dl (8.5-10.1); Creatinine Clr Calc Pharmacy 100.4 ml/min; Est GFR (African American) 102.8 ml/min; Est GFR (Non-African American) 88.7 ml/min; Potassium 3.6 mmol/L (3.5-5.1)
[2021-07-21 05:09] LABS: Troponin I 2.98 ng/ml (0-0.045)
[2021-07-21] MEDS: NITROGLYCERIN 2% OINTMENT 30GM TUBE EXT SCH ×4 (05:46→23:47)
[2021-07-21] MEDS: hydroCHLOROthiazide 25 MG TAB PO SCH (07:51)
[2021-07-21] MEDS: VALSARTAN 80 MG TAB PO SCH (07:51)
[2021-07-21] MEDS: carvediloL 25 MG TAB PO SCH ×2 (07:51→16:46)
[2021-07-21] MEDS: ASPIRIN 81 MG ECTAB PO SCH (07:51)
[2021-07-21 09:40] LABS: Partial Thromboplastin Ratio 1.5; Partial Thromboplastin Time 38.9 Seconds (21.0-31.0)
[2021-07-21] MEDS ORDERED: Heparin IV Adult Wt-Based Standard *NO* Bolus Protocol IV ONE (10:15)
--- NOTE | 2021-07-21 12:42 | XCELERA ---
[id number]
--- NOTE | 2021-07-21 13:30 | Cardiology Consultation ---
Date of Consultation July 21, 2021 Assessment & Plan (1) Non-ST elevation (NSTEMI) myocardial infarction: (2) CAD (coronary artery disease): (3) H/O heart artery stent: (4) Hypertensive urgency: (5) Chronic anticoagulation: (6) HTN (hypertension): (7) Dyslipidemia: ASSESSMENT/PLAN: 1. NSTEMI: We discussed the diagnosis. No further angina. Has been having progressive symptoms for the past 6-7 days. Continue heparin drip. Continue aspirin 81 mg daily. Continue carvedilol. Recommend high-intensity statin therapy. Can continue nitrate therapy. We discussed cardiac catheterization. There is no urgency as he is currently chest pain-free. He was asked to notify nursing staff immediately for return symptoms. Cardiac catheterization will likely be performed Friday, if no urgent indication. Echocardiogram demonstrated normal LV systolic function. 2. CAD s/p LAD PCI: Presenting symptoms consistent with prior angina. Continue aspirin 81 mg daily. He has been non compliant with aspirin/anticoagulation therapy. Continue beta-destiny. Recommend high-intensity statin therapy. Cardiac rehabilitation recommended after follow-up with Dr. Chavez as an outpatient. 3. Hypertensive urgency/hypertension: Blood pressure was elevated on presentation however his symptoms of angina have been occurring prior to presentation. Blood pressure now well controlled. Noncompliance likely contributing to his hypertension. He has been noncompliant with his home antihypertensive agents, specifically his ARB/diuretic combination and also carvedilol at times. We discussed the importance of compliance with medical therapy. If he is having issues taking his ARB/diuretic combination, due to frequent urination, we discussed that on discharge these medications can be taken separately so that he at least can take the ARB on a more regular basis. Low-sodium diet. 4. Dyslipidemia: High-intensity statin therapy recommended. 5. Chronic anticoagulation therapy: He is on anticoagulation due to prior DVT. Long-term anticoagulation therapy has been recommended by Dr. Chavez. He has been non compliant with Eliquis. We discussed the importance of medication compliance. 6. Disposition: Cardiology will continue to follow. Patient care communicated with hospitalist, Dr. Driver. Highly complex medical issues. Thank you for allowing me to participate in the care of your patient. Please call for any other questions or concerns. Sincerely, Ameya Patel M.D. History of Present Illness Reason for Consultation: Chest pain Requesting Physician: Genaro Deleon Attending Physician: Elie Driver History of Present Illness Mr. Smith is a pleasant 70-year-old gentleman with history significant for CAD s/p LAD PCI (2016), dyslipidemia, hypertension, and DVT on chronic anticoagulation therapy. 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 He was admitted on 07/20/2021 with elevated troponin, chest discomfort, and hypertensive urgency. He has had the following studies/procedures: 1. Cardiac catheterization 09/17/2017 for NSTEMI: Proximal LAD 50-70%. Mid LAD 90-95%. D2 30%. Ramus mid 20%. OM1 mid 20%. Proximal RCA 20%. Mid RCA 20%. Distal RCA 20%. Mid PDA 10-20%. Underwent PCI of mid LAD with 3 x 12 mm Medtronic resolute GEN[place]A. 2. Echo 09/19/2017: Normal LV size. Hyperdynamic LV. EF > 70%. Normal wall motion. 3. Echo 02/18/2019: Normal LV size, wall motion, systolic function. EF 60-65%. No significant valvular abnormalities. 6-7 days ago, he had noted on his daily walk that he had decreased exercise tolerance and is unclear if he had dyspnea with exertion but no chest discomfort. He walks daily for 1.5 miles, including steep hills. Then 4 days ago, he was at work, which requires physical activity, and he recalls having a heaviness in his chest that radiated to his left jaw. These symptoms were the same that he recalled from 2017 when he had an NC. symptoms lasted for hours. There was no associated shortness of breath. On , he canceled half of his work day, and canceled all day Friday. He had minimal chest discomfort and did not feel right. He checked his blood pressure and it was quite elevated with systolic 175 and diastolic 101. He checked it frequently and due to feeling poorly and elevated blood pressure, he came to the emergency department. There was reports that he was confused with memory lapse and underwent CT imaging of the head without acute changes. He believes that his confusion was due to rapid drop in his blood pressure. He now feels like he is back to baseline and apparently improved in the emergency department with family at the bedside. His initial troponin was 0.378 and has since increased to 3.74. He denies melena, hematochezia, hematuria, or other bleeding. He denies syncope, near-syncope, palpitations, or edema. He admits that he does not take Eliquis on a regular basis. He also no longer takes aspirin. He takes carvedilol every morning and sometimes also the second dose later in the day but not always. He does not take valsartan/HCTZ on a regular basis due to the diuretic affect. He acknowledges his noncompliance and is concerned that it may have had something to do with his NC. He reports that he had TIA or at least TIA symptoms following cardiac catheterization in 2017. Review of systems: As above. Review of systems otherwise negative/unremarkable. Family history: Father had CAD. Social history: He denies smoking. Occasional alcohol. No drugs. He lives alone. . Five children. Sixteen grandchildren. A son is a radiol ogist. A daughter is a home health nurse. A son-in-law is a general practitioner in the [employer] [facility]. A daughter is a partridge farmer. 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 He was unaccompanied today. Allergies Allergy/AdvReac Type Severity Reaction Status Date / Time cat dander Allergy Severe ITCHY/COUGH, Verified 06/09/21 19:20 THROAT TIGHTENS horse dander Allergy Severe Itch/Cough Verified 06/09/21 19:20 with Horse hair amoxicillin Allergy Intermediate Rash Verified 06/09/21 19:20 HAIRSPRAY Allergy Severe ITCHY, Uncoded 06/09/21 19:20 COUGH MSG PRESERVATIVE Allergy Unknown DOESN'T Uncoded 06/09/21 19:20 TOLERATE-GI SYMPTOMS Home Medications Medication Instructions Recorded Confirmed Type nitroglycerin 0.4 mg sublingual 0.4 mg SUBLINGUAL UD PRN 02/17/19 07/20/21 History tablet valsartan 160 1 tab PO QAM #90 tab 02/19/21 07/20/21 Rx mg-hydrochlorothiazide 12.5 mg tablet carvedilol 25 mg tablet 25 mg PO BID 06/09/21 07/20/21 History apixaban 5 mg (74 tabs) tablets in 5 mg PO BID 07/20/21 07/20/21 History a dose pack coenzyme Q10 200 mg capsule (Co 400 mg PO DAILY 07/20/21 07/20/21 History Q-10) omega-3 fatty acids 2,000 mg PO DAILY 07/20/21 07/20/21 History Patient History Medical History CAD (coronary artery disease) Dyslipidemia HTN (hypertension) Hypertensive emergency Hypertensive urgency Hypertensive urgency NSTEMI (non-ST elevated myocardial infarction) Peripheral edema TIA (transient ischemic attack) Surgical History (Updated 07/21/21 @ 13:20 by Randy Patel MD) H/O heart artery stent History of appendectomy History of hernia repair History of laparoscopic cholecystectomy History of tonsillectomy Family History Father , age 72 of NC. 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 Alert and oriented. HEENT: Anicteric sclera. Neck: Thick neck but no appreciable JVD. No bruits. Normal carotid upstrokes bilaterally. Cardiac: PMI was nonpalpable. No ventricular heave. Regular near 60 bpm. Normal S1-S2. No murmurs, rubs, or gallops. Pulmonary: Clear to auscultation bilaterally without wheezes, rales, or rhonchi. Abdomen: Soft, nontender, nondistended, with normoactive bowel sounds. No bruits noted. Extremities: 2+ radial pulses bilaterally. 2+ posterior tibialis pulses bilaterally. Trace bilateral lower extremity edema. No cyanosis. Psychiatric: Affect appears appropriate. Results & Data ([facility]) Vital Signs (Past 12 Hours) Vital Signs Temp Pulse Pulse Resp BP Pulse Ox 07/21/21 11:46 36.7 C 58 L 20 128/75 96 07/21/21 08:00 36.5 C 53 L 65 20 146/82 H 96 07/21/21 05:46 124/72 07/21/21 03:44 36.6 C 53 L 20 128/73 93 Laboratory Results Laboratory Results - last 24 hr 07/20/21 07/20/21 07/20/21 16:16 16:16 16:44 WBC 9.20 RBC 5.20 Hgb 17.3 Hct 50.6 MCV 97.3 MCH 33.3 MCHC 34.2 RDW Std Deviation 47.1 H RDW Coeff of Guerita 13.2 Plt Count 147 MPV 10.9 H Immature Gran % (Auto) 0.2 Neut % (Auto) 80.5 Lymph % (Auto) 10.9 [place] % (Auto) 7.5 Eos % (Auto) 0.8 Baso % (Auto) 0.1 Neut # (Auto) 7.41 H Lymph # (Auto) 1.00 L [place] # (Auto) 0.69 H Eos # (Auto) 0.07 Baso # (Auto) 0.01 Immature Gran # (Auto) 0.02 PT INR APTT PTT Ratio Sodium Potassium Chloride Carbon Dioxide Anion Gap BUN Creatinine Est Cr Clr Drug Dosing Est GFR ( Amer) Est GFR (Non-Af Amer) BUN/Creatinine Ratio Glucose Calcium Phosphorus Magnesium Total Bilirubin Direct Bilirubin AST ALT Alkaline Phosphatase Troponin I Total Protein Albumin Globulin Albumin/Globulin Ratio Triglycerides Cholesterol LDL Cholesterol, Calc VLDL Cholesterol, Calc HDL Cholesterol Cholesterol/HDL Ratio Lipase TSH COVID-19 Eval Order Covid19 at [facility] SARS-CoV-2 (PCR) NEGATIVE 07/20/21 07/20/21 07/20/21 16:44 16:44 22:12 WBC RBC Hgb Hct MCV MCH MCHC RDW Std Deviation RDW Coeff of Guerita Plt Count MPV Immature Gran % (Auto) Neut % (Auto) Lymph % (Auto) [place] % (Auto) Eos % (Auto) Baso % (Auto) Neut # (Auto) Lymph # (Auto) [place] # (Auto) Eos # (Auto) Baso # (Auto) Immature Gran # (Auto) PT 10.2 INR 1.0 APTT 26.7 PTT Ratio 1.0 Sodium 139 Potassium 3.7 Chloride 107 Carbon Dioxide 25 Anion Gap 6.0 BUN 14 Creatinine 1.09 Est Cr Clr Drug Dosing 80.3 Est GFR ( Amer) 80.4 Est GFR (Non-Af Amer) 69.4 BUN/Creatinine Ratio 13.2 Glucose 133 H Calcium 8.9 Phosphorus 2.4 L Magnesium 2.3 Total Bilirubin 0.7 Direct Bilirubin AST 23 ALT 26 Alkaline Phosphatase 96 Troponin I 0.378 H* 1.440 H* Total Protein 7.7 Albumin 3.5 Globulin 4.2 H Albumin/Globulin Ratio 0.8 L Triglycerides Cholesterol LDL Cholesterol, Calc VLDL Cholesterol, Calc HDL Cholesterol Cholesterol/HDL Ratio Lipase 102 TSH 0.507 COVID-19 Eval Order SARS-CoV-2 (PCR) 07/21/21 07/21/21 07/21/21 01:28 04:27 04:27 WBC 7.30 RBC 4.71 Hgb 15.8 Hct 45.9 MCV 97.5 MCH 33.5 MCHC 34.4 RDW Std Deviation 47.5 H RDW Coeff of Guer[place] 13.4 Plt Count 138 MPV 11.1 H Immature Gran % (Auto) 0.3 Neut % (Auto) 68.5 Lymph % (Auto) 19.7 [place] % (Auto) 9.9 Eos % (Auto) 1.5 Baso % (Auto) 0.1 Neut # (Auto) 5.00 Lymph # (Auto) 1.44 [place] # (Auto) 0.72 H Eos # (Auto) 0.11 Baso # (Auto) 0.01 Immature Gran # (Auto) 0.02 PT INR APTT 38.3 H PTT Ratio 1.5 Sodium 138 Potassium 3.6 Chloride 110 H Carbon Dioxide 27 Anion Gap 1.0 L BUN 14 Creatinine 0.87 Est Cr Clr Drug Dosing 100.4 Est GFR ( Amer) 102.8 Est GFR (Non-Af Amer) 88.7 BUN/Creatinine Ratio 15.8 Glucose 106 H Calcium 8.5 Phosphorus Magnesium 2.0 Total Bilirubin Direct Bilirubin AST ALT Alkaline Phosphatase Troponin I 2.980 H* Total Protein Albumin Globulin Albumin/Globulin Ratio Triglycerides 77 Cholesterol 176 LDL Cholesterol, Calc 108 VLDL Cholesterol, Calc 15 HDL Cholesterol 53 Cholesterol/HDL Ratio 3 Lipase TSH COVID-19 Eval Order SARS-CoV-2 (PCR) 07/21/21 07/21/21 09:21 10:35 WBC RBC Hgb Hct MCV MCH MCHC RDW Std Deviation RDW Coeff of Guerita Plt Count MPV Immature Gran % (Auto) Neut % (Auto) Lymph % (Auto) [place] % (Auto) Eos % (Auto) Baso % (Auto) Neut # (Auto) Lymph # (Auto) [place] # (Auto) Eos # (Auto) Baso # (Auto) Immature Gran # (Auto) PT INR APTT 38.9 H PTT Ratio 1.5 Sodium Potassium Chloride Carbon Dioxide Anion Gap BUN Creatinine Est Cr Clr Drug Dosing Est GFR ( Amer) Est GFR (Non-Af Amer) BUN/Creatinine Ratio Glucose Calcium Phosphorus Magnesium Total Bilirubin Direct Bilirubin AST ALT Alkaline Phosphatase Troponin I 3.740 H* Total Protein Albumin Globulin Albumin/Globulin Ratio Triglycerides Cholesterol LDL Cholesterol, Calc VLDL Cholesterol, Calc HDL Cholesterol Cholesterol/HDL Ratio Lipase TSH COVID-19 Eval Order SARS-CoV-2 (PCR) Diagnostic Findings Telemetry personally reviewed: Normal sinus rhythm and sinus bradycardia. No arrhythmia. Echocardiogram reviewed from 07/21/2021: Normal LV systolic function. EF 60- 65%. No visualized wall motion abnormalities. No significant valvular abnormalities. ECGs personally reviewed: ECG 07/20/2021 at 2:18 p.m.: Sinus rhythm 65 beats per minute. Inferior infarct. ECG 07/20/2021 at 6:01 p.m.: Sinus bradycardia 49 beats per minute. Inferior infarct. ECG 07/21/2021 at 5:26 a.m.: Sinus bradycardia 55 beats per minute. Anterolateral T-wave change. No longer evidence of inferior infarct. Nonspecific ST abnormality. CTA chest 07/20/2021: No PE. No airspace consolidation. Neck and head CTA 07/20/2021: Unremarkable CTA of neck and brain per Radiology. Medications Administered Current Inpatient Medications Acetaminophen (Acetaminophen 325 Mg Tab) 650 mg PO Q4H PRN PRN Reason: Pain or Fever Stop: 08/19/21 21:50 Aspirin (Aspirin 81 Mg Ectab) 81 mg PO QAM [facility] Stop: 08/20/21 08:59 Last Admin: 07/21/21 07:51 Dose: 81 mg Documented by: Carvedilol (Carvedilol 25 Mg Tab) 25 mg PO BIDM [facility] Stop: 08/20/21 07:59 Last Admin: 07/21/21 07:51 Dose: 25 mg Documented by: Hydralazine HCl (Hydralazine Hcl 20 Mg/Ml Vial) 5 mg IV Q4H PRN PRN Reason: SBP >160 and/or DBP>95 Stop: 08/19/21 21:50 Hydrochlorothiazide (Hydrochlorothiazide 25 Mg Tab) 12.5 mg PO DAILY [facility] Stop: 08/20/21 08:59 Last Admin: 07/21/21 07:51 Dose: 12.5 mg Documented by: Heparin Sodium/Dextrose (Heparin Sodium/Dextrose) 25,000 units in 500 mls @ 24 mls/hr IV .[id number] [facility]; Protocol Stop: 08/19/21 19:14 Last Titration: 07/21/21 10:55 Dose: 1,550 units/hr, 31 mls/hr Documented by: Nitroglycerin (Nitroglycerin Sl 0.4 Mg/Tab Tab) 0.4 mg SL UD PRN PRN Reason: Chest Pain Stop: 08/19/21 21:50 Nitroglycerin (Nitroglycerin 2% Ointment 30gm Tube) 1 inch EXT Q6 [facility] Stop: 08/20/21 00:00 Last Admin: 07/21/21 12:45 Dose: 1 inch Documented by: Polyethylene Glycol (Polyethylene (Miralax) 17 Gm Pack) 17 gm PO DAILY PRN PRN Reason: Constipation Stop: 08/19/21 21:50 Valsartan (Valsartan 80 Mg Tab) 160 mg PO QAM [facility] Stop: 08/20/21 08:59 Last Admin: 07/21/21 07:51 Dose: 160 mg Documented by: PG Care Time/CCT Total # of Minutes Spent Total Time Spent with Patient: Total time spent is greater than 50% in coordi nation of care (as documented) at patient's floor/unit and/or counseling patient: Coding Level of Care Code 40224 Initial Inpt Care Lvl 3 Diagnoses Non-ST elevation (NSTEMI) myocardial infarction I21.4 Hypertensive urgency I16.0 Chronic anticoagulation Z79.01 CAD (coronary artery disease) I25.10 Coronary Disease-Associated Artery/Lesion type: [place] artery [place] vs. transplanted heart: [place] heart Associated angina: without angina HTN (hypertension) I10 Hypertension type: unspecified Dyslipidemia E78.5 H/O heart artery stent Z95.5 (1) CAD (coronary artery disease) Coronary Disease-Associated Artery/Lesion type: [place] artery [place] vs. transplanted heart: [place] heart Associated angina: without angina Qualified Code(s): I25.10 - Atherosclerotic heart disease of [place] coronary artery without angina pectoris (2) HTN (hypertension) Hypertension type: unspecified Qualified Code(s): I10 - Essential (primary) hypertension
[2021-07-21] MEDS: HEPARIN SODIUM/DEXTROSE 25,000 UNITS/500 ML BAG IV SCH (15:34)
[2021-07-21 18:23] LABS: Partial Thromboplastin Ratio 2.2
[2021-07-21 19:20] LABS: Partial Thromboplastin Time 56.9 Seconds (21.0-31.0)
--- NOTE | 2021-07-21 20:07 | Hospitalist Progress Note ---
Date of Service July 21, 2021 Assessment & Plan (1) Elevated troponin I level: Plan: NSTEMI Trop increased to over 5. Will continue heparin drip Plan is for cardiac cath on friday - Limited BB with HR 50-65- continue Carvedilol BID - Continue ASA in the morning - Continue DOROTHY as long as renal indices remain stable - NTG tabs SL PRN - ECHO assess for WMA if no acute changes overnight Dr. Keller is aware of patient case- medical receptionist assistant if any changes/concerns- appreciate cardiology assistance (2) Hypertensive urgency: Plan: Uncontrolled BP - Urgency vs. Emergency Elevated BP with confusion and chest pressure- symptoms improved from both standards - Bp better controlled following hydralazine and nitropaste - As above - IF BP becomes difficult to control- increase hydralazine dose - or may need cardene/ntg drip (3) CAD (coronary artery disease): Plan: As above - medication compliance - continue BB, ASA - Patient has declined statin therapy in the past - lipid profile in the morning (4) Dyslipidemia: Plan: As above (5) Chronic cerebral ischemia: Plan: chronic-cerebral microvascular disease - CTA of the neck without acute stenosis/disease (6) Dvt femoral (deep venous thrombosis): Plan: is on Apixaban 2.5mg - 06/10/21 left lower extremity long segment superficial clot and RLE December 2020- for DVT right lower extremity - Patient does not take routinely - CTA of the chest negative for PE - on heparin infusion for cardiac pathology - transition back to Apixaban when warranted - Hypercoag workup done in May - 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 He is currently asymptomatic. Review of Systems Review of Systems: All systems reviewed & are unremarkable except as noted in HPI & below Physical Exam Physical Exam: General: awake, alert, no apparent distress Head: Normocephalic, atraumatic ENT: PERRLA, EOMI, no pharyngeal exudate, mucous membranes moist Neuro: AAO x 3, speech clear and appropriate Chest: equal rise and fall of the chest, no accessory muscle use, no heaves or thirlls, Clear to auscultation, on room air, Cardiac: Regular rate and rhythm, telemetry reviewed- Sinus rozina, skin warm dry, cap refill <3 seconds, peripheral pusles +2 no JVD, no murmur, +1 peripheral edema bilateral lower extremities GI: NABS x 4 quadrants, soft, nontender to palpation, no rebound, guarding or tenderness : Spontaneously voiding, no pain, no CVA tenderness, Extremities: Normal inspection, no peripheral edema or erythema, calfs nontender to palpation Psych: Normal mood and affect Skin: no rash or erythema Results & Data Results & Data ([facility]) Vital Signs (Past 12 Hours) Vital Signs Temp Pulse Pulse Resp BP Pulse Ox 07/21/21 19:00 36.8 C 68 18 126/68 90 07/21/21 16:00 66 07/21/21 15:41 36.8 C 56 L 20 121/72 94 07/21/21 11:46 36.7 C 58 L 20 128/75 96 PG Care Time/CCT Total # of Minutes Spent Total Time Spent with Patient: Total time spent is greater than 50% in coordination of care (as documented) at patient's floor/unit and/or counseling patient: Coding Level of Care Code 51425 Subseq Hosp Care Lvl 2 Diagnoses Elevated troponin I level R77.8 Hypertensive urgency I16.0 CAD (coronary artery disease) I25.10 Associated angina: without angina Coronary Disease-Associated Artery/Lesion type: [place] artery [place] vs. transplanted heart: [place] heart Dyslipidemia E78.5 Chronic cerebral ischemia I67.82 Dvt femoral (deep venous thrombosis) I82.419 Time Spent (min) 25 (1) CAD (coronary artery disease) Associated angina: without angina Coronary Disease-Associated Artery/Lesion type: [place] artery [place] vs. transplanted heart: [place] heart Qualified Code(s): I25.10 - Atherosclerotic heart disease of [place] coronary artery without angina pectoris
[2021-07-21] MEDS: ATORVASTATIN 40 MG TAB PO SCH (21:57)
[2021-07-22] MEDS: NITROGLYCERIN 2% OINTMENT 30GM TUBE EXT SCH ×3 (06:40→17:38)
--- NOTE | 2021-07-22 06:47 | Electrocardiogram Report ---
Test Reason : Blood Pressure : / mmHG Vent. Rate : 049 BPM Atrial Rate : 049 BPM P-R Int : 156 ms QRS Dur : 094 ms QT Int : 426 ms P-R-T Axes : -08 -07 050 degrees QTc Int : 384 ms Sinus bradycardia Inferior infarct (cited on or before 16-SEP-2017) Abnormal ECG When compared with ECG of 20-JUL-2021 14:18, No significant change was found Confirmed by Randy Patel ([id number]) on 07/22/2021 6:47:06 AM Referred By: REFERRED SELF Confirmed By:Randy Patel
--- NOTE | 2021-07-22 07:06 | Electrocardiogram Report ---
Test Reason : Blood Pressure : / mmHG Vent. Rate : 055 BPM Atrial Rate : 055 BPM P-R Int : 180 ms QRS Dur : 098 ms QT Int : 414 ms P-R-T Axes : 066 067 006 degrees QTc Int : 396 ms Sinus bradycardia Anterolateral T wave abnormality When compared with ECG of 20-JUL-2021 18:01, Criteria for Inferior infarct are no longer Present Anterolateral T wave abnormality is now more evident Confirmed by Randy Patel ([id number]) on 07/22/2021 7:06:35 AM Referred By: REFERRED SELF Confirmed By:Randy Patel
[2021-07-22] MEDS: carvediloL 25 MG TAB PO SCH ×2 (07:35→17:38)
[2021-07-22] MEDS: HEPARIN SODIUM/DEXTROSE 25,000 UNITS/500 ML BAG IV SCH (07:36)
[2021-07-22 08:00] LABS: Basophils # (auto) 0.02 K/uL (0-0.2); Basophils % (auto) 0.2 %; Eosinophils # (auto) 0.07 K/uL (0-0.5); Eosinophils % (auto) 0.9 %; Hematocrit (blood only) 48.4 % (42-52); Hemoglobin 16.6 g/dL (14.0-18.0); Immature Granulocytes # (auto) 0.01 K/uL (0.00-0.02); Immature Granulocytes % (auto) 0.1 %; Lymphocytes # (auto) 1.33 K/uL (1.2-3.4); Lymphocytes % (auto) 16.5 %; Mean Corpuscular Hemoglobin 33.5 pg (25-34); Mean Corpuscular Hgb Conc 34.3 g/dL (32-36); Mean Corpuscular Volume 97.8 fL (80-100); Mean Platelet Volume 11.3 fL (7.4-10.4); Monocytes # (auto) 0.88 K/uL (0.11-0.59); Monocytes % (auto) 10.9 %; Neutrophils # (auto) 5.73 K/uL (1.4-6.5); Neutrophils % (auto) 71.4 %; Platelet Count 141 K/uL (130-400); RDW Coefficient of Variation 13.5 % (11.5-14.5); RDW Standard Deviation 48.2 fL (36.4-46.3); Red Blood Count 4.95 M/uL (4.7-6.1); White Blood Count 8.04 K/uL (4.8-10.8)
[2021-07-22 08:27] LABS: Calcium 8.8 mg/dl (8.5-10.1); Creatinine Clr Calc Pharmacy 102.8 ml/min; Est GFR (African American) 103.8 ml/min; Est GFR (Non-African American) 89.5 ml/min; Potassium 3.4 mmol/L (3.5-5.1)
[2021-07-22 08:29] LABS: Partial Thromboplastin Ratio 2.6
[2021-07-22] MEDS: ASPIRIN 81 MG ECTAB PO SCH (08:31)
[2021-07-22] MEDS: hydroCHLOROthiazide 25 MG TAB PO SCH (08:31)
[2021-07-22] MEDS: VALSARTAN 80 MG TAB PO SCH (08:31)
[2021-07-22 08:36] LABS: Troponin I 4.74 ng/ml (0-0.045)
[2021-07-22 08:37] LABS: Partial Thromboplastin Time 67.8 Seconds (21.0-31.0)
--- NOTE | 2021-07-22 11:20 | Cardiology Progress Note ---
Date of Service July 22, 2021 Assessment & Plan (1) Non-ST elevation (NSTEMI) myocardial infarction: (2) CAD (coronary artery disease): (3) H/O heart artery stent: (4) Hypertensive urgency: (5) Chronic anticoagulation: (6) HTN (hypertension): (7) Dyslipidemia: Plan: ASSESSMENT/PLAN: 1. NSTEMI: No further angina. Has been having progressive symptoms for the past 6-7 days. Continue heparin drip. Continue aspirin 81 mg daily. Continue carvedilol. Recommend high-intensity statin therapy. Can continue nitrate therapy. Risks and benefits of cardiac catheterization were discussed in detail. Cardiac catheterization will likely be performed Friday, if no urgent indication. Echocardiogram demonstrated normal LV systolic function. Cardiac rehabilitation recommended on discharge. 2. CAD s/p LAD PCI: Presenting symptoms consistent with prior angina. Continue aspirin 81 mg daily. He has been non compliant with aspirin/anticoagulation therapy. Continue beta-destiny. Recommend high-intensity statin therapy. Cardiac rehabilitation recommended after follow-up with Dr. Chavez as an outpatient. Importance of medication compliance has been discussed. 3. Hypertensive urgency/hypertension: Blood pressure was elevated on presentation however his symptoms of angina have been occurring prior to presentation. Blood pressure now well controlled. Medication noncompliance likely the cause of his elevated blood pressure on presentation. He has been noncompliant with his home antihypertensive agents, specifically his ARB/diuretic combination and also carvedilol at times. We discussed the importance of compliance with medical therapy. If he is having issues taking his ARB/diuretic combination, due to frequent urination, we discussed that on discharge these medications can be taken separately so that he at least can take the ARB on a more regular basis. Low-sodium diet. 4. Dyslipidemia: High-intensity statin therapy recommended. 5. Chronic anticoagulation therapy: He is on anticoagulation due to prior DVT and possible hypercoagulable state. Long-term anticoagulation therapy has been recommended by Dr. Chavez. He has been non compliant with Eliquis. We discussed the importance of medication compliance. 6. Disposition: Cardiology will continue to follow. Follow-up with Dr. Chavez on discharge. Admission and Anticipated Discharge Date Admission Date: July 20, 2021 Subjective No further angina. He denies shortness of breath, syncope, palpitations, edema, or bleeding. He was alone in his hospital room. Review of systems: As above. Physical Exam Physical Exam: Gen.: No acute distress. Alert and oriented. HEENT: Anicteric sclera. Neck: Thick neck but no appreciable JVD. Cardiac: PMI was nonpalpable. No ventricular heave. Regular. Normal S1-S2. No murmurs, rubs, or gallops. Pulmonary: Clear to auscultation bilaterally without wheezes, rales, or rhonchi. Abdomen: Soft, nontender, nondistended, with normoactive bowel sounds. No bruits noted. Extremities: 2+ radial pulses bilaterally. 2+ posterior tibialis pulses bilaterally. Trace bilateral lower extremity edema. No cyanosis. Psychiatric: Affect appears appropriate. Results & Data ([facility]) Vital Signs (Past 12 Hours) Vital Signs Temp Pulse Pulse Resp BP Pulse Ox 07/22/21 08:00 36.8 C 57 L 76 18 124/62 96 07/22/21 04:00 37.2 C 65 18 131/75 92 Laboratory Results Laboratory Results - last 24 hr 07/21/21 07/21/21 07/22/21 17:47 17:47 07:29 WBC 8.04 RBC 4.95 Hgb 16.6 Hct 48.4 MCV 97.8 MCH 33.5 MCHC 34.3 RDW Std Deviation 48.2 H RDW Coeff of Guerita 13.5 Plt Count 141 MPV 11.3 H Immature Gran % (Auto) 0.1 Neut % (Auto) 71.4 Lymph % (Auto) 16.5 Gray % (Auto) 10.9 Eos % (Auto) 0.9 Baso % (Auto) 0.2 Neut # (Auto) 5.73 Lymph # (Auto) 1.33 Gray # (Auto) 0.88 H Eos # (Auto) 0.07 Baso # (Auto) 0.02 Immature Gran # (Auto) 0.01 APTT 56.9 H* PTT Ratio 2.2 Sodium Potassium Chloride Carbon Dioxide Anion Gap BUN Creatinine Est Cr Clr Drug Dosing Est GFR ( Amer) Est GFR (Non-Af Amer) BUN/Creatinine Ratio Glucose Calcium Magnesium Troponin I 5.030 H* 07/22/21 07/22/21 07:29 07:29 WBC RBC Hgb Hct MCV MCH MCHC RDW Std Deviation RDW Coeff of Guerita Plt Count MPV Immature Gran % (Auto) Neut % (Auto) Lymph % (Auto) Gray % (Auto) Eos % (Auto) Baso % (Auto) Neut # (Auto) Lymph # (Auto) Gray # (Auto) Eos # (Auto) Baso # (Auto) Immature Gran # (Auto) APTT 67.8 H* PTT Ratio 2.6 Sodium 139 Potassium 3.4 L Chloride 108 H Carbon Dioxide 25 Anion Gap 6.0 BUN 12 Creatinine 0.85 Est Cr Clr Drug Dosing 102.8 Est GFR ( Amer) 103.8 Est GFR (Non-Af Amer) 89.5 BUN/Creatinine Ratio 14.0 Glucose 106 H Calcium 8.8 Magnesium 2.0 Troponin I 4.740 H* Diagnostic Findings Telemetry personally reviewed: Sinus rhythm. ECG personally reviewed from 07/22/2021 at 7:07 a.m.: Sinus rhythm 63 beats per minute. Inferior infarct. Medications Administered Current Inpatient Medications Acetaminophen (Acetaminophen 325 Mg Tab) 650 mg PO Q4H PRN PRN Reason: Pain or Fever Stop: 08/19/21 21:50 Aspirin (Aspirin 81 Mg Ectab) 81 mg PO QAM [facility] Stop: 08/20/21 08:59 Last Admin: 07/22/21 08:31 Dose: 81 mg Documented by: Atorvastatin Calcium (Atorvastatin 40 Mg Tab) 80 mg PO HS [facility] Stop: 08/20/21 20:59 Last Admin: 07/21/21 21:57 Dose: 80 mg Documented by: Carvedilol (Carvedilol 25 Mg Tab) 25 mg PO BIDM [facility] Stop: 08/20/21 07:59 Last Admin: 07/22/21 07:35 Dose: 25 mg Documented by: Hydralazine HCl (Hydralazine Hcl 20 Mg/Ml Vial) 5 mg IV Q4H PRN PRN Reason: SBP >160 and/or DBP>95 Stop: 08/19/21 21:50 Hydrochlorothiazide (Hydrochlorothiazide 25 Mg Tab) 12.5 mg PO DAILY [facility] Stop: 08/20/21 08:59 Last Admin: 07/22/21 08:31 Dose: 12.5 mg Documented by: Heparin Sodium/Dextrose (Heparin Sodium/Dextrose) 25,000 units in 500 mls @ 24 mls/hr IV .[id number] [facility]; Protocol Stop: 08/19/21 19:14 Last Titration: 07/22/21 08:40 Dose: 1,450 units/hr, 29 mls/hr Documented by: Nitroglycerin (Nitroglycerin Sl 0.4 Mg/Tab Tab) 0.4 mg SL UD PRN PRN Reason: Chest Pain Stop: 08/19/21 21:50 Nitroglycerin (Nitroglycerin 2% Ointment 30gm Tube) 1 inch EXT Q6 [facility] Stop: 08/20/21 00:00 Last Admin: 07/22/21 06:40 Dose: 1 inch Documented by: Polyethylene Glycol (Polyethylene (Miralax) 17 Gm Pack) 17 gm PO DAILY PRN PRN Reason: Constipation Stop: 08/19/21 21:50 Valsartan (Valsartan 80 Mg Tab) 160 mg PO QAM [facility] Stop: 08/20/21 08:59 Last Admin: 07/22/21 08:31 Dose: 160 mg Documented by: PG Care Time/CCT Total # of Minutes Spent Total Time Spent with Patient: Total time spent is greater than 50% in coordination of care (as documented) at patient's floor/unit and/or counseling patient: Coding Level of Care Code 27205 Subseq Hosp Care Lvl 3 Diagnoses Non-ST elevation (NSTEMI) myocardial infarction I21.4 CAD (coronary artery disease) I25.10 Coronary Disease-Associated Artery/Lesion type: [place] artery [place] vs. transplanted heart: [place] heart Associated angina: without angina H/O heart artery stent Z95.5 Hypertensive urgency I16.0 Chronic anticoagulation Z79.01 HTN (hypertension) I10 Hypertension type: unspecified Dyslipidemia E78.5 (1) CAD (coronary artery disease) Coronary Disease-Associated Artery/Lesion type: [place] artery [place] vs. transplanted heart: [place] heart Associated angina: without angina Qualified Code(s): I25.10 - Atherosclerotic heart disease of [place] coronary artery without angina pectoris (2) HTN (hypertension) Hypertension type: unspecified Qualified Code(s): I10 - Essential (primary) hypertension
[2021-07-22] MEDS: POTASSIUM CHLORIDE CRTAB 20 MEQ TABCR PO SCH ×2 (11:39→20:29)
[2021-07-22 15:11] LABS: Partial Thromboplastin Ratio 2.5
[2021-07-22 15:13] LABS: Partial Thromboplastin Time 65.2 Seconds (21.0-31.0)
--- NOTE | 2021-07-22 16:51 | Hospitalist Progress Note ---
Date of Service July 22, 2021 Assessment & Plan (1) Elevated troponin I level: Plan: NSTEMI Patient is clinically stable. Trop peaked over 5 and is now downtrending. Will continue heparin drip Plan is for cardiac cath on friday - Limited BB with HR 50-65- continue Carvedilol BID - Continue ASA in the morning - Continue DOROTHY as long as renal indices remain stable - NTG tabs SL PRN - ECHO assess for WMA if no acute changes overnight Dr. Keller is aware of patient case- production reproduction manager if any changes/concerns- appreciate cardiology assistance (2) Hypertensive urgency: Plan: Uncontrolled BP - Urgency vs. Emergency Elevated BP with confusion and chest pressure- symptoms improved from both standards - Bp better controlled following hydralazine and nitropaste - As above (3) CAD (coronary artery disease): Plan: As above - medication compliance - continue BB, ASA - Patient has declined statin therapy in the past - lipid profile: LDL 108 Now on atorvastatin. 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 Review of Systems Review of Systems: All systems reviewed & are unremarkable except as noted in HPI & below Physical Exam Physical Exam: General: awake, alert, no apparent distress Head: Normocephalic, atraumatic ENT: PERRLA, EOMI, no pharyngeal exudate, mucous membranes moist Neuro: AAO x 3, speech clear and appropriate Chest: equal rise and fall of the chest, no accessory muscle use, no heaves or thirlls, Clear to auscultation, on room air, Cardiac: Regular rate and rhythm, telemetry reviewed- Sinus rozina, skin warm dry, cap refill <3 seconds, peripheral pusles +2 no JVD, no murmur, +1 peripheral edema bilateral lower extremities GI: NABS x 4 quadrants, soft, nontender to palpation, no rebound, guarding or tenderness : Spontaneously voiding, no pain, no CVA tenderness, Extremities: Normal inspection, no peripheral edema or erythema, calfs nontender to palpation Psych: Normal mood and affect Skin: no rash or erythema Results & Data Results & Data ([facility]) Vital Signs (Past 12 Hours) Vital Signs Temp Pulse Pulse Resp BP BP Pulse Ox 07/22/21 11:49 36.6 C 54 L 16 133/81 93 07/22/21 08:00 36.8 C 57 L 76 18 124/62 96 PG Care Time/CCT Total # of Minutes Spent Total Time Spent with Patient: Total time spent is greater than 50% in coordination of care (as documented) at patient's floor/unit and/or counseling patient: Coding Level of Care Code 06070 Subseq Hosp Care Lvl 2 Diagnoses Elevated troponin I level R77.8 Hypertensive urgency I16.0 CAD (coronary artery disease) I25.10 Associated angina: without angina Coronary Disease-Associated Artery/Lesion type: [place] artery [place] vs. transplanted heart: [place] heart Dyslipidemia E78.5 Chronic cerebral ischemia I67.82 Dvt femoral (deep venous thrombosis) I82.419 Time Spent (min) 25 (1) CAD (coronary artery disease) Associated angina: without angina Coronary Disease-Associated Artery/Lesion type: [place] artery [place] vs. transplanted heart: [place] heart Qualified Code(s): I25.10 - Atherosclerotic heart disease of [place] coronary artery without angina pectoris
[2021-07-22] MEDS: ATORVASTATIN 40 MG TAB PO SCH (20:28)
[2021-07-23] MEDS: NITROGLYCERIN 2% OINTMENT 30GM TUBE EXT SCH ×3 (00:01→13:44)
[2021-07-23] MEDS: HEPARIN SODIUM/DEXTROSE 25,000 UNITS/500 ML BAG IV SCH ×2 (01:04→10:27)
--- NOTE | 2021-07-23 06:19 | Electrocardiogram Report ---
Test Reason : Blood Pressure : / mmHG Vent. Rate : 063 BPM Atrial Rate : 063 BPM P-R Int : 166 ms QRS Dur : 098 ms QT Int : 400 ms P-R-T Axes : -09 -15 011 degrees QTc Int : 409 ms Normal sinus rhythm Inferior infarct , age undetermined Abnormal ECG When compared with ECG of 21-JUL-2021 05:26, Inferior infarct is now Present Confirmed by Randy Patel ([id number]) on 07/23/2021 6:19:41 AM Referred By: REFERRED SELF Confirmed By:Randy Patel
[2021-07-23 07:17] LABS: Basophils # (auto) 0.02 K/uL (0-0.2); Basophils % (auto) 0.3 %; Eosinophils # (auto) 0.08 K/uL (0-0.5); Eosinophils % (auto) 1.2 %; Hematocrit (blood only) 47.5 % (42-52); Immature Granulocytes # (auto) 0.02 K/uL (0.00-0.02); Immature Granulocytes % (auto) 0.3 %; Lymphocytes # (auto) 1.51 K/uL (1.2-3.4); Lymphocytes % (auto) 23.1 %; Mean Corpuscular Hgb Conc 33.7 g/dL (32-36); Mean Corpuscular Volume 97.9 fL (80-100); Mean Platelet Volume 11.1 fL (7.4-10.4); Monocytes % (auto) 10.7 %; Neutrophils # (auto) 4.22 K/uL (1.4-6.5); Neutrophils % (auto) 64.4 %; Platelet Count 146 K/uL (130-400); RDW Coefficient of Variation 13.3 % (11.5-14.5); RDW Standard Deviation 47.9 fL (36.4-46.3); Red Blood Count 4.85 M/uL (4.7-6.1); White Blood Count 6.55 K/uL (4.8-10.8)
[2021-07-23 07:39] LABS: Partial Thromboplastin Ratio 2.8
[2021-07-23 07:42] LABS: BUN Creatinine Ratio 17.4 (10-20); Calcium 8.7 mg/dl (8.5-10.1); Creatinine Clr Calc Pharmacy 97.8 ml/min; Est GFR (African American) 102.3 ml/min; Est GFR (Non-African American) 88.3 ml/min; Magnesium 1.9 mg/dl (1.8-2.4); Potassium 3.6 mmol/L (3.5-5.1)
[2021-07-23 07:51] LABS: Partial Thromboplastin Time 73.7 Seconds (21.0-31.0)
[2021-07-23] MEDS: POTASSIUM CHLORIDE CRTAB 20 MEQ TABCR PO SCH (07:58)
[2021-07-23] MEDS: VALSARTAN 80 MG TAB PO SCH (07:58)
[2021-07-23] MEDS: hydroCHLOROthiazide 25 MG TAB PO SCH (07:58)
[2021-07-23] MEDS: carvediloL 25 MG TAB PO SCH ×2 (07:59→16:36)
[2021-07-23] MEDS: ASPIRIN 81 MG ECTAB PO SCH (07:59)
[2021-07-23] MEDS ORDERED: HEPARIN (PORCINE) 1000 UNIT/ML 10 ML (CATH LAB USE ONLY) ONE (11:19)
[2021-07-23] MEDS ORDERED: MIDAZOLAM HCL 1 MG/ML 2ML VIAL ONE ×2 (11:19→12:28)
[2021-07-23] MEDS ORDERED: niCARdipine HCL INJ 2.5 MG/ML 10 ML AMP ONE (11:19)
[2021-07-23] MEDS ORDERED: fentaNYL citrate 100 MCG/2 ML VIAL ONE (11:20)
[2021-07-23] MEDS ORDERED: NITROGLYCERIN/D5W 100MCG/ML 20ML SYR ONE (11:20)
--- NOTE | 2021-07-23 11:42 | Pre Anesthesia Assessment ---
Date of Service July 23, 2021 Pre Sedation Assessment Vital Signs Temp Pulse Resp BP BP Pulse Ox 07/23/21 07:21 36.5 C 58 L 18 150/85 H 92 07/23/21 04:18 37.2 C 63 16 127/70 95 07/23/21 00:01 37.2 C 72 20 110/67 95 07/22/21 19:29 36.8 C 67 18 108/61 98 07/22/21 17:00 36.9 C 73 20 134/60 99 07/22/21 11:49 36.6 C 54 L 16 133/81 93 Cardiovascular + bradycardic Respiratory normal respiratory effort, lungs clear to auscultation Pre-Sedation Airway Assessment Smoking Status: Never smoker Short, Thick Neck: No Thyromental Distance: > or= 3.5 Finger Breadths Oral Cavity: + WNL Mallampati Class: III ASA: ASA3 NPO Status Date of Last Intake of Fluids: 07/22/21 Time of Last Intake of Fluids: 23:00 Date of Last Intake of Solid Food: 07/22/21 Time of Last Intake of Solid Foods: 23:00 Procedure Planning Contraindications for Sedation: none Current Medications Reviewed: Yes Notes The planned sedation has been discussed with the patient. Informed Consent was obtained. I have identified the patient, determined the appropriateness of sedation and have assessed the patient immediately prior to the procedure. All medicine(s) and interventions are by my order.
[2021-07-23] MEDS ORDERED: CLOPIDOGREL BISULFATE 300 MG TAB ONE (13:01)
--- NOTE | 2021-07-23 13:08 | Post Anesthesia Assessment ---
Date of Service July 23, 2021 Post Sedation Assessment Vital Signs Temp Pulse Resp BP Pulse Ox 07/23/21 07:21 97.7 F 58 L 18 150/85 H 92 07/23/21 04:18 99.0 F 63 16 127/70 95 07/23/21 00:01 99.0 F 72 20 110/67 95 07/22/21 19:29 98.2 F 67 18 108/61 98 07/22/21 17:00 98.4 F 73 20 134/60 99 Recovery Score Activity: Moves 4 extremities Respiration: Deep Breath/Cough Circulation: +/-20% PreAnes Value Consciousness: Fully Awake Oxygen Saturation: O2 needed for >90% Discharge Sedation Level of Care: Fast Track Phase II Post Sedation Plan On clinical assessment, the patient appears to have tolerated the sedation without complications. Patient is recovering as anticipated. Patient will continue to be monitored by nursing and may be discharged when sedation discharge criteria are met per below protocol. Upon Completions of procedure up to 15 minutes continue every 5 minute vital signs and the P.A.R. score; then discharge to a Phase I or Fast Track to Phase II per the following guidelines: * Discharge Patient to appropriate Phase II area if PAR is 8 or greater or return to pre- procedure baseline. The post - procedure orders will be as directed. * If PAR score is less than 8 or not return to pre-procedure baseline then patient will follow Phase I monitoring till PAR is reached for Phase II. The Phase I may be done in procedure room or may call to secure a Phase I area. * If naloxone or flumazenil are used for reversal, hold in Phase I for continued monitoring from when last reversal dose was given for a minimum of 60 minutes or longer pending the nurse and/or physician discretion of patient condition before discharge to Phase II. Please call the Sedation Physician to re-evaluate and complete post-note for discharge to Phase II area. Do NOT discharge from procedure sedation or Phase 1 until post- sedation evaluation note is complete by procedure /sedation MD Sedation Discharge Instructions to be given to the patient at discharge to home.
--- NOTE | 2021-07-23 13:12 | Cardiac Catheterization ---
[facility] Data: Cartridge Gauger Cardiac Status Clinical evaluation leading to the procedure CAD Presenation: Non STEMI Anginal Classification: CCS IV Heart Failure: No Cardiogenic Shock within 24 Hours: No Cardiac Arrest within 24 Hours: No Imaging Studies Past 6 Months: Yes Stress Studies Past 6 Months: No Coronary Anatomy Dominant: Right Diagnostic Physicians Name: Randy Patel MD Status: Elective Closure Device Percutaneous Entry Location: Radial Closure Device: Radial Band Recommendations: PCI without planned CABG Cardiac Cath Procedure Full Procedure Date July 23, 2021 Pre-Procedure Diagnosis Pre-Procedure Diagnosis: Non STEMI AUC Score AUC Score: 9 Post-Procedure Diagnosis Post-Procedure Diagnosis: Severe CAD and Normal Intracardiac Pressures Procedure(s) Performed Procedure(s) Performed: Coronary Angiography and Left Heart Cath Technical Product Manager Randy Patel MD Wedding Photographer(s) Painter And Decorator Apprentice Estimated Blood Loss Estimated Blood Loss: < 25 ml Medication(s) Medication(s): Fentanyl, Heparin, Lidocaine 1%, Nicardipine and Versed Summary of Findings Procedures: 1. Coronary angiography 2. Left heart catheterization 3. Moderate sedation Indication: 70-year-old gentleman with a history significant for CAD, mid LAD PCI (2017), dyslipidemia, hypertension, and chronic anticoagulation for prior DVT who presented with NSTEMI and his typical anginal symptoms. Coronary angiography: 1. Left main: No significant CAD. 2. Left anterior descending: Proximal LAD 40-50%, similar to previous study in 2017. Mid LAD stent is widely patent. D1 and D2 without significant CAD. 3. Circumflex: Circumflex, high OM1, OM2 without significant CAD. 4. Right coronary artery: RCA is dominant vessel. Proximal to mid RCA 30-40%. Mid to distal RCA luminal irregularities. Distal RCA focal 98% stenosis. PDA, PL1 and PL 2 without significant CAD. Left heart catheterization: 1. Left ventriculography was not performed. 2. No aortic stenosis. Peak to peak gradient across the aortic valve was 0. 3. Normal LVEDP; 11 mmHg. Moderate sedation: 1. Sedation start time: 12:08 p.m. 2. Sedation end time: 12:35 p.m. Impression: 1. Severe distal RCA CAD. 2. Patent mid LAD stent. 3. Otherwise, nonobstructive CAD. 4. Normal left-sided filling pressure. 5. No aortic stenosis. Plan: 1. Dr. Keller of interventional Cardiology was asked to review images and plans to perform PCI of distal RCA. 2. Risk factor modification. 3. Medication compliance. Hemodynamics Rest Ao:: 138/70 Final Ao: 131/72 LV: 128/6/11 Recommendations Recommendations: PCI without planned CABG Specimens Specimens: None Radiation Exposure (mGy) 1050 mGy. Fluoro time 3.4 min. Contrast (mls) 50 ml Procedural Complication(s) None Disposition PCU (after PCI) I attest to the content of the Intraoperative Record and any orders documented therein. Any exceptions are noted below. [facility] Card Cath Procedure Codes Cardiac Catheterization Procedure 1: Cardiovascular Cath Procedures: 09617 Coronaries and LHC (+/-LV) Moderate Sedation Procedure 1: Sedation/Anesthesia: 81972 Mod Sedation by the same physician;Init15 Min Child Age 5 & Up Procedure 2: Sedation/Anesthesia: 29932 Mod Sedation by the same physician; Ea William [email or web address] Minutes PG Care Time/CCT Total # of Minutes Spent Total Time Spent with Patient: Total time spent is greater than 50% in coordination of care (as documented) at patient's floor/unit and/or counseling patient:
--- NOTE | 2021-07-23 13:17 | Post Operative Brief Note ---
Cardiology Brief Post Op Date of Surgery July 23, 2021 Pre & Post Diagnosis CAD Procedure Cardiac cath/PCI Promotion Writer Jose Keller MD Thermospray Operator Varnish Inspector Estimated Blood Loss 10 Findings See Below -98% distal RCA -Successful PCI of distal RCA with single GENOVEVA (2.5 x 15 Bhupinder; post-dilated with 2.75 NC). Drains Other Anesthesia Type RN Sedation Complications none Disposition Accompanied Patient To Recovery: No Disposition: PCU Overlapping Procedure I was present for: the critical portions of procedure. I was immediately available: during the entire case. Back up surgeon: was not required during procedure.
--- NOTE | 2021-07-23 14:04 | Cardiology Progress Note ---
Date of Service July 23, 2021 Assessment & Plan (1) Non-ST elevation (NSTEMI) myocardial infarction: (2) CAD (coronary artery disease): (3) H/O heart artery stent: (4) Hypertensive urgency: (5) Chronic anticoagulation: (6) HTN (hypertension): (7) Dyslipidemia: Plan: ASSESSMENT/PLAN: 1. NSTEMI: No further angina. Underwent PCI of distal RCA earlier today. Continue aspirin 81 mg daily. Continue Plavix 75 mg daily. Continue carvedilol. Continue high-intensity statin therapy. Continue ARB. Echocardiogram demonstrated normal LV systolic function. Cardiac rehabilitation recommended on discharge. 2. CAD s/p LAD and RCA PCI: Previous LAD stent was patent. Underwent placement of distal RCA stent on 07/23/2021. No further angina. Continue aspirin 81 mg daily. Continue Plavix 75 mg daily. He has been non compliant with aspirin/anticoagulation therapy. Continue beta-destiny. Continue high- intensity statin therapy. Cardiac rehabilitation recommended after follow-up with Dr. Chavez as an outpatient. Importance of medication compliance has been discussed. 3. Hypertensive urgency/hypertension: Blood pressure has been mostly normal after presenting hypertensive. His uncontrolled hypertension was likely due to medication noncompliance. Continue current regimen of beta-destiny, ARB, and HCTZ. On discharge, would recommend ARB and HCTZ separately as he often skips this medication due to the diuretic affect and therefore misses 2 medications rather than 1. Medication compliance has been strongly recommended. 4. Dyslipidemia: High-intensity statin therapy was started this hospitalization as he previously had declined as an outpatient according to records. We discussed this today and the importance of statin therapy going forward. He was agreeable to take the medication. 5. Chronic anticoagulation therapy: He is on anticoagulation due to prior DVT and possible hypercoagulable state. Long-term anticoagulation therapy has been recommended by Dr. Chavez. He has been non compliant with Eliquis. We discussed the importance of medication compliance. 6. Disposition: Cardiology will continue to follow. Follow-up with Dr. Chavez on discharge. Cardiac rehabilitation as an outpatient. His son, Lul, was contacted via telephone and updated on today's catheterization findings and overall treatment plan. Dr. Horn of the primary hospitalist service was notified of catheterization findings. A call was placed to Dr. Chavez to update him about patient's hospitalization and treatment thus far. Admission and Anticipated Discharge Date Admission Date: July 20, 2021 Subjective He has not had any further angina. He denies shortness of breath. He has had twinges in his chest, unlike prior angina. These occurred overnight. He denies syncope, near-syncope, palpitations, edema, or bleeding. He underwent cardiac catheterization. His mid LAD stent was patent but he was found to have a severe distal RCA stenosis of approximately 98%. He underwent PCI with Dr. Keller and appeared to tolerate the procedure well. Review of systems: As above. Physical Exam Physical Exam: Gen.: No acute distress. Alert and oriented. HEENT: Anicteric sclera. Neck: Thick neck but no appreciable JVD. Cardiac: No ventricular heave. Regular. No ectopy. Normal S1-S2. No murmurs, rubs, or gallops. Pulmonary: Clear to auscultation bilaterally without wheezes, rales, or rhonchi. Abdomen: Soft, nontender, nondistended, with normoactive bowel sounds. No bruits noted. Extremities: 2+ radial pulses bilaterally. 2+ posterior tibialis pulses bilaterally. Trace bilateral lower extremity edema. No cyanosis. Psychiatric: Affect appears appropriate. Results & Data ([facility]) Vital Signs (Past 12 Hours) Vital Signs Temp Pulse Resp BP Pulse Ox 07/23/21 13:39 36.5 C 65 20 149/78 H 92 07/23/21 07:21 36.5 C 58 L 18 150/85 H 92 07/23/21 04:18 37.2 C 63 16 127/70 95 Laboratory Results Laboratory Results - last 24 hr 07/22/21 07/23/21 07/23/21 14:37 06:52 06:52 WBC 6.55 RBC 4.85 Hgb 16.0 Hct 47.5 MCV 97.9 MCH 33.0 MCHC 33.7 RDW Std Deviation 47.9 H RDW Coeff of Guerita 13.3 Plt Count 146 MPV 11.1 H Immature Gran % (Auto) 0.3 Neut % (Auto) 64.4 Lymph % (Auto) 23.1 [place] % (Auto) 10.7 Eos % (Auto) 1.2 Baso % (Auto) 0.3 Neut # (Auto) 4.22 Lymph # (Auto) 1.51 [place] # (Auto) 0.70 H Eos # (Auto) 0.08 Baso # (Auto) 0.02 Immature Gran # (Auto) 0.02 APTT 65.2 H* 73.7 H* PTT Ratio 2.5 2.8 Activ Coag Time Kaolin Sodium Potassium Chloride Carbon Dioxide Anion Gap BUN Creatinine Est Cr Clr Drug Dosing Est GFR ( Amer) Est GFR (Non-Af Amer) BUN/Creatinine Ratio Glucose Calcium Magnesium 07/23/21 07/23/21 07/23/21 06:52 12:20 12:50 WBC RBC Hgb Hct MCV MCH MCHC RDW Std Deviation RDW Coeff of Guerita Plt Count MPV Immature Gran % (Auto) Neut % (Auto) Lymph % (Auto) [place] % (Auto) Eos % (Auto) Baso % (Auto) Neut # (Auto) Lymph # (Auto) [place] # (Auto) Eos # (Auto) Baso # (Auto) Immature Gran # (Auto) APTT PTT Ratio Activ Coag Time Kaolin 125 279 H Sodium 141 Potassium 3.6 Chloride 109 H Carbon Dioxide 26 Anion Gap 6.0 BUN 15 Creatinine 0.88 Est Cr Clr Drug Dosing 97.8 Est GFR ( Amer) 102.3 Est GFR (Non-Af Amer) 88.3 BUN/Creatinine Ratio 17.4 Glucose 106 H Calcium 8.7 Magnesium 1.9 Diagnostic Findings ECG personally reviewed 07/23/2021 at 6:11 a.m.: Sinus rhythm 62 beats per minute. Inferior infarct. Cardiac catheterization 07/23/2021: Coronary angiography: 1. Left main: No significant CAD. 2. Left anterior descending: Proximal LAD 40-50%, similar to previous study in 2017. Mid LAD stent is widely patent. D1 and D2 without significant CAD. 3. Circumflex: Circumflex, high OM1, OM2 without significant CAD. 4. Right coronary artery: RCA is dominant vessel. Proximal to mid RCA 30-40%. Mid to distal RCA luminal irregularities. Distal RCA focal 98% stenosis. PDA, PL1 and PL 2 without significant CAD. Left heart catheterization: 1. Left ventriculography was not performed. 2. No aortic stenosis. Peak to peak gradient across the aortic valve was 0. 3. Normal LVEDP; 11 mmHg. Medications Administered Current Inpatient Medications Acetaminophen (Acetaminophen 325 Mg Tab) 650 mg PO Q4H PRN PRN Reason: Pain or Fever Stop: 10/24/21 21:50 Aspirin (Aspirin 81 Mg Ectab) 81 mg PO QAM [facility] Stop: 08/20/21 08:59 Last Admin: 07/23/21 07:59 Dose: 81 mg Documented by: Atorvastatin Calcium (Atorvastatin 40 Mg Tab) 80 mg PO HS [facility] Stop: 08/20/21 20:59 Last Admin: 07/22/21 20:28 Dose: 80 mg Documented by: Carvedilol (Carvedilol 25 Mg Tab) 25 mg PO BIDM [facility] Stop: 08/20/21 07:59 Last Admin: 07/23/21 07:59 Dose: 25 mg Documented by: Clopidogrel Bisulfate (Clopidogrel Bisulfate 75 Mg Tab) 75 mg PO QAM [facility] Stop: 08/23/21 08:59 Hydralazine HCl (Hydralazine Hcl 20 Mg/Ml Vial) 5 mg IV Q4H PRN PRN Reason: SBP >160 and/or DBP>95 Stop: 08/19/21 21:50 Hydrochlorothiazide (Hydrochlorothiazide 25 Mg Tab) 12.5 mg PO DAILY [facility] Stop: 08/20/21 08:59 Last Admin: 07/23/21 07:58 Dose: 12.5 mg Documented by: Sodium Chloride (Nss 1000ml) 1,000 mls @ 100 mls/hr IV .Q10H [facility] Nitroglycerin (Nitroglycerin Sl 0.4 Mg/Tab Tab) 0.4 mg SL UD PRN PRN Reason: Chest Pain Stop: 08/19/21 21:50 Polyethylene Glycol (Polyethylene (Miralax) 17 Gm Pack) 17 gm PO DAILY PRN PRN Reason: Constipation Stop: 08/19/21 21:50 Valsartan (Valsartan 80 Mg Tab) 160 mg PO QAM [facility] Stop: 08/20/21 08:59 Last Admin: 07/23/21 07:58 Dose: 160 mg Documented by: PG Care Time/CCT Total # of Minutes Spent Total Time Spent with Patient: Total time spent is greater than 50% in coordination of care (as documented) at patient's floor/unit and/or counseling patient: Coding Level of Care Code 75307 Subseq Hosp Care Lvl 3 Diagnoses Non-ST elevation (NSTEMI) myocardial infarction I21.4 CAD (coronary artery disease) I25.10 Coronary Disease-Associated Artery/Lesion type: [place] artery [place] vs. transplanted heart: [place] heart Associated angina: without angina H/O heart artery stent Z95.5 Hypertensive urgency I16.0 Chronic anticoagulation Z79.01 HTN (hypertension) I10 Hypertension type: unspecified Dyslipidemia E78.5 (1) CAD (coronary artery disease) Coronary Disease-Associated Artery/Lesion type: [place] artery [place] vs. transplanted heart: [place] heart Associated angina: without angina Qualified Code(s): I25.10 - Atherosclerotic heart disease of [place] coronary artery without angina pectoris (2) HTN (hypertension) Hypertension type: unspecified Qualified Code(s): I10 - Essential (primary) hypertension
[2021-07-23] MEDS: SODIUM CHLORIDE 0.9% 1000ML 1,000 ML IV SCH ×2 (14:17→20:37)
--- NOTE | 2021-07-23 14:22 | Hospitalist Progress Note ---
Date of Service July 23, 2021 Assessment & Plan (1) Elevated troponin I level: Plan: NSTEMI. - S/p [facility] on 07/23 with 1 stent to the distal RCA with Dr. Patel and Dr. Keller. - Continue ASA/Plavix x 1 year - Continue beta-destiny - Continue valsartan. - Continue statin (2) Hypertensive urgency: Plan: Uncontrolled BP - Urgency vs. Emergency. Likely from not taking medications at home per prior notes. - Meds as above (3) CAD (coronary artery disease): Plan: As above. (4) Chronic cerebral ischemia: Plan: Chronic - cerebral microvascular disease. - CTA of the neck without acute stenosis/disease (5) Dvt femoral (deep venous thrombosis): Plan: Is on apixaban 2.5mg - 06/10/21 left lower extremity long segment superficial clot and RLE 12/2020- for DVT right lower extremity. 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 No pain at present. Reports no fevers/chills, chest pain, shortness of breath, abdominal pain, nausea, or vomiting. Physical Exam Constitutional: WD/WN, vitals as above Eyes: EOM intact bilaterally; no conjunctival abnormality ENMT: external ear and nose normal, oropharynx normal Neck: trachea midline, no thyromegaly normal visual inspection Respiratory: normal respiratory effort, lungs clear to auscultation no respiratory distress Cardiovascular: RRR, no murmur, no edema Gastrointestinal (Abdomen): Inspection/Auscultation: abdomen normal to inspection; abdomen not distended Musculoskeletal: no cyanosis or clubbing, extremities motor strength 5/5 Right wrist with pressure device Skin: no rashes, warm and dry Neurologic: moves all extremities and awake Psychiatric: Orientation: alert, oriented to person and cooperative Results & Data Results & Data ([facility]) Vital Signs (Past 12 Hours) Vital Signs Temp Pulse Resp BP Pulse Ox 07/23/21 13:54 36.5 C 65 127/64 07/23/21 13:39 36.5 C 65 20 149/78 H 92 07/23/21 07:21 36.5 C 58 L 18 150/85 H 92 07/23/21 04:18 37.2 C 63 16 127/70 95 PG Care Time/CCT Total # of Minutes Spent Total Time Spent with Patient: Total time spent is greater than 50% in coordination of care (as documented) at patient's floor/unit and/or counseling patient: Coding Level of Care Code 06698 Subseq Hosp Care Lvl 3 Diagnoses Elevated troponin I level R77.8 Hypertensive urgency I16.0 CAD (coronary artery disease) I25.10 Coronary Disease-Associated Artery/Lesion type: [place] artery [place] vs. transplanted heart: [place] heart Associated angina: without angina Chronic cerebral ischemia I67.82 Dvt femoral (deep venous thrombosis) I82.419 (1) CAD (coronary artery disease) Coronary Disease-Associated Artery/Lesion type: [place] artery [place] vs. transplanted heart: [place] heart Associated angina: without angina Qualified Code(s): I25.10 - Atherosclerotic heart disease of [place] coronary artery without angina pectoris
--- NOTE | 2021-07-23 16:43 | Cardiac Catheterization ---
[facility] Data: Sewer Cardiac Status Clinical evaluation leading to the procedure CAD Presenation: Non STEMI Anginal Classification: CCS IV Heart Failure: No Cardiogenic Shock within 24 Hours: No Cardiac Arrest within 24 Hours: No Imaging Studies Past 6 Months: Yes Stress Studies Past 6 Months: No Diagnostic Physicians Name: Jose Keller MD Status: Elective Closure Device Percutaneous Entry Location: Radial Closure Device: Radial Band Recommendations: PCI without planned CABG PCI Indication: PCI for high risk Non-JERI Lesion Segment Name: distal RCA Culprit Artery: Yes Stenosis Prior to Rx (%): 98 Chronic Total Occlusion: No IVUS: No FFR: No Pre-Procedure MARIAMA Flow: 3 Previously Treated Lesion: No Lesion Complexity: Non-High/Non-C Lesion Length (mm): 120 Thrombus Present: Yes Bifurcation Lesion: No Guidewire Across Lesion: Stenosis Post-Procedure (%): 0 Post-Procedure MARIAMA Flow: 3 Devices(s) Deployed: Yes Yes Intraprocedure Events Significant Disection: No Perforation: No Cardiac Cath Procedure Full Procedure Date July 23, 2021 Pre-Procedure Diagnosis Pre-Procedure Diagnosis: Non STEMI AUC Score AUC Score: 8 Post-Procedure Diagnosis Post-Procedure Diagnosis: Severe CAD Procedure(s) Performed Procedure(s) Performed: Coronary Angiography and Drug Eluting Stent Chicken Raiser Jose Keller MD Energy Sales Consultant(s) Build Master Estimated Blood Loss Estimated Blood Loss: < 25 ml Medication(s) Medication(s): Clopidogrel, Fentanyl, Heparin, Lidocaine 1%, Nicardipine and Versed Summary of Findings Indication: High risk NSTEMI Access: 6 Fr right radial artery Catheters: JR4 guide, telescope support catheter Findings: For full details of patient's coronary angiography please see cath report dictated by Dr. Patel. Briefly, patient found to have severe single vessel disease with a 98% distal RCA stenosis Decision to proceed with PCI. -- PCI -- Antithrombotic therapy: Heparin, clopidogrel Procedure: RCA cannulated with JR4 guide Civil Service Worker 50 wire passed across lesion into distal vessel Distal RCA lesion predilated with 2.5 compliant balloon Dilated lesion stented with 2.5 x 15 mm Bhupinder drug-eluting stent Stent post-dilated with 2.75 noncompliant balloon IC vasodilators administered for spasm Post procedure MARIAMA 3 flow, stent well expanded with minimal residual stenosis and no apparent cardiac complications. Arterial Closure: TR band Summary: 1. Successful PCI of distal RCA with single drug-eluting stent (2.5 x 15 mm [place]; postdilated with 2.75 NC). Recommendations: To PCU for continued monitoring Loaded with clopidogrel 600 mg in Sewer Continue triple therapy with apixaban, clopidogrel, aspirin for 1 week. After 1 week discontinue aspirin and continue dual therapy with apixaban, clopidogrel for at least 6 months. Continue statin, and ASCVD risk factor modification Consult cardiac Rehab Hemodynamics Rest Ao:: 119/66/88 Final Ao: 98/64/85 LV: -- Recommendations Recommendations: PCI without planned CABG Specimens Specimens: None Radiation Exposure (mGy) 2927 Contrast (mls) 85 Fluids (cc crystalloids) Fluids (cc crystalloids): none Drains Drains: none Anesthesia moderate 3900-3239 Procedural Complication(s) None Disposition PCU (after PCI) I attest to the content of the Intraoperative Record and any orders documented therein. Any exceptions are noted below. [facility] Card Cath Procedure Codes Moderate Sedation Procedure 1: Sedation/Anesthesia: 54545 Mod Sedation by the same physician; Ea [id number] Minutes Stenting Procedure 1: Cardiovascular Stent Procedures: 76572 Perc transcatheter placement of intracoronary stent(s), with ang PG Care Time/CCT Total # of Minutes Spent Total Time Spent with Patient: Total time spent is greater than 50% in coordination of care (as documented) at patient's floor/unit and/or counseling patient:
[2021-07-23] MEDS: ATORVASTATIN 40 MG TAB PO SCH (20:36)
--- NOTE | 2021-07-24 06:38 | Electrocardiogram Report ---
Test Reason : Blood Pressure : / mmHG Vent. Rate : 062 BPM Atrial Rate : 062 BPM P-R Int : 162 ms QRS Dur : 102 ms QT Int : 406 ms P-R-T Axes : -10 -12 -11 degrees QTc Int : 412 ms Normal sinus rhythm Inferior infarct (cited on or before 16-SEP-2017) Abnormal ECG When compared with ECG of 22-JUL-2021 07:07, No significant change was found Confirmed by Randy Patel ([id number]) on 07/24/2021 6:37:30 AM Referred By: REFERRED SELF Confirmed By:Randy Patel
[2021-07-24 07:14] LABS: Hematocrit (blood only) 48.1 % (42-52); Hemoglobin 16.2 g/dL (14.0-18.0); Mean Corpuscular Hemoglobin 32.9 pg (25-34); Mean Corpuscular Hgb Conc 33.7 g/dL (32-36); Mean Corpuscular Volume 97.8 fL (80-100); Mean Platelet Volume 11.2 fL (7.4-10.4); Platelet Count 143 K/uL (130-400); RDW Coefficient of Variation 13.2 % (11.5-14.5); RDW Standard Deviation 47.4 fL (36.4-46.3); Red Blood Count 4.92 M/uL (4.7-6.1); White Blood Count 6.58 K/uL (4.8-10.8)
--- NOTE | 2021-07-24 07:17 | Cardiology Progress Note ---
Date of Service July 24, 2021 Assessment & Plan (1) Non-ST elevation (NSTEMI) myocardial infarction: (2) CAD (coronary artery disease): (3) H/O heart artery stent: (4) Hypertensive urgency: (5) Chronic anticoagulation: (6) HTN (hypertension): (7) Dyslipidemia: Plan: ASSESSMENT/PLAN: 1. NSTEMI: No further angina. Underwent PCI of distal RCA on 07/23/2021. He tolerated the procedure well. Continue aspirin 81 mg daily. Continue Plavix 75 mg daily. Continue carvedilol. Continue high-intensity statin therapy. Continue ARB. Echocardiogram demonstrated normal LV systolic function. Cardiac rehabilitation recommended on discharge. 2. CAD s/p LAD and RCA PCI: Previous LAD stent was patent. Underwent placement of distal RCA stent on 07/23/2021. No further angina. Continue aspirin 81 mg daily x 1 week with plavix 75 mg daily and his chronic eliquis 5 mg at bid. After 1 week, d/c aspirin and continue plavix with eliquis for 1 year. Medication compliance once again stressed. Continue beta-destiny. Continue high-intensity statin therapy. Cardiac rehabilitation recommended after follow- up with Dr. Chavez as an outpatient. 3. Hypertensive urgency/hypertension: Blood pressure has been mostly normal after presenting hypertensive. His uncontrolled hypertension was likely due to medication noncompliance. Continue current regimen of beta-destiny, ARB, and HCTZ. On discharge, would recommend ARB and HCTZ separately as he often skips this medication due to the diuretic affect and therefore misses 2 medications rather than 1. Medication compliance has been strongly recommended. 4. Dyslipidemia: High-intensity statin therapy was started this hospitalization as he previously had declined as an outpatient according to records. Continue statin therapy. 5. Chronic anticoagulation therapy: He is on anticoagulation due to prior DVT and possible hypercoagulable state. Long-term anticoagulation therapy has been recommended by Dr. Chavez. He has been non compliant with Eliquis. We discussed the importance of medication compliance. 6. Disposition: Follow-up with Dr. Chavez in approximately 1 week. Patient care communicated with Dr. Horn of the primary hospitalist service. Earle for discharge from a cardiology standpoint. Admission and Anticipated Discharge Date Admission Date: July 20, 2021 Subjective No angina. No shortness of breath. When he was seen earlier this morning, he had tolerated exertion in his hospital room but had not yet walked in the hallway. He was encouraged to walk in the hallway prior to discharge. He denies syncope, palpitations, edema, or bleeding. Review of systems: As above. Physical Exam Physical Exam: Gen.: No acute distress. Alert and oriented. HEENT: Anicteric sclera. Neck: Thick neck but no appreciable JVD. Cardiac: No ventricular heave. Regular. No ectopy. Normal S1-S2. No murmurs, rubs, or gallops. Pulmonary: Clear to auscultation bilaterally without wheezes, rales, or rhonchi. Abdomen: Soft, nontender, nondistended, with normoactive bowel sounds. No bruits noted. Extremities: 2+ radial pulses bilaterally. Right radial cath site is clean, dry, and intact without erythema or discharge. 2+ posterior tibialis pulses bilaterally. Trace bilateral lower extremity edema. No cyanosis. Psychiatric: Affect appears appropriate. Results & Data ([facility]) Vital Signs (Past 12 Hours) Vital Signs Temp Pulse Pulse Resp BP Pulse Ox 07/24/21 03:03 36.8 C 68 18 156/89 H 94 07/23/21 22:45 36.8 C 63 17 135/78 93 07/23/21 22:20 66 Laboratory Results Laboratory Results - last 24 hr 07/23/21 07/23/21 07/24/21 12:20 12:50 06:37 WBC 6.58 RBC 4.92 Hgb 16.2 Hct 48.1 MCV 97.8 MCH 32.9 MCHC 33.7 RDW Std Deviation 47.4 H RDW Coeff of Guerita 13.2 Plt Count 143 MPV 11.2 H Activ Coag Time Kaolin 125 279 H Sodium Potassium Chloride Carbon Dioxide Anion Gap BUN Creatinine Est Cr Clr Drug Dosing Est GFR ( Amer) Est GFR (Non-Af Amer) BUN/Creatinine Ratio Glucose Calcium Magnesium 07/24/21 06:37 WBC RBC Hgb Hct MCV MCH MCHC RDW Std Deviation RDW Coeff of Guerita Plt Count MPV Activ Coag Time Kaolin Sodium 141 Potassium 3.7 Chloride 111 H Carbon Dioxide 25 Anion Gap 5.0 BUN 15 Creatinine 0.85 Est Cr Clr Drug Dosing 101.3 Est GFR ( Amer) 103.8 Est GFR (Non-Af Amer) 89.5 BUN/Creatinine Ratio 17.4 Glucose 95 Calcium 8.6 Magnesium 2.1 Diagnostic Findings Telemetry personally reviewed: Sinus rhythm. No arrhythmia. Medications Administered Current Inpatient Medications Acetaminophen (Acetaminophen 325 Mg Tab) 650 mg PO Q4H PRN PRN Reason: Pain or Fever Stop: 08/19/21 21:50 Aspirin (Aspirin 81 Mg Ectab) 81 mg PO QAM [facility] Stop: 08/20/21 08:59 Last Admin: 07/23/21 07:59 Dose: 81 mg Documented by: Atorvastatin Calcium (Atorvastatin 40 Mg Tab) 80 mg PO HS [facility] Stop: 08/20/21 20:59 Last Admin: 07/23/21 20:36 Dose: 80 mg Documented by: Carvedilol (Carvedilol 25 Mg Tab) 25 mg PO BIDM [facility] Stop: 08/20/21 07:59 Last Admin: 07/23/21 16:36 Dose: 25 mg Documented by: Clopidogrel Bisulfate (Clopidogrel Bisulfate 75 Mg Tab) 75 mg PO QAM [facility] Stop: 08/23/21 08:59 Hydralazine HCl (Hydralazine Hcl 20 Mg/Ml Vial) 5 mg IV Q4H PRN PRN Reason: SBP >160 and/or DBP>95 Stop: 08/19/21 21:50 Hydrochlorothiazide (Hydrochlorothiazide 25 Mg Tab) 12.5 mg PO DAILY [facility] Stop: 08/20/21 08:59 Last Admin: 07/23/21 07:58 Dose: 12.5 mg Documented by: Sodium Chloride (Nss 1000ml) 1,000 mls @ 100 mls/hr IV .Q10H [facility] Last Admin: 07/23/21 20:37 Dose: 100 mls/hr Documented by: Nitroglycerin (Nitroglycerin Sl 0.4 Mg/Tab Tab) 0.4 mg SL UD PRN PRN Reason: Chest Pain Stop: 08/19/21 21:50 Polyethylene Glycol (Polyethylene (Miralax) 17 Gm Pack) 17 gm PO DAILY PRN PRN Reason: Constipation Stop: 08/19/21 21:50 Valsartan (Valsartan 80 Mg Tab) 160 mg PO QAM [facility] Stop: 08/20/21 08:59 Last Admin: 07/23/21 07:58 Dose: 160 mg Documented by: PG Care Time/CCT Total # of Minutes Spent Total Time Spent with Patient: Total time spent is greater than 50% in coordination of care (as documented) at patient's floor/unit and/or counseling patient: Coding Level of Care Code 13854 Subseq Hosp Care Lvl 3 Diagnoses Non-ST elevation (NSTEMI) myocardial infarction I21.4 CAD (coronary artery disease) I25.10 Associated angina: without angina Coronary Disease-Associated Artery/Lesion type: [place] artery [place] vs. transplanted heart: [place] heart H/O heart artery stent Z95.5 Hypertensive urgency I16.0 Chronic anticoagulation Z79.01 HTN (hypertension) I10 Hypertension type: unspecified Dyslipidemia E78.5 (1) CAD (coronary artery disease) Associated angina: without angina Coronary Disease-Associated Artery/Lesion type: [place] artery [place] vs. transplanted heart: [place] heart Qualified Code(s): I25.10 - Atherosclerotic heart disease of [place] coronary artery without angina pectoris (2) HTN (hypertension) Hypertension type: unspecified Qualified Code(s): I10 - Essential (primary) hypertension
--- NOTE | 2021-07-24 07:22 | Ultrasound Report ---
ULTRASOUND BILATERAL LOWER EXTREMITY VENOUS CLINICAL HISTORY: Right leg pain and burning COMPARISON STUDY: Bilateral lower extremity venous ultrasound dated 06/09/2021. TECHNIQUE: Real-time, grayscale, and color Doppler sonography of the deep veins of the right and left lower extremity was performed from the inguinal crease to the calf. Compression and augmentation wer e utilized. FINDINGS: Right lower extremity: There is nonocclusive and chronic appearing deep venous thrombosis identified in the proximal to mid portions of the superficial femoral vein. The common femoral vein is patent an d normally compressible, as are the distal superficial femoral and popliteal veins. Reversal flow is noted in the superficial femoral vein. The greater saphenous vein and the profunda femoris vein at th e junction with the common femoral vein are clear. The visualized calf veins are patent. Left lower extremity: There is no sonographic evidence of deep venous thrombosis in the left lower ex tremity. The common femoral, superficial femoral, and popliteal veins are patent and normally silvina sible. The greater saphenous vein and the profunda femoris vein at the junction with the common femor al vein are clear. The visualized calf veins are patent. Occlusive superficial venous thrombosis in t he near saphenous vein extending from the mid to distal thigh. This extends greater than 5 cm in myah th. IMPRESSION: 1. There is nonocclusive and chronic appearing deep venous thrombosis in the proximal and mid portion s of the right superficial femoral vein as above. 2. Acute appearing occlusive superficial venous thrombus in the left greater saphenous vein as above. 3. There is no sonographic evidence of deep venous thrombosis in the left lower extremity. ACT 112: Negative or not required by law. Electronically signed by: Fidel Boogie M.D. 07/24/2021 7:21 AM
[2021-07-24 07:40] LABS: BUN Creatinine Ratio 17.4 (10-20); Calcium 8.6 mg/dl (8.5-10.1); Creatinine Clr Calc Pharmacy 101.3 ml/min; Est GFR (African American) 103.8 ml/min; Est GFR (Non-African American) 89.5 ml/min; Magnesium 2.1 mg/dl (1.8-2.4); Potassium 3.7 mmol/L (3.5-5.1)
[2021-07-24] MEDS: hydroCHLOROthiazide 25 MG TAB PO SCH (07:58)
[2021-07-24] MEDS: carvediloL 25 MG TAB PO SCH (07:58)
[2021-07-24] MEDS: VALSARTAN 80 MG TAB PO SCH (07:59)
[2021-07-24] MEDS: ASPIRIN 81 MG ECTAB PO SCH (07:59)
[2021-07-24] MEDS ORDERED: CLOPIDOGREL BISULFATE 75 MG TAB PO SCH (09:00)
[2021-07-24] MEDS: SODIUM CHLORIDE 0.9% 1000ML 1,000 ML IV SCH (09:57)
[2021-07-24] MEDS ORDERED: APIXABAN 5 MG TABLET PO STA (12:20)
--- NOTE | 2021-07-24 16:50 | Discharge Summary ---
Date of Service July 24, 2021 Admission HPI Per Admitting Provider 70 YOM with past: medical history of: CAD, DVT righ femoral/superfical femoral vein, HTN, HLD, edema, cerebral vascular disease, CVA, Patient came to the emergency room today with his daughter for confusion with memory lapses, chest pain. The pain was located in his right center of his chest with radiation across to the left side. Upon further questioning the patient also endorsed ~2 days of some jaw pain. This pain is waxes and wanes at the moment, and felt like it resolved after coming back to his room. This was not associated with any nausea/vomiting, diaphoresis, or dyspnea. He has not noticed any physical limitations with this, but did leave work early today because he was not feeling well. In the EMD the patient had 2 ECGs performed with initial ECG with ST changes to his inferior leads, following afterload reducing agent and aspiring his repeat ECG was more consistent with his ECG performed in May. The patient's BP was 180/100s upon arrival. The patient endorses that he is not always consistent with taking his medications, but does monitor his blood pressure periodically throughout the week. His normal SBP is 150's. The patient underwent CTA of the chest, head and neck, and CT of the head for his confusion and memory lapses, which did not show any acute changes. Upon my evaluation his daughter and son were both at the bedside and feel he has improved since he came in. In the EMD he had routine labs drawn to include Troponin I. The Troponin I was elevated to 0.378. He was given 324mg ASA, 5mg Hydralazine IV and started on Heparin drip in the EMD after case was discussed with by Dr. Fine with Dr. Keller Hotel Service Supervisor. Patient will be admitted to PCU to continue to monitor his symptoms and trend his ECG and Troponin. Goal would be to decrease his BP gradually over the next couple hours to 140-150s, and may need further lowering to decrease his double product if his chest pain returns, ECG changes and/or Troponin I continues to increase. Patient cardiac risk factors are: HTN, HLD, Obesity, Early [place] ff father (age ~50)- has GENOVEVA to mid LAD Patient has not had his COVID vaccine and his COVID test on admission is: NEGATIVE Principal Diagnosis NSTEMI Discharge Exam Constitutional WD/WN, vitals as above Eyes EOM intact bilaterally; no conjunctival abnormality ENMT external ear and nose normal, oropharynx normal Neck trachea midline, no thyromegaly normal visual inspection Respiratory normal respiratory effort, lungs clear to auscultation no respiratory distress Cardiovascular RRR, no murmur, no edema Gastrointestinal (Abdomen) Inspection/Auscultation: abdomen normal to inspection; abdomen not distended Musculoskeletal no cyanosis or clubbing, extremities motor strength 5/5 Skin no rashes, warm and dry Neurologic moves all extremities and awake Psychiatric Orientation: alert, oriented to person and cooperative Discharge Data Allergies Allergy/AdvReac Type Severity Reaction Status Date / Time cat dander Allergy Severe ITCHY/COUGH, Verified 06/09/21 19:20 THROAT TIGHTENS horse dander Allergy Severe Itch/Cough Verified 06/09/21 19:20 with Horse hair amoxicillin Allergy Intermediate Rash Verified 06/09/21 19:20 HAIRSPRAY Allergy Severe ITCHY, Uncoded 06/09/21 19:20 COUGH MSG PRESERVATIVE Allergy Unknown DOESN'T Uncoded 06/09/21 19:20 TOLERATE-GI SYMPTOMS Consultations 07/20/21 19:06 ED Decision to Admit Stat 07/20/21 21:18 Consult Cardiology Routine 07/23/21 13:11 Consult Cardiac Rehabilitation Routine Procedures Performed Operation Date: 07/23/21 12:00 Actual Procedures p Drug Eluting Stent SGl Vessel - Tyrone Keller MD s Cineradiography w/Routine Exam - Tyrone Keller MD p Cath, Left with Cors and Vent - Randy Patel MD Ordered Studies 07/20/21 16:23 CT angio head w con Stat CT angio neck with con Stat CT head/brain wo con Stat 07/20/21 17:40 CT angio chest PE protocol Stat 07/23/21 07:23 CL Cath Imgs for PACS use only Routine 07/23/21 20:16 US venous doppler LE Urgent Hospital Course (1) Elevated troponin I level: NSTEMI. - S/p LHC on 07/23 with 1 stent to the distal RCA with Dr. Patel and Dr. Keller. - Continue ASA/Plavix x 1 week (triple therapy) -> After 1 week, stop ASA and only take Plavix + apixaban - Continue beta-destiny - Continue valsartan. - Continue statin (2) Hypertensive urgency: Uncontrolled BP - Urgency vs. Emergency. Likely from not taking medications at home per prior notes. - Meds as above (3) CAD (coronary artery disease): As above. (4) Chronic cerebral ischemia: Chronic - cerebral microvascular disease. - CTA of the neck without acute stenosis/disease (5) Dvt femoral (deep venous thrombosis): Is on apixaban 2.5mg (only because he was taking a half tablet at home and not the normal 5 mg dose) - 06/10/21 left lower extremity long segment superficial clot and RLE 12/2020- for DVT right lower extremity. - Patient does not take routinely - CTA of the chest negative for PE - Transition back to apixaban on discharge (was on heparin gtt in the hospital in setting of NSTEMI). 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 Moreira who felt DOAC still appropriate. Encouraged compliance given u/s in the hospital showed continued DVT and superficial clot. Will follow up with CCP to discuss results and duration of anticoagulation. Total Time Total Time Spent Total Time Spent (In Minutes): 35 Discharge Plan Discharge Items Patient Disposition: Home - Self-Care Reason For Visit: CONFUSION, CHEST PAIN Discharge Diagnosis: Mild heart attack Activity: Resume your previous activity Non-emergency contact: Primary Care Provider and Hotel Service Supervisor Call non-emergency contact if: your symptoms worsen Follow-up/Referrals: Marcello Chavez Jr, MD, [facility] [Physician] - 07/31/21 8:30 am (Please see Dr. Chavez or one of his colleagues in 1-2 weeks to be sure you are doing well.) Chris Moreira V., [Physician] - (Please see Dr. Moreira or another Cancer Care provider to discuss your blood thinner.) PCP,NO [Primary Care Provider] - Diet: Heart Healthy Addtl Attending Provider Instructions: Mr. Smith, You were admitted to the hospital with chest pain that was from a small heart attack. The cardiology team did a catheterization and put 1 stent in your heart to open up a blood vessel. You need to be on: 1) A baby aspirin (81 mg) every day for 1 week 2) Plavix 75 mg daily 3) Apixaban 5 mg twice a day You will do this for 1 week, then stop the aspirin. The Plavix and apixaban will help keep your stent open and help continue resolving the blood clots in your legs. The scan shows that they are there, but improving. STOP the aspirin on July 30, 2021, and just take the Plavix and apixaban. It is incredibly important that you not skip doses of your apixaban. This medication is important to not miss because when you miss a dose, your blood almost immediately stops being thinned and you reverse the progress you make on dissolving the clots in your legs. Your testing from the ER in May does show that you have some genetic changes that make your blood more likely to clot. This doesn't change your current use of the apixaban, but may change how long you need to be on a blood thinner such as Eliquis. Please see Dr. Moreira (or another hematology) provider to discuss what this testing means and how long you will need to use a blood thinner. ACTIVITY RECOMMENDATIONS: Excess manipulation of the wrist should be avoided for the next 24-48 hours. * No lifting over 2 pounds (approximately a 1/2 gallon of milk) with the utilized arm for 24 hours. * No strenuous activity such as bowling or tennis for 3 days. * Keep the site of the procedure covered with a bandage for 24 hours. *You may shower the day after the procedure. Do not take a tub bath or submerge the puncture site in water for the next 3 days. *Do not operate any motorized equipment for 3 days. SPECIAL CARE INSTRUCTIONS: The site may be slightly bruised and sore following your procedure. Should any of the following occur, contact the Dr. who performed your procedure. 1. Redness/inflammation, swelling, chills, or fever, or colored drainage at procedure site within 3-7 days after your procedure. 2. Coldness, discoloration, ongoing numbness, severe pain, or swelling. Expect mild tingling of hand and tenderness at the puncture site for up to three days. If this persists beyond three days, or other symptoms develop, notify the Dr. who performed your procedure. BLEEDING: If the procedure site on your wrist begins to bleed, do not panic 1. Place 1 or 2 fingers firmly just slightly above the insertion site to stop the bleeding. You may be able to feel your pulse as you hold pressure. 2. Lift your finger after 5 minutes to see if the bleeding has stopped. 3. Once the bleeding has stopped, gently wipe the wrist area clean with a bandage. * If the bleeding from your wrist does not stop after 10 minutes, or if there is a large amount of bleeding or spurting, call 911 (do not drive yourself to the hospital). SKIN IRRITATION: * You may experience some redness and/or swelling in the area where radiation was administered. If any skin irritation occurs, please contact your family physician. FOLLOW UP VISIT: 1. Follow up with Dr. Chavez in 1 week. Keep any scheduled doctor appointments. Pending Studies at Discharge: No Stand-Alone Forms: My [facility] [employer], Smoking Cessation Medications and DC Order Prescriptions: New clopidogrel 75 mg Tablet 75 mg PO QAM Qty: 30 RF: 0 aspirin 81 mg Tablet,Delayed Release (Dr/Ec) 81 mg PO QAM Qty: 0 RF: 0 Continued valsartan-hydrochlorothiazide 160-12.5 mg tablet 1 tab PO QAM Qty: 90 RF: 3 nitroglycerin 0.4 mg Tablet, Sublingual 0.4 mg sublingual UD PRN (Reason: Chest Pain) RF: 0 carvedilol 25 mg tablet 25 mg PO BID RF: 0 omega-3 fatty acids Capsule 2,000 mg PO DAILY RF: 0 coenzyme Q10 [Co Q-10] 200 mg Capsule 400 mg PO DAILY RF: 0 apixaban 5 mg (74 tabs) tablets,dose pack 5 mg PO BID RF: 0 Discharge Orders: Discharge Order (Routine); Ordered 07/24/21 Ordered By: Jewel Horn Admission Data Admit Date/Time: 07/20/21 19:58 Attending Provider: Jewel Horn Admit Provider: Joseluis Patel Primary Care Provider: PCP,NO Other Providers: Randy Patel ; Jewel Horn Other Interventions: Discharge Summary Assessment (RN) Last Done: 07/24/21 12:25 Coding Level of Care Code D/C DAY MANAGEMENT >30 MINS Diagnoses Elevated troponin I level R77.8 Hypertensive urgency I16.0 CAD (coronary artery disease) I25.10 Coronary Disease-Associated Artery/Lesion type: [place] artery [place] vs. transplanted heart: [place] heart Associated angina: without angina Chronic cerebral ischemia I67.82 Dvt femoral (deep venous thrombosis) I82.419
== END 2021-07-24 13:06 | disposition home or self-care (01) | DRG 247 ==
LOC: ED 14:01 → SUATTDRO 19:58 → 2S 19:58

== ENCOUNTER 2021-07-27 10:37 | Observation (INO) ==
--- NOTE | 2021-07-27 11:28 | Emergency Department Note ---
History of Present Illness General Chief complaint: Illness Stated complaint: Illness Time Seen by Provider: 07/27/21 11:10 Source: patient and family (Daughter) Mode of arrival: EMS History of Present Illness Provider complaint: Dizziness Onset (ago): day(s) Location: head Severity: moderate Pain Consistency: + intermittent Quality: + other (Lightheadedness) Relieved By: + rest Exacerbated By: + other (Activity or standing) Associated symptoms: + confusion, + chest pain, + diaphoresis and + shortness of breath; no cough, no fever/chills, no nausea/vomiting or no syncope This is a 70-year-old male who was just discharged from the hospital for NSTEMI and stent placement and placed on Plavix in addition to his regular medications sent here from his doctor's office for hypotension. The patient states that since he was discharged from the hospital on Friday he has had intermittent lightheadedness. He states it is worse when he tries to stand up or exert himself. It is better when he sits down. He has not passed out but his daughter states that today he was at his doctor's office and was feeling very lightheaded. He appeared diaphoretic and pale and seemed slightly confused. At that point his blood pressure was 80 systolic. While he was in the doctor's office his blood pressure progressively kept coming down as they kept checking it. The lowest it got was 80/50. His doctor called the ambulance and sent him here after speaking to cardiology. The patient states that he woke up at 2:30 AM this morning. He took his regular medications. He started moving shelves in a refrigerator and while he was doing this he became very lightheaded and short of breath and developed some chest pain. He states it was very transient felt like a sharp pain in the middle of his chest. He stopped the activity and started to feel better but has been lightheaded all morning. He denies any fever, cough or cold symptoms, abdominal pain, vomiting, diarrhea, black or bloody stools, hematuria or leg swelling or pain. Home Medications Medication Instructions Recorded Confirmed Type nitroglycerin 0.4 mg sublingual 0.4 mg SUBLINGUAL UD PRN 02/17/19 07/27/21 Histo ry tablet valsartan 160 1 tab PO QAM #90 tab 02/19/21 07/27/21 Rx mg-hydrochlorothiazide 12.5 mg tablet carvedilol 25 mg tablet 25 mg PO BID 06/09/21 07/27/21 History apixaban 5 mg (74 tabs) tablets in 5 mg PO BID 07/20/21 07/27/21 History a dose pack coenzyme Q10 200 mg capsule (Co 400 mg PO DAILY 07/20/21 07/27/21 History Q-10) omega-3 fatty acids 2,000 mg PO DAILY 07/20/21 07/27/21 History aspirin 81 mg tablet,delayed 81 mg PO QAM #0 tab 07/24/21 07/27/21 Rx release clopidogrel 75 mg tablet 75 mg PO QAM #30 tab 07/24/21 07/27/21 Rx Allergies Allergy/AdvReac Type Severity Reaction Status Date / Time cat dander Allergy Severe ITCHY/COUGH, Verified 07/27/21 14:41 THROAT TIGHTENS horse dander Allergy Severe Itch/Cough Verified 07/27/21 14:41 with Horse hair amoxicillin Allergy Intermediate Rash Verified 07/27/21 14:41 glenis Allergy Verified 07/27/21 14:41 HAIRSPRAY Allergy Severe ITCHY, Uncoded 07/27/21 14:41 COUGH MSG PRESERVATIVE Allergy Unknown DOESN'T Uncoded 07/27/21 14:41 TOLERATE-GI SYMPTOMS Past Med/Surg History Medical History CAD (coronary artery disease) Dyslipidemia HTN (hypertension) Hypertensive emergency Hypertensive urgency Hypertensive urgency NSTEMI (non-ST elevated myocardial infarction) Peripheral edema TIA (transient ischemic attack) Surgical History H/O heart artery stent History of appendectomy History of hernia repair History of laparoscopic cholecystectomy History of tonsillectomy Family History Father , age 72 of [place]. 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 and A total of 10 systems reviewed and were otherwise negative Physical Exam Vital Signs Vital Signs - 24 hr 07/27/21 11:00 07/27/21 12:00 07/27/21 12:21 Temperature 36.6 C Temperature Source Oral Pulse Rate - Lying Pulse Rate - Sitting Pulse Rate - Standing Pulse Rate 69 Pulse Rate from SpO2 Sensor 66 69 Respiratory Rate 16 16 Respiratory Effort / Characteristics Non-Labored Respiratory Depth Normal Blood Pressure - Lying Blood Pressure - Sitting Blood Pressure- Standing Blood Pressure 133/76 130/88 Blood Pressure Mean 95 102 Pulse Oximetry 93 94 93 Oxygen Delivery Method Room Air Room Air Sepsis Recent Fever Within 48 Hours No Sepsis New/Unexplained Change in Mental Status No Sepsis Action Taken by Nursing No Action Required 07/27/21 12:30 07/27/21 13:00 07/27/21 13:30 Temperature Temperature Source Pulse Rate - Lying Pulse Rate - Sitting Pulse Rate - Standing Pulse Rate Pulse Rate from SpO2 Sensor 65 59 L Respiratory Rate 16 16 Respiratory Effort / Characteristics Respiratory Depth Blood Pressure - Lying Blood Pressure - Sitting Blood Pressure- Standing Blood Pressure 126/80 127/71 159/87 H Blood Pressure Mean 95 89 111 Pulse Oximetry 94 94 Oxygen Delivery Method Sepsis Recent Fever Within 48 Hours Sepsis New/Unexplained Change in Mental Status Sepsis Action Taken by Nursing 07/27/21 14:00 07/27/21 14:30 07/27/21 15:00 Temperature Temperature Source Pulse Rate - Lying Pulse Rate - Sitting Pulse Rate - Standing Pulse Rate 58 L 56 L 56 L Pulse Rate from SpO2 Sensor 58 L 56 L 56 L Respiratory Rate 18 17 24 Respiratory Effort / Characteristics Non-Labored Respiratory Depth Normal Blood Pressure - Lying Blood Pressure - Sitting Blood Pressure- Standing Blood Pressure 126/88 146/89 H 153/89 H Blood Pressure Mean 100 108 110 Pulse Oximetry 95 95 94 Oxygen Delivery Method Room Air Sepsis Recent Fever Within 48 Hours Sepsis New/Unexplained Change in Mental Status Sepsis Action Taken by Nursing 07/27/21 15:30 07/27/21 16:00 07/27/21 16:30 Temperature Temperature Source Pulse Rate - Lying Pulse Rate - Sitting Pulse Rate - Standing Pulse Rate 55 L 58 L 56 L Pulse Rate from SpO2 Sensor 61 58 L 56 L Respiratory Rate 13 19 13 Respiratory Effort / Characteristics Respiratory Depth Blood Pressure - Lying Blood Pressure - Sitting Blood Pressure- Standing Blood Pressure 142/87 H 159/82 H 141/89 H Blood Pressure Mean 105 107 106 Pulse Oximetry 96 96 94 Oxygen Delivery Method Sepsis Recent Fever Within 48 Hours Sepsis New/Unexplained Change in Mental Status Sepsis Action Taken by Nursing 07/27/21 17:01 07/27/21 17:52 07/27/21 17:57 Temperature Temperature Source Pulse Rate - Lying 60 Pulse Rate - Sitting 64 Pulse Rate - Standing 64 Pulse Rate 57 L Pulse Rate from SpO2 Sensor 58 L 64 Respiratory Rate 23 Respiratory Effort / Characteristics Respiratory Depth Blood Pressure - Lying 147/87 H Blood Pressure - Sitting 151/83 H Blood Pressure- Standing 140/86 Blood Pressure 163/99 H 147/83 H Blood Pressure Mean 120 104 Pulse Oximetry 94 94 Oxygen Delivery Method Sepsis Recent Fever Within 48 Hours Sepsis New/Unexplained Change in Mental Status Sepsis Action Taken by Nursing Constitutional: Vital signs reviewed. Pale. Eyes: Pupils are equal round reactive to light. Conjunctiva are noninjected. ENT: Pharynx is clear without erythema or exudate. Mucous membranes are slightly dry. Neck supple without meningeal signs. Respiratory: Clear to auscultation bilaterally. Breath sounds are equal b ilaterally. Cardiovascular: Regular rate and rhythm. No rubs or gallops. GI: Soft, nondistended and nontender. Bowel sounds are present. Musculoskeletal: No peripheral edema. No lower extremity tenderness. Integumentary: No cyanosis. or jaundice. Neurological: The patient is awake and alert. No focal deficits. Psychiatric: Normal affect. Not anxious appearing. Medical Decision Making Differential Diagnosis Stent occlusion, DC, unstable angina, anemia, GI bleed, dehydration Medical Records Attestation: I reviewed the patient's medical records. I did perform a limited focused review of portions of the patient's old chart on the electronic medical record. The patient was recently admitted for NSTEMI July 20 and underwent cardiac catheterization with stent placement in the distal RCA. He was noted to have proximal LAD disease with 40 to 50% stenosis. He was seen by his primary care physician today and found to be hypotensive and sent here for evaluation. Home Medications Current Medication List: was personally reviewed by me Laboratory Data Attestation: I reviewed the patient's lab results. Result diagrams: 07/27/21 11:34 07/27/21 11:34 Lab Results 07/27/21 07/27/21 07/27/21 Range/Units 11:34 11:34 11:34 WBC 7.76 (4.8-10.8) K/uL RBC 4.97 (4.7-6.1) M/uL Hgb 16.8 (14.0-18.0) g/dL Hct 46.2 (42-52) % MCV 93.0 (80-100) fL MCH 33.8 (25-34) pg MCHC 36.4 H (32-36) g/dL RDW Std Deviation 44.4 (36.4-46.3) fL RDW Coeff of Guerita 13.0 (11.5-14.5) % Plt Count 174 (130-400) K/uL MPV 11.0 H (7.4-10.4) fL Immature Gran % (Auto) 0.1 % Neut % (Auto) 70.5 % Lymph % (Auto) 15.2 % [place] % (Auto) 12.2 % Eos % (Auto) 1.7 % Baso % (Auto) 0.3 % Neut # (Auto) 5.47 (1.4-6.5) K/uL Lymph # (Auto) 1.18 L (1.2-3.4) K/uL [place] # (Auto) 0.95 H (0.11-0.59) K/uL Eos # (Auto) 0.13 (0-0.5) K/uL Baso # (Auto) 0.02 (0-0.2) K/uL Immature Gran # (Auto) 0.01 (0.00-0.02) K/uL APTT 29.1 (21.0-31.0) Seconds PTT Ratio 1.1 Sodium 139 (136-145) mmol/L Potassium 3.7 (3.5-5.1) mmol/L Chloride 107 (98-107) mmol/L Carbon Dioxide 27 (21-32) mmol/L Anion Gap 5.0 (3-11) BUN 25 H (7-18) mg/dl Creatinine 1.29 (0.6-1.4) mg/dl Est Cr Clr Drug Dosing 65.8 ml/min Est GFR ( Amer) 65.6 ml/min Est GFR (Non-Af Amer) 56.6 ml/min BUN/Creatinine Ratio 19.4 (10-20) Glucose 118 H (70-99) mg/dl Calcium 9.1 (8.5-10.1) mg/dl Total Bilirubin 0.6 (0.2-1) mg/dl AST 24 (15-37) U/L ALT 52 (12-78) U/L Alkaline Phosphatase 92 (45-117) U/L Troponin I 0.261 H* (0-0.045) ng/ml Total Protein 7.4 (6.4-8.2) gm/dl Albumin 3.3 L (3.4-5.0) gm/dl Globulin 4.1 H (2.5-4.0) gm/dl Albumin/Globulin Ratio 0.8 L (0.9-2) Lipase 162 (73-393) U/L COVID-19 Eval Order SARS-CoV-2 (PCR) (Negative) 07/27/21 07/27/21 Range/Units 14:07 14:07 WBC (4.8-10.8) K/uL RBC (4.7-6.1) M/uL Hgb (14.0-18.0) g/dL Hct (42-52) % MCV (80-100) fL MCH (25-34) pg MCHC (32-36) g/dL RDW Std Deviation (36.4-46.3) fL RDW Coeff of Guerita (11.5-14.5) % Plt Count (130-400) K/uL MPV (7.4-10.4) fL Immature Gran % (Auto) % Neut % (Auto) % Lymph % (Auto) % [place] % (Auto) % Eos % (Auto) % Baso % (Auto) % Neut # (Auto) (1.4-6.5) K/uL Lymph # (Auto) (1.2-3.4) K/uL [place] # (Auto) (0.11-0.59) K/uL Eos # (Auto) (0-0.5) K/uL Baso # (Auto) (0-0.2) K/uL Immature Gran # (Auto) (0.00-0.02) K/uL APTT (21.0-31.0) Seconds PTT Ratio Sodium (136-145) mmol/L Potassium (3.5-5.1) mmol/L Chloride (98-107) mmol/L Carbon Dioxide (21-32) mmol/L Anion Gap (3-11) BUN (7-18) mg/dl Creatinine (0.6-1.4) mg/dl Est Cr Clr Drug Dosing ml/min Est GFR ( Amer) ml/min Est GFR (Non-Af Amer) ml/min BUN/Creatinine Ratio (10-20) Glucose (70-99) mg/dl Calcium (8.5-10.1) mg/dl Total Bilirubin (0.2-1) mg/dl AST (15-37) U/L ALT (12-78) U/L Alkaline Phosphatase (45-117) U/L Troponin I (0-0.045) ng/ml Total Protein (6.4-8.2) gm/dl Albumin (3.4-5.0) gm/dl Globulin (2.5-4.0) gm/dl Albumin/Globulin Ratio (0.9-2) Lipase (73-393) U/L COVID-19 Eval Order Covid19 at [facility] SARS-CoV-2 (PCR) NEGATIVE (Negative) Imaging Data Radiologist's Impression: Chest X-Ray 07/27/21 12:17 XR chest 1V portable HISTORY: Atypical Chest Pain COMPARISON: Chest 07/20/2021. FINDINGS: No pneumothorax. No pleural effusions. The cardiac silhouette remains mildly enlarged. No new focal lung consolidations to suggest pneumonia. No evidence for pulmonary edema. Old, healed right-sided rib fractures. IMPRESSION: Stable mild cardiomegaly. No acute process within the chest. ACT 112: Negative or not required by law. Electronically signed by: Jc Davila M.D. 07/27/2021 1:36 PM ECG Data Attestation: I personally reviewed and interpreted this ECG as follows: Indication: + chest pain and + SOB/dyspnea Rate (beats per minute): 67 Rhythm: + normal sinus ECG ST segments: no ST elevation ECG Findings: + Q waves (Inferior); no PVCs Comparison ECG Date: from (July 23, 2021) Change: no significant change MDM Narrative I did evaluate the patient as noted above. The patient is presenting with hypotension and a near syncopal episode while at his doctor's office today. He was recently discharged for an NSTEMI and has been having dyspnea on exertion with lightheadedness. He also complained of chest pain today while moving a refrigerator drawers. His daughter states that he was very diaphoretic and pale at the time. He was sent here from his doctor's office via EMS. Currently he states he does not have any symptoms. IV access was established. I did place an order for continuous cardiac monitoring. The monitor showed normal sinus rhythm at a rate of 62 bpm. I did order and personally review the patient's 12- lead EKG as described above. He has no evidence of acute ischemic symptoms. I did order and personally reviewed the images of the patient's chest x-ray as described above. He has stable mild cardiomegaly. I did order and review the patient's blood work as noted in the electronic medical record. CBC is unremarkable without leukocytosis or anemia. His electrolytes are unremarkable as well. Troponin is slightly elevated 0.26 but his last creatinine was over 4. I did discuss the case with the medical physics researcher on-call. He did recommend hospitalization and a echocardiogram which I ordered. He will see the patient later in the day. I did discuss the plan with the patient and his daughter who were agreeable. He remains asymptomatic currently. He is normotensive but he has not tried to get up from the bed. I did discuss case with the hospitalist and rehabilitation caseworker. Covid screening testing is negative. Impression & Plan Acute hypotension, Elevated troponin I level, Near syncope, Chest pain Discharge Plan Visit Data Chief Complaint: Illness Stated Complaint: Illness ED Provider: Gera Donaldson Discharge Problem: Acute hypotension, Elevated troponin I level, Near syncope, Chest pain Patient Disposition: Being Evaluated by Hospitalist Forms Stand Alone Forms: My [facility] [employer] Prescriptions Prescriptions: No Action valsartan-hydrochlorothiazide 160-12.5 mg tablet 1 tab PO QAM Qty: 90 RF: 3 nitroglycerin 0.4 mg Tablet, Sublingual 0.4 mg sublingual UD PRN (Reason: Chest Pain) RF: 0 carvedilol 25 mg tablet 25 mg PO BID RF: 0 omega-3 fatty acids Capsule 2,000 mg PO DAILY RF: 0 coenzyme Q10 [Co Q-10] 200 mg Capsule 400 mg PO DAILY RF: 0 apixaban 5 mg (74 tabs) tablets,dose pack 5 mg PO BID RF: 0 clopidogrel 75 mg Tablet 75 mg PO QAM Qty: 30 RF: 0 aspirin 81 mg Tablet,Delayed Release (Dr/Ec) 81 mg PO QAM Qty: 0 RF: 0 Referrals Referrals: Rosangela Sarabia DO [Primary Care Provider] -
[2021-07-27 12:28] LABS: Basophils # (auto) 0.02 K/uL (0-0.2); Basophils % (auto) 0.3 %; Eosinophils # (auto) 0.13 K/uL (0-0.5); Eosinophils % (auto) 1.7 %; Hematocrit (blood only) 46.2 % (42-52); Hemoglobin 16.8 g/dL (14.0-18.0); Immature Granulocytes # (auto) 0.01 K/uL (0.00-0.02); Immature Granulocytes % (auto) 0.1 %; Lymphocytes # (auto) 1.18 K/uL (1.2-3.4); Lymphocytes % (auto) 15.2 %; Mean Corpuscular Hemoglobin 33.8 pg (25-34); Mean Corpuscular Hgb Conc 36.4 g/dL (32-36); Monocytes # (auto) 0.95 K/uL (0.11-0.59); Monocytes % (auto) 12.2 %; Neutrophils # (auto) 5.47 K/uL (1.4-6.5); Neutrophils % (auto) 70.5 %; Platelet Count 174 K/uL (130-400); RDW Standard Deviation 44.4 fL (36.4-46.3); Red Blood Count 4.97 M/uL (4.7-6.1); White Blood Count 7.76 K/uL (4.8-10.8)
[2021-07-27 12:36] LABS: Albumin Level 3.3 gm/dl (3.4-5.0); BUN Creatinine Ratio 19.4 (10-20); Calcium 9.1 mg/dl (8.5-10.1); Creatinine Clr Calc Pharmacy 65.8 ml/min; Est GFR (African American) 65.6 ml/min; Est GFR (Non-African American) 56.6 ml/min; Potassium 3.7 mmol/L (3.5-5.1)
[2021-07-27 12:42] LABS: Partial Thromboplastin Ratio 1.1; Partial Thromboplastin Time 29.1 Seconds (21.0-31.0)
[2021-07-27 12:58] LABS: Albumin Globulin Ratio 0.8 (0.9-2); Bilirubin,Total 0.6 mg/dl (0.2-1); Globulin 4.1 gm/dl (2.5-4.0); Total Protein 7.4 gm/dl (6.4-8.2); Troponin I 0.261 ng/ml (0-0.045)
--- NOTE | 2021-07-27 13:38 | XRay Report ---
XR chest 1V portable HISTORY: Atypical Chest Pain COMPARISON: Chest 07/20/2021. FINDINGS: No pneumothorax. No pleural effusions. The cardiac silhouette remains mildly enlarged. No n ew focal lung consolidations to suggest pneumonia. No evidence for pulmonary edema. Old, healed right -sided rib fractures. IMPRESSION: Stable mild cardiomegaly. No acute process within the chest. ACT 112: Negative or not required by law. Electronically signed by: Jc Davila M.D. 07/27/2021 1:36 PM
--- NOTE | 2021-07-27 14:55 | History & Physical Report ---
Date of Service July 27, 2021 Assessment & Plan (1) Hypotension: Plan: Suspect secondary to his anti-hypertensives no taking more regularly. In setting of recent NSTEMI. Hold valsartan/HCTZ. Would favor restarting valsartan if BP able to tolerate tomorrow. Consider orthostatics prior to discharge. (2) Chest pain: Plan: Serial troponins. Given split second duration of time unlikely ischemic. Will trend troponins however to make sure it is downtrending. (3) Dvt femoral (deep venous thrombosis): Plan: Continue Eliquis 5mg PO BID (4) Non-ST elevation (NSTEMI) myocardial infarction: Plan: Recent history of this. Will trend troponins to make sure chest pain this morning wasn't further ischemia. (5) CAD (coronary artery disease): Plan: Continue ASA, clopidogrel, Eliquis, carvedilol. Unclear why he is not on statin but not on prior discharge. Plan: VTE Prophylaxis - Eliquis Diet - heart healthy Disposition - observation status to med/tele History of Present Illness Chief Complaint: Lightheadedness, hypotension Primary Care Provider: Rosangela Sarabia DO Lars Luis is a 70 year old male who presents to the ER with lightheadedness and hypotension when he presented for follow up to his PCP office today. He was recently admitted to [facility] from July 20 - due to NSTEMI. Previously he has been non-compliant with his medications but has been taking them more routinely after his heart attack at home. He also notes a quick episode of chest pain this morning which lasted less than a second, no radiation. He does note he has been doing quite a lot around the house at home in terms of exertion, work and cleaning. He is currently back to his baseline in the ER. In the ER troponin is downtrending from before. EKG with no significant changes. BP 102/62 on arrival to the ER. He was referred to medicine for admission and ongoing management of hypotension and presyncope. Allergies Allergy/AdvReac Type Severity Reaction Status Date / Time cat dander Allergy Severe ITCHY/COUGH, Verified 07/27/21 14:41 THROAT TIGHTENS horse dander Allergy Severe Itch/Cough Verified 07/27/21 14:41 with Horse hair amoxicillin Allergy Intermediate Rash Verified 07/27/21 14:41 glenis Allergy Verified 07/27/21 14:41 HAIRSPRAY Allergy Severe ITCHY, Uncoded 07/27/21 14:41 COUGH MSG PRESERVATIVE Allergy Unknown DOESN'T Uncoded 07/27/21 14:41 TOLERATE-GI SYMPTOMS Home Medications Medication Instructions Recorded Confirmed Type nitroglycerin 0.4 mg sublingual 0.4 mg SUBLINGUAL UD PRN 02/17/19 07/27/21 History tablet valsartan 160 1 tab PO QAM #90 tab 02/19/21 07/27/21 Rx mg-hydrochlorothiazide 12.5 mg tablet carvedilol 25 mg tablet 25 mg PO BID 06/09/21 07/27/21 History apixaban 5 mg (74 tabs) tablets in 5 mg PO BID 07/20/21 07/27/21 History a dose pack coenzyme Q10 200 mg capsule (Co 400 mg PO DAILY 07/20/21 07/27/21 History Q-10) omega-3 fatty acids 2,000 mg PO DAILY 07/20/21 07/27/21 History aspirin 81 mg tablet,delayed 81 mg PO QAM #0 tab 07/24/21 07/27/21 Rx release clopidogrel 75 mg tablet 75 mg PO QAM #30 tab 07/24/21 07/27/21 Rx Past Med/Surg History Medical History CAD (coronary artery disease) Dyslipidemia HTN (hypertension) Hypertensive emergency Hypertensive urgency Hypertensive urgency NSTEMI (non-ST elevated myocardial infarction) Peripheral edema TIA (transient ischemic attack) Surgical History H/O heart artery stent History of appendectomy History of hernia repair History of laparoscopic cholecystectomy History of tonsillectomy Family History Father , age 72 of [place]. 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 Children do You have: 5 Feels Safe at Home: Yes Assistive Devices: None Review of Systems Review of Systems: All systems reviewed & are unremarkable except as noted in HPI & below Physical Exam Constitutional: WD/WN, vitals as above ENMT: external ear and nose normal, oropharynx normal Neck: trachea midline, no thyromegaly Respiratory: normal respiratory effort, lungs clear to auscultation Cardiovascular: RRR, no murmur, no edema Gastrointestinal (Abdomen): normal bowel sounds, soft, nontender, no hepatosplenomegaly Musculoskeletal: no cyanosis or clubbing, extremities motor strength 5/5 Skin: no rashes, warm and dry Neurologic: moves all extremities and awake; not confused Psychiatric: A+Ox3, euthymic affect Results & Data Results & Data ([facility]) Vital Signs (Past 12 Hours) Vital Signs Temp Pulse Resp BP Pulse Ox 07/27/21 13:00 16 127/71 94 07/27/21 12:30 16 126/80 94 07/27/21 12:21 93 07/27/21 12:00 16 130/88 94 07/27/21 11:00 36.6 C 69 16 133/76 93 Diagnostic Findings XR chest 1V portable HISTORY: Atypical Chest Pain COMPARISON: Chest 07/20/2021. FINDINGS: No pneumothorax. No pleural effusions. The cardiac silhouette remains mildly enlarged. No new focal lung consolidations to suggest pneumonia. No evidence for pulmonary edema. Old, healed right-sided rib fractures. IMPRESSION: Stable mild cardiomegaly. No acute process within the chest. Medications Administered ER Medications Given: None ECG Indication: other (presyncope) Rate (beats per minute): 67 Rhythm: normal sinus Findings: no acute ischemic change Comparison ECG Date: from (July 23, 2021) Change: no significant change Code Status & VTE Plan Code Status Full VTE Prophylaxis Plan VTE Prophylaxis will be ordered: Yes PG Care Time/CCT Total # of Minutes Spent Total Time Spent with Patient: Total time spent is greater than 50% in coordination of care (as documented) at patient's floor/unit and/or counseling patient: Coding Level of Care Code INT OBSERVATION CARE 70M LVL 3 Diagnoses Hypotension I95.9 Chest pain R07.9 Chest pain type: unspecified Dvt femoral (deep venous thrombosis) I82.419 Non-ST elevation (NSTEMI) myocardial infarction I21.4 CAD (coronary artery disease) I25.10 Coronary Disease-Associated Artery/Lesion type: [place] artery [place] vs. transplanted heart: [place] heart Associated angina: without angina (1) Chest pain Chest pain type: unspecified Qualified Code(s): R07.9 - Chest pain, unspecified (2) CAD (coronary artery disease) Coronary Disease-Associated Artery/Lesion type: [place] artery [place] vs. transplanted heart: [place] heart Associated angina: without angina Qualified Code(s): I25.10 - Atherosclerotic heart disease of [place] coronary artery without angina pectoris
--- NOTE | 2021-07-27 15:34 | Cardiology Consultation ---
Date of Consultation July 27, 2021 Assessment & Plan (1) CAD (coronary artery disease): (2) H/O heart artery stent: (3) Hypotension: (4) HTN (hypertension): (5) Dyslipidemia: (6) Elevated troponin I level: ASSESSMENT/PLAN: 1. CAD s/p LAD and RCA PCI: No angina. Has had atypical chest discomfort which had been occurring earlier this week while hospitalized. Ischemic evaluation not necessary at this time. Continue aspirin 81 mg for a total of 1 week from stent implantation with Plavix 75 mg daily. After 1 week, Plavix 75 mg can be continued with Eliquis which he is chronically on for prior DVT and possible hypercoagulable state. Continue beta-destiny. Recommend high-intensity statin therapy. 2. Hypotension: Likely due to the fact that he is now taking his antihypertensive agents, which he had not been doing. Echocardiogram recommended to evaluate for pericardial effusion or significant mitral regurgitation following recent DE. formal review to follow. Recommend discontinuation of HCTZ and reduction of ARB by 50%. Continue beta-destiny. Recommend orthostatic vitals. 3. Hypertension: History of hypertension and mildly hypertensive here, but reportedly hypotensive in PCP office. Continue beta-destiny. Reduce ARB by 50%. Discontinue HCTZ. 4. Elevated troponin: Likely due to DE from previous hospitalization. Continue to trend to ensure that it continues to decline. 5. Dyslipidemia: Recommend high-intensity statin therapy which was again dis cussed with him. We discussed rationale and his concerns of liver failure. We discussed that his transaminase levels can be followed by Dr. Chavez or PCP as an outpatient and if there is signs or symptoms of adverse reaction, statin therapy can be discontinued at that time. He is agreeable for statin therapy. 6. Disposition: Plan of care discussed with admitting hospitalist, Dr. Saleem. I will be away from the hospital for the next several days. Please call Dr. Dennis for any questions or concerns as he will be labor relations teacher for Cardiology. Follow-up with Dr. Chavez as an outpatient. Patient's son, Lul, was contacted via telephone as per patient request. He was updated on plan of care. 50 minutes spent for this visit, including 50% of that time [id number], counseling patient, coordinating care, discussing with family, chart review, and chart completion. Thank you for allowing me to participate in the care of your patient. Please call for any other questions or concerns. Sincerely, Ameya Patel M.D. History of Present Illness Reason for Consultation: Chest pain, shortness of breath, hypotension Requesting Physician: Dr. Saleem and Dr. Donaldson Attending Physician: Dr. Saleem History of Present Illness Mr. Smith is a pleasant 70-year-old gentleman with history significant for CAD s/p LAD PCI (2016), dyslipidemia, hypertension, and DVT on chronic a nticoagulation therapy. His primary surgeon partner is Dr. Chavez. He was admitted on 07/20/2021 with elevated troponin, chest discomfort, and hypertensive urgency. He has had the following studies/procedures: 1. Cardiac catheterization 09/17/2017 for NSTEMI: Proximal LAD 50-70%. Mid LAD 90-95%. D2 30%. Ramus mid 20%. OM1 mid 20%. Proximal RCA 20%. Mid RCA 20%. Distal RCA 20%. Mid PDA 10-20%. Underwent PCI of mid LAD with 3 x 12 mm Medtronic resolute GENOVEVA. 2. Echo 09/19/2017: Normal LV size. Hyperdynamic LV. EF > 70%. Normal wall motion. 3. Echo 02/18/2019: Normal LV size, wall motion, systolic function. EF 60-65%. No significant valvular abnormalities. 4. Echo 07/21/2021: Normal LV size. EF 60-65%. Inferior wall not well visualized. Moderate LVH. Moderate left atrial dilation. No significant valvular abnormalities. 5. Cardiac catheterization 07/23/2021: Proximal LAD 40-50%. Mid LAD stent widely patent. Proximal to mid RCA 30-40%. Distal RCA 98%. LVEDP 11. No . Underwent PCI 2.5 x 15 mm bonita GENOVEVA, post dilated 2.75 NC. He was recently hospitalized at [facility], with discharge on 07/24/2021. He had NSTEMI and underwent PCI of his distal RCA. Throughout his hospital stay, prior to and following his stent, he had described chest twinge that would last a split second or so. This was different than his prior angina. He also had stated that he was very noncompliant with his medical therapy. Since being home, he has been taking his antihypertensive agents faithfully. He woke up at 2:30 a.m. this morning and began to clean his refrigerator in anticipation of a friend who is visiting from [place]. While cleaning, he felt a slight dizziness or lightheadedness, but no syncope. He also continues to feel intermittent chest twinges, once again described as a pinprick that last only a split second. This is no different than what he was experiencing during his last hospital stay, but very different than his angina. He denies shortness of breath but stated that his daughter believe that he appeared to be more short of breath. He admits that he went to get the mail and went slow. He attributes this to being sedentary during his last hospital stay. Since being home, he states that he has been taking his antihypertensive agents faithfully. He has not been taking statin therapy in stated today that he will not take statin therapy. He did research and is concerned about liver failure. He went to his PCPs office today to establish care, with Dr. Sarabia. He was found to be hypotensive with reports of systolic blood pressure as low as the 80s. He apparently was confused at times with hypotension. She contacted me via telephone and we discussed getting an echocardiogram while in the office, but it was not available today. Due to ongoing hypotension, she recommended that he come to the emergency department. Currently he feels back to baseline while in the emergency department. He denies chest pain, shortness of breath, syncope, near-syncope, palpitations, edema, or bleeding. He denies fevers, chills, dysuria, abdominal pain, nausea, vomiting. Review of systems: As above. Review of systems otherwise negative/unremarkable. Family history: Father had CAD. Social history: He denies smoking. Occasional alcohol. No drugs. He lives alone. . Five children. Sixteen grandchildren. A son (Lul) is a radiologist at [employer]. A daughter is a home health nurse. A son-in-law is a general practitioner in the [facility] [employer] [facility]. A daughter is a tractor expert. 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 He was unaccompanied today. Allergies Allergy/AdvReac Type Severity Reaction Status Date / Time cat dander Allergy Severe ITCHY/COUGH, Verified 07/27/21 14:41 THROAT TIGHTENS horse dander Allergy Severe Itch/Cough Verified 07/27/21 14:41 with Horse hair amoxicillin Allergy Intermediate Rash Verified 07/27/21 14:41 glenis Allergy Verified 07/27/21 14:41 HAIRSPRAY Allergy Severe ITCHY, Uncoded 07/27/21 14:41 COUGH MSG PRESERVATIVE Allergy Unknown DOESN'T Uncoded 07/27/21 14:41 TOLERATE-GI SYMPTOMS Home Medications Medication Instructions Recorded Confirmed Type nitroglycerin 0.4 mg sublingual 0.4 mg SUBLINGUAL UD PRN 02/17/19 07/27/21 History tablet valsartan 160 1 tab PO QAM #90 tab 02/19/21 07/27/21 Rx mg-hydrochlorothiazide 12.5 mg tablet carvedilol 25 mg tablet 25 mg PO BID 06/09/21 07/27/21 History apixaban 5 mg (74 tabs) tablets in 5 mg PO BID 07/20/21 07/27/21 History a dose pack coenzyme Q10 200 mg capsule (Co 400 mg PO DAILY 07/20/21 07/27/21 History Q-10) omega-3 fatty acids 2,000 mg PO DAILY 07/20/21 07/27/21 History aspirin 81 mg tablet,delayed 81 mg PO QAM #0 tab 07/24/21 07/27/21 Rx release clopidogrel 75 mg tablet 75 mg PO QAM #30 tab 07/24/21 07/27/21 Rx Patient History Medical History CAD (coronary artery disease) Dyslipidemia HTN (hypertension) Hypertensive emergency Hypertensive urgency Hypertensive urgency NSTEMI (non-ST elevated myocardial infarction) Peripheral edema TIA (transient ischemic attack) Surgical History H/O heart artery stent History of appendectomy History of hernia repair History of laparoscopic cholecystectomy History of tonsillectomy Family History Father , age 72 of DE. 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 Alert and oriented. HEENT: Anicteric sclera. Neck: No JVD. Cardiac: PMI was nondisplaced. No ventricular heave. Regular. Normal S1-S2. No murmurs, rubs, or gallops. Pulmonary: Clear to auscultation bilaterally without wheezes, rales, or rhonchi. Abdomen: Soft, nontender, nondistended, with normoactive bowel sounds. No bruits noted. Extremities: 2+ radial pulses bilaterally. Right radial cath site is clean, dry, and intact without erythema or discharge. 2+ posterior tibialis pulses bilaterally. Trace bilateral lower extremity edema. No cyanosis. Psychiatric: Affect appears appropriate. Results & Data ([facility]) Vital Signs (Past 12 Hours) Vital Signs Temp Pulse Resp BP Pulse Ox 07/27/21 15:00 16 07/27/21 14:30 56 L 17 146/89 H 95 07/27/21 14:00 58 L 18 126/88 95 07/27/21 13:30 159/87 H 07/27/21 13:00 16 127/71 94 07/27/21 12:30 16 126/80 94 07/27/21 12:21 93 07/27/21 12:00 16 130/88 94 07/27/21 11:00 36.6 C 69 16 133/76 93 PG Care Time/CCT Total # of Minutes Spent Total Time Spent with Patient: Total time spent is greater than 50% in coordination of care (as documented) at patient's floor/unit and/or counseling patient: Coding Level of Care Code 32199 Office/Outpt Visit, Est Diagnoses CAD (coronary artery disease) I25.10 Coronary Disease-Associated Artery/Lesion type: [place] artery [place] vs. transplanted heart: [place] heart Associated angina: without angina H/O heart artery stent Z95.5 Hypotension I95.9 HTN (hypertension) I10 Hypertension type: unspecified Dyslipidemia E78.5 Elevated troponin I level R77.8 (1) CAD (coronary artery disease) Coronary Disease-Associated Artery/Lesion type: [place] artery [place] vs. transplanted heart: [place] heart Associated angina: without angina Qualified Code(s): I25.10 - Atherosclerotic heart disease of [place] coronary artery withou t angina pectoris (2) HTN (hypertension) Hypertension type: unspecified Qualified Code(s): I10 - Essential (primary) hypertension
[2021-07-27] MEDS ORDERED: NITROGLYCERIN SL 0.4 MG/TAB TAB SL PRN (19:41)
[2021-07-27] MEDS: carvediloL 25 MG TAB PO SCH (21:14)
[2021-07-27] MEDS: APIXABAN 5 MG TABLET PO SCH (21:15)
[2021-07-28 06:17] LABS: Basophils # (auto) 0.02 K/uL (0-0.2); Basophils % (auto) 0.3 %; Eosinophils # (auto) 0.16 K/uL (0-0.5); Eosinophils % (auto) 2.4 %; Hematocrit (blood only) 47.3 % (42-52); Hemoglobin 16.6 g/dL (14.0-18.0); Immature Granulocytes # (auto) 0.02 K/uL (0.00-0.02); Immature Granulocytes % (auto) 0.3 %; Lymphocytes # (auto) 1.22 K/uL (1.2-3.4); Lymphocytes % (auto) 18.4 %; Mean Corpuscular Hemoglobin 33.2 pg (25-34); Mean Corpuscular Hgb Conc 35.1 g/dL (32-36); Mean Corpuscular Volume 94.6 fL (80-100); Mean Platelet Volume 10.8 fL (7.4-10.4); Monocytes # (auto) 0.81 K/uL (0.11-0.59); Monocytes % (auto) 12.2 %; Neutrophils % (auto) 66.4 %; Platelet Count 144 K/uL (130-400); RDW Standard Deviation 45.3 fL (36.4-46.3); White Blood Count 6.63 K/uL (4.8-10.8)
--- NOTE | 2021-07-28 06:40 | Electrocardiogram Report ---
Test Reason : Blood Pressure : / mmHG Vent. Rate : 067 BPM Atrial Rate : 067 BPM P-R Int : 162 ms QRS Dur : 096 ms QT Int : 382 ms P-R-T Axes : -12 -13 -24 degrees QTc Int : 403 ms Normal sinus rhythm Inferior infarct (cited on or before 16-SEP-2017) Abnormal ECG When compared with ECG of 23-JUL-2021 06:11, No significant change was found Confirmed by Randy Patel ([id number]) on 07/28/2021 6:39:30 AM Referred By: Rosangela Sarabia Confirmed By:Randy Patel
[2021-07-28 06:46] LABS: BUN Creatinine Ratio 22.8 (10-20); Calcium 8.8 mg/dl (8.5-10.1); Creatinine Clr Calc Pharmacy 86.9 ml/min; Est GFR (African American) 92.6 ml/min; Est GFR (Non-African American) 79.9 ml/min; Potassium 3.8 mmol/L (3.5-5.1)
--- NOTE | 2021-07-28 07:15 | XCELERA ---
[id number]
[2021-07-28] MEDS: APIXABAN 5 MG TABLET PO SCH (08:32)
[2021-07-28] MEDS: carvediloL 25 MG TAB PO SCH (08:33)
[2021-07-28] MEDS ORDERED: CLOPIDOGREL BISULFATE 75 MG TAB PO SCH (09:00)
[2021-07-28] MEDS ORDERED: NON-FORMULARY MEDICATION (Coenzyme Q10 [Co Q-10] 200 mg Capsule) PO SCH (09:00)
[2021-07-28] MEDS ORDERED: ASPIRIN 81 MG ECTAB PO SCH (09:00)
[2021-07-28] MEDS ORDERED: OMEGA-3 (PURIFIED FISH OIL) 1 GM CAP PO SCH (09:00)
--- NOTE | 2021-07-28 19:02 | Discharge Summary ---
Date of Service July 28, 2021 Admission HPI Per Admitting Provider Lars Smith is a 70 year old male who presents to the ER with lightheadedness and hypotension when he presented for follow up to his PCP office today. He was recently admitted to [facility] from July 20 - due to NSTEMI. Previously he has been non-compliant with his medications but has been taking them more routinely after his heart attack at home. He also notes a quick episode of chest pain this morning which lasted less than a second, no radiation. He does note he has been doing quite a lot around the house at home in terms of exertion, work and cleaning. He is currently back to his baseline in the ER. In the ER troponin is downtrending from before. EKG with no significant changes. BP 102/62 on arrival to the ER. He was referred to medicine for admission and ongoing management of hypotension and presyncope. Principal Diagnosis Medication induced hypotension Discharge Exam In general he is awake alert pleasant no distress. HEENT normocephalic atraumatic mucous members moist. Breathing unlabored no accessory muscle use good effort. Skin shows no rashes no pallor or icterus. Neuro without focal deficits. Discharge Data Allergies Allergy/AdvReac Type Severity Reaction Status Date / Time cat dander Allergy Severe ITCHY/COUGH, Verified 07/27/21 14:41 THROAT TIGHTENS horse dander Allergy Severe Itch/Cough Verified 07/27/21 14:41 with Horse hair amoxicillin Allergy Intermediate Rash Verified 07/27/21 14:41 glenis Allergy Verified 07/27/21 14:41 HAIRSPRAY Allergy Severe ITCHY, Uncoded 07/27/21 14:41 COUGH MSG PRESERVATIVE Allergy Unknown DOESN'T Uncoded 07/27/21 14:41 TOLERATE-GI SYMPTOMS Consultations 07/27/21 13:34 ED Decision to Admit Stat 07/27/21 15:28 Consult Cardiology Routine Hospital Course (1) Hypotension: Suspect secondary to his anti-hypertensives no taking more regularly. Would like beta-destiny and ARB. Was on 25 of carvedilol twice dailyblood pressures are in a reasonable amount of control with this alone that I am concerned about hypotension even initiating the ARB at a lower dosebut given the significant benefit of afterload reduction recovering from [place]/treating coronary diseasewe will start valsartan at 80 mg, but to "make a room" to have him on both a beta-destiny and an ARB, will reduce carvedilol to 12.5 twice daily. He sees cardiology in a little less than 2 weeksthis should be a good time for him to see how he was doing, what his pressures are doing, and if he h as any symptoms. (2) Chest pain: No new [place] (3) Dvt femoral (deep venous thrombosis): Continue Eliquis 5mg PO BID, he wondered about if it was causing some sort of skin breakoutsI told him this would be quite rare, and I wonder about correlation not equating causation, but this can be for outpatient follow-up (4) Non-ST elevation (NSTEMI) myocardial infarction: Recent history of this. Med management, secondary risk reduction (5) CAD (coronary artery disease): Med management. Cardiology discussed statin yesterday and in their discussion he was willing to tryprescription sent Stable for home Total Time Total Time Spent Total Time Spent (In Minutes): Less than 30 Discharge Plan Discharge Items Patient Disposition: Home - Self-Care Reason For Visit: Illness Discharge Diagnosis: Low blood pressuremedication related Activity: Resume your previous activity Non-emergency contact: Primary Care Provider and Exercise Planner Call non-emergency contact if: you have any medication questions Follow-up/Referrals: Rosangela Sarabia, [Primary Care Provider] - Diet: Heart Healthy Addtl Attending Provider Instructions: Medication related low blood pressurewe will be readjusting her regimenthe medications really do a nice job of taking strain off of your heart, and reducing the chances of future heart attack/blockages/stents. As we discussed, you really get sort of a "2+2 = 5" type of synergy by combining beta-blockers with DOROTHY receptor blockerstherefore we would like to keep you on some dosing of carvedilol and valsartan. Watching your blood pressures over the last day just being on the carvedilol, I am a little worried that adding the valsartan in with her current dose of carvedilol may still make your pressures a bit lowtherefore, for now, I would recommend we send you out on carvedilol 12.5 mg twice a day, to "make room" for the additive benefit of the valsartan 80 mg daily. Ideally, check your blood pressure 2-3 times a day over the next week or 2 so that you have a wide array of readings to review with Dr. Chavez whenever you see him. Also, as docs we are aware that everybody is a "human being" and that sometimes people forget medicines, or choose to not take things, for different reasons. If for any reason you are not taking your medicines, please let us know so that we can discuss whyand be able to dive into risk/benefits so that you have a really good understanding of the choices, and also so that we know what you are actually taking to avoid accidentally overmedicating like happened this time. You had a good discussion with Dr. Patel yesterday as it related to considering a statin. To echo that discussion, atorvastatin and rosuvastatin really do a lot more than just lower cholesterolthey tend to stabilize the plaques that are already build up in our arteries, making it way less likely for those plaques to break open, form a clot, and blocked up and artery killing downstream tissue. To that end, I would agree with his thought that we give it a try. 40 mg of atorvastatin would be enough to get us a good bit of that "plaque stabilization" benefit and would be very likely to also get your cholesterol numbers to where they would need to be (we would want to see your LDL under 70, and when we subtract your HDL from your total cholesterol, we would like to see that number under 100). I have sent a prescription to the pharmacy for that as wellfor you to try. Of note, with your concerns towards liver disease, I would like to point out that actual statin related liver failure might not have ever even happened at all, and if it has, it certainly almost a lightening strike type rarity, and the mild bump in liver enzymes that rarely happens but does happen, is generally more of a lab abnormality than a disease state. As a berenice who views things holistically, I could not agree moreand eating and exercise habits are absolutely critical to not blocking arteries more. To that end, the most holistic way to go about taking care of yourself would be eating essentially a Mediterranean diet (lots of fruits and vegetables, lean sources of protein such as chicken without the skin, pork with fat cut off, or fish) and avoiding simple/starchy carbs, potato type foods, breads, etc. Further, 30 mi nutes of some degree of cardiovascular exercise with a goal of every single day, goes a long way towards preventing future vascular events. The medications tend to reduce risk somewhere between 65 to 80%, and the lifestyle changes tend to reduce risk about 65% as well. To keep you out of future trouble, doing both optimally can really make it less likely her back here. Lastly as it relates to the Eliquis, like we were discussing, the mechanism of how Nequis ask is a blood thinner would make it unlikely for the skin breakouts to be related, but stranger things have happened. I would first revisit what else was going on with the skin breakout, because as we discussed, human beings tend to like to point to "cause and effect" situations because of correlation without necessarily clear causation. However, if you do see that the Eliquis truly is causing the skin breakouts, there are plenty of other options as a blood thinner. It was good to see you, and take care of yourself! Pending Studies at Discharge: No Stand-Alone Forms: [facility], Smoking Cessation Medications and DC Order Prescriptions: New carvedilol 12.5 mg tablet 12.5 mg PO BID Qty: 60 RF: 0 valsartan 80 mg tablet 80 mg PO DAILY Qty: 30 RF: 0 atorvastatin 40 mg tablet 40 mg PO DAILY Qty: 30 RF: 0 Continued nitroglycerin 0.4 mg Tablet, Sublingual 0.4 mg sublingual UD PRN (Reason: Chest Pain) RF: 0 omega-3 fatty acids Capsule 2,000 mg PO DAILY RF: 0 coenzyme Q10 [Co Q-10] 200 mg Capsule 400 mg PO DAILY RF: 0 apixaban 5 mg (74 tabs) tablets,dose pack 5 mg PO BID RF: 0 clopidogrel 75 mg Tablet 75 mg PO QAM Qty: 30 RF: 0 aspirin 81 mg Tablet,Delayed Release (Dr/Ec) 81 mg PO QAM Qty: 0 RF: 0 Discontinued valsartan-hydrochlorothiazide 160-12.5 mg tablet 1 tab PO QAM Qty: 90 RF: 3 carvedilol 25 mg tablet 25 mg PO BID RF: 0 Discharge Orders: Discharge Order (Routine); Ordered 07/28/21 Ordered By: Damien Morris Admission Data Admit Date/Time: 07/27/21 14:54 Attending Provider: Damien Morris Admit Provider: Trenton Saleem Primary Care Provider: Rosangela Sarabia Other Providers: Trenton Saleem ; Randy Patel Coding Level of Care Code 49434 OBS Care - Discharge Diagnoses Hypotension I95.9 Chest pain R07.9 Chest pain type: unspecified Dvt femoral (deep venous thrombosis) I82.419 Non-ST elevation (NSTEMI) myocardial infarction I21.4 CAD (coronary artery disease) I25.10 Coronary Disease-Associated Artery/Lesion type: [place] artery [place] vs. transplanted heart: [place] heart Associated angina: without angina
== END 2021-07-28 12:59 | disposition home or self-care (01) ==
LOC: ED 10:37 → EDINP 10:37 → SUATTDRO 14:54 → 2N 19:26

== ENCOUNTER 2025-02-15 07:23 | Observation (INO) ==
--- NOTE | 2025-02-15 07:44 | Emergency Department Note ---
Impression & Plan Pulmonary embolism ADMIT ED Provider Note HPI: History obtained from patient. The patient is a 74-year-old gentleman with history of coronary artery disease, status post drug-eluting stent placement in 2017, history of DVT (patient states he only takes rivaroxaban twice weekly) presents to the emergency department with a chief complaint of pain in his right mid thoracic region for about the past 7 days. Patient states when he takes a deep breath he gets radiation of the pain to the anterior portion of his right ribs. Patient denies resting shortness of breath but states when he takes a deep breath he does get increasing pain and therefore does not want to take a deep breath. Patient denies any anterior chest pain, he states this pain does not feel at all similar to chest pain he has had in the past associated with acute coronary syndrome. On arrival here to the ED the patient is hypertensive but otherwise hemodynamically stable, he is saturating well on room air. Patient states he did have some work done on his back by massage therapist and his family last week and he states he had some improvement in his pain following this although the session was very painful to go through. ROS: - Per HPI Differential Diagnosis: Pulmonary embolism, rib fracture, pneumothorax, hemothorax, musculoskeletal back pain/chest pain, costochondritis, pleuritis, ACS, amongst other potential pathologies. *Outpatient medications and allergy history reviewed. PE: General: Alert HEENT: Normocephalic, trachea midline Eyes: Extraocular eye movement is intact, no scleral erythema Pulmonary: Clear to auscultation bilaterally, no wheezing Cardio: Regular rate and rhythm GI: Abdomen is soft to palpation : No suprapubic tenderness MSK: No evidence of trauma or malformation of the extremities, no edema, palpable tenderness with palpation in the area to the right side of the mid thoracic spine Skin: No evidence of rash Neuro: Alert, no focal deficits Psychiatric: Cooperative INDEPENDENT INTERPRETATIONS: desk monitor: (As interpreted by myself): - An order was placed for continuous cardiac monitoring - Patient was noted to be in sinus rhythm with a rate of 80 EKG: (As interpreted by myself): Rate: 83 Rhythm: Normal sinus rhythm Intervals: Within normal limits ST changes: No ST elevation Time: 0746 Interventions provided in ED: - IV Tylenol, IV fluid bolus, IV heparin drip Medical Decision Making: IV was established and lab work obtained, patient was placed on site monitor. EKG reviewed by myself shows normal sinus rhythm without any evidence of any acute ischemic changes. Lab work shows no leukocytosis, hemoglobin is normal, platelet count is normal, CMP does not show any evidence of any critical findings. Troponin is negative x 1. BNP is within normal limits. Given the patient's history of DVT and also history of noncompliance with anticoagulation, CT angiography of the chest was obtained that does show evidence of multiple right-sided pulmonary emboli with right lower lobe pulmonary infarct. I do believe this is the source of the patient's pain. I discussed this with the patient, he is in agreement for admission. Order was placed for initiation of heparin bolus and drip. Case was discussed with the on-call hospitalist for [facility], Dr. Cannon, and the patient was placed for admission in stable condition. Consultants/Discussions held with other healthcare providers: - Hospitalist, Dr. Cannon Disposition discussion held by myself with: - Patient and patient's at the bedside Diagnosis: 1. Multiple right-sided PE, acute 2. Right-sided pulmonary infarct, acute 3. Back pain, acute Disposition: Admission Carlos Burnett DO Emergency Medicine Past Med/Surg History Problem List (Updated 02/15/25 @ 12:36 by Carlos Burnett DO) Pulmonary embolism (Acute) Pulmonary embolism and infarction Musculoskeletal chest pain Personal history of DVT (deep vein thrombosis) Rib pain on left side Pleuritic chest pain Osteoarthritis of wrist Sprain of radiocarpal joint of left wrist Dyslipidemia CAD (coronary artery disease) S/P drug eluting coronary stent placement Presence of drug coated stent in LAD coronary artery LVH (left ventricular hypertrophy) Hypertension Bilateral leg edema Atypical chest pain Status post insertion of drug-eluting stent into right coronary artery for coronary artery disease Status post insertion of drug-eluting stent into left anterior descending (LAD) artery for coronary artery disease H/O heart artery stent Memory changes (Acute) Chronic anticoagulation Antiplatelet or antithrombotic long-term use CAD (coronary artery disease) Peripheral edema Dyslipidemia (Chronic) Chronic cerebral ischemia HTN (hypertension) (Acute) Medical History CVA (cerebral vascular accident) Chest pain Near syncope Acute hypotension Hypotension Non-ST elevation (NSTEMI) myocardial infarction Hypertensive urgency Elevated troponin I level Dvt femoral (deep venous thrombosis) Hypertensive emergency Hypertensive urgency Hypertensive urgency TIA (transient ischemic attack) NSTEMI (non-ST elevated myocardial infarction) HTN (hypertension) Surgical History History of tonsillectomy History of laparoscopic cholecystectomy History of appendectomy History of hernia repair Family History Father , age 72 of [place]. Coronary heart disease Myocardial infarction Mother , age 87 Hypertension Denies family history of Ovarian cancer Prostate cancer Breast cancer Colorectal cancer Social History Smoking Status: Never smoker Second Hand Exposure: No; Do You Dip or Chew Tobacco: No; Hx Alcohol Use: Yes Alcohol type: wine Alcohol Intake Frequency Comment: Once per week Hx Substance Use: No Preferred Language: Albanian Communication Ability: Effective Visual Impairment: No Limitations Hearing Ability: Normal Proofsheet Corrector Required: No Beliefs That Will Affect Care: None marital status: Current Living Situation: Alone current occupational status: employed 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, 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, 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 How many Children do You have: 5 Feels Safe at Home: Yes Dental Care, Regularly: Yes Seatbelt Use: always Assistive Devices: None Allergies Allergies Allergy/AdvReac Type Severity Reaction Status Date / Time cat dander Allergy Severe ITCHY/COUGH, Verified 02/15/25 12:29 THROAT TIGHTENS horse dander Allergy Severe Itch/Cough Verified 02/15/25 12:29 with Horse hair amoxicillin Allergy Intermediate Rash Verified 02/15/25 12:29 glenis Allergy Verified 02/15/25 12:29 atorvastatin AdvReac Intermediate Muscle Pain Verified 02/15/25 12:29 HAIRSPRAY Allergy Severe ITCHY, Uncoded 02/15/25 12:29 COUGH MSG PRESERVATIVE Allergy Unknown DOESN'T Uncoded 02/15/25 12:29 TOLERATE-GI SYMPTOMS Home Meds Home Medications Medication Instructions Recorded Confirmed multivitamin 1 tab PO DAILY 12/07/24 02/15/25 garlic 100 mg tablet 100 mg PO DAILY 02/15/25 02/15/25 rivaroxaban 10 mg tablet (Xarelto) 10 mg PO 4XWK 02/15/25 02/15/25 valsartan 160 mg tablet 160 mg PO QAM 02/15/25 02/15/25 Previous Rx's Medication Instructions Recorded carvedilol 25 mg tablet 25 mg PO BID #180 tabs 12/07/24 clopidogrel 75 mg tablet 75 mg PO QAM #90 tabs 12/07/24 nitroglycerin 0.4 mg sublingual 0.4 mg sublingual Q5M PRN Chest 12/07/24 tablet Pain #25 tabs hydrochlorothiazide 25 mg tablet 25 mg PO QAM PRN swelling #90 tabs 01/25/25 Results & Data (ED) Vital Signs Vital Signs - 24 hr 02/15/25 07:27 02/15/25 07:46 02/15/25 07:55 Temperature 37.2 C Temperature Source Temporal Artery Scan Pulse Rate 84 84 Pulse Rate [Right Finger] Pulse Rhythm [Right Finger] Respiratory Rate 18 Respiratory Effort / Characteristics Respiratory Depth Respiratory Pattern Blood Pressure 181/90 H Blood Pressure [Right Arm] Blood Pressure Mean 120 Blood Pressure Mean [Right Arm] Pulse Oximetry 93 Oxygen Delivery Method Room Air Room Air Sepsis New/Unexplained Change in Mental Status No Sepsis Action Taken by Nursing No Action Required 02/15/25 08:12 02/15/25 09:12 02/15/25 10:23 Temperature Temperature Source Pulse Rate Pulse Rate [Right Finger] 78 84 84 Pulse Rhythm [Right Finger] Respiratory Rate 24 20 20 Respiratory Effort / Characteristics Non-Labored Spontaneous Non-Labored Spontaneous Non-Labored Spontaneous Respiratory Depth Normal Normal Normal Respiratory Pattern Regular Regular Regular Blood Pressure Blood Pressure [Right Arm] 179/96 H 159/95 H 172/104 H Blood Pressure Mean Blood Pressure Mean [Right Arm] 123 116 126 Pulse Oximetry 93 92 95 Oxygen Delivery Method Room Air Room Air Room Air Sepsis New/Unexplained Change in Mental Status Sepsis Action Taken by Nursing 02/15/25 11:51 02/15/25 11:53 Temperature Temperature Source Pulse Rate 81 Pulse Rate [Right Finger] 78 Pulse Rhythm [Right Finger] Regular Respiratory Rate 20 Respiratory Effort / Characteristics Non-Labored Spontaneous Respiratory Depth Normal Respiratory Pattern Regular Blood Pressure Blood Pressure [Right Arm] 160/95 H Blood Pressure Mean Blood Pressure Mean [Right Arm] 116 Pulse Oximetry 95 Oxygen Delivery Method Room Air Sepsis New/Unexplained Change in Mental Status Sepsis Action Taken by Nursing Laboratory Data 02/15/25 08:08 02/15/25 08:08 Lab Results 02/15/25 02/15/25 Range/Units 08:08 10:43 WBC 10.31 (4.8-10.8) K/ul RBC 4.91 (4.70-6.10) M/uL Hgb 15.9 (14.0-18.0) g/dl Hct 45.2 (42.0-52.0) % MCV 92.1 (80.0-100.0) fL MCH 32.4 (25.0-34.0) pg MCHC 35.2 (32.0-36.0) g/dL RDW Std Deviation 43.6 (36.4-46.3) fL RDW Coeff of Guerita 12.9 (11.5-14.5) % Plt Count 166 (130-400) K/uL MPV 10.1 (9.4-12.4) fL Immature Gran % (Auto) 0.4 % Neut % (Auto) 76.9 % Lymph % (Auto) 11.6 % Hoke % (Auto) 9.8 % Eos % (Auto) 1.0 % Baso % (Auto) 0.3 % Neut # (Auto) 7.93 H (1.40-6.50) K/uL Lymph # (Auto) 1.20 (1.20-3.40) K/uL Hoke # (Auto) 1.01 H (0.11-0.59) K/uL Eos # (Auto) 0.10 (0.00-0.50) K/uL Baso # (Auto) 0.03 (0.00-0.20) K/uL Immature Gran # (Auto) 0.04 (0.01-0.20) K/uL PT 10.7 (9.0-12.0) Seconds INR 1.0 (0.9-1.1) APTT 28 (21-31) Seconds PTT Ratio 1.0 Sodium 138 (136-145) mmol/L Potassium 4.0 (3.5-5.1) mmol/L Chloride 104 (98-107) mmol/L Carbon Dioxide 28 (21-32) mmol/L Anion Gap 6 (3-11) BUN 13 (6-23) mg/dl Creatinine 0.69 (0.6-1.4) mg/dl Est Cr Clr Drug Dosing 115.3 ml/min eGFR 98.33 BUN/Creatinine Ratio 18.8 (10-20) Glucose 103 H (70-99(Fasting)) mg/dl Calcium 8.9 (8.6-10.3) mg/dl Total Bilirubin 1.1 H (0.2-1.0) mg/dl AST 15 (13-39) U/L ALT 12 (7-52) U/L Alkaline Phosphatase 98 (34-104) U/L Troponin I High Sens 3.1 (0-20) pg/ml B-Natriuretic Peptide 92 (0-100) pg/ml Total Protein 7.4 (6.0-8.3) gm/dl Albumin 3.9 (3.4-5.0) gm/dl Globulin 3.5 (2.5-4.0) gm/dl Albumin/Globulin Ratio 1.1 (0.9-2) Administered Medications Heparin Sodium/Dextrose (Heparin 48231 Unit/500 Ml D5w) 25,000 units in 500 mls @ 30 mls/hr IV .[id number] [facility]; Protocol Stop: 03/17/25 09:29 Last Admin: 02/15/25 10:18 Dose: 1,500 units/hr, 30 mls/hr Documented By: LILY Co-signed By: STEPH Discontinued Medications Heparin Sodium (Porcine) (Heparin Sod (Porcine) 1000 Unit/Ml) 1 units IV NOW ONE Stop: 02/15/25 09:31 Last Admin: 02/15/25 10:17 Dose: 7,000 units Documented By: LILY Co-signed By: STEPH Sodium Chloride (Nss) 1,000 mls @ 999 mls/hr IV .Q1H1M ONE Stop: 02/15/25 08:41 Last Infusion: 02/15/25 10:02 Dose: Infused Documented By: NRJuan Admin: 02/15/25 08:16 Dose: 999 mls/hr Documented By: LILY Acetaminophen (Ofirmev) 1,000 mg in 100 mls @ 400 mls/hr IV NOW STA Stop: 02/15/25 08:11 Last Infusion: 02/15/25 10:07 Dose: Infused Documented By: NRJuan Admin: 02/15/25 08:16 Dose: 400 mls/hr Documented By: LILY Ioversol (Optiray 320 125ml) 112 ml IV ONCE ONE Stop: 02/15/25 09:01 Last Admin: 02/15/25 09:01 Dose: 112 ml Documented By: JAMSE Morphine Sulfate (Morphine Sulfate 4 Mg/Ml 1 Ml Carp\Vial) 4 mg IV NOW STA Stop: 02/15/25 07:42 Last Admin: 02/15/25 08:20 Dose: Not Given Documented By: LILY Ondansetron HCl (Ondansetron Inj 2 Mg/Ml 2 Ml Vial) 4 mg IV NOW STA Stop: 02/15/25 07:42 Last Admin: 02/15/25 08:20 Dose: Not Given Documented By: NRB Imaging Data Radiologist's Impression: Chest CTA 02/15/25 07:41 CT ANGIOGRAM OF THE CHEST CLINICAL HISTORY: Right-sided chest pain. COMPARISON STUDY: Chest CT January 28, 2024. TECHNIQUE: Following the IV administration of 112 cc of Optiray 320, CT angiogram of the chest was performed from the upper abdomen to the thoracic inlet utilizing the pulmonary embolus protocol. Images are reviewed in the axial, sagittal, and coronal planes. 3-D MIPS images are created and assessed. IV contrast was administered without complication. A dose lowering technique was utilized adhering to the principles of ALARA. CT DOSE: 934.91 mGy.cm FINDINGS: There are numerous right-sided pulmonary emboli, including within the right interlobar pulmonary artery and numerous lobar and segmental emboli within the right middle and right lower lobes. No central pulmonary embolus is present. There is no CT evidence for right-sided heart strain. A 6.1 cm subpleural groundglass opacity within the superior segment of the right lower lobe is suggestive of an associated pulmonary infarct. There is a small right pleural effusion. No pneumothorax is present. Additional airspace opacities within lungs favor atelectasis. Mild cardiomegaly and moderate coronary artery calcification are again noted. Thinning of the left ventricular apex is present. A mildly enlarged subcarinal lymph node has slightly increased in size when compared to prior exam. This is probably benign. No suspicious pulmonary nodules are present. Visualized portions of the upper abdomen are unremarkable with the exception of diverticulosis of the visualized transverse colon. IMPRESSION: 1. Numerous right-sided pulmonary emboli, as described above. Associated right lower lobe pulmonary infarct and a small right pleural effusion. No central pulmonary embolus. No CT evidence for right heart strain. 2. Mild cardiomegaly and moderate coronary artery calcification. ACT 112: Negative or not required by law. Electronically signed by: Ruperto Padilla M.D. 02/15/2025 9:28 AM Discharge Plan Visit Data Chief Complaint: Rib Injury/Pain Stated Complaint: RIGHT RIB PAIN ED Provider: Carlos Burnett Discharge Problem: Pulmonary embolism Forms Stand Alone Forms: [facility] Prescriptions Prescriptions: No Action hydrochlorothiazide 25 mg tablet 25 mg PO QAM PRN (Reason: swelling) Qty: 90 3RF multivitamin Tablet 1 tab PO DAILY carvedilol 25 mg tablet 25 mg PO BID Qty: 180 3RF Rx Instructions: must administer with a meal/food clopidogrel 75 mg tablet 75 mg PO QAM Qty: 90 3RF nitroglycerin 0.4 mg tablet, sublingual 0.4 mg sublingual Q5M MDD 3 PRN (Reason: Chest Pain) Qty: 25 3RF garlic 100 mg Tablet 100 mg PO DAILY valsartan 160 mg tablet 160 mg PO QAM Xarelto 10 mg tablet 10 mg PO 4XWK Rx Instructions: When asked which days pt takes this medication he said there are no set days. When asked the last time he took medication, he stated he couldn't recall. Referrals Referrals: Nikita Singleton MD [Primary Care Provider] - Discharge Problem: Pulmonary embolism Qualifiers: Pulmonary embolism type: other Chronicity: acute Acute cor pulmonale presence: unspecified Qualified Code(s): I26.99 - Other pulmonary embolism without acute cor pulmonale
[2025-02-15] MEDS: SODIUM CHLORIDE 0.9% 1,000 ML IV ONE (08:16)
[2025-02-15] MEDS: ACETAMINOPHEN 1,000 MG/100 ML VIAL IV STA (08:16)
[2025-02-15] MEDS: ONDANSETRON INJ 2 MG/ML 2 ML VIAL IV STA (08:20)
[2025-02-15] MEDS: MoRPHine SULFATE 4 MG/ML 1 ML CARP\\VIAL IV STA (08:20)
[2025-02-15 08:38] LABS: Basophils # (auto) 0.03 K/uL (0.00-0.20); Basophils % (auto) 0.3 %; Hematocrit (blood only) 45.2 % (42.0-52.0); Hemoglobin 15.9 g/dl (14.0-18.0); Immature Granulocytes # (auto) 0.04 K/uL (0.01-0.20); Immature Granulocytes % (auto) 0.4 %; Lymphocytes % (auto) 11.6 %; Mean Corpuscular Hemoglobin 32.4 pg (25.0-34.0); Mean Corpuscular Hgb Conc 35.2 g/dL (32.0-36.0); Mean Corpuscular Volume 92.1 fL (80.0-100.0); Mean Platelet Volume 10.1 fL (9.4-12.4); Monocytes # (auto) 1.01 K/uL (0.11-0.59); Monocytes % (auto) 9.8 %; Neutrophils # (auto) 7.93 K/uL (1.40-6.50); Neutrophils % (auto) 76.9 %; Platelet Count 166 K/uL (130-400); RDW Coefficient of Variation 12.9 % (11.5-14.5); RDW Standard Deviation 43.6 fL (36.4-46.3); Red Blood Count 4.91 M/uL (4.70-6.10); White Blood Count 10.31 K/ul (4.8-10.8)
[2025-02-15 08:50] LABS: Albumin Globulin Ratio 1.1 (0.9-2); Albumin Level 3.9 gm/dl (3.4-5.0); BUN Creatinine Ratio 18.8 (10-20); Bilirubin,Total 1.1 mg/dl (0.2-1.0); Calcium 8.9 mg/dl (8.6-10.3); Creatinine Clr Calc Pharmacy 115.3 ml/min; Globulin 3.5 gm/dl (2.5-4.0); Total Protein 7.4 gm/dl (6.0-8.3)
[2025-02-15 08:56] LABS: Troponin I High Sensitivity 3.1 pg/ml (0-20)
[2025-02-15] MEDS: OPTIRAY 320 125ml IV ONE (09:01)
--- NOTE | 2025-02-15 09:29 | CT Scan Report ---
CT ANGIOGRAM OF THE CHEST CLINICAL HISTORY: Right-sided chest pain. COMPARISON STUDY: Chest CT January 28, 2024. TECHNIQUE: Following the IV administration of 112 cc of Optiray 320, CT angiogram of the chest was pe rformed from the upper abdomen to the thoracic inlet utilizing the pulmonary embolus protocol. Images are reviewed in the axial, sagittal, and coronal planes. 3-D MIPS images are created and assessed. I V contrast was administered without complication. A dose lowering technique was utilized adhering to the principles of ALARA. CT DOSE: 934.91 mGy.cm FINDINGS: There are numerous right-sided pulmonary emboli, including within the right interlobar pulm onary artery and numerous lobar and segmental emboli within the right middle and right lower lobes. N o central pulmonary embolus is present. There is no CT evidence for right-sided heart strain. A 6.1 c m subpleural groundglass opacity within the superior segment of the right lower lobe is suggestive of an associated pulmonary infarct. There is a small right pleural effusion. No pneumothorax is present . Additional airspace opacities within lungs favor atelectasis. Mild cardiomegaly and moderate mcneal ry artery calcification are again noted. Thinning of the left ventricular apex is present. A mildly e nlarged subcarinal lymph node has slightly increased in size when compared to prior exam. This is pro bably benign. No suspicious pulmonary nodules are present. Visualized portions of the upper abdomen a re unremarkable with the exception of diverticulosis of the visualized transverse colon. IMPRESSION: 1. Numerous right-sided pulmonary emboli, as described above. Associated right lower lobe pulmonary i nfarct and a small right pleural effusion. No central pulmonary embolus. No CT evidence for right hea rt strain. 2. Mild cardiomegaly and moderate coronary artery calcification. ACT 112: Negative or not required by law. Electronically signed by: Ruperto Padilla M.D. 02/15/2025 9:28 AM
[2025-02-15 09:48] LABS: Partial Thromboplastin Time 28 Seconds (21-31); Prothrombin Time 10.7 Seconds (9.0-12.0)
--- NOTE | 2025-02-15 10:00 | History & Physical Report ---
Date of Service February 15, 2025 Assessment & Plan (1) Pulmonary embolism and infarction: (2) Personal history of DVT (deep vein thrombosis): (3) CAD (coronary artery disease): (4) Hypertension: Plan 74-year-old man with a history of hypercoagulabilityright lower extremity DVT At least 2 times in the past, coronary artery disease with STEMI in 2017 and GENOVEVA to distal RCA in 2020 on Plavix who presents with multiple R sided pulmonary emboli associated with pulmonary infarct. He reports a week of symptoms, however PCP note 01/25 documents R CP/dyspnea starting late December as well. He had not been compliant with his rivaroxaban taking only twice a week # Right-sided pulmonary emboli associated with pulmonary infarct Started on heparin drip in the ED. The symptoms have been going on for up to several weeks though acutely worsened in the last few days, and he does not have tachycardia hypotension or significant hypoxia. troponin and BNP are normal. We will observe him overnight however I think he is currently low risk and needs counseling to take his apixaban consistently. By PESI he is class II / low risk: 1.7-3.5% 30-day mortality. He is being admitted for observation because of the component of pulmonary infarct. -Continue heparin drip and watch for any change in symptoms overnight -resume rivaroxaban in the morning if stablenotes that he tends to take his medications on the morning and I do not think he will be compliant with dinnertime dosing. He needs to start the rivaroxaban dose for acute VTE treatment which will be 15 mg twice daily - Ordered TTEI think the chance of right heart strain is fairly low however he does have underlying heart disease, has had dyspnea, and he has not had an echo since 2020 - extensively counseled with respect to critical need to take this medication as directed. Provided information on how to treat/prevent epistaxis. his was present for this discussion - counseled with respect to risks and benefits of anticoagulants, including risk of gastrointestinal bleeding and intracranial hemorrhage which is rare but can be disabling or fatal -known hypercoagulable state with previous DVTs, should be on lifelong anticoagulation -follow up with primary care # Coronary artery disease with history of STEMI in 2017 and GENOVEVA to distal RCA in 2020, followed by Dr. Scott Uriostegui, EKG without acute ischemic changes, troponin was negative at 3. No evidence of ACS -continue statin, plavix. continue carvedilol at reduced dose and assess response, valsartan currently held # hypertension hypertensive in the ED but he reports 30 pound weight loss this winter and I do not think he was taking his blood pressure medications at least not as prescribed. I will not start them all at once to avoid hypotension - continue carvedilol I reduced dose 12.5 mg p.o. twice daily, valsartan and hydrochlorothiazide currently held History of Present Illness Chief Complaint: Right sided chest pain Primary Care Provider: Nikita Singleton MD 74-year-old man 74-year-old man with a history of right lower extremity DVT 2 times in the past, coronary artery disease with STEMI in 2016 and GENOVEVA to distal RCA in 2020 who presented with right sided pleuritic chest pain for a week. I reviewed his recent primary care note from 01/25 and he had some left-sided chest pain at that time and reported right sided posterior back pain 10 days previously associated with dyspnea but improved though he continued to have dyspnea on exertion. The physician wanted to order CTA of chest at that time but the patient wanted to start with x-rays. It is noted that he only takes his Eliquis approximately 2 days a week because he has nosebleeding and cuts/bruising. The primary care physician instructed him to take his Eliquis regularly from now on, however he did not do so in the interim. He reports that the pain in his right chest got really bad about 2 days ago and became intolerable enough that he came to the ED. It is both anterior and posterior and is aggravated by breathing and by changes in position his chest wall is also tender. He never noticed any leg or calf swelling or pain in the last 6 to 8 weeks. He did take a plane flight but that was at least 2 months ago to [place], he did have an episode of influenza-like illness about a month ago. I obtained additional history from his son he reports that he is noncompliant with medications, prefers to use herbal remedies, has had multiple DVTs and also SVT in the past no known PEs, there was a hypercoagulable workup in 2020. In the ED he was given 4 mg of IV morphine for pain and also a dose of ondansetron for nausea which has resolved Allergies Allergy/AdvReac Type Severity Reaction Status Date / Time cat dander Allergy Severe ITCHY/COUGH, Verified 02/15/25 12:22 THROAT TIGHTENS horse dander Allergy Severe Itch/Cough Verified 02/15/25 12:22 with Horse hair amoxicillin Allergy Intermediate Rash Verified 02/15/25 12:22 glenis Allergy Verified 02/15/25 12:22 atorvastatin AdvReac Intermediate Muscle Pain Verified 02/15/25 12:22 HAIRSPRAY Allergy Severe ITCHY, Uncoded 02/15/25 12:22 COUGH MSG PRESERVATIVE Allergy Unknown DOESN'T Uncoded 02/15/25 12:22 TOLERATE-GI SYMPTOMS Home Medications Medication Instructions Recorded Confirmed Type coenzyme Q10 200 mg capsule (Co 200 mg PO BID 12/17/22 04/27/24 History Q-10) carvedilol 25 mg tablet 25 mg PO BID #180 tabs 12/07/24 12/07/24 Rx clopidogrel 75 mg tablet 75 mg PO QAM #90 tabs 12/07/24 12/07/24 Rx coQ10 (ubiquinol) 100 mg capsule 100 mg PO DAILY 12/07/24 12/07/24 History (Qunol Nehemias CoQ10) multivitamin 1 tab PO DAILY 12/07/24 12/07/24 History nitroglycerin 0.4 mg sublingual 0.4 mg sublingual Q5M PRN Chest 12/07/24 12/07/24 Rx tablet Pain #25 tabs rivaroxaban 10 mg tablet (Xarelto) 10 mg PO .COMPLEX #48 tabs 12/07/24 12/07/24 Rx valsartan 160 mg tablet 160 mg PO .COMPLEX #135 tabs 12/07/24 12/07/24 Rx hydrochlorothiazide 25 mg tablet 25 mg PO QAM PRN swelling #90 tabs 01/25/25 Rx Past Med/Surg History Problem List Pulmonary embolism and infarction Musculoskeletal chest pain Personal history of DVT (deep vein thrombosis) Rib pain on left side Pleuritic chest pain Osteoarthritis of wrist Sprain of radiocarpal joint of left wrist Dyslipidemia CAD (coronary artery disease) S/P drug eluting coronary stent placement Presence of drug coated stent in LAD coronary artery LVH (left ventricular hypertrophy) Hypertension Bilateral leg edema Atypical chest pain Status post insertion of drug-eluting stent into right coronary artery for coronary artery disease Status post insertion of drug-eluting stent into left anterior descending (LAD) artery for coronary artery disease H/O heart artery stent Memory changes (Acute) Chronic anticoagulation Antiplatelet or antithrombotic long-term use CAD (coronary artery disease) Peripheral edema Dyslipidemia (Chronic) Chronic cerebral ischemia HTN (hypertension) (Acute) Medical History CVA (cerebral vascular accident) Chest pain Near syncope Acute hypotension Hypotension Non-ST elevation (NSTEMI) myocardial infarction Hypertensive urgency Elevated troponin I level Dvt femoral (deep venous thrombosis) Hypertensive emergency Hypertensive urgency Hypertensive urgency TIA (transient ischemic attack) NSTEMI (non-ST elevated myocardial infarction) HTN (hypertension) Surgical History History of tonsillectomy History of laparoscopic cholecystectomy History of appendectomy History of hernia repair Family History Father , age 72 of [place]. Coronary heart disease Myocardial infarction Mother , age 87 Hypertension Denies family history of Ovarian cancer Prostate cancer Breast cancer Colorectal cancer Social History Smoking Status: Never smoker Second Hand Exposure: No; Do You Dip or Chew Tobacco: No; Hx Alcohol Use: Yes Alcohol type: wine Alcohol Intake Frequency Comment: Once per week Hx Substance Use: No Preferred Language: Polish Communication Ability: Effective Visual Impairment: No Limitations Hearing Ability: Normal Burlap Spreader Required: No Beliefs That Will Affect Care: None marital status: Current Living Situation: Alone current occupational status: employed 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 CV: reg no mrg, No JVD ABD: soft/nt/nd +BT : no kohler SKIN: warm and dry, no generalized rashes, no calf or thigh swelling or tenderness, no palpable cords, no lower extremity edema, extremities are warm and warm well-perfused NEURO: AOx person, place, and situation. Face symmetric, speech normal, moves 4 ext spontaneously and equally Results & Data Results & Data Vital Signs (Past 12 Hours) Vital Signs Temp Pulse Pulse Resp BP BP Pulse Ox 02/15/25 09:12 84 20 159/95 H 92 02/15/25 08:12 78 24 179/96 H 93 02/15/25 07:55 84 02/15/25 07:46 02/15/25 07:27 37.2 C 84 18 181/90 H 93 O2 Del Method 02/15/25 09:12 Room Air 02/15/25 08:12 Room Air 02/15/25 07:55 02/15/25 07:46 Room Air 02/15/25 07:27 Room Air Laboratory Results 02/15/25 08:08 02/15/25 08:08 troponin is 3.1 which is normal and BNP is 92 which is the high end of normal Diagnostic Findings Chest CTA 02/15/25 07:41 CT ANGIOGRAM OF THE CHEST CLINICAL HISTORY: Right-sided chest pain. COMPARISON STUDY: Chest CT January 28, 2024. TECHNIQUE: Following the IV administration of 112 cc of Optiray 320, CT angiogram of the chest was performed from the upper abdomen to the thoracic inlet utilizing the pulmonary embolus protocol. Images are reviewed in the axial, sagittal, and coronal planes. 3-D MIPS images are created and assessed. IV contrast was administered without complication. A dose lowering technique was utilized adhering to the principles of ALARA. CT DOSE: 934.91 mGy.cm FINDINGS: There are numerous right-sided pulmonary emboli, including within the right interlobar pulmonary artery and numerous lobar and segmental emboli within the right middle and right lower lobes. No central pulmonary embolus is present. There is no CT evidence for right-sided heart strain. A 6.1 cm subpleural groundglass opacity within the superior segment of the right lower lobe is suggestive of an associated pulmonary infarct. There is a small right pleural effusion. No pneumothorax is present. Additional airspace opacities within lungs favor atelectasis. Mild cardiomegaly and moderate coronary artery calcification are again noted. Thinning of the left ventricular apex is present. A mildly enlarged subcarinal lymph node has slightly increased in size when compared to prior exam. This is probably benign. No suspicious pulmonary nodules are present. Visualized portions of the upper abdomen are unremarkable with the exception of diverticulosis of the visualized transverse colon. IMPRESSION: 1. Numerous right-sided pulmonary emboli, as described above. Associated right lower lobe pulmonary infarct and a small right pleural effusion. No central pulmonary embolus. No CT evidence for right heart strain. 2. Mild cardiomegaly and moderate coronary artery calcification. ACT 112: Negative or not required by law. Electronically signed by: Ruperto Padilla M.D. 02/15/2025 9:28 AM ECG Additional Comments: I personally reviewed the EKG tracing shows normal sinus rhythm there is a Q wave in 3 and F these are unchanged since 2020 PG Care Time/CCT Total # of Minutes Spent Total Time Spent with Patient: Total time spent is greater than 50% in coordination of care (as documented) at patient's floor/unit and/or counseling patient: Coding Level of Care Code 85736 INT INP/OBS CARE 3/75MIN Diagnoses Pulmonary embolism and infarction I26.99 Personal history of DVT (deep vein thrombosis) Z86.718 CAD (coronary artery disease) I25.10 Hypertension I10
[2025-02-15] MEDS: HEPARIN SOD (PORCINE) 1000 UNIT/ML IV ONE (10:17)
[2025-02-15] MEDS: HEPARIN 25000 UNIT/500 ML D5W 25,000 UNITS/500 ML BAG IV SCH (10:18)
--- NOTE | 2025-02-15 10:34 | Electrocardiogram Report ---
Test Reason : Blood Pressure : */* mmHG Vent. Rate : 83 BPM Atrial Rate : 83 BPM P-R Int : 152 ms QRS Dur : 92 ms QT Int : 358 ms P-R-T Axes : 8 -21 5 degrees QTcB Int : 420 ms Normal sinus rhythm Inferior infarct (cited on or before 22-Jul-2021) Abnormal ECG When compared with ECG of 27-Jul-2021 10:46, Nonspecific T wave abnormality no longer evident in Lateral leads Confirmed by Rod Batista ([id number]) on 02/15/2025 10:33:54 AM Referred By: REFERRED SELF Confirmed By: Rod Batista
[2025-02-15] MEDS: oxyCODONE HCL IR 5 MG TAB (IMMEDIATE RELEASE) ONE (15:05)
--- NOTE | 2025-02-15 15:10 | XCELERA ---
[id number]
[2025-02-15] MEDS: Heparin IV Adult Wt-Based Standard w/ INITIAL Bolus Protocol IV STA (16:03)
[2025-02-15] MEDS ORDERED: MAGNESIUM HYDROXIDE SUSP 30 ML UDC PO PRN (16:13)
[2025-02-15] MEDS ORDERED: POLYETHYLENE (MIRALAX) 17 GM PACK PO PRN (16:13)
[2025-02-15] MEDS ORDERED: MoRPHine SULFATE 4 MG/ML 1 ML CARP\\VIAL IV PRN (16:13)
[2025-02-15] MEDS ORDERED: ONDANSETRON INJ 2 MG/ML 2 ML VIAL IV PRN (16:13)
[2025-02-15] MEDS ORDERED: ALUMINUM/MAGNESIUM SUSP 30 ML UDC PO PRN (16:13)
[2025-02-15] MEDS ORDERED: MELATONIN 3 MG TAB PO PRN (16:13)
[2025-02-15] MEDS: FUROSEMIDE INJ 20 MG/2 ML VIAL IV ONE (16:23)
[2025-02-15] MEDS: ACETAMINOPHEN 325 MG TAB PO SCH (16:47)
[2025-02-15 17:23] LABS: ANTI-Xa, UFH(UnfractionatedHep 0.27 IU/ml (0.3-0.7)
[2025-02-15] MEDS: carvediloL 12.5 MG TAB PO SCH (21:33)
[2025-02-16 00:21] LABS: ANTI-Xa, UFH(UnfractionatedHep 0.29 IU/ml (0.3-0.7)
[2025-02-16] MEDS: oxyCODONE HCL IR 5 MG TAB (IMMEDIATE RELEASE) PO PRN ×2 (08:49→18:23)
[2025-02-16] MEDS: CLOPIDOGREL BISULFATE 75 MG TAB PO SCH (08:50)
[2025-02-16 09:27] LABS: Basophils # (auto) 0.02 K/uL (0.00-0.20); Basophils % (auto) 0.2 %; Eosinophils # (auto) 0.21 K/uL (0.00-0.50); Eosinophils % (auto) 2.2 %; Hematocrit (blood only) 41.7 % (42.0-52.0); Hemoglobin 14.7 g/dl (14.0-18.0); Immature Granulocytes # (auto) 0.03 K/uL (0.01-0.20); Immature Granulocytes % (auto) 0.3 %; Lymphocytes # (auto) 1.16 K/uL (1.20-3.40); Lymphocytes % (auto) 12.2 %; Mean Corpuscular Hemoglobin 32.8 pg (25.0-34.0); Mean Corpuscular Hgb Conc 35.3 g/dL (32.0-36.0); Mean Corpuscular Volume 93.1 fL (80.0-100.0); Mean Platelet Volume 9.8 fL (9.4-12.4); Monocytes # (auto) 0.75 K/uL (0.11-0.59); Monocytes % (auto) 7.9 %; Neutrophils # (auto) 7.37 K/uL (1.40-6.50); Neutrophils % (auto) 77.2 %; Platelet Count 160 K/uL (130-400); RDW Coefficient of Variation 12.7 % (11.5-14.5); RDW Standard Deviation 43.4 fL (36.4-46.3); Red Blood Count 4.48 M/uL (4.70-6.10); White Blood Count 9.54 K/ul (4.8-10.8)
[2025-02-16 09:37] LABS: Calcium 8.2 mg/dl (8.6-10.3); Magnesium 1.8 mg/dl (1.7-2.4); Potassium 3.9 mmol/L (3.5-5.1)
[2025-02-16 09:43] LABS: BUN Creatinine Ratio 17.6 (10-20); Creatinine Clr Calc Pharmacy 117.3 ml/min
[2025-02-16 09:56] LABS: ANTI-Xa, UFH(UnfractionatedHep 0.33 IU/ml (0.3-0.7)
[2025-02-16] MEDS: ALBUT/IPRATROP 3MG/0.5MG NEB 3 ML VIAL NEB STA (10:31)
--- NOTE | 2025-02-16 14:29 | Ultrasound Report ---
BILATERAL LOWER EXTREMITY VENOUS DOPPLER CLINICAL HISTORY: PEs COMPARISON STUDY: Bilateral lower extremity venous Doppler ultrasound July 23, 2021. TECHNIQUE: Sonography of the deep venous system of the bilateral lower extremities was performed. Co mpression and augmentation were evaluated. FINDINGS: There is no evidence for acute deep venous thrombus within the right lower extremity. Mini mal stranding within the right superficial femoral vein is unchanged since ultrasound of June. This represents a small amount of chronic thrombus. A small right popliteal cyst is incidenta lly noted. Deep venous thrombus within the left superficial femoral vein is noted. This was not present on prior exam and is likely acute. This thrombus is nearly occlusive. No additional sites of deep venous thro mbus within the left lower extremity are present. IMPRESSION: 1. Acute appearing deep venous thrombus within the left superficial femoral vein. No additional sites of acute deep venous thrombus within the lower extremities. 2. No change in a small amount of chronic thrombus within the right superficial femoral vein. ACT 112: Negative or not required by law. Electronically signed by: Ruperto Padilla M.D. 02/16/2025 2:27 PM
--- NOTE | 2025-02-16 18:26 | Hospitalist Progress Note ---
Date of Service February 16, 2025 Assessment & Plan (1) Pulmonary embolism and infarction: (2) Personal history of DVT (deep vein thrombosis): (3) CAD (coronary artery disease): (4) Hypertension: (5) Pleuritic chest pain: (6) HTN (hypertension): (7) Dyslipidemia: (8) Prothrombin gene mutation: (9) Factor 5 Leiden mutation, heterozygous: Plan 74yo male - history of hypercoagulability (prothrombin gene mutation & factor 5 Leiden mutation - heterozygote for both), prior RLE DVT x 2, CAD with STEMI in 2016 and GENOVEVA to distal RCA in 2020 on Plavix. Presented with multiple R sided pulmonary emboli associated with pulmonary infarction. Dyspnea, JOINER, and pleuritic pain date back to late December. Noncompliant with Xarelto - taking 1-2x's/week at most. #Right-sided pulmonary emboli with pulmonary infarction - * remains on heparin drip * if stable overnight can transition to Xarelto 15mg BID x 3 weeks, then 20mg daily thereafter * anticoagulation should be lifelong * echo w/o RV strain * dopplers of legs - chronic appearing RLE DVT femoral system; acute DVT of left SFA * pain control - schedule tylenol 1gm TID; increase oxycodone to 7.5mg q4h prn * incentive spirometry * gentle walking as tolerated * he may need home O2 - plan formal 2-step ambulatory O2 test at time of discharge #6.3cm groundglass opacity on right - * although likely due to pulmonary infarction from PEs, consider repeat chest CT in 2-3 months to ensure the opacity has resolved; if persistent then pulmonary referral for additional w/u #Coronary artery disease with history of STEMI in 2016 and GENOVEVA to distal RCA in 2020 - * echo stable and without RV strain or LV wall motion abnormalities * troponin negative * EKG w/o ST changes * continue statin, plavix, coreg; latter is currently at 1/2 the dose; resume 25mg tomorrow if BPs remain high * ARB is still on hold; resume tomorrow if necessary #hypertension - * nearly all BPs since admission have been high * certainly his pain could be contributing but his home BP meds are on hold or lowered in dose * plan to increase coreg back to 25mg BID depending on BPs overnight * resume ARB as needed * hold HCTZ for now updated at bedside change observation status to full admission status Reese correspondence sent to pt's son, Dr Lul Smith Admission and Anticipated Discharge Date Admission Date: February 16, 2025 Subjective patient c/o ongoing dyspnea with exertion with fairly minimal activity as well as b/l pleuritic chest pain pain not controlled with oxycodone some cough he acknowledges the severity of this event and the need for better compliance with his Xarelto he realizes things could have been "much worse" and that was even possible had he not gotten treatment at bedside patient asks to not be discharged today Review of Systems Review of Systems: CV - no substernal chest pain; pain is pleuritic and near the costal margin pulm - dyspnea, JOINER, cough GI - no abd pain or N/V Physical Exam Physical Exam: gen - mild dyspnea with talking for long periods of time; occasional cough; otherwise NAD neck - no JVD mouth - MMM heart - RRR, s1 s2, no murmur lungs - CTA b/l, minimally decreased BS bases; no wheezing; no increased work of breathing abd - soft NT ND BS+ ext - no peripheral edema either leg; pulses b/l feet 2+ Results & Data Results & Data Vital Signs (Past 12 Hours) Vital Signs Temp Pulse Pulse Resp BP Pulse Ox O2 Del Method 02/16/25 15:27 36.7 C 73 18 160/79 H 90 Room Air 02/16/25 13:21 71 02/16/25 11:14 37.4 C 74 18 161/77 H 91 Room Air 02/16/25 10:45 22 91 Room Air 02/16/25 09:31 Room Air 02/16/25 07:36 37.1 C 75 18 170/84 H 92 Room Air 02/16/25 07:00 71 Laboratory Results Laboratory Results - last 24 hr 02/15/25 02/16/25 23:43 09:03 WBC 9.54 RBC 4.48 L Hgb 14.7 Hct 41.7 L MCV 93.1 MCH 32.8 MCHC 35.3 RDW Std Deviation 43.4 RDW Coeff of Guerita 12.7 Plt Count 160 MPV 9.8 Immature Gran % (Auto) 0.3 Neut % (Auto) 77.2 Lymph % (Auto) 12.2 Vance % (Auto) 7.9 Eos % (Auto) 2.2 Baso % (Auto) 0.2 Neut # (Auto) 7.37 H Lymph # (Auto) 1.16 L Vance # (Auto) 0.75 H Eos # (Auto) 0.21 Baso # (Auto) 0.02 Immature Gran # (Auto) 0.03 Heparin Anti-Xa, Unfract 0.29 L 0.33 Sodium 136 Potassium 3.9 Chloride 105 Carbon Dioxide 24 Anion Gap 7 BUN 12 Creatinine 0.68 Est Cr Clr Drug Dosing 117.3 eGFR 98.76 BUN/Creatinine Ratio 17.6 Glucose 137 H Calcium 8.2 L Magnesium 1.8 Diagnostic Findings Venous Doppler Study 02/16/25 10:50 BILATERAL LOWER EXTREMITY VENOUS DOPPLER CLINICAL HISTORY: PEs COMPARISON STUDY: Bilateral lower extremity venous Doppler ultrasound July 23, 2021. TECHNIQUE: Sonography of the deep venous system of the bilateral lower extremities was performed. Compression and augmentation were evaluated. FINDINGS: There is no evidence for acute deep venous thrombus within the right lower extremity. Minimal stranding within the right superficial femoral vein is unchanged since ultrasound of July 23, 2021. This represents a small amount of chronic thrombus. A small right popliteal cyst is incidentally noted. Deep venous thrombus within the left superficial femoral vein is noted. This was not present on prior exam and is likely acute. This thrombus is nearly occlusive. No additional sites of deep venous thrombus within the left lower extremity are present. IMPRESSION: 1. Acute appearing deep venous thrombus within the left superficial femoral vein. No additional sites of acute deep venous thrombus within the lower extremities. 2. No change in a small amount of chronic thrombus within the right superficial femoral vein. ACT 112: Negative or not required by law. Electronically signed by: Ruperto Padilla M.D. 02/16/2025 2:27 PM PG Care Time/CCT Total # of Minutes Spent Total Time Spent with Patient: Total time spent is greater than 50% in coordination of care (as documented) at patient's floor/unit and/or counseling patient: Coding Level of Care Code 39198 SUB INP/OBS CARE 2/35MIN Diagnoses Pulmonary embolism and infarction I26.99 Personal history of DVT (deep vein thrombosis) Z86.718 CAD (coronary artery disease) I25.10 Hypertension I10 Pleuritic chest pain R07.81 Dyslipidemia E78.5 Prothrombin gene mutation D68.52 Factor 5 Leiden mutation, heterozygous D68.51
[2025-02-16] MEDS: ACETAMINOPHEN 500 MG TAB PO SCH (20:06)
[2025-02-17] MEDS: RIVAROXABAN 15 MG TAB PO SCH (08:22)
[2025-02-17 08:26] LABS: Estimated Average Glucose 103 mg/dl; Hemoglobin A1C 5.2 % (4.5-5.6)
[2025-02-17] MEDS: oxyCODONE HCL IR 5 MG TAB (IMMEDIATE RELEASE) PO PRN (13:29)
[2025-02-17] MEDS: POLYETHYLENE (MIRALAX) 17 GM PACK PO SCH (13:35)
[2025-02-17] MEDS: SENNA 8.6 MG TAB PO SCH (13:35)
--- NOTE | 2025-02-17 13:35 | Hospitalist Progress Note ---
Date of Service February 17, 2025 Assessment & Plan (1) Pulmonary embolism and infarction: (2) Acute pulmonary embolism: (3) Acute deep vein thrombosis of left femoral vein: (4) Personal history of DVT (deep vein thrombosis): Plan: multiple previous DVTs in RLE (5) CAD (coronary artery disease): (6) Hypertension: (7) Pleuritic chest pain: Plan: 2nd right-sided pulmonary infarction (8) Dyslipidemia: (9) Prothrombin gene mutation: (10) Factor 5 Leiden mutation, heterozygous: Plan 74yo male - history of hypercoagulability (prothrombin gene mutation & factor 5 Leiden mutation - heterozygote for both), prior RLE DVT x 2, CAD with STEMI in 2017 and [place] to distal RCA in 2020 on Plavix. Presented with multiple R sided pulmonary emboli along with associated pulmonary infarction. Dyspnea, JOINER, and pleuritic pain date back to late December. Noncompliant with Xarelto - taking 1-2x's/week at most pre-admission. #Acute Right-sided pulmonary emboli with pulmonary infarction - * stop heparin drip * transition to Xarelto 15mg BID x 3 weeks, then 20mg daily thereafter * anticoagulation should be lifelong * echo w/o RV strain * dopplers of legs - chronic appearing RLE DVT femoral system; acute DVT of left SFA * pain control - inadequate; stop scheduled tylenol 1gm TID; initially increased oxycodone to 10mg q4h prn but by report he felt dizzy with such thus changed oxy to norco 10's * incentive spirometry * gentle walking as tolerated * passed formal 2-step ambulatory O2 test today #Acute LLE femoral vein DVT - as above #6.3cm groundglass opacity on right - * although likely due to pulmonary infarction from PEs, consider repeat chest CT in 2-3 months to ensure the opacity has resolved; if persistent then pulmonary referral for additional w/u #Coronary artery disease with history of STEMI in 2017 and GEN[place] to distal RCA in 2020 - * echo stable and without RV strain or LV wall motion abnormalities * troponin negative * EKG w/o ST changes * continue statin, plavix, coreg; latter is currently at 1/2 the dose; resume 25mg BID today * of note - patient was NOT taking his ARB at home #hypertension - * nearly all BPs since admission have been high * certainly his pain could be contributing but his home BP meds have been on hold or lowered in dose * plan to increase coreg back to 25mg BID today * hold HCTZ for now updated at bedside PT susanal requested added senna and miralax for constipation [place] correspondence sent to pt's son, Dr Lul Smith hopefully home tomorrow Admission and Anticipated Discharge Date Admission Date: February 16, 2025 Subjective patient resting in bed comfortably at bedside tele overnight wnl does feel better overall he still has pleuritic chest pain on the right not as severe, but still very uncomfortable still with JOINER passed 2-step O2 test he is anxious that he will fall at home and have bleeding issues he is worried he won't be able to climb steps at home asks for another day/night in hospital Review of Systems Review of Systems: CV - no substernal chest pain (just pleuritic, right costal margin region) pulm - cough improved; +JOINER; no dyspnea at rest GI - no abd pain Physical Exam Physical Exam: gen - looks better today, NAD neck - no JVD mouth - MMM heart - RRR, s1 s2, no murmur lungs - CTA b/l, minimally decreased BS bases; no wheezing; no increased work of breathing abd - soft NT ND BS+ ext - no peripheral edema b/l legs/ankles; pulses b/l feet 2+ Results & Data Results & Data Vital Signs (Past 12 Hours) Vital Signs Temp Pulse Pulse Pulse Pulse Resp Resp 02/17/25 11:20 36.8 C 65 18 02/17/25 10:20 81 70 19 02/17/25 08:59 02/17/25 07:17 36.8 C 64 18 02/17/25 07:00 70 02/17/25 03:30 36.8 C 67 20 Resp BP BP Pulse Ox Pulse Ox Pulse Ox O2 Del Method 02/17/25 11:20 144/80 H 92 Room Air 02/17/25 10:20 16 91 94 02/17/25 08:59 Room Air 02/17/25 07:17 138/76 92 Room Air 02/17/25 07:00 02/17/25 03:30 163/83 H 93 Room Air Laboratory Results Laboratory Results - last 24 hr 02/17/25 06:08 Heparin Anti-Xa, Unfract 0.30 Estimat Average Glucose 103 Hemoglobin A1c 5.2 PG Care Time/CCT Total # of Minutes Spent Total Time Spent with Patient: Total time spent is greater than 50% in coordination of care (as documented) at patient's floor/unit and/or counseling patient: Coding Level of Care Code 61853 SUB INP/OBS CARE 2/35MIN Diagnoses Pulmonary embolism and infarction I26.99 Acute pulmonary embolism I26.99 Acute deep vein thrombosis of left femoral vein I82.412 Personal history of DVT (deep vein thrombosis) Z86.718 CAD (coronary artery disease) I25.10 Hypertension I10 Pleuritic chest pain R07.81 Dyslipidemia E78.5 Prothrombin gene mutation D68.52 Factor 5 Leiden mutation, heterozygous D68.51
[2025-02-17] MEDS: LOSARTAN POTASSIUM 50 MG TAB PO SCH (13:37)
[2025-02-17] MEDS: carvediloL 12.5 MG TAB PO ONE (13:50)
[2025-02-17] MEDS: carvediloL 25 MG TAB PO SCH (21:36)
[2025-02-18] MEDS ORDERED: RIVAROXABAN 15 MG TAB PO SCH
[2025-02-18] MEDS: HYDROcodone/ACETAMINOPHEN 10/325 TAB PO PRN (08:07)
--- NOTE | 2025-02-18 09:35 | XRay Report ---
XR chest 2V PA/lateral CLINICAL HISTORY: recent PEs, pulm infarction, R sided pleuritic CP COMPARISON STUDY: 07/27/2021 FINDINGS: Stable mild cardiomegaly with mild pulmonary vascular congestion. There is interval small r ight pleural effusion and consolidation at the right lung base. No pneumothorax. Stable old right mid rib fractures. IMPRESSION: CHF with right pleural effusion and right lung base consolidation. ACT 112: Negative or not required by law. Electronically signed by: Kit Calhoun M.D. 02/18/2025 9:34 AM
[2025-02-18] MEDS: FEXOFENADINE 60 MG TAB PO ONE (14:20)
[2025-02-18] MEDS: TRIAMCINOLONE ACET 0.1% CR 80 GM TUBE EXT SCH (14:20)
[2025-02-18 15:32] VITALS: PULSE 99; RESP 18; TEMP 98.4; O2SAT 95
--- NOTE | 2025-02-18 16:39 | Discharge Summary ---
Discharge Summary Date of Service date of admission - February 15, 2025 date of discharge - February 18, 2025 Principal Dx & Hospital Course #1 = Principal Diagnosis (1) Pulmonary embolism and infarction: (2) Acute pulmonary embolism: (3) Acute deep vein thrombosis of left femoral vein: (4) Personal history of DVT (deep vein thrombosis): (5) CAD (coronary artery disease): (6) Hypertension: (7) Pleuritic chest pain: (8) Dyslipidemia: (9) Prothrombin gene mutation: (10) Factor 5 Leiden mutation, heterozygous: (11) Pleural effusion: Plan 74yo male - history of hypercoagulability (prothrombin gene mutation & factor 5 Leiden mutation - heterozygous for both), prior RLE DVT x 2, CAD with STEMI in 2016 and GNEOVEVA to distal RCA in 2020 on Plavix. Presented with multiple R sided pulmonary emboli along with associated pulmonary infarction. Patient had been having dyspnea, JOINER, and pleuritic pain dating back to late December. Noncompliant with his chronic Xarelto - was only taking 1-2x's/week at most pre- admission. #Acute Right-sided pulmonary emboli with pulmonary infarction - * initially on heparin drip * then transitioned to Xarelto 15mg BID x 3 weeks, followed by 20mg daily thereafter * anticoagulation should be lifelong * echo w/o RV strain * dopplers of legs - chronic appearing RLE DVT femoral system seen; acute DVT of left SFA identified * pain control for pleuritic chest pain (due to RLL pulmonary infarction) - norco 7.5mg q6h prn * advised incentive spirometry at home * gentle walking is permissible as tolerated * passed formal 2-step ambulatory O2 test #Acute LLE femoral vein DVT - as above #6.3cm groundglass opacity on right - * although likely due to pulmonary infarction from PEs, consider repeat chest CT in 2-3 months to ensure the opacity has resolved; if persistent then pulmonary referral for additional work-up #Coronary artery disease with history of STEMI in 2016 and GENOVEVA to distal RCA in 2020 - * echo stable and without RV strain or LV wall motion abnormalities * troponin negative * EKG w/o ST changes * continue statin, plavix, coreg * of note - patient was NOT taking his ARB at home; this was not resumed at discharge #hypertension - * nearly all BPs since admission were high * certainly his pleuritic pain could have been contributing to this elevated BPs * cont coreg 25mg BID * cont HCTZ prn #contact dermatitis rash - * located on back; likely due to bedsheets/sweating * triamcinolone cream 0.1% tid x 7 days #pleural effusion on right - * 2nd to PEs on right * small, no Rx needed Notes For Next Care Provider Medication Changes From Visit Xarelto 15mg BID x 21 days, then 20mg daily thereafter [place] 7.5's prn pain Triamcinolone cream 0.1% TID for about 1 week Admission HPI Per Admitting Provider 74-year-old male with a history of right lower extremity DVT 2 times in the past, coronary artery disease with STEMI in 2016 and GENOVEVA to distal RCA in 2020 who presented with right sided pleuritic chest pain for a week. I reviewed his recent primary care note from 01/25 and he had some left-sided chest pain at that time and reported right sided posterior back pain 10 days previously associated with dyspnea but improved though he continued to have dyspnea on exertion. The physician wanted to order CTA of chest at that time but the patient wanted to start with x-rays. It is noted that he only takes his Xarelto approximately 2 days a week because he has nose bleeding and cuts/bruising. The primary care sheri ricci instructed him to take his Xarelto regularly from now on, however he did not do so in the interim. He reports that the pain in his right chest got really bad about 2 days ago and became intolerable enough that he came to the ED. It is both anterior and posterior and is aggravated by breathing and by changes in position his chest wall is also tender. He never noticed any leg or calf swelling or pain in the last 6 to 8 weeks. He did take a plane flight but that was at least 2 months ago to [place], he did have an episode of influenza- like illness about a month ago. I obtained additional history from his son he reports that he is noncompliant with medications, prefers to use herbal remedies, has had multiple DVTs and also SVT in the past no known PEs, there was a hypercoagulable workup in 2020. In the ED he was given 4 mg of IV morphine for pain and also a dose of ondansetron for nausea which has resolved. Discharge Exam gen - looks well, NAD neck - no JVD mouth - MMM heart - RRR, s1 s2, no murmur lungs - CTA b/l, minimally decreased BS bases; no wheezing; no increased work of breathing abd - soft NT ND BS+ ext - no peripheral edema b/l legs/ankles; pulses b/l feet 2+ Discharge Plan Discharge Items Patient Disposition: Home - Self-Care Reason For Visit: PULMONARY EMBOLI Discharge Diagnosis: 1. multiple right-sided pulmonary emboli 2. pulmonary infarction of the right lung lower lobe 3. left leg acute DVT 4. high blood pressure 5. chest pain - due to #2 6. history of coronary artery disease Activity: As commented below Activity Comment: light activities only over the next 7-10 days as you recover Sexual Activity: Wait until after follow-up appointment Exercise/Sports: Wait until after follow-up appointment Driving/Machine Use: NO DRIVING if taking narcotic pain killer medicine Non-emergency contact: Primary Care Provider Call non-emergency contact if: you have any medication questions, your symptoms worsen, your pain is not controlled, your pain is worsening and you have a fever Follow-up/Referrals: Nikita Singleton MD [Primary Care Provider] - 02/24/25 1:30 pm Diet: Heart Healthy Addtl Attending Provider Instructions: Mr Smith, You were hospitalized due to having blood clots of the right lung ("Pulmonary emboli"). Your scans also showed evidence of pulmonary infarction which is when the lung tissue becomes damaged as a result of poor blood flow due to the pulmonary emboli. Your chest pain was due to the infarction. We also discovered a new DVT in the left leg. The right leg ultrasound showed remnants of your old DVT from years ago. You were treated with heparin drip then transitioned over to Xarelto. We checked an echocardiogram to ensure the pulmonary emboli didn't cause any heart issues and the echo was normal. On 02/17 a walking oxygen test showed that you do NOT need oxygen outside the hospital/at home. Recommendations - 1. Xarelto - * take 15mg twice daily x 21 days * we have provided 8 tablets for home use until the remaining Xarelto arrives at [facility] in [place] * start the Xarelto tomorrow morning * we are hopeful the formal "Starter pack" of Xarelto arrives by Friday of next week at [facility] * after 21 days you will then switch to Xarelto 20mg once daily * this will be your maintenance dose * you will need to take some form of anticoagulant/blood thinner over your lifetime * I have printed a prescription for 20mg Xarelto tablets which again will be your maintenance - do not fill this at this time. You will fill this in about 1 month. * do not drink any alcohol with Xarelto * do not take any mkwn-fao-eeyfqfv anti-inflammatory pills such as motrin, ibuprofen, aleve, or naprosyn * do not take any aspirin plhq-foh-jirkitq * please CONTINUE your plavix (clopidogrel) as previous * in about 6 months you can have discussions with your outpatient providers about whether you can reduce the dose of Xarelto to 10mg daily rather than 20mg 2. Pain control - * if your pain is mild you can take zwmc-orf-llvomfk tylenol 500mg every 8 hours as needed * maximum amount of tylenol is 3000mg in a 24 hour period * for moderate to severe pain you can take the prescription pain killer - hydrocodone-acetaminophen 10mg/325 * you can take 1 tablet every 6 hours as needed * note that this narcotic contains tylenol in it * again limit total tylenol use to no more than 3000mg in 24 hours * do not drive a car while taking narcotic pain medicine * do not drink alcohol with narcotic pain medicine 3. Please resume your carvedilol and clopidogrel as previous for your heart disease. 4. For rash you may use the steroid cream provided - triamcinolone 0.1% - apply in thin amounts up to 3 times daily for about 7 days. 5. For any itchiness you can use hvch-dea-iwdnryy sherie or zyrtec as desired. Follow the instructions on the bottle/packaging. 6. For another 5-7 days try to use the incentive spirometer device. 7. In about 2 months please have your outpatient providers order another CT scan of the lungs. Follow-up - see separate section Return to [facility] if - * you have uncontrolled chest pain despite taking pain medicine * you have worsening shortness of breath * you are coughing up blood * you have bleeding from any location (blood in the stool, blood in the urine, etc) * any other concerns Additional information - * Jess Delatorre is our hospitalist group "nurse navigator" * her direct phone number is [phone] * please plan to speak with Jess on FRIDAY to ensure that things are moving along with getting the Xarelto starting pack * she can also assist with any other needs that you may have It was our please to care for you! Continue to feel better, Trenton Hankstl Teletray Operator Provider Instructions: Blood Thinner (Anticoagulant) Medication Instructions: Your condition is typically treated with an anticoagulant. Anticoagulants will thin your blood to help prevent new clots. Your blood thinner is XARELTO. * You should take your medication exactly as directed. * Never skip a dose. * Never take a double dose. If you miss a dose, take it as soon as you remember. Call your Primary Care doctor if you experience any of the following: * Swelling or Pain in your leg * Sudden, continuous pain deep in a muscle * Pain that worsens when you are active or when you stand still for a long time * Chest Pain * Sudden Shortness of Breath * Rapid or pounding heart beat * Fainting * Dizziness * Cough with blood or bloody sputum * Sweating more than normal * Bruises * Heavy or uncontrolled bleeding * Blood in your urine, stool or vomit * Black or tarry stools * Heavy nose bleeding Caring for Your Self at Home: * Avoid sitting, standing or lying down for long periods without moving your legs and feet * When traveling by car, stop to get out and move around at least once every 3 hours * On long airplane, train or bus rides, get up and move around when possible * If you can't get up, wiggle your toes and tighten your calves to keep your blood moving Pending Studies at Discharge: No Stand-Alone Forms: My [facility], Smoking Cessation Medications and DC Order Prescriptions: New Xarelto DVT-PE Treat 30d Start 15 mg (42)- 20 mg (9) tablets,dose pack See Rx Instructions .ROUTE .COMPLEX Qty: 51 0RF Rx Instructions: take one-15 mg tablet twice daily for 21 days, then one-20 mg tablet once daily thereafter; must take with meal/food hydrocodone-acetaminophen 10-325 mg Tablet 1 tab PO Q6H PRN (Reason: pain) Qty: 20 0RF triamcinolone acetonide 0.1 % Cream 1 applic EXT TID Qty: 30 0RF Rx Instructions: apply in thin amounts to rash for about 7 days then discontinue. Continued hydrochlorothiazide 25 mg tablet 25 mg PO QAM PRN (Reason: swelling) Qty: 90 3RF multivitamin Tablet 1 tab PO DAILY carvedilol 25 mg tablet 25 mg PO BID Qty: 180 3RF Rx Instructions: must administer with a meal/food clopidogrel 75 mg tablet 75 mg PO QAM Qty: 90 3RF nitroglycerin 0.4 mg tablet, sublingual 0.4 mg sublingual Q5M MDD 3 PRN (Reason: Chest Pain) Qty: 25 3RF garlic 100 mg Tablet 100 mg PO DAILY Changed rivaroxaban 20 mg tablet 20 mg PO DAILY Qty: 30 11RF Rx Instructions: must administer with evening meal Discontinued valsartan 160 mg tablet 160 mg PO QAM Discharge Orders: Discharge Order (Routine); Ordered 02/18/25 Ordered By: Trenton Nolan/Other Patient Handouts: Understanding Deep Vein Thrombosis, Pulmonary Embolism Admission Data Admit Date/Time: 02/16/25 15:46 Attending Provider: Trenton Del Cid Admit Provider: Trenton Del Cid Primary Care Provider: Nikita Singleton Other Providers: Netta Cannon Other Interventions: Discharge Summary Assessment (RN) Last Done: 02/18/25 16:39 Hospital Stay Data Consultations Physical therapy Procedures Performed Echocardiogram: EF 60-65%; normal LV wall motion; normal RV function; grade 1 diastolic dysfunction 2-step ambulatory O2 test - no need for home O2 Diagnostic Imagining Performed Chest CTA 02/15/25 07:41 CT ANGIOGRAM OF THE CHEST CLINICAL HISTORY: Right-sided chest pain. COMPARISON STUDY: Chest CT January 28, 2024. TECHNIQUE: Following the IV administration of 112 cc of Optiray 320, CT angiogram of the chest was performed from the upper abdomen to the thoracic inlet utilizing the pulmonary embolus protocol. Images are reviewed in the axial, sagittal, and coronal planes. 3-D MIPS images are created and assessed. IV contrast was administered without complication. A dose lowering technique was utilized adhering to the principles of ALARA. CT DOSE: 934.91 mGy.cm FINDINGS: There are numerous right-sided pulmonary emboli, including within the right interlobar pulmonary artery and numerous lobar and segmental emboli within the right middle and right lower lobes. No central pulmonary embolus is present. There is no CT evidence for right-sided heart strain. A 6.1 cm subpleural groundglass opacity within the superior segment of the right lower lobe is suggestive of an associated pulmonary infarct. There is a small right pleural effusion. No pneumothorax is present. Additional airspace opacities within lungs favor atelectasis. Mild cardiomegaly and moderate coronary artery calcification are again noted. Thinning of the left ventricular apex is present. A mildly enlarged subcarinal lymph node has slightly increased in size when compared to prior exam. This is probably benign. No suspicious pulmonary nodules are present. Visualized portions of the upper abdomen are unremarkable with the exception of diverticulosis of the visualized transverse colon. IMPRESSION: 1. Numerous right-sided pulmonary emboli, as described above. Associated right lower lobe pulmonary infarct and a small right pleural effusion. No central pulmonary embolus. No CT evidence for right heart strain. 2. Mild cardiomegaly and moderate coronary artery calcification. ACT 112: Negative or not required by law. Electronically signed by: Ruperto Padilla M.D. 02/15/2025 9:28 AM Venous Doppler Study 02/16/25 10:50 BILATERAL LOWER EXTREMITY VENOUS DOPPLER CLINICAL HISTORY: PEs COMPARISON STUDY: Bilateral lower extremity venous Doppler ultrasound July 23, 2021. TECHNIQUE: Sonography of the deep venous system of the bilateral lower extremities was performed. Compression and augmentation were evaluated. FINDINGS: There is no evidence for acute deep venous thrombus within the right lower extremity. Minimal stranding within the right superficial femoral vein is unchanged since ultrasound of July 23, 2021. This represents a small amount of chronic thrombus. A small right popliteal cyst is incidentally noted. Deep venous thrombus within the left superficial femoral vein is noted. This was not present on prior exam and is likely acute. This thrombus is nearly occlusive. No additional sites of deep venous thrombus within the left lower extremity are present. IMPRESSION: 1. Acute appearing deep venous thrombus within the left superficial femoral vein. No additional sites of acute deep venous thrombus within the lower extremities. 2. No change in a small amount of chronic thrombus within the right superficial femoral vein. ACT 112: Negative or not required by law. Electronically signed by: Ruperto Padilla M.D. 02/16/2025 2:27 PM Chest X-Ray 02/18/25 07:00 XR chest 2V PA/lateral CLINICAL HISTORY: recent PEs, pulm infarction, R sided pleuritic CP COMPARISON STUDY: 07/27/2021 FINDINGS: Stable mild cardiomegaly with mild pulmonary vascular congestion. There is interval small right pleural effusion and consolidation at the right lung base. No pneumothorax. Stable old right mid rib fractures. IMPRESSION: CHF with right pleural effusion and right lung base consolidation. ACT 112: Negative or not required by law. Electronically signed by: Kit Calhoun M.D. 02/18/2025 9:34 AM Pending Results Patient Have Any Pending Studies at Discharge: No Discharge Instructions Given to Patient (Per Discharging Provider) Mr Smith, Roni were hospitalized due to having blood clots of the right lung ("Pulmonary emboli"). Your scans also showed evidence of pulmonary infarction which is when the lung tissue becomes damaged as a result of poor blood flow due to the pulmonary emboli. Your chest pain was due to the infarction. We also discovered a new DVT in the left leg. The right leg ultrasound showed remnants of your old DVT from years ago. You were treated with heparin drip then transitioned over to Xarelto. We checked an echocardiogram to ensure the pulmonary emboli didn't cause any heart issues and the echo was normal. On 02/17 a walking oxygen test showed that you do NOT need oxygen outside the hospital/at home. Recommendations - 1. Xarelto - * take 15mg twice daily x 21 days * we have provided 8 tablets for home use until the remaining Xarelto arrives at [facility] in [place] * start the Xarelto tomorrow morning * we are hopeful the formal "Starter pack" of Xarelto arrives by Friday of next week at [facility] * after 21 days you will then switch to Xarelto 20mg once daily * this will be your maintenance dose * you will need to take some form of anticoagulant/blood thinner over your lifetime * I have printed a prescription for 20mg Xarelto tablets which again will be your maintenance - do not fill this at this time. You will fill this in about 1 month. * do not drink any alcohol with Xarelto * do not take any qoul-ycw-iljnrpj anti-inflammatory pills such as motrin, ibuprofen, aleve, or naprosyn * do not take any aspirin [id number]-eztsqlj * please CONTINUE your plavix (clopidogrel) as previous * in about 6 months you can have discussions with your outpatient providers about whether you can reduce the dose of Xarelto to 10mg daily rather than 20mg 2. Pain control - * if your pain is mild you can take mmed-nbh-reqcceq tylenol 500mg every 8 hours as needed * maximum amount of tylenol is 3000mg in a 24 hour period * for moderate to severe pain you can take the prescription pain killer - hydrocodone-acetaminophen 10mg/325 * you can take 1 tablet every 6 hours as needed * note that this narcotic contains tylenol in it * again limit total tylenol use to no more than 3000mg in 24 hours * do not drive a car while taking narcotic pain medicine * do not drink alcohol with narcotic pain medicine 3. Please resume your carvedilol and clopidogrel as previous for your heart disease. 4. For rash you may use the steroid cream provided - triamcinolone 0.1% - apply in thin amounts up to 3 times daily for about 7 days. 5. For any itchiness you can use rvuu-xov-vbvfody sherie or zyrtec as desired. Follow the instructions on the bottle/packaging. 6. For another 5-7 days try to use the incentive spirometer device. 7. In about 2 months please have your outpatient providers order another CT scan of the lungs. Follow-up - see separate section Return to [facility] [place] if - * you have uncontrolled chest pain despite taking pain medicine * you have worsening shortness of breath * you are coughing up blood * you have bleeding from any location (blood in the stool, blood in the urine, etc) * any other concerns Additional information - * Jess Delatorre is our hospitalist group "nurse navigator" * her direct phone number is [phone] * please plan to speak with Jess on FRIDAY to ensure that things are moving along with getting the Xarelto starting pack * she can also assist with any other needs that you may have It was our please to care for you! Continue to feel better, Trenton Del Cid Total Time Total Time Spent Total Time Spent (In Minutes): 50 Coding Level of Care Code 52336 INP/OBS DISCH >30 MIN Diagnoses Pulmonary embolism and infarction I26.99 Acute pulmonary embolism I26.99 Acute deep vein thrombosis of left femoral vein I82.412 Personal history of DVT (deep vein thrombosis) Z86.718 CAD (coronary artery disease) I25.10 Hypertension I10 Pleuritic chest pain R07.81 Dyslipidemia E78.5 Prothrombin gene mutation D68.52 Factor 5 Leiden mutation, heterozygous D68.51 Pleural effusion J90
[2025-02-18 16:40] VITALS: BP 170/84
== END 2025-02-18 17:05 | disposition home or self-care (01) | DRG 176 ==
LOC: EDINP 07:23 → ED 07:23 → SUATTDRO 12:11 → EDINP 16:13 → 2N 18:49